=== PATIENT | male | born 1970 | race Caucasian/White ===

== ENCOUNTER → 2016-08-14 | Outpatient (CLI) | payer BC, MEDICAID ==
[~2016-08-14] MED LIST: CEPH500C2 PO; CYAN50003 PO; DOCU-175 PO; ELDE118L PO; GLUC1CAP39 PO; MULT-1243 PO; OXYC1TAB11 PO; TOPI50TA PO
--- NOTE | 2016-08-14 10:05 | DI ---
Indication: ITS.REASON: C02.9;C60.1;R59.0 LOCALIZED ENLARGED LYMPH NODES PROCEDURE: PET/CT SKULL TO THIGH SUBSEQUE: Encounter: Subsequent Comparison: PET/CT dated April 24, [address] abdomen/pelvis dated September 07, 2015 Technique: 18.8 mCi of F-18 FDG was administered intravenously via the right antecubital fossa. Approximately 60 minutes later 3D PET/CT imaging was performed from the skull base through the mid thighs. The CT images are for attenuation correction purposes only. Findings: No areas of abnormal FDG uptake seen within the skull base. There is no metabolically active adenopathy seen in the neck. Postoperative changes in the right neck. Mildly increased uptake diffusely in the thyroid gland. Focus of increased activity in the right sternoclavicular joint likely related to degenerative inflammation. No metabolically active pulmonary nodules or masses appreciated. Expected myocardial uptake. No axillary or mediastinal lymphadenopathy. Liver uptake is relatively homogeneous without discrete metabolically active mass. Expected genitourinary and bowel uptake. No areas of concerning skeletal uptake appreciated. There is increased FDG uptake within a couple right inguinal area lymph nodes at location -1376. The most active shows an SUV max of 3.5. On the prior study this node had a SUV max of 1.5. Left-sided inguinal nodes at this same level have an SUV max of 2.2. Right external iliac node at location -1307 shows an SUV max of 3.8. Left external iliac node at the same level has an SUV max of 3.4. No additional metabolically active adenopathy identified. Impression: Mildly increased FDG uptake within a few pelvic lymph nodes which are more active than the comparison study raising some concern for metastatic disease. However, the size and morphologic appearance of the lymph nodes has not appreciably changed since August 2015. Continued attention to this area is recommended on subsequent exams. .
== END ==
LOC: IMA 06:22
PROVIDERS: ATTEND Urology
DX: C02.9 Malignant neoplasm of tongue, unspecified (principal); R93.8 Abnormal findings on diagnostic imaging of other specified body structures; C60.1 Malignant neoplasm of glans penis; R59.0 Localized enlarged lymph nodes
CPT/HCPCS: 78815; A9552

== ENCOUNTER → 2016-08-28 | Outpatient (CLI) | payer BC, MEDICAID ==
[2016-08-28 13:17] LABS: BLOOD, URINE TRACE-INTACT (NEGATIVE); COLOR,URINE YELLOW (YELLOW); LEUKOCYTE ESTERASE ,URINE NEGATIVE (NEGATIVE); NITRITE,URINE NEGATIVE (NEGATIVE); UROBILINOGEN,URINE 0.2 EU/DL (NORMAL)
== END ==
LOC: LABN 13:06
PROVIDERS: ATTEND Internal Medicine Medical Oncology
DX: C60.8 Malignant neoplasm of overlapping sites of penis (principal)
CPT/HCPCS: 81003

== ENCOUNTER → 2016-08-30 | Outpatient (CLI) | payer BC, MEDICAID ==
[2016-08-30 16:11] LABS: BLOOD, URINE 1+ (NEGATIVE); COLOR,URINE YELLOW (YELLOW); LEUKOCYTE ESTERASE ,URINE NEGATIVE (NEGATIVE); NITRITE,URINE NEGATIVE (NEGATIVE); UROBILINOGEN,URINE 0.2 EU/DL (NORMAL)
[2016-08-30 16:28] LABS: WBC,URINE 0-1 /HPF (0-5)
[2016-08-30 16:29] LABS: BACTERIA,URINE NONE SEEN (NEGATIVE); SQUAMOUS EPITHELIAL CELL,UR NONE SEEN
== END ==
LOC: LABN 15:57
PROVIDERS: ATTEND Internal Medicine Medical Oncology
DX: C60.8 Malignant neoplasm of overlapping sites of penis (principal)
CPT/HCPCS: 81001

== ENCOUNTER 2016-12-19 09:06 | Inpatient (IN) ==
--- OUTSIDE RECORDS SUMMARY | 2016-12-19 09:12 | External Medical Summary | Continuity of Care Document ---
:1970 Author Organization [facility] Care Team Providers Name Role Phone [employer] Unavailable Unavailable Encounters Location Location Encounter Encounter Reason Attending ADM DC Status Source Details Type Number For Provider Date Date Visit INPATIENT [id number] CHANDRA 11/29 12/02 Active The OR /2016 [facility] O CHANDRA Active The [facility] Family History Value Date Source Advance Directives Order Name Results Value Date Source
--- OUTSIDE RECORDS SUMMARY | 2016-12-19 09:13 | External Medical Summary | Encounter Summary ---
:1970 Author Organization [facility] Address [address] [facility] [address] [place] [address] Phone Care Team Providers Name Role Phone Unavailable Primary Care Provider Unavailable Reason for Visit Reason Comments Wound Care Encounter Details Date Type Department Care Team Description 12/03/2016 Telephone [facility] Lamont Hollingsworth MD Wound Care Physicians - Urology [address] [facility] [address] [place] [address] [address] [facility] [phone] [place] [address] Social History Tobacco Use Types Packs/Day Years Used Date Former Smoker Cigarettes 28 Quit: 10/12/2014 Smokeless Tobacco: Former User Chew Comments: STARTED SMOKING CIGARETTES AGE [age]; 1 PACK A DAY; AT AGE 27 STARTED TO CHEW- 1/2 TO 1 POUCH A DAY TILL AGE 44 Alcohol Use Drinks/Week oz/Week Comments Yes 0 Standard drinks or equivalent 0.0 MAYBE 1 DRINK A YEAR Sex Assigned at Date Recorded Not on file as of this encounter Functional Status Functional Status Response Date of Assessment Does the patient have a hearing impairment: No 06/27/2016 Does the patient have a visual impairment: No 06/27/2016 Does the patient have impaired ambulation: No 06/27/2016 Does the patient have an activity of daily living (ADL) No 06/27/2016 impairment: Does the patient have an instrumental activity of daily No 06/27/2016 living (IADL) impairment: Cognitive Status Response Date of Assessment Does the patient have a cognitive impairment: No 06/27/2016 as of this encounter Plan of Treatment Not on fileas of this encounter Visit Diagnoses Not on filein this encounter
--- OUTSIDE RECORDS SUMMARY | 2016-12-19 09:13 | External Medical Summary | Encounter Summary ---
:[address] [facility] Address [address] [facility] [address] [place] [address] Phone Care Team Providers Name Role Phone Unavailable Primary Care Provider Unavailable Reason for Visit Reason Comments Other f/u Encounter Details Date Type Department Care Team Description 11/01/2016 Telephone [facility] Romel Sanchez MD Other (f/u) [facility] [address] [place] [address] [address] [place] [address] [place] [address] [phone] Social History Tobacco Use Types Packs/Day Years [...]
--- OUTSIDE RECORDS SUMMARY | 2016-12-19 09:13 | External Medical Summary | Encounter Summary ---
:[address] [facility] Address [address] [place] [address] Phone Care Team Providers Name Role Phone Unavailable Primary Care Provider Unavailable Reason for Visit Auth/Cert Status Reason Specialty Diagnoses / Procedures Referred By Contact Referred To Contact Diagnoses Penile cancer (HCC) unknown Procedures LYMPHADENECTOMY INGUINAL DISSECTION LYMPH NODE PELVIC, robotic Encounter Details Date Type Department Care Team Description 11/29/2016 Surgery Main Operating Room Chandra August MD ROBOTIC PELVIC [address] [place] [address] [address] [place], [place] [id number] Social History Tobacco Use Types Packs/Day Years [...] Not on file as of this encounter Last Filed Vital Signs Vital Sign Reading Time Taken Blood Pressure 105/59 12/02/2016 11:22 AM CDT Pulse 69 12/02/2016 11:22 AM CDT Temperature 36.9 C (98.4 F) 12/02/2016 11:22 AM CDT Respiratory Rate - - Oxygen Saturation 100% 12/02/2016 11:22 AM CDT Inhaled Oxygen Concentration - - Weight 151.9 kg (334 lb 14.1 oz) 11/29/2016 8:06 AM CDT Height 180.3 cm (5' 11") 11/29/2016 8:06 AM CDT Body Mass Index 46.71 11/29/2016 8:06 AM CDT in this encounter Functional Status Functional Status Response [...] impairment: No 06/27/2016 as of this encounter Discharge Summaries Crystal Schaeffer MD - 12/02/2016 1:50 PM CDTFormatting of this note may be different from the original. Physician Discharge Summary Name: Shun Keys Date Of : 1970 Age: 46 years Admit date: 11/29/2016 Discharge date: 12/02/2016 Attending Physician: Chandra August Service: Surgery-Urology Physician Summary completed by: Crystal Schaeffer MD Reason for hospitalization: penile cancer requiring pelvic lymph node dissection Significant PMH: Past Medical History: Diagnosis Date Cancer of tongue (HCC) Gout Hearing reduced Obesity, Class III, BMI 40-49.9 (morbid obesity) (HCC) BMI - 45.91 - 311 LBS Sleep apnea with use of continuous positive airway pressure (CPAP) Allergies: Review of patient's allergies indicates no known allergies. Admission Physical Exam notable for: Constitutional: He is oriented to person, place, and time. He appears well- developed and well-nourished. No distress. HENT: Head: Normocephalic and atraumatic. Eyes: Conjunctivae are normal. Right eye exhibits no discharge. Left eye exhibits no discharge. No scleral icterus. Neck: No tracheal deviation present. Cardiovascular: Normal rate. Pulmonary/Chest: Effort normal. No stridor. No respiratory distress. Abdominal: He exhibits no distension. Genitourinary: Wounds well healed Well healed perineal wounds without fluctuance, induration, erythema, or crepitance Musculoskeletal: Normal range of motion. He exhibits no edema or tenderness. Neurological: He is alert and oriented to person, place, and time. Skin: Skin is warm and dry. No rash noted. He is not diaphoretic. No erythema. No pallor. Psychiatric: He has a normal mood and affect. His behavior is normal. Judgment and thought content normal. Admission Lab/Radiology studies notable for: Hgb 12.3, WBC 13.3 Brief Hospital Course: The patient was admitted and the following issues were addressed during thishospitalization: (with pertinent details). Patient was admitted for the procedure listed below, which he underwent on without issues. Postoperatively, the patient's pain was well controlled and he tolerated diet without nausea or emesis. His bowel functions returned and he was continued on 1 day of postoperative Ancef, which was then transitioned to Keflex 500mg BID. Once all discharge criteria were met, the patient was discharged with 2 inguinal ALEJANDRO drains and instructed to wear compression stockings at all times to prevent LE edema.He was instructed to call when his ALEJANDRO drain output are less than 50-60cc/day and schedule a followupappointment at that time. He was instructed to continue the current Keflex regimen until that time. Patient voiced understanding and was discharged in stable condition to home with home health. Condition at Discharge: Stable Discharge Diagnoses: Hospital Problems Active Problems Penile cancer (HCC) Surgical Procedures: robotic assisted laparoscopic bilateral pelvic lymph node dissection, bilateralilioinguinal lymph node dissection, bilateral muscle flap transposition. Significant Diagnostic Studies and Procedures: noted in brief hospital course Consults: None Patient Disposition: Home with Home Health Care Patient instructions/medications: Driving Restrictions No driving while taking pain medication. Lifting Restrictions Do not lift more than 10 pounds for 5 week(s). Report These Signs and Symptoms Please contact your doctor if you have any of the following symptoms: temperature higher than 101 degrees F, uncontrolled pain, persistent nausea and/ or vomiting, difficulty breathing, chest pain, severe abdominal pain, headache, unable to urinate, unable to have bowel movement or drainage with a foulodor Questions About Your Stay For questions or concerns regarding your hospital stay. Call [phone] Discharging attending physician: CHANDRA AUGUST [[id number]] Regular Diet You have no dietary restriction. Please continue with a healthy balanced diet. Wound Care Keep wound clean and dry. Do not submerge under water. Incision Care *Keep your incision clean and dry. *May shower following procedure. Avoid direct water contact to the incision. Take sponge baths, working around the incision during this time. *Do not submerge incision in tub, pool, hot tub, or stout for 4 weeks. *Usually there are not stitches to be removed. Steri-strips (strips of tape) will begin to fall off in 10-14 days. If they remain after 2 weeks, gently remove them when they are damp after a shower. *Your incision should gradually look better each day. If you notice unusual swelling, redness, drainage, have increasing pain at the site, or have a fever greater than 100 degrees, notify your physician immediately. Return Appointment Please call [phone] once your ALEJANDRO drain output is less than 60mL per day to schedule a follow upappointment with Dr. August. [facility] Provider CHANDRA AUGUST [[id number]] Eugene Blankenship Drain Shelter care instructions: *WASH HANDS PRIOR TO ANY HANDLING OF DRAIN. *Please write down daily (total for 24 hours) drain output, and empty multiple times a day if neededor according to physician's instructions. *To empty the drain, open the lid on top of the bulb. Pour the fluid into a measuring cup and record. Close by squeezing the bulb until as much air as possible is removed, the cap the lid to recreatesuction. *IF TOLD TO DO BY YOUR DOCTOR, "strip the drain" twice daily by pinching the tubing near the skin with both hands. Keep hand closest to you steady, and with the other, slowly squeeze the liquid towardthe bulb. This will prevent any clots or debris from clogging the drain. *It is okay to shower with the drain. Make sure the entry site is dry before placing a dressing. *Please bring the drain record to your next clinic appointment. Secure the drain to your clothes using asafety pin. *DO NOT TRY TO PUSH THE DRAIN BACK IN IF IT GETS PULLED OUT (even a little bit) , THIS IS A BIG INFECTION RISK. If you have any problems with the drain ( for example, large amounts of fluid, very bloody fluid, or loss of suction), please call your doctor. Current Discharge Medication List START taking these medications Details cephalexin (KEFLEX) 500 mg capsule Take 1 capsule by mouth twice daily for 14 days. Qty: 28 capsule, Refills: 0 PRESCRIPTION TYPE: Print enoxaparin (LOVENOX) 40 mg injection syringe Inject 0.4 mL under the skin twice daily for 30 days. Qty: 24 mL, Refills: 0 PRESCRIPTION TYPE: Print Miscellaneous Medical Supply misc Wear compression stocking daily at home. Qty: 1 Device, Refills: 0 PRESCRIPTION TYPE: Print oxyCODONE (ROXICODONE, OXY-IR) 5 mg tablet Take 1 tablet by mouth every 4 hours as needed (moderate to severe pain) Indications: PAIN Earliest Fill Date: Qty: 40 tablet, Refills: 0 PRESCRIPTION TYPE: Print polyethylene glycol 3350 (MIRALAX) 17 g packet Take 1 packet by mouth daily. Indications: CONSTIPATION Qty: 12 each, Refills: 2 PRESCRIPTION TYPE: Print senna (SENOKOT) 8.6 mg tablet Take 1 tablet by mouth twice daily as needed for Constipation. Indications: CONSTIPATION Qty: 90 tablet, Refills: 3 PRESCRIPTION TYPE: Print CONTINUE these medications which have NOT CHANGED Details acetaminophen (TYLENOL) 500 mg tablet Take 500 mg by mouth every 6 hours as needed for Pain. Max of 4,000 mg of acetaminophen in 24 hours. PRESCRIPTION TYPE: Historical Med allopurinol (ZYLOPRIM) 100 mg tablet Take 100 mg by mouth daily. Take with food. PRESCRIPTION TYPE: Historical Med cyanocobalamin (VITAMIN B-12) 1,000 mcg tablet Take 1,000 mcg by mouth daily. PRESCRIPTION TYPE: Historical Med Tbjzbvkq-Kolk-Bkw-Folic Acid (CENTRUM COMPLETE) 18-0.4 mg tab Take 1 Tab by mouth daily. PRESCRIPTION TYPE: Historical Med sertraline (ZOLOFT) 100 mg tablet Take 150 mg by mouth at bedtime daily. PRESCRIPTION TYPE: Historical Med topiramate (TOPAMAX) 50 mg tablet Take 50 mg by mouth twice daily. PRESCRIPTION TYPE: Historical Med The following medications were removed from your list. This list includes medications discontinued this stay and those removed from your prior med list in our system guaiFENesin LA (MUCINEX) 600 mg tablet Pending items needing follow up: surgical pathology at follow up appt Signed: Crystal Schaeffer MD 12/02/2016 cc: Primary Care Physician: Humphrey Chris Fast Verified Referring physicians: Humphrey Dominguez MD Additional provider(s): in this encounter Medications at Time of Discharge Medication Sig. Disp. Refills Start Date End Date acetaminophen (TYLENOL) Take 500 mg by mouth 500 mg tablet every 6 hours as needed for Pain. Max of 4,000 mg of acetaminophen in 24 hours. allopurinol (ZYLOPRIM) Take 100 mg by mouth 100 mg tablet daily. Take with food. cyanocobalamin (VITAMIN Take 1,000 mcg by B-12) 1,000 mcg tablet mouth daily. enoxaparin (LOVENOX) 40 Inject 0.4 mL under 24 mL 0 12/02/2016 01/01/2017 mg injection syringe the skin twice daily for 30 days. Miscellaneous Medical Wear compression 1 Device 0 12/02/2016 Supply misc stocking daily at home. Zqvtukfe-Pglj-Ubk-Folic Take 1 Tab by mouth Acid (CENTRUM COMPLETE) daily. 18-0.4 mg tab oxyCODONE (ROXICODONE, Take 1 tablet by 40 tablet 0 12/02/2016 OXY-IR) 5 mg mouth every 4 hours tabletIndications: PAIN as needed (moderate to severe pain) Indications: PAIN Earliest Fill Date: 12/02/16 polyethylene glycol Take 1 packet by 12 each 2 12/02/2016 3350 (MIRALAX) 17 g mouth daily. packetIndications: Indications: CONSTIPATION CONSTIPATION senna (SENOKOT) 8.6 mg Take 1 tablet by 90 tablet 3 12/02/2016 tabletIndications: mouth twice daily as CONSTIPATION needed for Constipation. Indications: CONSTIPATION sertraline (ZOLOFT) 100 Take 150 mg by mouth mg tablet at bedtime daily. topiramate (TOPAMAX) 50 Take 50 mg by mouth mg tablet twice daily. cephalexin (KEFLEX) 500 Take 1 capsule by 28 capsule 0 12/02/20162016 mg capsule mouth twice daily for 14 days. as of this encounter Progress Notes Cyril Sullivan MD - 12/02/2016 5:29 AM CDTFormatting of this note may be different from the original. Urology Progress Note 12/02/2016 ASSESSMENT: Shun Keys is a 46 y.o. Male with penile cancer s/p bilateral inguinal and pelvic lymphadenectomy LOS: 3 days PLAN: will discuss plan with staff surgeon - Dr. August - Pain control: Fentanyl, oxycodone - Diet/FEN: Regular - GI: bowel regimen - : Voiding spontaneously, paris removed yesterday - Compression stockings at all times - Heme/ID: BID Keflex - Inguinal drains to remain in place beyond discharge. - OOB/Amb - Dispo: Discharge planning. Will likely have home health or home PT needs due to weakness. Prophylaxis Review: - DVT: Lovenox - GI: No - Catheter: No - Abx: Yes Cyril Sullivan M.D. PGY-2 Urology Please page urology carton forming machine tender with questions SUBJECTIVE: Overnight events: No acute events. Pain controlled. Tolerating diet without nausea or emesis. Ambulated minimally with assistance of PT. Passing gas. no bowel movement. OBJECTIVE: Vital Signs: Most Recent Vital Signs: Past 24 Hours BP: 103/55 (12/02 252) Temp: 36.4 C (97.5 F) (12/02 252) Pulse: 67 (12/02 252) Respirations: 17 PER MINUTE (12/02 252) SpO2: 100 % (12/02 252) O2 Delivery: None (Room Air) (12/02 252) BP: (99-108)/(55-65) Temp: [36.3 C (97.4 F)-37.1 C (98.8 F)] Pulse: [67-78] Respirations: [16 PER MINUTE-18 PER MINUTE] SpO2: [97 %-100 %] O2 Delivery: None (Room Air) Intake/Output Summary (Last 24 hours) at 12/02/16 0580 Last data filed at 12/02/16 0415 Gross per 24 hour Intake 1900 ml Output 7032 ml Net -5132 ml General: alert, oriented, no acute distress. Pulm: non-labored, equal chest rise CV: regular rate and rhythm Abd: soft, non-distended. ALEJANDRO drain with serosanguinous output. Incisions / Wounds: Appropriately tender to palpation. Inguinal incisions C/D/I and dressed. Roboticincisions well-approximated. ALEJANDRO drains with serosanguinous output. Extremities: No edema, SCD's in place : Voiding spontaneously via perineal urethrostomy. Labs: Hematology Chemistry Recent Labs 12/02/16 0412 WBC 4.1* HGB 7.9* PLTCT 136* Recent Labs 12/01/16 0500 NA 137 K 3.7 CL 108 CO2 26 BUN 10 CR 0.71 GFR >60 GLU 98 CA 7.9* PO4 2.0 ] Associated attestation - Chandra August MD - 12/02/2016 1:32 PM CDTAttestation I saw and evaluated pt with the resident on rounds and performed the lal portions of the e/m. I agree with the above assessment and plan. Pt doing very well. He has mild BLE edema and has his compression stockings in place. His wounds are c/d/i without evidence of vascular compromise. He will be d/c'd today with both his inguinal ALEJANDRO drains.Lynne Dickinson, PT - 12/01/2016 2:55 PM CDTPHYSICAL THERAPY PROGRESS NOTE MOBILITY: Mobility Progressive Mobility Level: Walk laps Distance Walked (feet): 200 ft Level of Assistance: Assist X1 Assistive Device: Walker (with wheelchair follow) Time Tolerated: 11-30 minutes Activity Limited By: Pain;Weakness SUBJECTIVE: Subjective Significant hospital events: 46 y.o. Male with penile cancer s/p bilateral inguinal and pelvic lymphadenectomy Mental / Cognitive Status: Alert;Oriented;Cooperative Persons Present: Spouse Pain: Patient complains of pain Pain Location: Right (Groin) Pain Interventions: Patient agrees to participate in therapy Ambulation Assist: Independent Mobility in Community without Device Patient Owned Equipment: None Home Situation: Lives with Family (Spouse and children) Type of Home: House Entry Stairs: No Stairs In-Home Stairs: Able to Live on One Level BED MOBILITY/TRANSFERS: Bed Mobility/Transfers Transfer Type: Sit to/from Stand Transfer: Assistance Level: To/From;Bed Side Chair;Minimal Assist Transfer: Assistive Device: Roller Walker Transfers: Type Of Assistance: Verbal Cues;For Strength Deficit End Of Activity Status: Up in Chair;Instructed Patient to Request Assist with Mobility;Instructed Patient to Use Call Light GAIT: Gait Gait Distance: 200 feet Gait: Assistance Level: Standby Assist (2nd person for wheelchair follow for safety) Gait: Assistive Device: Roller Walker Gait: Descriptors: Pace: Slow;Decreased foot clearance RLE;Decreased foot clearance LLE Activity Limited By: Complaint of Pain;Weakness EDUCATION: Education Persons Educated: Patient Patient Barriers To Learning: None Noted Teaching Methods: Verbal Instruction Patient Response: Verbalized Understanding Topics: Plan/Goals of PT Interventions;Mobility Progression;Importance of Increasing Activity;Up with Assist Only;Safety Awareness;Use of Assistive Device /Orthosis ASSESSMENT/PROGRESS: Assessment/Progress Impaired Mobility Due To: Pain;Decreased Strength Assessment/Progress: Should Improve w/ Continued PT Comments: Patient has some difficulty with sit to/from stand due to pain/ weakness in bilateral groins from lymph node removal. Once patient is standing, pt is able to ambulate well. His ability to clear his feet from the floor has improved. GOALS: Goals Goal Formulation: With Patient/Family Time For Goal Achievement: 5 days Pt Will Go Supine To/From Sit: w/ Minimal Assist Pt Will Transfer Sit to Stand: w/ Minimal Assist Pt Will Ambulate: 51-100 Feet, w/ Walker, w/ Stand By Assist PLAN: Plan Treatment Interventions: Mobility Training;Strengthening Plan Frequency: 5 Days per Week Comments: Progress ambulation. Make sure pt is able to complete bed mobility and transfers without assistance as his has to work and will not be available to assist at all times when at home. RECOMMENDATIONS: PT Discharge Recommendations PT Discharge Recommendations: Home with Assistance;Home Health Setting Equipment Recommendations: Roller Walker (Bariatric); Patient requires the use of a walker with wheels to complete ADLs in the home including meal preparation, ambulation the bathroom for toileting,bathing and grooming, and safe home mobility. Patient is unable to complete these ADLs with a cane or crutch. Recommend ongoing assistance for: Bed mobility;Transfers;Stairs Therapist: Lynne Dickinson, PT Date: 12/01/2016 Elba Mckenzie MD - 12/01/2016 7:10 AM CDTFormatting of this note may be different from the original. Urology Progress Note 12/01/2016 ASSESSMENT: Shun Keys is a 46 y.o. Male with penile cancer s/p bilateral inguinal and pelvic lymphadenectomy LOS: 2 days PLAN: will discuss plan with staff surgeon - Dr. Zhao - Pain control: Fentanyl, oxycodone - Diet/FEN: Regular - GI: bowel regimen - : Voiding spontaneously, paris removed yesterday - Compression stockings at all times - Heme/ID: BID Keflex - Will remove abdominopelvic ALEJANDRO drain today. Inguinal drains to remain in place beyond discharge. - OOB/Amb - Dispo: Continue inpatient stay; Will likely have home health or home PT needs due to weakness. Prophylaxis Review: - DVT: Lovenox - GI: No - Catheter: No - Abx: Yes Elba Mckenzie MD PGY-3 Urology Please page urology carton forming machine tender with questions SUBJECTIVE: Overnight events: No acute events. Pain controlled. Tolerating diet without nausea or emesis. Ambulated minimally with assistance of PT. Passing gas. OBJECTIVE: Vital Signs: Most Recent Vital Signs: Past 24 Hours BP: 104/60 (12/02 635) Temp: 36.8 C (98.3 F) (12/02 635) Pulse: 75 (12/02 635) Respirations: 18 PER MINUTE (12/02 635) SpO2: 97 % (12/02 635) O2 Delivery: None (Room Air) (12/02 635) BP: (103-138)/(57-83) Temp: [36.2 C (97.2 F)-37.3 C (99.1 F)] Pulse: [73-111] Respirations: [16 PER MINUTE-20 PER MINUTE] SpO2: [93 %-100 %] O2 Delivery: None (Room Air) Intake/Output Summary (Last 24 hours) at 12/01/16 0710 Last data filed at 12/01/16 0637 Gross per 24 hour Intake 3028 ml Output 4791 ml Net -1763 ml General: alert, oriented, no acute distress. Pulm: non-labored, equal chest rise CV: regular rate and rhythm Abd: soft, non-distended. ALEJANDRO drain with serosanguinous output. Incisions / Wounds: Appropriately tender to palpation. Inguinal incisions C/D/I and dressed. Roboticincisions well-approximated. ALEJANDRO drains with serosanguinous output. Extremities: No edema, SCD's in place : Voiding spontaneously via perineal urethrostomy. Labs: Hematology Chemistry Recent Labs 12/01/16 0500 WBC 5.1 HGB 8.6* PLTCT 154 Recent Labs 12/01/16 0500 NA 137 K 3.7 CL 108 CO2 26 BUN 10 CR 0.71 GFR >60 GLU 98 CA 7.9* PO4 2.0 ]Juni Castellano, PT - 11/30/2016 2:55 PM CDTPHYSICAL THERAPY ASSESSMENT MOBILITY: Mobility Progressive Mobility Level: Active transfer to chair Level of Assistance: Assist X2 Assistive Device: Walker Time Tolerated: 0-10 minutes Activity Limited By: Dizziness;Weakness;Pain;Fatigue SUBJECTIVE: Subjective Significant hospital events: 46 y.o. Male with penile cancer s/p bilateral inguinal and pelvic lymphadenectomy Mental / Cognitive Status: Alert;Oriented;Cooperative Persons Present: Spouse Pain: Patient complains of pain;Patient unable to rate pain Pain Location: Left;Thigh Pain Interventions: Patient agrees to participate in therapy;Treatment altered to patient's pain tolerance;Patient assisted into position of comfort Comments: ALEJANDRO drain x3 Ambulation Assist: Independent Mobility in Community without Device Patient Owned Equipment: None Home Situation: Lives with Family (Spouse and children) Type of Home: House Entry Stairs: No Stairs In-Home Stairs: Able to Live on One Level Comments: Spouse will be able to assist with bed mobility and transfers at home. ROM: ROM ROM Position Assessed: Seated ROM Method: Active LE ROM: Bilateral;Hip;Limited (Due to pain and weakness) STRENGTH: Strength Strength Position Assessed: Seated Strength Comment: Bilateral hip flexion weakness (3-/5) BED MOBILITY/TRANSFERS: Bed Mobility/Transfers Bed Mobility: Supine to Sit: Moderate Assist;x2 People Comments: Pt requires assistance to move BLEs in supine and assist with trunk to sit up. He is abnleto scoot to edge of bed using BUEs. Transfer Type: Sit to/from Stand Transfer: Assistance Level: From;Bed;To;Bed Side Chair;Moderate Assist;x2 People Transfer: Assistive Device: Roller Walker Transfers: Type Of Assistance: Verbal Cues;Knees(s) Blocked;For Strength Deficit ;For Safety Considerations;Requires Extra Time End Of Activity Status: Up in Chair;Nursing Notified;Instructed Patient to Request Assist with Mobility;Instructed Patient to Use Call Light Comments: Pt reported minimal dizziness upon standing up which subsided with deep breathing exercises and static standing. Patient able to take 5-6 small steps to bedside chair. He has difficuly with lifting LEs and advancing feet due to decreased hip flexion strength. GAIT: Gait Comments: Patient unable to ambulate at this time due to reports of dizziness with standing throughout the day and LE weakness. ACTIVITY/EXERCISE: Activity / Exercise Comments: Pt performed seated marching x3 with 5 second holds. He requires assistance to lift foot off ground, but is able to hold leg in the air independently. EDUCATION: Education Persons Educated: Patient Patient Barriers To Learning: Pain;Anxiety Interventions: Family Education;Repetition of Instructions Teaching Methods: Verbal Instruction Patient Response: Verbalized Understanding;More Instruction Required Topics: Plan/Goals of PT Interventions;Use of Assistive Device/Orthosis; Mobility Progression;Exercise Program;Safety Awareness;Up with Assist Only; Importance of Increasing Activity;Equipment Recommendations;Recommend Continued Therapy ASSESSMENT/PROGRESS: Assessment/Progress Impaired Mobility Due To: Post Surgical Changes;Pain;Decreased Strength Impaired Strength Due To: Pain Assessment/Progress: Should Improve w/ Continued PT;Expect Good Progress GOALS: Goals Goal Formulation: With Patient/Family Time For Goal Achievement: 5 days Pt Will Go Supine To/From Sit: w/ Minimal Assist Pt Will Transfer Sit to Stand: w/ Minimal Assist Pt Will Ambulate: 51-100 Feet, w/ Walker, w/ Stand By Assist PLAN: Plan Treatment Interventions: Mobility Training;Strengthening Plan Frequency: 5 Days per Week Comments: Ambulate as tolerated with chair follow. RECOMMENDATIONS: PT Discharge Recommendations PT Discharge Recommendations: Inpatient Setting (Home with Assistance anticipated if patients pain and dizziness improves) Equipment Recommendations: Roller Walker (Bariatric Walker) Comments: Pt wishes to go to inpatient setting near home in [place] if inpatient setting is required. Patient requires the use of a walker with wheels to complete ADLs in the home including meal preparation, ambulation the bathroom for toileting, bathing and grooming, and safe home mobility. Patient is unable to complete these ADL s with a cane or crutch. Therapist: Juni Castellano PT, DPT Date: 11/30/2016 Alesia Aparicio RN - 11/30/2016 11:06 AM CDTPt tried to stand up and walk to bathroom but became dizzy x 2. Notified Elba Mckenzie MD. MD came in and encouraged pt to get some rest and rehydrate. Will continue to monitor.Elba Mckenzie MD - 11/30/2016 6:58 AM CDTFormatting of this note may be different from the original. Urology Progress Note 11/30/2016 ASSESSMENT: Shun Keys is a 46 y.o. Male with penile cancer s/p bilateral inguinal and pelvic lymphadenectomy LOS: 1 day PLAN: will discuss plan with staff surgeon - Dr. Zhao - Pain control: Fentanyl, oxycodone - Diet/FEN: Regular - GI: bowel regimen - : Remove paris catheter - Compression stockings at all times - Heme/ID: Continue Ancef x 24 hours then start BID Keflex - OOB/Amb - Dispo: Continue inpatient stay Prophylaxis Review: - DVT: Lovenox to begin tonight - GI: No - Catheter: No, removed this AM - Abx: Yes Elba Mckenzie MD PGY-3 Urology Please page urology carton forming machine tender with questions SUBJECTIVE: Overnight events: No acute events. Pain controlled. Tolerating diet without nausea or emesis. Not yet ambulating. OBJECTIVE: Vital Signs: Most Recent Vital Signs: Past 24 Hours BP: 107/63 (11/30 318) Temp: 37 C (98.6 F) (11/30 318) Pulse: 71 (11/30 318) Respirations: 16 PER MINUTE (11/30 318) SpO2: 99 % (11/30 318) O2 Delivery: None (Room Air) (11/29 1909) Height: 180.3 cm (71") (11/29 805) Weight: 151.9 kg (334 lb 14.1 oz) (11/29 805) BP: (107-148)/(63-98) Temp: [36 C (96.8 F)-37 C (98.6 F)] Pulse: [59-96] Respirations: [10 PER MINUTE-17 PER MINUTE] SpO2: [95 %-100 %] O2 Delivery: None (Room Air) Intake/Output Summary (Last 24 hours) at 11/30/16 0659 Last data filed at 11/30/16 0600 Gross per 24 hour Intake 5592 ml Output 3568.5 ml Net 2023.5 ml General: alert, oriented, no acute distress. Pulm: non-labored, equal chest rise CV: regular rate and rhythm Abd: soft, non-distended. ALEJANDRO drain with serosanguinous output. Incisions / Wounds: Appropriately tender to palpation. Inguinal incisions C/D/I and dressed. Roboticincisions well-approximated. ALEJANDRO drains with serosanguinous output. Extremities: No edema, SCD's in place : Paris catheter removed. Labs: Hematology Chemistry Recent Labs 11/30/16 0445 WBC 7.0 HGB 9.5* PLTCT 135* Recent Labs 11/30/16 0445 NA 133* K 5.5* CL 106 CO2 24 BUN 13 CR 0.88 GFR >60 GLU 115* CA 7.7* PO4 3.4 ]Veronica Kruse RN - 11/14/2016 1:59 PM CDTPAC phone triage call completed with patient who is scheduled for surgery 11/29/[address] Martel. Allergies, medications, medical and surgical history reviewed and updated in record. Patient has hx ofOSA with prior surgery to correct, and it has improved, however he still wears CPAP every evening. BMI is 47.35 reported. Will bring equipment with him on DOS. Patient denies chest pain, pressure or palpitations. Has hx of tongue cancer, former smokeless tobacco user and smoker. Lives 3 hours from . Had surgery in June 2016 and tolerated anesthesia well. No PAC appointment scheduled. Instructed to discontinue use of any vitamins, supplements or herbal remedies 2 weeks before surgeryand to avoid use of NSAIDS or aspirin 1 week before surgery. May take tylenol as needed for minor discomforts. Also instructed on the day of surgery have nothing to eat or drink after midnight, may brush teeth/ tongue and rinse mouth the morning of surgery. May take topiramate and allopurinol the day of surgery with sips of water. Take bath or shower the evening before and morning of surgery using antibacterial soap. Sleep in clean sleepwear and linens. Do not use lotions, oils, deodorant or powders after bathing, do not wear Jewelry and leave valuables at home. Patient verbalized understanding and denied questions. Direct number provided and patient encouraged to call clinic if any questions should arise prior to DOS. Offered to send pre-op and medication instructions; patient declined need for same. in this encounter Plan of Treatment Scheduled Tests Name Priority Associated Diagnoses Order Schedule SURGICAL PATHOLOGY Routine Penile cancer (HCC) ONCE for 1 Occurrences starting 11/29/2016 as of this encounter Procedures Procedure Name Priority Date/Time Associated Comments Diagnosis TELEMETRY STRIPS-SCAN 12/06/2016 3:03 Results for this PM CDT procedure are in the results section. BILATERAL 11/29/2016 9:05 Penile cancer LYMPHADENECTOMY INGUINAL AM CDT (HCC) Special Needs 11/08 PER PHONE CALL WITH MARCIANO, JAMIL HENNESSY ASSISTING - DONE, ALSO CHANGED PREF CARD ON 2ND PROCEDURE TO ROBOTIC PROSTATECTOMY REQUESTED BY REGULATORY TECHNICIAN - Tim DU, RN ([id number]) ROBOTIC PELVIC LYMPHADENECTOMY 11/29/2016 9:05 AM CDT Penile cancer (HCC) Special Needs 11/08 PER PHONE CALL WITH JAMIL TARIQ DR. ASSISTING - DONE, ALSO CHANGED PREF CARD ON 2ND PROCEDURE TO ROBOTIC PROSTATECTOMY REQUESTED BY REGULATORY TECHNICIAN - Tim DU, RN ([id number]) in this encounter Results TELEMETRY STRIPS-SCAN (12/06/2016 3:03 PM) Narrative Ordered by an unspecified provider. PHOSPHORUS (12/02/2016 4:12 AM) Component Value Ref Range Phosphorus 2.9 2.0 - 4.0 MG/DL Specimen Performing Laboratory [facility] [address] [place] [address] MAGNESIUM (12/02/2016 4:12 AM) Component Value Ref Range Magnesium 2.1 1.6 - 2.6 mg/dL Specimen Performing Laboratory [facility] [address] [place] [address] BASIC METABOLIC PANEL (12/02/2016 4:12 AM) Component Value Ref Range Sodium 141 137 - 147 MMOL/L Potassium 3.8 3.5 - 5.1 MMOL/L Chloride 109 98 - 110 MMOL/L CO2 27 21 - 30 MMOL/L Anion Gap 5 3 - 12 Glucose 82 70 - 100 MG/DL Blood Urea Nitrogen 8 7 - 25 MG/DL Creatinine 0.63 0.4 - 1.24 MG/DL Calcium 8.1 (L) 8.5 - 10.6 MG/DL eGFR Non >60 >60 mL/min Comment: The eGFR is not validated for use in drug dosing adjustments.Continue to use estimated creatinine clearance per dosing reference text.Please contact the Clinical Pharmacist for questions. eGFR >60 >60 mL/min Comment: The eGFR is not validated for use in drug dosing adjustments.Continue to use estimated creatinine clearance per dosing reference text.Please contact the Clinical Pharmacist for questions. Specimen Performing Laboratory [facility] [address] [place] [id number] CBC (12/02/2016 4:12 AM) Component Value Ref Range White Blood Cells 4.1 (L) 4.5 - 11.0 K/UL RBC 2.54 (L) 4.4 - 5.5 M/UL Hemoglobin 7.9 (L) 13.5 - 16.5 GM/DL Hematocrit 23.6 (L) 40 - 50 % MCV 93.0 80 - 100 FL MCH 31.0 26 - 34 PG MCHC 33.3 32.0 - 36.0 G/DL RDW 17.3 (H) 11 - 15 % Platelet Count 136 (L) 150 - 400 K/UL MPV 7.5 7 - 11 FL Specimen Performing Laboratory [facility] [address] [place] [id number] PHOSPHORUS (12/01/2016 5:00 AM) Component Value Ref Range Phosphorus 2.0 2.0 - 4.0 MG/DL Specimen Performing Laboratory [facility] [address] [place] [address] MAGNESIUM (12/01/2016 5:00 AM) Component Value Ref Range Magnesium 2.1 1.6 - 2.6 mg/dL Specimen Performing Laboratory [facility] [address] [place] [id number] BASIC METABOLIC PANEL (12/01/2016 5:00 AM) Component Value Ref Range Sodium 137 137 - 147 MMOL/L Potassium 3.7 3.5 - 5.1 MMOL/L Chloride 108 98 - 110 MMOL/L CO2 26 21 - 30 MMOL/L Anion Gap 3 3 - 12 Glucose 98 70 - 100 MG/DL Blood Urea Nitrogen 10 7 - 25 MG/DL Creatinine 0.71 0.4 - 1.24 MG/DL Calcium 7.9 (L) 8.5 - 10.6 MG/DL eGFR Non >60 >60 mL/min Comment: The eGFR is not validated for use in drug dosing adjustments.Continue to use estimated creatinine clearance per dosing reference text.Please contact the Clinical Pharmacist for questions. eGFR >60 >60 mL/min Comment: The eGFR is not validated for use in drug dosing adjustments.Continue to use estimated creatinine clearance per dosing reference text.Please contact the Clinical Pharmacist for questions. Specimen Performing Laboratory [facility] [address] [place] [address] CBC (12/01/2016 5:00 AM) Component Value Ref Range White Blood Cells 5.1 4.5 - 11.0 K/UL RBC 2.75 (L) 4.4 - 5.5 M/UL Hemoglobin 8.6 (L) 13.5 - 16.5 GM/DL Hematocrit 25.5 (L) 40 - 50 % MCV 92.8 80 - 100 FL MCH 31.4 26 - 34 PG MCHC 33.8 32.0 - 36.0 G/DL RDW 17.8 (H) 11 - 15 % Platelet Count 154 150 - 400 K/UL MPV 6.9 (L) 7 - 11 FL Specimen Performing Laboratory [facility] [address] [place] [address] PHOSPHORUS (11/30/2016 4:45 AM) Component Value Ref Range Phosphorus 3.4 2.0 - 4.0 MG/DL Specimen Performing Laboratory [facility] [address] [place] [address] MAGNESIUM (11/30/2016 4:45 AM) Component Value Ref Range Magnesium 2.1Comment: SLT HEMOLYSIS 1.6 - 2.6 mg/dL Specimen Performing Laboratory [facility] [address] [place] [address] BASIC METABOLIC PANEL (11/30/2016 4:45 AM) Component Value Ref Range Sodium 133 (L) 137 - 147 MMOL/L Potassium 5.5 (H)Comment: SLT HEMOLYSIS 3.5 - 5.1 MMOL/L Chloride 106 98 - 110 MMOL/L CO2 24 21 - 30 MMOL/L Anion Gap 3 3 - 12 Glucose 115 (H) 70 - 100 MG/DL Blood Urea Nitrogen 13 7 - 25 MG/DL Creatinine 0.88 0.4 - 1.24 MG/DL Calcium 7.7 (L) 8.5 - 10.6 MG/DL eGFR Non >60 >60 mL/min Comment: The eGFR is not validated for use in drug dosing adjustments.Continue to use estimated creatinine clearance per dosing reference text.Please contact the Clinical Pharmacist for questions. eGFR >60 >60 mL/min Comment: The eGFR is not validated for use in drug dosing adjustments.Continue to use estimated creatinine clearance per dosing reference text.Please contact the Clinical Pharmacist for questions. Specimen Performing Laboratory [facility] [address] [place] [address] CBC (11/30/2016 4:45 AM) Component Value Ref Range White Blood Cells 7.0 4.5 - 11.0 K/UL RBC 3.05 (L) 4.4 - 5.5 M/UL Hemoglobin 9.5 (L) 13.5 - 16.5 GM/DL Hematocrit 28.1 (L) 40 - 50 % MCV 92.3 80 - 100 FL MCH 31.3 26 - 34 PG MCHC 33.9 32.0 - 36.0 G/DL RDW 17.8 (H) 11 - 15 % Platelet Count 135 (L) 150 - 400 K/UL MPV 7.8 7 - 11 FL Specimen Performing Laboratory [facility] [address] [place] [address] CBC (11/29/2016 6:43 PM) Component Value Ref Range White Blood Cells 13.3 (H) 4.5 - 11.0 K/UL RBC 3.90 (L) 4.4 - 5.5 M/UL Hemoglobin 12.3 (L) 13.5 - 16.5 GM/DL Hematocrit 36.8 (L) 40 - 50 % MCV 94.5 80 - 100 FL MCH 31.6 26 - 34 PG MCHC 33.5 32.0 - 36.0 G/DL RDW 17.2 (H) 11 - 15 % Platelet Count 198 150 - 400 K/UL MPV 6.9 (L) 7 - 11 FL Specimen Performing Laboratory [facility] [address] [place] [address] SURGICAL PATHOLOGY (11/29/2016 4:52 PM) Component Value Ref Range PATHOLOGY REPORT [facility] [email or web address] Annie Huston MD, PhD, Director of Anatomic Pathology Department of Pathology and Laboratory Medicine [address] [place] [address] Surgical Pathology Office:[phone]:[phone] SURGICAL PATHOLOGY REPORT NAME: SHUN KEYS SURG PATH #: [id number] MR #: [id number] SPECIMEN CLASS: SR BILLING #: [id number] ALT ID #:LOCATION: DISCHARGED DATE OF PROCEDURE: 11/29/2016 AGE:46 SEX: M DATE RECEIVED: 12/02/2016 : 1970TIME RECEIVED:06:41 PHYSICIAN: CHANDRA AUGUST MD DATE OF REPORT : 12/06/2016 COPY TO:DATE OF PRINTIN12/06/2016 ######################################################################## Final Diagnosis: A. Lymph nodes (12), "right pelvic lymph nodes", excision: Negative for malignancy. B. Lymph nodes (11), "left pelvic lymph nodes", excision: Negative for malignancy. C. Lymph nodes (9), "right inguinal lymph nodes", excision: Negative for malignancy. D. Lymph nodes (10), "left inguinal lymph nodes", excision: Negative for malignancy. Attestation: By this signature, I attest that I have personally formulated the final interpretation expressed in this report and that the above diagnosis is based upon my examination of the slides and/or other material indicated in this report. +++ +++ ksw/12/02/2016 ######################################################################## Material Received: A: right pelvic lymph nodes B: left pelvic lymph nodes C: right inguinal lymph nodes D: left inguinal lymph nodes History: 46-year-old male with a clinical history of penile cancer. Gross Description: A. Received in formalin, labeled with the patient's name and "right pelvic lymph nodes" is a 7.5 x 5.5 x 1.9 cm aggregate of yellow-cevallos, lobulated adipose tissue. The specimen is sectioned and palpated to reveal ten possible lymph nodes which range from 0.7 x 0.6 x 0.4 cm to 3.3 x 1.9 x 0.9 cm. [employer] sections including all lymph nodes are submitted as follows: A1 Five possible intact lymph nodes. A2-A4 Each cassette contains one possible lymph node bisected. A5-A7 One possible lymph node serially section. A8-A9 One possible lymph node serially sectioned. (dlk) B. Received in formalin, labeled with the patient's name and "left pelvic lymph nodes" is a 7.2 x 4.8 x 2.2 cm aggregate of yellow-cevallos, lobulated adipose. The specimen is sectioned and palpated to reveal nine possible lymph nodes ranging from 0.6 x 0.5 x 0.3 cm to 2.9 x 1.6 x 0.7 cm. [employer] sections including all lymph nodes are submitted as follows: B1 Four possible intact lymph nodes. B2-B3 One possible lymph node bisected. B4-B6 One possible lymph node serially sectioned. B7-B10 One possible lymph node serially sectioned. (dlk) C. Received in formalin, labeled with the patient's name and "right inguinal lymph nodes" is a 15.5 x 9.5 x 3.3 cm aggregate of yellow-cevallos, lobulated adipose tissue. The specimen is sectioned and palpated to reveal eight possible lymph nodes ranging from 1.3 x 0.7 x 0.6 cm to 5.8 x 3.1 x 1.5 cm. [employer] sections including all lymph nodes are submitted as follows: C1 One possible lymph node bisected. C2 One possible lymph node bisected. C3 One possible lymph node bisected. C4-C7 Each two cassettes contain one possible lymph node bisected. C8-C11 One possible lymph node serially sectioned. T10-[id number] possible lymph node serially sectioned. D70-[id number] possible lymph node serially sectioned. [id number]-[id number] possible lymph node serially sectioned. (dlk) D. Received in formalin, labeled with the patient's name and "left inguinal lymph nodes" is a 17.6 x 12.3 x 4.8 cm aggregate of yellow-cevallos, lobulated adipose tissue. The specimen is serially sectioned and palpated through to reveal nine possible lymph nodes which range from 0.6 x 0.5 x 0.4 cm to 5.8 x 2.5 x 1.9 cm. [employer] sections including all the lymph nodes are submitted as follows: D1 Two possible intact lymph nodes. D2-D3 Each cassette contains one possible lymph node bisected. D4-D5 One possible lymph node bisected. D6-D8 One possible lymph node serially sectioned. D9-D17 One possible lymph node serially sectioned. [id number]-[id number] possible lymph node serially sectioned. I58-C88Log possible lymph node serially sectioned. E99-[id number] possible lymph node serially sectioned. (dlk) ksw/12/02/2016 Specimen Performing Laboratory [facility] RESULTS in this encounter Visit Diagnoses Diagnosis Penile cancer (HCC) Malignant neoplasm of penis, part unspecified in this encounter Admitting Diagnoses Diagnosis Penile cancer (HCC) - unknown Malignant neoplasm of penis, part unspecified Penile cancer (HCC) in this encounter Administered Medications Inactive Administered Medications - up to 3 most recent administrations Medication Order MAR Action Action Date Dose Rate Site bupivacaine (MARCAINE) 0.5 % injection Given 11/29/2016 14:40 CDT 30 mL INTRA-PROCEDURE MED, Starting Fri11/29/16 at 1440, Until Fri11/29/16 at 2016, Intra-op in this encounter
--- OUTSIDE RECORDS SUMMARY | 2016-12-19 09:13 | External Medical Summary | Clinical Summary ---
:1970 Author Organization [facility] Address [address] [place] [address] Phone Care Team Providers Name Role Phone Unavailable Primary Care Provider Unavailable Source Comments Some departments are not documenting in the electronic medical record. If you do not see the information that you expected, contact Release of Information in the Health Information Management department at [phone] for further assistance in locating additional records.[facility] Allergies No Known Allergies Current Medications Prescription Sig. Disp. Refills Start End Date Status Date topiramate Take 50 mg by Active (TOPAMAX) 50 mg mouth twice tablet daily. allopurinol Take 100 mg by Active (ZYLOPRIM) 100 mg mouth daily. Take tablet with food. sertraline (ZOLOFT) Take 150 mg by Active 100 mg tablet mouth at bedtime daily. Qztkxsmb-Oioa-Ogy-F Take 1 Tab by Active olic Acid (CENTRUM mouth daily. COMPLETE) 18-0.4 mg tab acetaminophen Take 500 mg by Active (TYLENOL) 500 mg mouth every 6 tablet hours as needed for Pain. Max of 4,000 mg of acetaminophen in 24 hours. cyanocobalamin Take 1,000 mcg by Active (VITAMIN B-12) mouth daily. 1,000 mcg tablet oxyCODONE Take 1 tablet by 40 tablet 0 Active (ROXICODONE, mouth every 4 7 OXY-IR) 5 mg hours as needed tabletIndications: (moderate to PAIN severe pain) Indications: PAIN Earliest Fill Date: 12/02/16 enoxaparin Inject 0.4 mL 24 mL 0 01/02/20 Active (LOVENOX) 40 mg under the skin 7 17 injection syringe twice daily for 30 days. polyethylene glycol Take 1 packet by 12 each 2 Active 3350 (MIRALAX) 17 g mouth daily. 7 packetIndications: Indications: CONSTIPATION CONSTIPATION senna (SENOKOT) 8.6 Take 1 tablet by 90 tablet 3 Active mg mouth twice daily 7 tabletIndications: as needed for CONSTIPATION Constipation. Indications: CONSTIPATION Miscellaneous Wear compression 1 Device 0 Active [employer] misc stocking daily at 7 home. guaiFENesin LA Take 600 mg by 12/02/19 Discontinued (MUCINEX) 600 mg mouth as Needed. 17 tablet acetaminophen Take 650 mg by 12/02/19 Discontinued (TYLENOL) 325 mg mouth every 4 17 tablet hours as needed for Pain. cephalexin (KEFLEX) Take 1 capsule by 28 capsule 0 12/17/19 500 mg capsule mouth twice daily 7 17 for 14 days. 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 Obesity, Class III, BMI 40-49.9 (morbid obesity) (HCC) 05/29/2016 History of therapeutic radiation 05/29/2016 Squamous cell carcinoma of tongue (HCC) 05/29/2016 Status post neck dissection 05/29/2016 History of circumcision 05/29/2016 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 Resolved Problems Problem Noted Date Resolved Date History of therapeutic 05/29/2016 05/29/2016 Encounters Date Type Specialty Care Team Description 12/09/2016 Telephone Urology Chandra Sanchez, Other (f/u pathology) 12/03/2016 Telephone Urology Lamont Hollingsworth, Wound Care 11/29/2016 - Hospital Encounter Chandra Sanchez, Penile cancer (HCC) 12/02/2016 11/29/2016 Procedure Pass 11/29/2016 Surgery Chandra Sanchez, ROBOTIC PELVIC MD LYMPHADENECTOMY 11/28/2016 Anesthesia Event Brad Staples MD 11/01/2016 Prep for Case Oncology Chandra Sanchez MD 11/01/2016 Telephone Oncology Chandra Sanchez, Other (f/u) MD from Last 3 Months Family History Medical History Relation Name Comments Depression Father Diabetes Father Cancer Maternal Grandfather Cancer-Breast Maternal Grandfather Depression Maternal Grandfather High Cholesterol Maternal Grandfather Arthritis-osteo Maternal Grandmother Cancer Maternal Grandmother Cancer-Breast Maternal Grandmother Depression Maternal Grandmother Rashes/Skin Problems Maternal Grandmother Arthritis-osteo Mother Depression Mother Rashes/Skin Problems Mother Seizures Mother Diabetes Paternal Aunt Cancer Paternal Grandfather Diabetes Paternal Grandmother Cancer Paternal Uncle Diabetes Sister Heart Disease Sister Migraines Sister Rashes/Skin Problems Sister Relation Name Status Comments Father Maternal Grandfather Maternal Grandmother Mother Paternal Aunt Paternal Grandfather Paternal Grandmother Paternal Uncle Sister Social History Tobacco Use Types Packs/Day Years [...] Assigned at Date Recorded Not on file Last Filed Vital Signs Vital Sign Reading Time Taken Blood Pressure 105/59 12/02/2016 11:22 AM CDT Pulse 69 12/02/2016 11:22 AM CDT Temperature 36.9 C (98.4 F) 12/02/2016 11:22 AM CDT Respiratory Rate 18 05/28/2016 1:34 PM [facility]ANB[facility] PEELER Oxygen Saturation 100% 12/02/2016 11:22 AM CDT Inhaled Oxygen Concentration - - Weight 151.9 kg (334 lb 14.1 oz) 11/29/2016 8:06 AM CDT Height 180.3 cm (5' 11") 11/29/2016 8:06 AM CDT Body Mass Index 46.71 11/29/2016 8:06 AM CDT Plan of Treatment Health Maintenance Due Date Last Done Comments PHYSICAL (COMPREHENSIVE) EXAM 1977 PERTUSSIS VACCINE 1981 TETANUS VACCINE 06/13/1987 INFLUENZA VACCINE 12/13/2016 Implants Implanted Type Area Manager [employer] Device Expiration Date Model / Identifier Serial / Lot Power Port Other Left: Chest Procedures Procedure Name Priority Date/Time Associated Comments Diagnosis TELEMETRY STRIPS-SCAN 12/06/2016 3:03 Results for this PM CDT procedure are in the results section. BILATERAL 11/29/2016 9:05 Penile cancer LYMPHADENECTOMY INGUINAL AM CDT (HCC) Special Needs 11/08 PER PHONE CALL WITH MARCIANO, ADD DR. HENNESSY ASSISTING - DONE, ALSO CHANGED PREF CARD ON 2ND PROCEDURE TO ROBOTIC PROSTATECTOMY REQUESTED BY ABSORPTION PLANT OPERATOR HELPER - Tim DU RN ([id number]) ROBOTIC PELVIC LYMPHADENECTOMY 11/29/2016 9:05 AM CDT Penile cancer (HCC) Special Needs 11/08 PER PHONE CALL WITH MARCIANO, ADD DR. HENNESSY ASSISTING - DONE, ALSO CHANGED PREF CARD ON 2ND PROCEDURE TO ROBOTIC PROSTATECTOMY REQUESTED BY ABSORPTION PLANT OPERATOR HELPER - Tim DU RN ([id number]) from Last 3 Months Results TELEMETRY STRIPS-SCAN (12/06/2016 3:03 PM) Narrative Ordered by an unspecified provider. CBC (12/02/2016 4:12 AM)Only the most recent of4 resultswithin the time period is included. Component Value Ref Range White Blood Cells [...] Specimen Performing Laboratory [facility] [address] [place] [address] PHOSPHORUS (12/02/2016 4:12 AM)Only the most recent of3 resultswithin the time period is included. Component Value Ref Range Phosphorus 2.9 2.0 - 4.0 MG/DL Specimen Performing Laboratory [facility] [address] [place] [address] MAGNESIUM (12/02/2016 4:12 AM)Only the most recent of3 resultswithin the time period is included. Component Value Ref Range Magnesium 2.1 1.6 - 2.6 mg/dL Specimen Performing Laboratory [facility] [address] [place] [address] BASIC METABOLIC PANEL (12/02/2016 4:12 AM)Only the most recent of3 resultswithin the time period is included. Component Value Ref Range Sodium 141 137 [...] Pharmacist for questions. Specimen Performing Laboratory [facility] [address] [place] [address] SURGICAL PATHOLOGY (11/29/2016 4:52 PM) Component Value Ref Range PATHOLOGY REPORT [facility] [email or web address] Annie Huston MD, PhD, Director of Anatomic Pathology Department of Pathology and Laboratory Medicine [address] [place] [id number] Surgical Pathology Office:[phone]:[phone] SURGICAL PATHOLOGY REPORT NAME: DOM KEYS SURG PATH #: [id number] MR #: [id number] SPECIMEN CLASS: SR BILLING #: [id number] ALT ID #:LOCATION: DISCHARGED DATE OF PROCEDURE: 11/29/2016 AGE:46 SEX: M DATE RECEIVED: 12/02/2016 : 1970TIME RECEIVED:06:41 PHYSICIAN: CHANDRA SANCHEZ MD DATE OF REPORT : 12/06/2016 COPY [...] to 3.3 x 1.9 x 0.9 cm. Clicking Machine Operator sections including all lymph nodes are submitted [...] to 2.9 x 1.6 x 0.7 cm. Clicking Machine Operator sections including all lymph nodes are submitted [...] to 5.8 x 3.1 x 1.5 cm. Clicking Machine Operator sections including all lymph nodes are submitted as follows: C1 One possible lymph node bisected. C2 One possible lymph node bisected. C3 One possible lymph node bisected. C4-C7 Each two cassettes contain one possible lymph node bisected. C8-C11 One possible lymph node serially sectioned. [id number] possible lymph node serially sectioned. [id number] possible lymph node serially sectioned. [id number] possible lymph node serially sectioned. (dlk) D. [...] to 5.8 x 2.5 x 1.9 cm. Clicking Machine Operator sections including all the lymph nodes are submitted as follows: D1 Two possible intact lymph nodes. D2-D3 Each cassette contains one possible lymph node bisected. D4-D5 One possible lymph node bisected. D6-D8 One possible lymph node serially sectioned. D9-D17 One possible lymph node serially sectioned. [id number] possible lymph node serially sectioned. [id number] possible lymph node serially sectioned. [id number]-[id number] possible lymph node serially sectioned. (dlk) ks12/02/2016 Specimen Performing Laboratory [facility] RESULTS from Last 3 Months
--- OUTSIDE RECORDS SUMMARY | 2016-12-19 09:13 | External Medical Summary | Encounter Summary ---
:1970 Author Organization [facility] Address [address] [facility] [address] [place] [address] Phone Care Team Providers Name Role Phone Unavailable Primary Care Provider Unavailable Reason for Visit Auth/Cert Status Reason Specialty Diagnoses / Procedures Referred By Contact Referred To Contact Diagnoses Penile cancer (HCC) unknown Procedures LYMPHADENECTOMY INGUINAL DISSECTION LYMPH NODE PELVIC, robotic Encounter Details Date Type Department Care Team Description 11/29/2016 Anesthesia Main Operating Room Brad Staples MD [address] [facility] [address] [place] [address] [place] [address] [phone] Social History Tobacco Use Types Packs/Day Years [...] Visit Diagnoses Not on filein this encounter Administered Medications Inactive Administered Medications - up to 3 most recent administrations Medication Order MAR Action Action Date Dose Rate Site acetaminophen (OFIRMEV) 1,000 Given 11/29/2016 16:51 CDT 1,000 mg mg/100 mL (10 mg/mL) injection INTRA-PROCEDURE MED, Starting Fri11/29/16 at 1655, Until Fri11/29/16 at 1814, Pain non-opioid: may be used alone or in combination with opioid analgesia, Anesthesia Intra-op ceFAZolin (ANCEF) injection Given 11/29/2016 09:30 CDT 3 g INTRA-PROCEDURE MED, Starting Fri11/29/16 at 0930, Until Fri11/29/16 at 1814, Anesthesia Intra-op Given 11/29/2016 13:23 CDT 2 g dexamethasone (DECADRON) injection Given 11/29/2016 09:32 CDT 4 mg Intravenous, INTRA-PROCEDURE MED, Starting Fri11/29/16 at 0932, Until Fri11/29/16 at 1814, Nausea/Vomiting Injectable, Anesthesia Intra-op dextran 70/hypromellose (NATURAL BALANCE TEARS) Given 11/29/2016 09:03 CDT 2 drops 0.1/0.3 % ophthalmic solution INTRA-PROCEDURE MED, Starting Fri11/29/16 at 0903, Until Fri11/29/16 at 1814, Dry Eyes, Irritated Eyes, Anesthesia Intra-op electrolyte-A (PLASMA-LYTE A PH 7.4) Given - New Bag 11/29/2016 09:07 CDT injection INTRA-PROCEDURE MED(CONT), Starting Fri11/29/16 at 0907, Until Fri11/29/16 at 1814, Anesthesia Intra-op Given - New Bag 11/29/2016 13:22 CDT fentaNYL citrate PF (SUBLIMAZE) injection Given 11/29/2016 15:28 CDT 50 mcg INTRA-PROCEDURE MED, Starting Fri11/29/16 at 0900, Until Fri11/29/16 at 1814, Pain Injectable, Anesthesia Intra-op Given 11/29/2016 16:26 CDT 50 mcg Given 11/29/2016 17:28 CDT 50 mcg glycopyrrolate (ROBINUL) injection Given 11/29/2016 09:55 CDT 0.2 mg INTRA-PROCEDURE MED, Starting Fri11/29/16 at 0955, Until Fri11/29/16 at 1814, Secretions, Anesthesia Intra-op HYDROmorphone injection (DILAUDID) syringe Given 11/29/2016 15:08 CDT 0.25 mg INTRA-PROCEDURE MED, Starting Fri11/29/16 at 1011, Until Fri11/29/16 at 1814, Pain Injectable, Anesthesia Intra-op Given 11/29/2016 15:28 CDT 0.25 mg Given 11/29/2016 17:32 CDT 0.25 mg ketamine (KETALAR) injection Given 11/29/2016 10:06 CDT 20 mg INTRA-PROCEDURE MED, Starting Fri11/29/16 at 1006, Until Fri11/29/16 at 1814, Anesthesia Intra-op ketorolac (TORADOL) injection Given 11/29/2016 17:31 CDT 30 mg INTRA-PROCEDURE MED, Starting Fri11/29/16 at 1731, Until Fri11/29/16 at 1814, Pain non-opioid: may be used alone or in combination with opioid analgesia, Anesthesia Intra-op lactated ringers infusion Given - New Bag 11/29/2016 08:29 CDT 1,000 mL 20 mL/hr 1,000 mL, 1,000 mL, Intravenous, at 20 mL/hr, CONTINUOUS, Starting Fri11/29/16 at 0800, Until Fri11/30/16 at 0829, Pre-Op Given - New Bag 11/29/2016 17:40 CDT 0 mL/hr lidocaine (PF) injection Given 11/29/2016 09:00 CDT 100 mg INTRA-PROCEDURE MED, Starting Fri11/29/16 at 0900, Until Fri11/29/16 at 1814, Anesthesia Intra-op midazolam (VERSED) injection Given 11/29/2016 08:51 CDT 2 mg Intravenous, INTRA-PROCEDURE MED, Starting Fri11/29/16 at 0851, Until Fri11/29/16 at 1814, Agitation Injectable, Anxiety Injectable, Anesthesia Intra-op ondansetron (ZOFRAN) injection Given 11/29/2016 17:05 CDT 4 mg Intravenous, INTRA-PROCEDURE MED, Starting Fri11/29/16 at 1705, Until Fri11/29/16 at 1814, Nausea/Vomiting Injectable, Anesthesia Intra-op propofol (DIPRIVAN) injection Given 11/29/2016 09:00 CDT 200 mg INTRA-PROCEDURE MED, Starting Fri11/29/16 at 0900, Until Fri11/29/16 at 1814, Anesthesia Intra-op Given 11/29/2016 14:55 CDT 20 mg Given 11/29/2016 17:36 CDT 50 mg rocuronium (ZEMURON) injection Given 11/29/2016 14:03 CDT 10 mg Intravenous, INTRA-PROCEDURE MED, Starting Fri11/29/16 at 0901, Until Fri11/29/16 at 1814, Anesthesia Intra-op Given 11/29/2016 14:29 CDT 10 mg Given 11/29/2016 15:23 CDT 10 mg sugammadex (BRIDION) injection Given 11/29/2016 17:25 CDT 310 mg Intravenous, INTRA-PROCEDURE MED, Starting Fri11/29/16 at 1725, Until Fri11/29/16 at 1814, Anesthesia Intra-op in this encounter
--- OUTSIDE RECORDS SUMMARY | 2016-12-19 09:13 | External Medical Summary | Encounter Summary ---
:1970 Author Organization [facility] Address [address] [facility] [address] [place] [address] Phone Care Team Providers Name Role Phone Unavailable Primary Care Provider Unavailable Encounter Details Date Type Department Care Team Description 11/29/2016 Procedure Pass Main Operating Room [address] [place], [place] [id number] Social History Tobacco Use Types Packs/Day Years [...]
--- OUTSIDE RECORDS SUMMARY | 2016-12-19 09:13 | External Medical Summary | Encounter Summary ---
:1970 Author Organization [facility] Address [address] [place] [address] Phone Care Team Providers Name Role Phone Unavailable Primary Care Provider Unavailable Reason for Visit Auth/Cert Status Reason Specialty Diagnoses / Procedures Referred By Contact Referred To Contact Diagnoses Penile cancer (HCC) unknown Procedures LYMPHADENECTOMY INGUINAL DISSECTION LYMPH NODE PELVIC, robotic Encounter Details Date Type Department Care Team Description 11/29/2016 - Hospital Encounter Surg Onc/Uro/Grain Combiner Chandra August MD Penile cancer (HCC) 12/02/2016 Onc [address] [place], [place] [address] [place], [place] [phone] [address] [phone] Social History Tobacco Use Types Packs/Day Years [...] or concerns regarding your hospital stay. Call [phone] Discharging attending physician: CHANDRA AUGUST [[id number]] Regular Diet You have no dietary restriction. [...] your physician immediately. Return Appointment Please call [phone] once your ALEJANDRO drain output is less than 60mL per day to schedule a follow upappointment with Dr. August. [facility] Provider CHANDRA AUGUST [[id number]] [facility] Jail care instructions: *WASH HANDS PRIOR TO ANY [...] by mouth daily. PRESCRIPTION TYPE: Historical Med Ktfijfow-Dkbn-Sdx-Folic Acid (CENTRUM COMPLETE) 18-0.4 mg tab Take [...] MD 12/02/2016 cc: Primary Care Physician: Humphrey Dominguez Verified Referring physicians: Humphrey Dominguez MD Additional [...] 12/02/2016 Supply misc stocking daily at home. Qyjwsbbt-Qhbt-Olf-Folic Take 1 Tab by mouth Acid (CENTRUM [...] Sullivan M.D. PGY-2 Urology Please page urology irrigation equipment remover with questions SUBJECTIVE: Overnight events: No acute [...] Intake/Output Summary (Last 24 hours) at 12/02/16 0826 Last data filed at 12/02/16 0415 Gross [...] Mckenzie MD PGY-3 Urology Please page urology irrigation equipment remover with questions SUBJECTIVE: Overnight events: No acute [...] >60 GLU 98 CA 7.9* PO4 2.0 ]ColumbiaFiordaliza luilon, PT - 11/30/2016 2:55 PM CDTPHYSICAL THERAPY [...] go to inpatient setting near home in [place] if inpatient setting is required. Patient requires the use of a walker with wheels to complete ADLs in the home including meal preparation, ambulation the bathroom for toileting, bathing and grooming, and safe home mobility. Patient is unable to complete these ADL s with a cane or crutch. Therapist: Juni Castellano, PT, DPT Date: 11/30/2016 Alesia Aparicio RN [...] Mckenzie MD PGY-3 Urology Please page urology irrigation equipment remover with questions SUBJECTIVE: Overnight events: No acute [...] 151.9 kg (334 lb 14.1 oz) (11/29 08) BP: (107-148)/(63-98) Temp: [36 C (96.8 F)-37 [...] 2ND PROCEDURE TO ROBOTIC PROSTATECTOMY REQUESTED BY METALLIC YARN SLITTING MACHINE OPERATOR - Tim DU, RN ([id number]) ROBOTIC PELVIC LYMPHADENECTOMY 11/29/2016 9:05 AM CDT Penile cancer (HCC) Special Needs 11/08 PER PHONE CALL WITH JAMIL TARIQ DR. ASSISTING - DONE, ALSO CHANGED PREF CARD ON 2ND PROCEDURE TO ROBOTIC PROSTATECTOMY REQUESTED BY METALLIC YARN SLITTING MACHINE OPERATOR - Tim DU RN ([id number]) in this encounter Results TELEMETRY STRIPS-SCAN (12/06/2016 3:03 PM) Narrative Ordered by an unspecified provider. PHOSPHORUS (12/02/2016 4:12 AM) Component Value Ref Range Phosphorus 2.9 2.0 - 4.0 MG/DL Specimen Performing Laboratory Blood MAIN LAB [address] [place] [address] MAGNESIUM (12/02/2016 4:12 AM) Component Value Ref Range Magnesium 2.1 1.6 - 2.6 mg/dL Specimen Performing Laboratory Blood MAIN LAB [address] [place] [address] BASIC METABOLIC PANEL (12/02/2016 4:12 AM) Component [...] questions. Specimen Performing Laboratory Blood MAIN LAB [address] [place] [address] CBC (12/02/2016 4:12 AM) Component Value Ref [...] FL Specimen Performing Laboratory Blood MAIN LAB [address] [place] [address] PHOSPHORUS (12/01/2016 5:00 AM) Component Value Ref Range Phosphorus 2.0 2.0 - 4.0 MG/DL Specimen Performing Laboratory Blood MAIN LAB [address] [place] [address] MAGNESIUM (12/01/2016 5:00 AM) Component Value Ref Range Magnesium 2.1 1.6 - 2.6 mg/dL Specimen Performing Laboratory Blood MAIN LAB [address] [place] [address] BASIC METABOLIC PANEL (12/01/2016 5:00 AM) Component [...] questions. Specimen Performing Laboratory Blood MAIN LAB [address] [place] [address] CBC (12/01/2016 5:00 AM) Component Value Ref [...] Specimen Performing Laboratory Blood MAIN LAB [address] [place] [address] PHOSPHORUS (11/30/2016 4:45 AM) Component Value Ref Range Phosphorus 3.4 2.0 - 4.0 MG/DL Specimen Performing Laboratory Blood MAIN LAB [address] [place] [address] MAGNESIUM (11/30/2016 4:45 AM) Component Value Ref Range Magnesium 2.1Comment: SLT HEMOLYSIS 1.6 - 2.6 mg/dL Specimen Performing Laboratory Blood MAIN LAB [address] [place] [address] BASIC METABOLIC PANEL (11/30/2016 4:45 AM) Component [...] Specimen Performing Laboratory Blood MAIN LAB [address] [place] [address] CBC (11/30/2016 4:45 AM) Component Value Ref [...] Specimen Performing Laboratory Blood MAIN LAB [address] [place] [address] CBC (11/29/2016 6:43 PM) Component Value Ref [...] Performing Laboratory Blood [facility]IN [facility] [address] [place] [address] SURGICAL PATHOLOGY (11/29/2016 4:52 PM) Component Value Ref Range PATHOLOGY REPORT [facility] [email or web address] Annie Huston MD, PhD, Director of Anatomic Pathology Department of Pathology and Laboratory Medicine [address] [place] [address] Surgical Pathology Office:[phone]:[phone] SURGICAL PATHOLOGY REPORT NAME: SHUN KEYS SURG PATH #: [id number] MR #: [id number] SPECIMEN CLASS: SR BILLING #: [id number] ALT ID #:LOCATION: DISCHARGED DATE OF PROCEDURE: [...] to 3.3 x 1.9 x 0.9 cm. Livery Car Driver sections including all lymph nodes are [...] to 2.9 x 1.6 x 0.7 cm. Livery Car Driver sections including all lymph nodes are [...] to 5.8 x 3.1 x 1.5 cm. Livery Car Driver sections including all lymph nodes are submitted as follows: C1 One possible lymph node bisected. C2 One possible lymph node bisected. C3 One possible lymph node bisected. C4-C7 Each two cassettes contain one possible lymph node bisected. C8-C11 One possible lymph node serially sectioned. J45-R28Rtw possible lymph node serially sectioned. N56-F70Irt possible lymph node serially sectioned. I75-F85Nnk possible lymph node serially sectioned. (dlk) D. [...] to 5.8 x 2.5 x 1.9 cm. Livery Car Driver sections including all the lymph nodes are submitted as follows: D1 Two possible intact lymph nodes. D2-D3 Each cassette contains one possible lymph node bisected. D4-D5 One possible lymph node bisected. D6-D8 One possible lymph node serially sectioned. D9-D17 One possible lymph node serially sectioned. C44-T85Gcn possible lymph node serially sectioned. S78-N57Amy possible lymph node serially sectioned. N66-N69Eiu possible lymph node serially sectioned. (dlk) ksw/12/02/2016 [...] Action Action Date Dose Rate Site acetaminophen (TYLENOL) tablet 650 mg Given 12/02/2016 07:48 CDT 650 mg 650 mg, Oral, EVERY 6 HOURS PRN, Starting Fri11/29/16 at 2148, Until 12/02/16 at 1550, Pain non-opioid: may be used alone or in combination with opioid analgesia, TOTAL ACETAMINOPHEN DOSE NOT TO EXCEED 4GM DAILY Given 12/02/2016 13:32 CDT 650 mg allopurinol (ZYLOPRIM) tablet 100 mg Given 11/30/2016 08:56 CDT 100 mg 100 mg, Oral, DAILY, First dose on 11/30/16 at 0900, Until Discontinued, Admission/Obs/Extended Recovery Given 12/01/2016 08:01 CDT 100 mg Given 12/02/2016 08:46 CDT 100 mg ceFAZolin (ANCEF) IVP 1 g Given 11/29/2016 22:16 CDT 1 g 1 g, Intravenous, EVERY 8 HOURS, 3 doses, First dose on Fri11/29/16 at 2200, Last dose on 11/30/16 at 1400, IV PUSH -- RECONSTITUTE each 1 g vial by adding 10 mL 0.9% NACL Given 11/30/2016 06:38 CDT 1 g Given 11/30/2016 13:34 CDT 1 g cephalexin (KEFLEX) capsule 500 mg Given 12/01/2016 08:01 CDT 500 mg 500 mg, Oral, TWICE DAILY, First dose on 11/30/16 at 1800, Until Discontinued Given 12/01/2016 22:11 CDT 500 mg Given 12/02/2016 08:46 CDT 500 mg enoxaparin (LOVENOX) syringe 40 mg Given 12/01/2016 08:02 CDT 40 mg Abdomen:RLQ 40 mg, Subcutaneous, TWICE DAILY, First dose on 11/30/16 at 2100, Until Discontinued, For patients undergoing surgery: Consult physician in advance -- enoxaparin is an anticoagulant and may need to be held for 12hr prior to surgery or invasive procedures. NOTE: This is a HIGH ALERT Medication. Given by Patient/Family 12/01/2016 22:09 CDT 40 mg Arm, Left Given 12/02/2016 08:45 CDT 40 mg Abdominal Tissue fentaNYL citrate PF (SUBLIMAZE) injection 25-50 Given 11/29/2016 18:30 CDT 50 mcg mcg 25-50 mcg, Intravenous, EVERY 5 MIN PRN, Starting Fri11/29/16 at 1805, Until Fri11/29/16 at 2016, Pain Injectable, For Pain Score 4-6, Maximum total dose 200 mcg Hold if RR < 10 Given 11/29/2016 18:45 CDT 50 mcg fentaNYL citrate PF (SUBLIMAZE) injection 25-50 Given 11/30/2016 21:53 CDT 50 mcg mcg 25-50 mcg, Intravenous, EVERY 1 HOUR PRN, Starting Fri11/29/16 at 2149, Until Fri12/01/16 at 1222, breakthrough pain, Admission/Obs/Extended Recovery Given 12/01/2016 08:01 CDT 50 mcg Given 12/01/2016 11:48 CDT 50 mcg HEPARIN, PORCINE (PF) 100 UNIT/ML IV Given - Without Order 12/02/2016 12:01 CDT SYRG (Cabinet Override) NOW, 1 dose, Fri12/02/16 at 1130, Created by cabinet override NOTE: This is a HIGH ALERT Medication. ketorolac (TORADOL) injection 15 mg Given 12/01/2016 19:44 CDT 15 mg 15 mg, Intravenous, EVERY 6 HOURS, 20 doses, First dose on Fri12/01/16 at 1315, Last dose on Fri12/06/16 at 0715, Please note: this medication will be automatically discontinued 5 days after ordered per hospital policy. Please obtain a new order if the medication needs to be continued. Given 12/02/2016 01:09 CDT 15 mg Given 12/02/2016 06:48 CDT 15 mg lactated ringers infusion Given - New Bag 11/29/2016 08:29 CDT 1,000 mL 20 mL/hr 1,000 mL, 1,000 mL, Intravenous, at 20 mL/hr, CONTINUOUS, Starting Fri11/29/16 at 0800, Until 11/30/16 at 0829, Pre-Op Given - New Bag 11/29/2016 17:40 CDT 0 mL/hr milk of magnesia (CONC) oral suspension 10 mL Given 11/30/2016 09:56 CDT 10 mL 10 mL, Oral, ONCE, 1 dose, 11/30/16 at 0830, 10 mL CONC=30 mL MOM morphine injection syringe 1-4 mg Given 12/01/2016 17:25 CDT 2 mg 1-4 mg, Intravenous, EVERY 1 HOUR PRN, Starting Fri12/01/16 at 1222, Until Fri12/02/16 at 0658, Pain Injectable oxyCODONE (ROXICODONE, OXY-IR) tablet 5-10 mg Given 11/29/2016 18:51 CDT 5 mg 5-10 mg, Oral, ONCE PRN, 1 dose, Starting Fri11/29/16 at 1805, Until Fri11/29/16 at 2359, Pain PO, For Pain Score <4, PACU (only) oxyCODONE (ROXICODONE, OXY-IR) tablet 5-10 mg Given 12/01/2016 19:44 CDT 10 mg 5-10 mg, Oral, EVERY 4 HOURS PRN, Starting Fri11/29/16 at 1839, Until 12/02/16 at 1550, moderate to severe pain, Admission/Obs/Extended Recovery Given 12/02/2016 07:48 CDT 10 mg Given 12/02/2016 13:32 CDT 10 mg polyethylene glycol 3350 (MIRALAX) packet 17 g Given 11/30/2016 09:56 CDT 17 g 17 g (1 packet), Oral, DAILY, First dose on 11/30/16 at 0930, Until Discontinued, 8.5 GRAMS=0.5 PACKET 17 GRAMS=1 PACKET 34 GRAMS=2 PACKETS Given 12/01/2016 08:01 CDT 17 g Given 12/02/2016 08:45 CDT 17 g senna (SENOKOT) tablet 1 tablet Given 12/01/2016 08:01 CDT 1 tablet 1 tablet, Oral, TWICE DAILY, First dose on 11/30/16 at 0930, Until Discontinued, Hold for loose stools Given 12/01/2016 22:10 CDT 1 tablet Given 12/02/2016 08:46 CDT 1 tablet sertraline (ZOLOFT) tablet 100 mg Given 11/29/2016 22:16 CDT 100 mg 100 mg, Oral, AT BEDTIME DAILY, First dose on Fri11/29/16 at 2200, Until Discontinued, Admission/Obs/Extended Recovery sertraline (ZOLOFT) tablet 150 mg Given 11/30/2016 20:48 CDT 150 mg 150 mg, Oral, AT BEDTIME DAILY, First dose on 11/30/16 at 2100, Until Discontinued, Admission/Obs/Extended Recovery Given 12/01/2016 22:10 CDT 150 mg sodium chloride 0.9 % infusion Given - New 11/29/2016 19:16 1,000 mL 100 mL/hr 1,000 mL, Intravenous, at 100 Bag CDT mL/hr, CONTINUOUS, Starting Fri11/29/16 at 1845, Until 11/30/16 at 0829, Admission/Obs/Extended Recovery Given - New Bag 11/30/2016 04:49 CDT 100 mL/hr sodium chloride 0.9 % Given - New Bag 11/30/2016 12:28 CDT 1,000 mL 999 mL/ hr infusion 1,000 mL, 1,000 mL, Intravenous, at 999 mL/hr, BOLUS, 1 dose, 11/30/16 at 1130 topiramate (TOPAMAX) tablet 50 mg Given 12/01/2016 08:01 CDT 50 mg 50 mg, Oral, TWICE DAILY, First dose on Fri11/29/16 at 2200, Until Discontinued, Admission/Obs/Extended Recovery Given 12/01/2016 22:11 CDT 50 mg Given 12/02/2016 08:46 CDT 50 mg in this encounter
--- OUTSIDE RECORDS SUMMARY | 2016-12-19 09:13 | External Medical Summary | Encounter Summary ---
:1970 Author Organization [facility] Address [address] [place] [address] Phone Care Team Providers Name Role Phone Unavailable Primary Care Provider Unavailable Encounter Details Date Type Department Care Team Description 11/01/2016 Prep for Case [facility] Romel Sanchez MD [facility] [address] [place] [address] [place] [address] [place] [address] [phone] Social History Tobacco Use Types Packs/Day Years [...]
--- OUTSIDE RECORDS SUMMARY | 2016-12-19 09:13 | External Medical Summary | Encounter Summary ---
:1970 Author Organization [facility] Address [address] [facility] [address] [place] [address] Phone Care Team Providers Name Role Phone Unavailable Primary Care Provider Unavailable Reason for Visit Reason Comments Other f/u pathology Encounter Details Date Type Department Care Team Description 12/09/2016 Telephone [facility] Romel Sanchez MD Other (f/u pathology) Physicians - Urology [address] [facility] [address] F[address] [place] [address] [facility] MED [place], [place] OFFICE [address] [address] [place], [place] [phone] [address] [phone] Social History Tobacco Use Types Packs/Day Years [...]
[2016-12-19 09:37] VITALS: BMI 48.4
[2016-12-19] MEDS ORDERED: BUPIVACAINE 0.25%/EPI 1:200,000 30ml SDV ONE (13:45)
--- NOTE | 2016-12-19 14:02 | Anesthesia Preoperative Report ---
Anesthesia Preoperative Record - Date and Time Date: 12/19/16 Preoperative Diagnosis: Exploration ing wound S31.031A Proposed Procedure: Wound exploration BL groin NPO Since Date: 12/18/16 NPO Since Time: 22:00 Allergies/Adverse Reactions: Allergies Allergy/AdvReac Type Severity Reaction Status Date / Time No Known Allergies Allergy Verified 12/19/16 09:44 - Vital Signs Vital Signs: Temperature 98.6 F 12/19/16 09:37 Pulse Rate 69 12/19/16 09:49 Respiratory Rate 15 12/19/16 09:37 Blood Pressure 125/77 12/19/16 09:37 Pulse Oximetry 96 12/19/16 09:37 Height and Weight: Height 5 ft 11 in Weight 157.6 kg Body Mass Index 48.4 - Medications Inpatient Medications: Current Medications Lactated Ringer's (Lactated Ringers) 1,000 mls @ 50 mls/hr IV .Q20H SATYA Lidocaine HCl (Xylocaine-Mpf 1% Vial) 2 mg ID O ONE Stop: 12/19/16 16:46 Home Medications: Home Medications Medication Instructions Recorded Confirmed Type Cyanocobalamin (Vitamin B-12) 1 tab PO DAILY #0 tab 09/04/15 12/19/16 History [Vitamin B-12] Docusate Sodium 1 cap PO BID #30 cap 09/04/15 12/19/16 History Elderberry Fruit/Honey [Little 1 dose PO DAILY #0 09/04/15 12/19/16 History Remedies Cough-Immune] Glucosamine/Chondroitin Sulf A 1 cap PO BID PRN #0 09/04/15 12/19/16 History [Glucosamine Chondroitin Cap] Multivit-Min/FA/Lycopen/Lutein 1 tab PO DAILY #0 09/04/15 12/19/16 History [Centrum Silver Tablet] Oxycodone HCl/Acetaminophen 1 tab PO Q6H PRN #0 tab 09/04/15 12/18/16 History (Percocet 7.5-325 mg Tablet) Topiramate [Topamax] 1 tab PO BID #0 09/04/15 12/19/16 History Allopurinol [Zyloprim] 100 mg PO DAILY 12/18/16 12/19/16 History Ciprofloxacin [Cipro] 1 tab PO BID 12/18/16 12/19/16 History Enoxaparin [Lovenox] 1 unit SQ BID 12/18/16 12/19/16 History Sertraline [Zoloft] 150 mg PO HS 12/18/16 12/19/16 History Is Patient on Beta Saul?: No - Medical History Respiratory: Reports: Sleep Apnea DENIES: Asthma, Bronchitis, Chronic Obstructive Pulmonary Disease (COPD), Dyspnea, Orthopnea, Pulmonary Embolism, Pneumonia, Upper Respiratory Infection, Pulmonary Edema, Tuberculosis, Other Cardiovascular: DENIES: Abnormal EKG, Angina, Arrhythmia, Congestive Heart Failure, Coronary Artery Disease, Heart Murmur, Hypertension, Hypotension, High Cholesterol, Myocardial Infarction, Rheumatic Fever, Valvular Heart Disease, Other Gastrointestional: Reports: Morbid Obesity Neuro/Musculoskeletal: Denies: HX.MS.OSAR, Back Problems, Cerebrovascular Accident, Depression, Headaches, Loss of Consciousness, Muscle Weakness, Neuromuscular Disorder, Paralysis, Paresthesia, Syncope, Seizures, Other Renal/Endocrine: DENIES: Diabetes Mellitus Type 1, Diabetes Mellitus Type 2, Renal Failure, Dialysis, Thyroid Disease, Weight Loss, Weight Gain, Other Other History: DENIES: Anesthesia Reactions, Now, Blood Transfusions, Chemotherapy , Cancer, Hemophilia, Malignant Hyperthermia, Sickle Cell Disease, Other - Surgical History HEENT Surgeries: Reports: Oral Surgery (all teeth pulled/full set dentures), Other (R neck 2016) Respiratory Surgery/Treatments: Reports: CPAP Use GI Surgery/Treatments: Reports: Other (INGUINAL LYMPH NODE DISSECTION) Surgery/Treatment: REPORT: Other (penis removed surgically/urethra opening under scrotum) Reproductive Surgery/Treatment: Reports: Other (PENIS CANCER-REMOVAL) Anesthesia Reactions: None Hx Family Anesthesia Reaction: No History of Motion Sickness: No - Social History Smoking Status: Former smoker Hx Chewing Tobacco Use: Yes (quit) Substance Use Type: does not use Alcohol Intake Frequency: does not drink - Pertinent Findings Laboratory: CBC and BMP 12/19/16 09:31 EKG Rhythm: Normal Sinus Rhythm - Physical Exam Respiratory Exam: Present: lungs clear, bilateral breath sounds equal Cardiovascular Exam: Present: regular rate and rhythm, no murmur - Airway Assessment Mallampati Score: I TMD: 3 Fingerbreadths Neck Extension: fair Teeth: upper dentures, lower dentures Overall Assessment: may be difficult mask vent, may be difficult intubation - ASA ASA Score: 3 - Plan Anesthesia: General Inhalation Gases - Discussion Discussion: Discussed risks/options/alternatives of anesthesia and questions answered. Patient consents. Nursing pain assessment noted. Present for Discussion: spouse Attestation Statement: Prior to the delivery of any anesthetic medication, I examined the patient, developed the plan, obtained the patient's consent and discussed the risk and benefits of the procedure with the patient/guardian. - Additional Information Seen by Anesthesia: Yes
[2016-12-19] MEDS: ERTAPENEM 1 G in NS 100 ML IV ONE ×2 (14:17→16:35)
[2016-12-19] MEDS ORDERED: PROPOFOL 500 MG/50 ML VIAL IV ONE (14:18)
[2016-12-19] MEDS ORDERED: FentaNYL 100 MCG/2 ML INJECTION ONE (14:19)
[2016-12-19] MEDS ORDERED: SUCCINYLCHOLINE 20mg/mL 10mL INJECTION ONE (14:19)
[2016-12-19] MEDS ORDERED: LIDOCAINE 2% (100mg/5mL) PF 5ml vl ONE (14:19)
[2016-12-19] MEDS: LR 1,000 ML IV SCH ×3 (15:04→17:11)
--- NOTE | 2016-12-19 16:31 | General Surgery Procedure Note ---
Date of Procedure: 12/19/16 Surgeon: Allyson Security Program Manager: Abundio Caldera APRN Postoperative Diagnosis: bilateral groin wounds with seromas Procedure: Bilateral groin/inguinal exploration, debridement of nonviable tissue and placement of wound vacs Estimated Blood Loss: See Anesthesia Record.
[2016-12-19] MEDS ORDERED: [UNRECOGNIZED DRUG - OTHER] PO PRN (16:32)
[2016-12-19] MEDS ORDERED: ACETAMINOPHEN PO PRN (16:32)
[2016-12-19] MEDS ORDERED: ONDANSETRON 4 MG/2 ML INJECTION IVP PRN (16:32)
[2016-12-19] MEDS ORDERED: OXYCODONE HCL PO PRN (16:32)
[2016-12-19] MEDS ORDERED: HYDROMORPHONE PCA 30mg/30ml VIAL IV PRN (16:32)
[2016-12-19] MEDS ORDERED: LIDOCAINE 1% (10mg/ml) 2mL INJ PF SDV ID ONE (16:45)
--- NOTE | 2016-12-19 17:11 | Anesthesia Postoperative Note ---
- Date and Time Date: 12/19/16 Time: 17:10 - Status Patient Participated in Evaluation: Patient Participated in Person Vital Signs: Temperature 96.4 F L 12/19/16 16:58 Pulse Rate 67 12/19/16 16:58 Respiratory Rate 16 12/19/16 16:58 Blood Pressure 120/65 12/19/16 16:58 Pulse Oximetry 100 12/19/16 16:58 Respiratory Function: Airway Patent, Regular Respirations Cardiovascular Function: Regular Pulse EKG Rhythm: Normal Sinus Rhythm Mental Status: Alert and Oriented Pain Intensity: 0 Hydration: IV Infusing Complications During Recover: None Apparent - Follow-Up Instructions Instructions: Per Surgeon
[2016-12-19] MEDS ORDERED: PIPERACILLIN/TAZOBACTAM 3.375 GM in NS 100 ML IV SCH (17:30)
[2016-12-19] MEDS: OXYCODONE/APAP 7.5 MG/325 MG TABLET PO PRN (18:04)
--- NOTE | 2016-12-19 18:25 | Consult Note ---
<Cheri Gracia Bhavik - Last Filed: 12/19/16 19:10> Consult Information - Data of Consult Requesting Physician: Zak Valadez MD Primary Care Provider: Merari Dominguez MD Family Provider: Dr. Ramila Dominguez - Consult Narrative Reason for consult: Medical management History of present illness: "Reinier Rivera is a 46-year-old male who was admitted on 12/19/16 for bilateral inguinal wounds. He has a history of penile cancer, and underwent bilateral inguinal lymph node dissections at the [facility] on November 29, 2016. At the time of discharge on 12/02/16, he had ALEJANDRO drains, but he developed wounds around his surgical incisions. Dr. Romel Sanchez started him on Keflex postop. He developed a yeast infection after the Keflex course. He kept them clean with a wound cleanser, patted dry with sterile gauze, and applied aquacell dressing to wound bed then covered with ABD pad. He then developed drainage that has been malodorous and he has noted a low-grade fever with max temp of 100.7. He saw Dr. Dominguez, who started him on Cipro. He saw Dr. Valadez in the clinic on 12/18/16, who recommended exploration and debridement. The patient opted to stay local rather than going back to [place]. He underwent biilateral groin/inguinal exploration, debridement of nonviable tissue and placement of wound vacs by Dr. Valadez on 12/19/16. Sept 1st Right wound measured 2.5 x 5.5 cm Sept 2nd Right wound 3 x 5.5 cm; left 2.5 x4 cm Sept 3rd Right wound 5.5 x 2.5 cm; left 3 x 5 cm Sept 4th Right wound 3 x 7.5 cm; left 2.75 x 5.5 cm PENDING SALE TO [facility] Penile cancer. Finished chemo November 03, 2016. Squamous cell carcinoma of tongue. Head and neck cancer - had radiation and chemotherapy. Obesity, morbid Asthma Sleep apnea - CPAP Gout Surgical History: Wound exploration and excisional debridement and application of wound VAC to inguinal wounds on 12/19/[address] Valadez. Bilateral inguinal lymph node dissections at the [facility] in [place] on November 29, 2016. Penectomy 06/28/2016. Radical neck resection and salivary gland removal on right 2015. Left IJ PAC placement and PEG tube placement . Family History: Father and sister: Type 2 diabetes. Mother: Hypertension - Social History Smoking status: Former smoker (also chewed tobacco - quit 1 year before tongue cancer diagnosis) Substance use type: does not use Alcohol intake frequency: does not drink Current occupational status: previously employed (RN) Does patient use chewing tobacco?: No (quit) Review of Systems Comprehensive ROS: completed and no additional positive findings except those as stated - Constitutional Constitutional: Present: chills, fever(s), weakness, weight gain (was 310, now 347 - over 2 months) - EENMT Nose: Absent: obstruction Mouth/Throat: Absent: sore throat, changes in swallowing, painful swallowing - Cardiovascular Cardiovascular: Absent: chest pain Vascular: Present: other (wears cal hose d/t concerns for lymphedema). Absent: pedal edema - Respiratory Respiratory: Absent: cough - Gastrointestinal Gastrointestinal: Present: constipation, other (hemorrhoids - bleed occ.). Absent: abdominal pain - Genitourinary Genitourinary: Present: as per HPI - Musculoskeletal Musculoskeletal: Present: muscle weakness - Neurological Neurological: Present: numbness (right shoulder and b/l upper thighs - due to surgery), weakness, other (syncope). Absent: dizziness, headache(s) - Psychiatric Psychiatric: Present: depression - Hematologic/Lymphatic Hematologic/Lymphatic: Absent: easy bleeding, easy bruising Medications Home Medications Medication Instructions Recorded Confirmed Type Cyanocobalamin (Vitamin B-12) 1 tab PO DAILY #0 tab 09/04/15 12/19/16 History [Vitamin B-12] Docusate Sodium 1 cap PO BID #30 cap 09/04/15 12/19/16 History Elderberry Fruit/Honey [Little 1 dose PO DAILY #0 09/04/15 12/19/16 History Remedies Cough-Immune] Glucosamine/Chondroitin Sulf A 1 cap PO BID PRN #0 09/04/15 12/19/16 History [Glucosamine Chondroitin Cap] Multivit-Min/FA/Lycopen/Lutein 1 tab PO DAILY #0 09/04/15 12/19/16 History [Centrum Silver Tablet] Oxycodone HCl/Acetaminophen 1 tab PO Q6H PRN #0 tab 09/04/15 12/18/16 History (Percocet 7.5-325 mg Tablet) Topiramate [Topamax] 1 tab PO BID #0 09/04/15 12/19/16 History Allopurinol [Zyloprim] 100 mg PO DAILY 12/18/16 12/19/16 History Ciprofloxacin [Cipro] 1 tab PO BID 12/18/16 12/19/16 History Enoxaparin [Lovenox] 1 unit SQ BID 12/18/16 12/19/16 History Sertraline [Zoloft] 150 mg PO HS 12/18/16 12/19/16 History Allergies Allergy/AdvReac Type Severity Reaction Status Date / Time No Known Allergies Allergy Verified 12/19/16 09:44 Exam Vital Signs: Temperature 96.4 F L 12/19/16 16:58 Pulse Rate 64 12/19/16 17:43 Respiratory Rate 16 12/19/16 17:43 Blood Pressure 121/75 12/19/16 17:43 Pulse Oximetry 100 12/19/16 17:43 Height/Weight/BMI: Height 1.8 m Weight 158.2 kg Body Mass Index 48.4 - Constitutional Present: no acute distress, well nourished, well developed, obese - Routine HEENT Exam ENT: Present: mucous membranes moist, oropharynx clear - Routine Neck Exam Present: supple Comments: large incision to right side of neck - Routine Respiratory Exam Present: CTA bilaterally - Routine Cardiovascular Exam Present: RRR, S1, S2 - Routine Abdominal Exam Present: soft, normoactive bowel sounds, non distended, non tender - Routine Extremities Exam Present: no edema, pulses intact, normal capillary refill - Routine Skin Exam Present: dry, pallor, warm, wounds (b/l inguinal wounds - vacs intact) - Routine Neurological Exam Present: alert, oriented X3, CN II-XII intact, normal speech - Routine Psychiatric Exam Present: normal affect, normal thought process, cooperative Results - Labs CBC & Chem 7: 12/19/16 09:31 Microbiology Results: Microbiology 12/19/16 15:20 Groin Gram Stain - Final 12/19/16 15:20 Groin Deep Wound Culture - Preliminary Culture Initiated - Results Pending Assessment and Plan (1) Open wound of inguinal region Current visit: Yes Status: Acute DVT Prophylaxis: Lovenox Resuscitation Status: Full Code Assessment and Plan: ASSESSMENT Bilateral inguinal wounds, status post Wound exploration and excisional debridement and application of wound VAC to inguinal wounds on 12/19/[address] Valadez. Penile cancer s/p penectomy. Normocytic anemia, POA. Head and neck cancer. Squamous cell carcinoma of tongue. Obesity, morbid Asthma Sleep apnea - CPAP Gout - pain to left great toe PLAN CBC was done today, white count was normal at 5.0. He had mild normocytic anemia with a hemoglobin of 10.2. He has been afebrile but had a temperature of 100.7 at home. He has been started on Zosyn. He received ertapenem preop. Follow results of surgical cultures. OK to access PAC. Consult wound team. Check CMP for baseline. Repeat labs in am. He has had low blood pressures for a short period of time following surgery, but they have since stabilized. For Pain, he has had Dilaudid DRAWER IN STITCH BONDING MACHINE pump. Zofran is available when necessary. Percocet also when necessary. He's on Lovenox BID, which were his postop orders x 30 days. Will need to clarify if there are any functional limitations with Dr. Valadez - question about PT/OT consult. Discussed with nursing and with Dr. Walls. Outside records reviewed. Hospital Course Summary Disclaimer: The visit summary below is not to be considered part of the above Progress Note. Hospital Course: 12/19/16 ASSESSMENT Bilateral inguinal wounds, status post Wound exploration and excisional debridement and application of wound VAC to inguinal wounds on 12/19/[address] Valadez. Penile cancer s/p penectomy. Normocytic anemia, POA. Head and neck cancer. Squamous cell carcinoma of tongue. Obesity, morbid Asthma Sleep apnea - CPAP Gout - pain to left great toe PLAN CBC was done today, white count was normal at 5.0. He had mild normocytic anemia with a hemoglobin of 10.2. He has been afebrile but had a temperature of 100.7 at home. He has been started on Zosyn. He received ertapenem preop. Follow results of surgical cultures. OK to access PAC. Consult wound team. Check CMP for baseline. Repeat labs in am. He has had low blood pressures for a short period of time following surgery, but they have since stabilized. For Pain, he has had Dilaudid DRAWER IN STITCH BONDING MACHINE pump. Zofran is available when necessary. Percocet also when necessary. He's on Lovenox BID, which were his postop orders x 30 days. Will need to clarify if there are any functional limitations with Dr. Valadez - question about PT/OT consult. Discussed with nursing and with Dr. Walls. Outside records reviewed. <Brunilda Walls - Last Filed: 12/19/16 21:43> Consult Information - Data of Consult Requesting Physician: Brunilda Walls MD Primary Care Provider: Merari Dominguez MD PENDING SALE TO [facility] Patient Stated Medical History Cerebrovascular Accident No Paralysis No Seizures No Syncope No Angina No Cardiac Arrhythmia No Congestive Heart Failure No Coronary Artery Disease No Heart Murmur No Hypertension No Hypotension No Myocardial Infarction No Rheumatic Fever No Valvular Heart Disease No Other Cardiology No Asthma No Bronchitis No Chronic Obstructive Pulmonary No Disease (COPD) Pneumonia No Pulmonary Edema No Pulmonary Embolism No Sleep Apnea Yes Tuberculosis No Other Respiratory No Diabetes Mellitus Type 1 No Diabetes Mellitus Type 2 No Osteoarthritis No Other Musculoskeletal No Anesthesia Reactions No Blood Transfusions No Chemotherapy No Malignant Hyperthermia No Other No Depression No Now No Exam Vital Signs: Temperature 96.4 F L 12/19/16 16:58 Pulse Rate 66 12/19/16 18:43 Respiratory Rate 16 12/19/16 18:43 Blood Pressure 122/70 12/19/16 18:43 Pulse Oximetry 99 12/19/16 18:43 Height/Weight/BMI: Height 5 ft 11 in Weight 348 lb 12.34 oz Body Mass Index 48.4 Results - Labs CBC & Chem 7: 12/19/16 09:31 12/19/16 19:14 Microbiology Results: Microbiology 12/19/16 15:20 Groin Gram Stain - Final 12/19/16 15:20 Groin Deep Wound Culture - Preliminary Culture Initiated - Results Pending Assessment and Plan (1) Open wound of inguinal region Current visit: Yes Status: Acute Assessment and Plan: I have independently evaluated and examined this patient. I reviewed the chart, the patient's history, and the INDUSTRIAL HYGENIST/PA's documented findings as above. We discussed and formulated the assessment and plan as above with additions as below. The patient reports that his mother was diagnosed with pertussis about a month ago. He received a course of azithromycin, but does not recall when his last Tdap was. In general, the patient is alert and oriented 3, cooperative with exam, and in no respiratory distress. HEENT: Head is atraumatic, normocephalic, no conjunctival petechiae, no oral thrush, mucous membranes are moist and pink. Lungs: Clear to auscultation without wheezes, crackles or rhonchi CV: Regular rate and rhythm without murmur Abdomen: Soft, obese, nontender, bowel sounds are present, there is no guarding no rebound. Bilateral inguinal wound vacs in place. He is status post surgical removal of his penis. His ureters have been redirected and drain behind his testicles. No evidence of yeast infection at this time. Extremities: No clubbing, no cyanosis, no edema. Skin: Warm and dry no sign of rash Neuro: Patient is alert IV access: Left chest Port-A-Cath not accessed at this point. Will increase PIP to his up to 4.5 g every 6 hours based on his BMI next number we will give it to Tdap today. We'll follow up on cultures. Hospital Course Summary Disclaimer: The visit summary below is not to be considered part of the above Progress Note.
[2016-12-19] MEDS ORDERED: SENNA + DOCUSATE TABLET PO PRN (18:35)
[2016-12-19] MEDS ORDERED: BISACODYL 10 MG SUPPOSITORY RECTALLY PRN (18:59)
[2016-12-19] MEDS: DOCUSATE SODIUM 100 MG CAPSULE PO SCH (21:03)
[2016-12-19] MEDS: SENNA + DOCUSATE TABLET PO SCH (21:03)
[2016-12-19] MEDS: SERTRALINE 100 MG TABLET PO SCH (21:03)
[2016-12-19] MEDS: TOPIRAMATE 25 MG TABLET PO SCH (21:04)
[2016-12-19] MEDS ORDERED: TETANUS, DIPHTHERIA, a PERTUSSIS (Tdap) 0.5ml INJECTION IM ONE (21:37)
[2016-12-19] MEDS: KETOROLAC 30 MG/ML INJECTION IVP PRN (22:43)
[2016-12-19] MEDS: PIPERACILLIN/TAZOBACTAM 4.5 GM in NS 100 ML IV SCH (23:37)
[2016-12-20] MEDS: OXYCODONE/APAP 7.5 MG/325 MG TABLET PO PRN (01:34)
[2016-12-20] MEDS: PIPERACILLIN/TAZOBACTAM 4.5 GM in NS 100 ML IV SCH ×4 (04:24→19:28)
[2016-12-20] MEDS: SENNA + DOCUSATE TABLET PO SCH ×2 (08:09→21:10)
[2016-12-20] MEDS: POLYETHYL GLYCOL 3350 17gm PACKET PO SCH (08:09)
[2016-12-20] MEDS: TOPIRAMATE 25 MG TABLET PO SCH ×3 (08:11→21:09)
[2016-12-20] MEDS: KETOROLAC 30 MG/ML INJECTION IVP PRN ×3 (08:11→21:37)
--- NOTE | 2016-12-20 08:49 | Operative Note ---
DATE OF SERVICE 12/19/2016 SURGEON Zak Valadez MD PREOPERATIVE DIAGNOSIS Personal history for penile carcinoma, status post bilateral inguinal lymph node dissection with development of postoperative wound infections. POSTOPERATIVE DIAGNOSIS Personal history for penile carcinoma, status post bilateral inguinal lymph node dissection with development of postoperative wound infections. PROCEDURE Exploration of bilateral inguinal wounds with excisional surgical debridement and application of wound VAC. ANESTHESIA General BRIEF HISTORY/INDICATIONS Mr. Rivera is a 46-year-old gentleman who has had the misfortune of developing a penile carcinoma. He did undergo resection of his malignancy. Recently he was found to have some increased activity noted upon PET scan within the inguinal regions. The patient did undergo bilateral inguinal lymph node dissections. Fortunately there was no evidence for metastatic disease. Unfortunately, however, he has developed dehiscence of the wound edges and has developed frankly necrotic tissue which does appear to be infected involving both surgical incisions. The patient presents today to undergo surgical management of his inguinal wounds. For completeness please refer to notes included in the patient's chart. DESCRIPTION OF PROCEDURE After informed consent was obtained, patient was brought to the operative suite and placed on the table in supine fashion. The lower abdomen, inguinal region and anterior thigh region was then prepped and draped in sterile fashion. Formal time-out was then completed. Attention was first focused to the left inguinal wound. There was an open area involving the cephalad aspect of the incision that was about 3-4 cm in diameter. The skin edges as well as the subcutaneous tissues within this area were necrotic. There was purulent material within the depth of the wound. The necrotic subcutaneous tissues were excised and placed within a sterile container for cultures. This was submitted for AFB, fungal, and bacterial cultures. Dissection was then carried down and unfortunately, one could then see the drain. A very large lymphocele was identified that did not appear to being adequately drained by the drain itself. There was a large fluid collection that was perhaps 15 cm in total length and about 5-6 cm in greatest diameter. Yankauer suction was advanced into this large fluid collection and the fluid was suctioned. The original incision overlying this large cavity was then incised with a knife. The underlying subcutaneous tissue was then opened down to the underlying cavity. This resulted in an open incision that was now 17 cm in length. The wound did tunnel in a cephalad fashion about 7 cm. The depth of the wound was 7 cm as well. There was some necrotic subcutaneous tissues as well within the depth of the wound. This additional necrotic subcutaneous tissue was further debrided sharply utilizing a surgical curette, knife and pickups. Once all necrotic tissue had been debrided, the previously placed surgical drain was removed. Meticulous hemostasis was obtained within the wound. Attention was then focused to the right inguinal region. The patient had an open wound as well involving the cephalad aspect of his prior right inguinal incision site. This open wound also contained frankly necrotic material and was quite malodorous in nature. The open portion of the wound was again about 4 -5 cm in total length and a couple of centimeters in width. The frankly necrotic malodorous tissue that was present within the wound was sharply excised with knife and placed within a sterile container for AFB, fungal and bacterial cultures. Dissection was carried down and the necrotic tissue was debrided sharply. One could then again see a drain within the depth of the wound that was now exposed. Fortunately in this situation, there was not a large lymphocele or open cavity present. The wound did tunnel however, both in a cephalad and caudad direction. The incision was opened to a total length of about 10 cm to the underlying cavity that was present. The wound did tunnel however 8 cm in a cephalad fashion and an additional 6 cm caudally. The depth the wound was about 5 cm. The drain was again now exposed and therefore it was removed. All nonviable tissue was again sharply debrided utilizing a surgical curette, tissue forceps and scalpel. Once all nonviable tissue been debrided, meticulous hemostasis was obtained. This wound did tunnel fairly proximally to the inguinal ligament and did extend down towards the location of the femoral vessels. I could not visualize the femoral vessels or palpate the femoral vessels but anatomically the wound was in this vicinity. I therefore elected to place Adaptic overlying the proximal portion of the wound within the posterior aspect. Black foam was then placed overlying the Adaptic to prevent the potential of the foam being against the femoral vessels. The remaining portion of the wound was then filled with black foam. Black foam was also placed throughout the wound within the left inguinal region. Steri-Drape was then applied. Two separate wound VACS were then applied. The patient tolerated the procedure without difficulty. He was sent back to the preop area once deemed in stable condition. ANDIE
[2016-12-20] MEDS: ALLOPURINOL 100 MG TABLET PO SCH (09:00)
[2016-12-20] MEDS: DOCUSATE SODIUM 100 MG CAPSULE PO SCH ×2 (09:00→21:10)
--- NOTE | 2016-12-20 09:49 | Progress Note ---
Objective Vital signs: Temperature 97.1 F 12/20/16 04:00 Pulse Rate 69 12/20/16 04:00 Respiratory Rate 18 12/20/16 04:00 Blood Pressure 108/64 12/20/16 04:00 Pulse Oximetry 98 12/20/16 04:00 Rhythm: Normal Sinus Rhythm Height/Weight/BMI: Height 1.8 m Weight 158.2 kg Body Mass Index 48.4 - Routine HEENT Exam Eye: Present: EOMI ENT: Present: mucous membranes moist. Absent: dentition normal (edentulous) Comments: large healed incision to right side of neck - Routine Respiratory Exam Present: CTA bilaterally, diminished air movement (b/l bases) - Routine Cardiovascular Exam Present: RRR, S1, S2 - Routine Abdominal Exam Present: soft, normoactive bowel sounds, non distended, non tender - Routine Exam Comments: penectomy wound vac b/l inguinal regions right incision healing well - Routine Extremities Exam Present: no edema, pulses intact - Routine Musculoskeletal Exam Musculoskeletal: Present: moving extremities well - Routine Skin Exam Present: dry, pallor (mild), warm - Routine Neurological Exam Present: alert, oriented X3, CN II-XII intact, normal speech - Routine Psychiatric Exam Present: normal affect, normal thought process, cooperative Results - Labs CBC & Chem 7: 12/20/16 04:17 12/20/16 04:17 Microbiology Results: Microbiology 12/19/16 15:20 Groin Gram Stain - Final 12/19/16 15:20 Groin Deep Wound Culture - Preliminary Gram Negative Juan Assessment and Plan (1) Open wound of inguinal region Current visit: Yes Status: Acute Assessment and Plan: Borderline low BP - typically BP runs 100s/60s - last week in clinic it was 102/ 65, which has become normal for him ever since chemo. Anemia I have independently evaluated and examined this patient. I reviewed the chart, the patient's history, and the INTERIOR DESIGN PROGRAM CHAIR/PA's documented findings as above. We discussed and formulated the assessment and plan as above with additions as below. The patient reports that his mother was diagnosed with pertussis about a month ago. He received a course of azithromycin, but does not recall when his last Tdap was. In general, the patient is alert and oriented 3, cooperative with exam, and in no respiratory distress. HEENT: Head is atraumatic, normocephalic, no conjunctival petechiae, no oral thrush, mucous membranes are moist and pink. Lungs: Clear to auscultation without wheezes, crackles or rhonchi CV: Regular rate and rhythm without murmur Abdomen: Soft, obese, nontender, bowel sounds are present, there is no guarding no rebound. Bilateral inguinal wound vacs in place. He is status post surgical removal of his penis. His ureters have been redirected and drain behind his testicles. No evidence of yeast infection at this time. Extremities: No clubbing, no cyanosis, no edema. Skin: Warm and dry no sign of rash Neuro: Patient is alert IV access: Left chest Port-A-Cath not accessed at this point. Will increase PIP to his up to 4.5 g every 6 hours based on his BMI next number we will give it to Tdap today. We'll follow up on cultures. Sepsis Assessment - Evaluation Sepsis screening result: No Definite Risk Hospital Course Summary Disclaimer: The visit summary below is not to be considered part of the above Progress Note. Hospital Course: 12/19/16 ASSESSMENT Bilateral inguinal wounds, status post Wound exploration and excisional debridement and application of wound VAC to inguinal wounds on 12/19/[address] Valadez. Penile cancer s/p penectomy. Normocytic anemia, POA. Head and neck cancer. Squamous cell carcinoma of tongue. Obesity, morbid Asthma Sleep apnea - CPAP Gout - pain to left great toe PLAN CBC was done today, white count was normal at 5.0. He had mild normocytic anemia with a hemoglobin of 10.2. He has been afebrile but had a temperature of 100.7 at home. He has been started on Zosyn. He received ertapenem preop. Follow results of surgical cultures. OK to access PAC. Consult wound team. Check CMP for baseline. Repeat labs in am. He has had low blood pressures for a short period of time following surgery, but they have since stabilized. For Pain, he has had Dilaudid DOCK LOADER pump. Zofran is available when necessary. Percocet also when necessary. He's on Lovenox BID, which were his postop orders x 30 days. Will need to clarify if there are any functional limitations with Dr. Valadez - question about PT/OT consult. Discussed with nursing and with Dr. Walls. Outside records reviewed.
--- NOTE | 2016-12-20 10:04 | Infectious Disease Consult ---
Infectious Disease Consult Date of Consultation: 12/20/16 Requesting Physician: Brunilda Walls Reason for Consultation: antibiotic recs History of Present Illness: Mr. Rivera is a 46 y/o man with a h/o 2 different cancers. He had head and neck cancer about a year ago, which he describes as stage 4. That was treated with surgical resection, chemo and XRT. 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 He underwent surgical resection of his penile cancer, and completed chemo the end of October 2016. He then underwent bilateral inguinal lymph node excision on 11/29/16, and had drains placed. He developed wound dehiscence in both these wounds. He was seen by Dr. Valadez yesterday and taken to surgery for debridement and then admitted yesterday. Per the op note, the L side was noted to have purulent drainage that was cultured, and there was also a lymphocele noted here. The wound was noted to be 17cm in length on the L. Both sides appeared to have necrotic tissue that was debrided, but the R side did not have a lymphocele. He was started on Zosyn. Dr. Valadez's op note reports that he sent bacterial, fungal, and AFB cultures from each side, but the micro lab only got one specimen. The gram stain has GPC in clusters and GNRs, and it's growing a GNR. Wound VACs were applied. He has had mild hypotension, but he states that's normal for him. Medications Home Medications Medication Instructions Recorded Confirmed Type Cyanocobalamin (Vitamin B-12) 1 tab PO DAILY #0 tab 09/04/15 12/19/16 History [Vitamin B-12] Docusate Sodium 1 cap PO BID #30 cap 09/04/15 12/19/16 History Elderberry Fruit/Honey [Little 1 dose PO DAILY #0 09/04/15 12/19/16 History Remedies Cough-Immune] Glucosamine/Chondroitin Sulf A 1 cap PO BID PRN #0 09/04/15 12/19/16 History [Glucosamine Chondroitin Cap] Multivit-Min/FA/Lycopen/Lutein 1 tab PO DAILY #0 09/04/15 12/19/16 History [Centrum Silver Tablet] Oxycodone HCl/Acetaminophen 1 tab PO Q6H PRN #0 tab 09/04/15 12/18/16 History (Percocet 7.5-325 mg Tablet) Topiramate [Topamax] 1 tab PO BID #0 09/04/15 12/19/16 History Allopurinol [Zyloprim] 100 mg PO DAILY 12/18/16 12/19/16 History Ciprofloxacin [Cipro] 1 tab PO BID 12/18/16 12/19/16 History Enoxaparin [Lovenox] 1 unit SQ BID 12/18/16 12/19/16 History Sertraline [Zoloft] 150 mg PO HS 12/18/16 12/19/16 History Allergies Allergy/AdvReac Type Severity Reaction Status Date / Time No Known Allergies Allergy Verified 12/19/16 09:44 PFS Patient Stated Medical History Cerebrovascular Accident No Paralysis No Seizures No Syncope No Angina No Cardiac Arrhythmia No Congestive Heart Failure No Coronary Artery Disease No Heart Murmur No Hypertension No Hypotension No Myocardial Infarction No Rheumatic Fever No Valvular Heart Disease No Other Cardiology No Asthma No Bronchitis No Chronic Obstructive Pulmonary No Disease (COPD) Pneumonia No Pulmonary Edema No Pulmonary Embolism No Sleep Apnea Yes Tuberculosis No Other Respiratory No Diabetes Mellitus Type 1 No Diabetes Mellitus Type 2 No Osteoarthritis No Other Musculoskeletal No Anesthesia Reactions No Blood Transfusions No Chemotherapy No Malignant Hyperthermia No Other No Depression No Now No Surgical History: Wound exploration and excisional debridement and application of wound VAC to inguinal wounds on 12/19/[address] Valadez. Bilateral inguinal lymph node dissections at the [facility] in [place] on November 29, 2016. Penectomy 06/28/2016. Radical neck resection and salivary gland removal on right 2015. Left IJ PAC placement and PEG tube placement . Family History: Father and sister: Type 2 diabetes. Mother: Hypertension - Social History Smoking status: Former smoker (also chewed tobacco - quit 1 year before tongue cancer diagnosis) Household members: spouse Current occupational status: previously employed (RN) Does patient use chewing tobacco?: No (quit) Review of Systems - Constitutional Constitutional: Absent: chills, fever(s) - EENMT Eyes: Absent: change in vision Nose: Absent: obstruction Mouth/Throat: Absent: sore throat, changes in swallowing, painful swallowing - Cardiovascular Cardiovascular: Absent: chest pain Vascular: Absent: pedal edema - Respiratory Respiratory: Absent: dyspnea - Gastrointestinal Gastrointestinal: Absent: abdominal pain, diarrhea, nausea, vomiting - Genitourinary Genitourinary: Absent: dysuria - Musculoskeletal Musculoskeletal: Absent: back pain - Integumentary/Breasts Integumentary: Present: wounds (as per HPI) - Neurological Neurological: Absent: headache(s) - Psychiatric Psychiatric: Present: depression - Hematologic/Lymphatic Hematologic/Lymphatic: Absent: easy bruising Exam Vital Signs: Temperature 97.1 F 12/20/16 04:00 Pulse Rate 69 12/20/16 04:00 Respiratory Rate 18 12/20/16 04:00 Blood Pressure 108/64 12/20/16 04:00 Pulse Oximetry 98 12/20/16 04:00 Height/Weight/BMI: Height 1.8 m Weight 158.2 kg Body Mass Index 48.4 - Constitutional Present: no acute distress, well nourished, obese - Routine HEENT Exam Head: Present: normocephalic, atraumatic Eye: Present: EOMI ENT: Present: mucous membranes moist - Routine Neck Exam Present: supple - Routine Respiratory Exam Present: CTA bilaterally. Absent: accessory muscle use - Routine Cardiovascular Exam Present: RRR. Absent: murmur - Routine Abdominal Exam Present: soft, normoactive bowel sounds, non distended. Absent: tenderness - Routine Exam Comments: s/p penectomy, bilateral groin wounds with VACs in place. L side appears to be a larger wound. No significant surrounding erythema - Routine Extremities Exam Absent: cyanosis, clubbing, edema - Routine Skin Exam Present: intact, dry, warm. Absent: rash Comments: L chest PAC accessed - Routine Neurological Exam Present: alert, oriented X3, CN II-XII intact - Routine Psychiatric Exam Present: normal affect, normal thought process Results - Labs CBC & Chem 7: 12/20/16 04:17 12/20/16 04:17 Microbiology Results: Microbiology 12/19/16 15:20 Groin Gram Stain - Final 12/19/16 15:20 Groin Deep Wound Culture - Preliminary Gram Negative Juan Impression: Bilateral postoperative inguinal wound dehiscence/infection, s/p I&D with wound VAC placement 12/19/16, culture with GNRs. 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 The gram stain suggests Staph, however, he is clinically stable. Would add Vancomycin if staph grows in the cultures. I would continue IV antibiotics for at least a few days. I'll re-evaluate him on Friday. Sepsis Assessment - Evaluation Sepsis screening result: No Definite Risk
--- NOTE | 2016-12-20 10:55 | Wound Care Progress Note ---
Wound Management - Wound Right Groin Wound Present on Admission?: Yes Length: 10 Width: 4 Depth: 7 Tunneling Location (o'clock): 7 (at 6) Wound Bed Appearance: Beefy Red Arely Wound Appearance: [place], Well Defined Tunneling: Yes (7cm @6) Undermining: No Drainage Description: Serosanguineous Drainage Amount: Moderate Drainage Odor: No Odor Dressing Status: Changed Irrigant Solution: Saline Irrigant Packing Type: Woundvac Sponge Number of Packing Pieces Placed?: 4 Primary Dressing: Foam Dressing (Pt asleep in OR on 12/19/16 Adaptic placed in upper area of wound prior to wound vac instill application.) Microbiology: Microbiology 12/19/16 15:20 Groin Gram Stain - Final 12/19/16 15:20 Groin Deep Wound Culture - Preliminary Gram Negative Juan
--- NOTE | 2016-12-20 11:02 | Wound Care Progress Note ---
Wound Management - Wound Left Groin Wound Present on Admission?: Yes Length: 10 Width: 4 Depth: 5 Tunneling Location (o'clock): 12 (6cm) Wound Bed Appearance: Beefy Red Arely Wound Appearance: [place], Purple, Well Defined Tunneling: Yes Wound Underminin (8cm) Undermining: No Drainage Description: Serosanguineous Drainage Amount: Moderate Drainage Odor: No Odor Dressing Status: Changed (12/19/16 pt asleep in OR placed instill wound vac to left groin, instill with NS) Irrigant Solution: Saline Irrigant Packing Type: Woundvac Sponge Number of Packing Pieces Placed?: 4 Primary Dressing: Foam Dressing Secondary Dressing: Trac Pad Dressing Change Date: 12/19/16 (In OR) Dressing Change Time: 15:00 Dressing Change Patient Tolerance: Tolerated Well Microbiology: Microbiology 12/19/16 15:20 Groin Gram Stain - Final 12/19/16 15:20 Groin Deep Wound Culture - Preliminary Gram Negative Juan
--- NOTE | 2016-12-20 11:16 | General Surgery Progress Note ---
Subjective Patient reports: no new complaints (vac has remained in tact, no leaks), feels better, tolerating a regular diet, voiding w/o difficulty, afebrile Narrative: ID consult has been put forth, Dr. Winters note reviewed. - Vital Signs Last Vital Signs Temp 97.8 F 12/20/16 08:00 Pulse 65 12/20/16 08:00 Resp 16 12/20/16 08:00 BP 113/65 12/20/16 08:00 Pulse Ox 100 12/20/16 08:00 - Laboratory Result Diagrams: 12/20/16 04:17 12/20/16 04:17 - Microbiogy Microbiology 12/19/16 15:20 Groin Gram Stain - Final 12/19/16 15:20 Groin Deep Wound Culture - Preliminary Gram Negative Juan Fungal and AFB pending - Abnormal Exam Abdominal: obese (morbidly, he also is resistant to limiting sweets in his diet. ) - Normal Exam General: awake, alert, no acute distress Cardiovascular: regular rhythm, regular rate Respiratory: no labored breathing Abdominal: soft, non-tender Additional Normal Findings: Wound vac from bilateral inguinal/groin are both in tact, foam nicely compressed , fluid from Instill Vac light pink tinged. Wound/Stoma/Drain Assessment - Wound Management Right Groin Wound Type: Surgical Incision Wound Present on Admission?: Yes Wound Length: 10 Wound Width: 4 Wound Depth: 7 Tunneling: Yes (7cm @6) Wound Bed Appearance: Beefy Red Wound Surrounding Tissue Appearance: [place], Well Defined Wound Drainage Description: Serosanguineous Wound Drainage Amount: Moderate Wound Drainage Odor: No Odor Wound Dressing Status: Changed Wound Irrigant Solution: Saline Irrigant Wound Packing Type: Woundvac Sponge Number of Packing Pieces Placed?: 4 Primary Dressing: Foam Dressing (Pt asleep in OR on 12/19/16 Adaptic placed in upper area of wound prior to wound vac instill application.) Left Groin Wound Type: Surgical Incision Wound Present on Admission?: Yes Wound Length: 10 Wound Width: 4 Wound Depth: 5 Tunneling: Yes Wound Underminin (8cm) Wound Bed Appearance: Beefy Red Wound Surrounding Tissue Appearance: [place], Purple, Well Defined Wound Drainage Description: Serosanguineous Wound Drainage Amount: Moderate Wound Drainage Odor: No Odor Wound Dressing Status: Changed (12/19/16 pt asleep in OR placed instill wound vac to left groin, instill with NS) Wound Irrigant Solution: Saline Irrigant Wound Packing Type: Woundvac Sponge Number of Packing Pieces Placed?: 4 Primary Dressing: Foam Dressing Secondary Dressing: Trac Pad Dressing Change Date: 12/19/16 (In OR) Dressing Change Time: 15:00 Dressing Change Patient Tolerance: Tolerated Well Assessment and Plan (1) Open wound of inguinal region Current Visit: Yes Status: Acute Plan: Vac working well. No new complaints, no significant pain. ID directing ABX. Plan on seeing him again on Friday. Hospital Course Summary Disclaimer: The visit summary below is not to be considered part of the above Progress Note. Hospital Course: 12/19/16 ASSESSMENT Bilateral inguinal wounds, status post Wound exploration and excisional debridement and application of wound VAC to inguinal wounds on 12/19/[address] Valadez. Penile cancer s/p penectomy. Normocytic anemia, POA. Head and neck cancer. Squamous cell carcinoma of tongue. Obesity, morbid Asthma Sleep apnea - CPAP Gout - pain to left great toe PLAN CBC was done today, white count was normal at 5.0. He had mild normocytic anemia with a hemoglobin of 10.2. He has been afebrile but had a temperature of 100.7 at home. He has been started on Zosyn. He received ertapenem preop. Follow results of surgical cultures. OK to access PAC. Consult wound team. Check CMP for baseline. Repeat labs in am. He has had low blood pressures for a short period of time following surgery, but they have since stabilized. For Pain, he has had Dilaudid DEVELOPER RELATIONS MANAGER pump. Zofran is available when necessary. Percocet also when necessary. He's on Lovenox BID, which were his postop orders x 30 days. Will need to clarify if there are any functional limitations with Dr. Valadez - question about PT/OT consult. Discussed with nursing and with Dr. Walls. Outside records reviewed. Sepsis Assessment - Evaluation Sepsis screening result: No Definite Risk
--- NOTE | 2016-12-20 11:42 | Progress Note ---
<Cheri Gracia - Last Filed: 12/20/16 11:39> Subjective: Jasvir is doing well today. He had a good night, slept well. His pain is "tolerable" - but he wouldn't want anything stronger than the Percocet and Toradol. He denies SOA or chest pain. No abdominal pain or nausea. Discussed labs and vitals - he and his report that he has had low BP ever since chemo. Last week he was 102/[address] Dominguez's office, which has been his norm. Objective Vital signs: Temperature 97.8 F 12/20/16 08:00 Pulse Rate 65 12/20/16 08:00 Respiratory Rate 16 12/20/16 08:00 Blood Pressure 113/65 12/20/16 08:00 Pulse Oximetry 100 12/20/16 08:00 Rhythm: Normal Sinus Rhythm Height/Weight/BMI: Height 1.8 m Weight 158.2 kg Body Mass Index 48.4 - Constitutional Present: no acute distress, well nourished, well developed, morbidly obese - Routine HEENT Exam Eye: Absent: conjunctival icterus ENT: Present: mucous membranes moist, oropharynx clear Comments: well healed incision to right neck - Routine Respiratory Exam Present: CTA bilaterally, diminished air movement (b/l bases) - Routine Cardiovascular Exam Present: RRR, S1, S2. Absent: murmur - Routine Abdominal Exam Present: soft, normoactive bowel sounds, non distended, non tender - Routine Exam Comments: s/p penectomy wound vacs to b/l inguinal regions no significant erythema or yeast well-healed incision to right thigh - Routine Extremities Exam Present: no edema - Routine Skin Exam Present: dry, pallor, warm - Routine Neurological Exam Present: alert, oriented X3 - Routine Psychiatric Exam Present: normal affect, normal thought process, cooperative Results - Labs CBC & Chem 7: 12/20/16 04:17 12/20/16 04:17 Microbiology Results: Microbiology 12/19/16 15:20 Groin Gram Stain - Final 12/19/16 15:20 Groin Deep Wound Culture - Preliminary Gram Negative Juan Assessment and Plan (1) Open wound of inguinal region Current visit: Yes Status: Acute DVT Prophylaxis: Lovenox Resuscitation Status: Full Code Assessment and Plan: ASSESSMENT Bilateral inguinal wounds, status post Wound exploration and excisional debridement and application of wound VAC to inguinal wounds on 12/19/[address] Valadez. Penile cancer s/p penectomy. Normocytic anemia, POA. Borderline low BP, chronic Head and neck cancer. Squamous cell carcinoma of tongue. Obesity, morbid Asthma Sleep apnea - CPAP Gout - pain to left great toe PLAN Borderline low BP - typically BP runs 100s/60s - last week in clinic it was 102/ 65, which has become normal for him ever since chemo. Anemia - hgb decreased to 8.9. Cont to monitor. Dr. Winters evaluated him this am. Waiting on cx. Evaluated also by wound team. Continue Zosyn. Afebrile, normal WBC. Still has negative fluid balance (NPO all day yesterday). Will continue IVF at 50 ml/hr for now, likely can dc later tonight or tomorrow as long as BP is at baseline Decreased air movement in bases - IS ordered. Sepsis Assessment - Evaluation Sepsis screening result: No Definite Risk Hospital Course Summary Disclaimer: The visit summary below is not to be considered part of the above Progress Note. Hospital Course: 12/19/16 ASSESSMENT Bilateral inguinal wounds, status post Wound exploration and excisional debridement and application of wound VAC to inguinal wounds on 12/19/[address] Valadez. Penile cancer s/p penectomy. Normocytic anemia, POA. Borderline low BP, chronic Head and neck cancer. Squamous cell carcinoma of tongue. Obesity, morbid Asthma Sleep apnea - CPAP Gout - pain to left great toe PLAN CBC was done today, white count was normal at 5.0. He had mild normocytic anemia with a hemoglobin of 10.2. He has been afebrile but had a temperature of 100.7 at home. He has been started on Zosyn. He received ertapenem preop. Follow results of surgical cultures. OK to access PAC. Consult wound team. Check CMP for baseline. Repeat labs in am. He has had low blood pressures for a short period of time following surgery, but they have since stabilized. For Pain, he has had Dilaudid TOOL/DIE MAKER pump. Zofran is available when necessary. Percocet also when necessary. He's on Lovenox BID, which were his postop orders x 30 days. Will need to clarify if there are any functional limitations with Dr. Valadez - question about PT/OT consult. Discussed with nursing and with Dr. Walls. Outside records reviewed. 12/20/16 Borderline low BP - typically BP runs 100s/60s - last week in clinic it was 102/ 65, which has become normal for him ever since chemo. Anemia - hgb decreased to 8.9. Cont to monitor. Dr. Winters evaluated him this am. Waiting on cx. Evaluated also by wound team. Continue Zosyn. Afebrile, normal WBC. Still has negative fluid balance (NPO all day yesterday). Will continue IVF at 50 ml/hr for now, likely can dc later tonight or tomorrow as long as BP is at baseline Decreased air movement in bases - IS ordered. <Brunilda Walls - Last Filed: 12/20/16 20:20> Objective Vital signs: Temperature 96.2 F L 12/20/16 15:42 Pulse Rate 69 12/20/16 15:42 Respiratory Rate 16 12/20/16 15:42 Blood Pressure 109/61 12/20/16 15:42 Pulse Oximetry 99 12/20/16 15:42 Height/Weight/BMI: Height 5 ft 11 in Weight 352 lb 11.834 oz Body Mass Index 48.4 Results - Labs CBC & Chem 7: 12/20/16 04:17 12/20/16 04:17 Microbiology Results: Microbiology 12/19/16 15:20 Wound Acid Fast Bacilli Culture & Smear - Preliminary 12/19/16 15:20 Groin Gram Stain - Final 12/19/16 15:20 Groin Deep Wound Culture - Preliminary Gram Negative Juan Assessment and Plan (1) Open wound of inguinal region Current visit: Yes Status: Acute Assessment and Plan: I have independently evaluated and examined this patient. I reviewed the chart, the patient's history, and the COMMUNITY SERVICE REPRESENTATIVE/PA's documented findings as above. We discussed and formulated the assessment and plan as above with additions as below. The patient was seen at 1950. He is doing well. His blood pressures are still low but stable with his last recorded blood pressure 109/61. He feels good without complaints. He is tolerating the antibiotics without difficulty and signs of a rash. In general, the patient is alert and oriented 3, cooperative with exam, and in no respiratory distress. HEENT: Head is atraumatic, normocephalic, no conjunctival petechiae, no oral thrush, mucous membranes are moist and pink. Lungs: Clear to auscultation without wheezes, crackles or rhonchi CV: Regular rate and rhythm without murmur Abdomen: Soft, nontender, obes,bowel sounds are present, there is no guarding no rebound. He has bilateral inguinal wound vacs in place. Extremities: No clubbing, no cyanosis, no edema. Skin: Warm and dry no sign of rash Neuro: Patient is alert Dr. Winters was consulted this morning. Appreciate her help. Agree with her plans as outlined. Will continue Pip/tazo, consider adding vancomycin if staph grows from cultures. Hospital Course Summary Disclaimer: The visit summary below is not to be considered part of the above Progress Note.
--- NOTE | 2016-12-20 12:44 | Progress Note ---
DATE 12/20/2016 FINDINGS The patient today is without complaints. He is having some incisional discomfort. States that the output from his wound VAC has been fairly significant and they had to "change a canister last night". OBJECTIVE VITALS: Afebrile. Normotensive. EXTREMITIES: Attention was focused to the inguinal regions bilaterally. VACS are in place and functioning. Periwound skin is without significant erythema. ASSESSMENT 46-year-old gentleman status post surgical exploration of bilateral inguinal wounds with excisional surgical debridement and application of wound VAC. Patient doing well. PLAN Will continue with broad-spectrum antibiotics. Await cultures and change antibiotics accordingly. The patient will likely require hospitalization over the weekend. Will work on obtaining home VAC at beginning of next week. Patient does have fairly extensive surgical wounds. [facility]
[2016-12-20] MEDS: LR 1,000 ML IV SCH (15:12)
[2016-12-20] MEDS: ENOXAPARIN 40 MG/0.4 ML INJECTION SQ SCH (21:09)
[2016-12-20] MEDS: SERTRALINE 100 MG TABLET PO SCH (21:10)
[2016-12-21] MEDS: PIPERACILLIN/TAZOBACTAM 4.5 GM in NS 100 ML IV SCH ×5 (00:30→23:57)
[2016-12-21] MEDS: KETOROLAC 30 MG/ML INJECTION IVP PRN ×2 (08:02→16:28)
[2016-12-21] MEDS: ENOXAPARIN 40 MG/0.4 ML INJECTION SQ SCH ×2 (11:27→21:18)
[2016-12-21] MEDS: DOCUSATE SODIUM 100 MG CAPSULE PO SCH ×2 (11:28→21:18)
[2016-12-21] MEDS: POLYETHYL GLYCOL 3350 17gm PACKET PO SCH (11:28)
[2016-12-21] MEDS: SENNA + DOCUSATE TABLET PO SCH ×2 (11:28→21:18)
[2016-12-21] MEDS: TOPIRAMATE 25 MG TABLET PO SCH ×2 (11:28→21:18)
[2016-12-21] MEDS: ALLOPURINOL 100 MG TABLET PO SCH (11:30)
[2016-12-21] MEDS: LR 1,000 ML IV SCH (14:30)
--- NOTE | 2016-12-21 17:06 | Progress Note ---
Subjective: Pt appears to be doing well. reports a new "rash" on his back. He states he is not hurting or itching. Denies any SOB, CP, no fever or chills. Objective Vital signs: Temperature 99.1 F 12/21/16 16:00 Pulse Rate 73 12/21/16 16:00 Respiratory Rate 18 12/21/16 16:00 Blood Pressure 113/67 12/21/16 16:00 Pulse Oximetry 100 12/21/16 16:00 Rhythm: Normal Sinus Rhythm Height/Weight/BMI: Height 5 ft 11 in Weight 160.1 kg Body Mass Index 48.4 - Constitutional Present: no acute distress, obese - Routine HEENT Exam Head: Present: normocephalic, atraumatic Eye: Present: EOMI, PERRL - Routine Respiratory Exam Present: CTA bilaterally - Routine Cardiovascular Exam Present: RRR, S1, S2 - Routine Extremities Exam Absent: cyanosis, clubbing - Routine Neurological Exam Present: alert, oriented X3 - Routine Psychiatric Exam Present: normal affect, good insight, good judgment (Skin exam - Pt has multiple small hyperpigmented spots that are not due to erythema and could be due to petechiae) Results - Labs CBC & Chem 7: 12/21/16 05:22 12/21/16 05:22 Microbiology Results: Microbiology 12/19/16 15:20 Wound, Deep Fungal Culture - Preliminary 12/19/16 15:20 Groin Gram Stain - Final 12/19/16 15:20 Groin Deep Wound Culture - Preliminary Gram Negative Juan 12/19/16 15:20 Wound Acid Fast Bacilli Culture & Smear - Preliminary Assessment and Plan (1) Open wound of inguinal region Current visit: Yes Status: Acute Assessment and Plan: Summary - Mr Rivera is a 46 YO male that came with inguinal wounds, that were infected. He has developed a petechial rash on his back - his platelets are normal, pt has a complex medical history of Penile cancer and is S/P Penectomy - Finished chemo November 03, 2016, also has Squamous cell carcinoma of tongue ( Head and neck cancer) had radiation and chemotherapy for this and is morbidly obese. 1) Bilateral inguinal wounds, healing very slowly - infected vs local mets ? - Culture showed moderate growth of gram + cocci and gram negative rods. - Pt on Zosyn, will continue - Pt has wound vac 2) S/P Penile cancer - head and neck cancer (Due to HPV ?) - Pt on Lovenox 40mg SC Q12H for DVT prevention. - Pt is high risk for DVT/PE due to obesity and malignancy and infection. 3) H/O Gout - continue with Allopurinol. - Check Uric Acid level in the AM. 4) Anemia - will check basic anemia W/U in the AM Prevention Lovenox PPI. - Time spent with patient 25 - 35 minutes Sepsis Assessment - Evaluation Sepsis screening result: No Definite Risk Hospital Course Summary Disclaimer: The visit summary below is not to be considered part of the above Progress Note.
[2016-12-21] MEDS: OMEPRAZOLE 20 MG CAPSULE PO SCH (17:50)
[2016-12-21] MEDS: SERTRALINE 100 MG TABLET PO SCH (21:26)
[2016-12-21] MEDS: SALINE FLUSH 10ml SYRINGE IV PRN (23:58)
[2016-12-22] MEDS: PIPERACILLIN/TAZOBACTAM 4.5 GM in NS 100 ML IV SCH ×4 (05:53→23:39)
[2016-12-22] MEDS: OMEPRAZOLE 20 MG CAPSULE PO SCH ×2 (05:53→18:06)
[2016-12-22] MEDS: SALINE FLUSH 10ml SYRINGE IV PRN ×2 (05:54→14:44)
[2016-12-22] MEDS: KETOROLAC 30 MG/ML INJECTION IVP PRN (06:05)
[2016-12-22] MEDS: ENOXAPARIN 40 MG/0.4 ML INJECTION SQ SCH ×2 (10:24→21:18)
[2016-12-22] MEDS: ALLOPURINOL 100 MG TABLET PO SCH (10:24)
[2016-12-22] MEDS: TOPIRAMATE 25 MG TABLET PO SCH ×2 (10:28→21:19)
[2016-12-22] MEDS: DOCUSATE SODIUM 100 MG CAPSULE PO SCH ×2 (10:29→21:18)
[2016-12-22] MEDS: SENNA + DOCUSATE TABLET PO SCH ×2 (10:29→21:18)
[2016-12-22] MEDS: POLYETHYL GLYCOL 3350 17gm PACKET PO SCH (10:29)
--- NOTE | 2016-12-22 12:44 | Progress Note ---
Subjective: Pt states he is doing well today - denies any itching - despite the fact he has developed a very faint rash consisting of minuscule erythematous papules < 1mm in diameter on his back. Denies fever or chills. 24 hr urine ongoing. Objective Vital signs: Temperature 97.0 F 12/22/16 07:42 Pulse Rate 77 12/22/16 07:42 Respiratory Rate 20 12/22/16 07:42 Blood Pressure 97/65 12/22/16 07:42 Pulse Oximetry 97 12/22/16 07:42 Rhythm: Normal Sinus Rhythm Height/Weight/BMI: Height 5 ft 11 in Weight 162 kg Body Mass Index 48.4 - Constitutional Present: no acute distress, obese - Routine HEENT Exam Head: Present: normocephalic, atraumatic, cushingoid faces Eye: Present: EOMI, PERRL ENT: Present: mucous membranes moist, mucous membranes dry - Routine Respiratory Exam Present: CTA bilaterally - Routine Cardiovascular Exam Present: RRR, S1, S2 - Routine Abdominal Exam Present: soft, non distended, non tender - Routine Extremities Exam Present: edema. Absent: cyanosis, clubbing Results - Labs CBC & Chem 7: 12/22/16 04:28 12/22/16 04:28 Microbiology Results: Microbiology 12/19/16 15:20 Groin Gram Stain - Final 12/19/16 15:20 Groin Deep Wound Culture - Final Enterobacter cloacae Anaerobic Gram-Negative Juan Streptococcus viridans group Other Annette Observed 12/19/16 15:20 Wound, Deep Fungal Culture - Preliminary 12/19/16 15:20 Wound Acid Fast Bacilli Culture & Smear - Preliminary Assessment and Plan (1) Open wound of inguinal region Current visit: Yes Status: Acute Assessment and Plan: Summary - Mr Rivera is a 46 YO male that came with inguinal wounds, that were infected. 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 He states he is feeling fine today. 1) Bilateral inguinal wounds, healing very slowly - infected vs local mets ? - Culture showed moderate growth of gram + cocci and gram negative rods. - Pt on Zosyn, will continue - Pt has wound vac 2) Pt is morbidly obese has truncal striae, and a very large fat pad on the back of his neck ([place]'s hump) - 24 hr urine for Cortisol (Collection ongoing) - Wt on admission (12/20) - 158.2 - today 162 3) S/P Penile cancer - head and neck cancer (according to pt and - 2 "different" cancers) - Pt on Lovenox 40mg SC Q12H for DVT prevention. - Pt is high risk for DVT/PE due to obesity and malignancy and infection. 4) H/O Gout - continue with Allopurinol. - Uric acid is 3.6 on 12/22* 5) Anemia; Hemoglobin on admission - 10.2 today 8.2. - Hemoccult x 1 negative will complete series of 3. - Iron studies, B12 pending - Platelets are normal - Hemoglobin continues to drop. Prevention - Lovenox - PPI. - Time spent with patient 25 - 35 minutes Sepsis Assessment - Evaluation Sepsis screening result: No Definite Risk Hospital Course Summary Disclaimer: The visit summary below is not to be considered part of the above Progress Note.
[2016-12-22] MEDS: LR 1,000 ML IV SCH (12:55)
[2016-12-22] MEDS: SERTRALINE 100 MG TABLET PO SCH (21:19)
[2016-12-23] MEDS: LR 1,000 ML IV SCH ×2 (00:51→09:45)
[2016-12-23] MEDS ORDERED: DOCUSATE SODIUM 100 MG CAPSULE PO PRN (01:03)
[2016-12-23] MEDS ORDERED: SENNA + DOCUSATE TABLET PO PRN (01:04)
[2016-12-23] MEDS: PIPERACILLIN/TAZOBACTAM 4.5 GM in NS 100 ML IV SCH ×3 (06:01→17:53)
[2016-12-23] MEDS: OMEPRAZOLE 20 MG CAPSULE PO SCH ×2 (06:02→17:48)
[2016-12-23] MEDS: ENOXAPARIN 40 MG/0.4 ML INJECTION SQ SCH ×2 (08:56→21:46)
[2016-12-23] MEDS: TOPIRAMATE 25 MG TABLET PO SCH ×2 (08:57→21:46)
[2016-12-23] MEDS: POLYETHYL GLYCOL 3350 17gm PACKET PO SCH (08:57)
[2016-12-23] MEDS: ALLOPURINOL 100 MG TABLET PO SCH (08:58)
--- NOTE | 2016-12-23 09:09 | Progress Note ---
Subjective Date: 12/23/16 Subjective: He denies any fevers or chills. Has slightly loose stools but not diarrhea. Has been noted to have a petechial rash on back and buttocks but nowhere else. No pruritus. No nausea or other complaints. Exam Vital Signs: Temperature 97.0 F 12/23/16 07:00 Pulse Rate 63 12/23/16 07:00 Respiratory Rate 18 12/23/16 07:00 Blood Pressure 107/73 12/23/16 07:00 Pulse Oximetry 98 12/23/16 07:00 Height/Weight/BMI: Height 1.8 m Weight 159.4 kg Body Mass Index 48.4 - Constitutional Present: no acute distress, obese - Routine HEENT Exam Head: Present: normocephalic, atraumatic Eye: Present: EOMI, PERRL ENT: Present: mucous membranes moist - Routine Neck Exam Present: supple - Routine Respiratory Exam Present: CTA bilaterally - Routine Cardiovascular Exam Present: RRR. Absent: murmur - Routine Abdominal Exam Present: soft, normoactive bowel sounds, non distended, non tender - Routine Exam Comments: bilateral inguinal wounds with VAC on, minimal surrounding erythema - Routine Extremities Exam Present: edema (wearing JESS hose bilateral LEs). Absent: cyanosis, clubbing - Routine Skin Exam Present: petechiae (on back and buttocks, no maculopapular rash) Comments: Left chest PAC, accessed - Routine Neurological Exam Present: alert, oriented X3, CN II-XII intact - Routine Psychiatric Exam Present: normal affect, normal thought process Results - Labs CBC & Chem 7: 12/23/16 03:54 12/23/16 03:54 Microbiology Results: Microbiology 12/19/16 15:20 Groin Gram Stain - Final 12/19/16 15:20 Groin Deep Wound Culture - Final Enterobacter cloacae Anaerobic Gram-Negative Juan Streptococcus viridans group Other Annette Observed 12/19/16 15:20 Wound, Deep Fungal Culture - Preliminary 12/19/16 15:20 Wound Acid Fast Bacilli Culture & Smear - Preliminary Impression: Bilateral postoperative inguinal wound dehiscence/infection, s/p I&D with wound VAC placement 12/19/16, culture with E. cloacae sensitive to levaquin, anaerobes, Strep viridans. 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 Per RN, Dr. Valadez is planning to take him to the OR tomorrow for VAC change. I'll re-evaluate him on Friday. If he is felt to be ready to be discharged home, I would recommend using levaquin and flagyl. He will need at least 2 weeks of antibiotic therapy. If he is discharged, I' ll see him in follow up in the [facility]ound [facility]. Sepsis Assessment - Evaluation Sepsis screening result: No Definite Risk
--- NOTE | 2016-12-23 12:00 | Progress Note ---
Subjective: Pt has no complaints. Remans afebrile. No change on rash - WBC count a bit low, Hemoglobin increased (Was diuresed). 24 hr urine pending to be completed for Cortisol. Objective Vital signs: Temperature 97.0 F 12/23/16 07:00 Pulse Rate 63 12/23/16 07:00 Respiratory Rate 18 12/23/16 07:00 Blood Pressure 107/73 12/23/16 07:00 Pulse Oximetry 98 12/23/16 07:00 Rhythm: Normal Sinus Rhythm Height/Weight/BMI: Height 5 ft 11 in Weight 159.4 kg Body Mass Index 48.4 - Constitutional Present: no acute distress - Routine HEENT Exam Head: Present: normocephalic, atraumatic, cushingoid faces Eye: Present: EOMI, PERRL - Routine Cardiovascular Exam Present: RRR, S1, S2 - Routine Abdominal Exam Present: soft, non distended, non tender - Routine Extremities Exam Absent: cyanosis, clubbing, edema - Routine Neurological Exam Present: alert, oriented X3, CN II-XII intact - Routine Psychiatric Exam Present: normal affect, good insight, good judgment Results - Labs CBC & Chem 7: 12/23/16 03:54 12/23/16 03:54 Microbiology Results: Microbiology 12/19/16 15:20 Wound Acid Fast Bacilli Culture & Smear - Preliminary 12/19/16 15:20 Groin Gram Stain - Final 12/19/16 15:20 Groin Deep Wound Culture - Final Enterobacter cloacae Anaerobic Gram-Negative Juan Streptococcus viridans group Other Annette Observed 12/19/16 15:20 Wound, Deep Fungal Culture - Preliminary Assessment and Plan (1) Open wound of inguinal region Current visit: Yes Status: Acute Assessment and Plan: Summary - Mr Rivera is a 46 YO male that came with inguinal wounds, that were infected. 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 He states he is feeling fine today, and will be going to the OR soon for revision of his wound DIAGNOSIS 1) Bilateral inguinal wounds, healing very slowly - infected ? Local mets ? Cushings syndrome ? - Culture showed moderate growth of gram + cocci and gram negative rods. - Pt on Zosyn, will continue - Pt has wound vac - 24 hr urine ordered to check Cortisol level. 2) Pt is morbidly obese has truncal striae, and a very large fat pad on the back of his neck ([place]'s hump ? vs a large lipoma) - 24 hr urine for Cortisol (Collection ongoing) 3) S/P Penile cancer - head and neck cancer (according to pt and - 2 "different" cancers) - Pt on Lovenox 40mg SC Q12H for DVT prevention. - Pt is high risk for DVT/PE due to obesity and malignancy and infection. 4) H/O Gout - continue with Allopurinol. - Uric acid is 3.6 on 12/22* 5) Anemia of Inflammation (ACD) + anemia of iron deficiency. - Hemoglobin on admission - 10.2 - today 8.6 (Increased a bit since yesterday - pt was diuresed). - Hemoccult x 1 negative will complete series of 3. - Iron low, Saturation 9% - TIBC low. Prevention - Lovenox - PPI. Sepsis Assessment - Evaluation Sepsis screening result: No Definite Risk Hospital Course Summary Disclaimer: The visit summary below is not to be considered part of the above Progress Note.
--- NOTE | 2016-12-23 14:24 | Progress Note ---
DATE OF VISIT 12/23/2016 FINDINGS The patient is without complaints today. He states that he has been able to ambulate without difficulty despite having bilateral wound VACs present within the groins. VITALS: Afebrile. Normotensive. EXTREMITIES: Attention was focused to his inguinal regions. Both VACs are in place and functioning without difficulty. Periwound region is without significant erythema or induration. ASSESSMENT 46-year-old gentleman status post bilateral inguinal lymph node dissection with resultant wound infections. Status post bilateral inguinal wound explorations with excisional surgical debridement and application of wound VACs. Patient doing well. PLAN I did review the patient's lab work today. He does have somewhat of a pancytopenia. I reviewed wound cultures revealing Enterobacter gram-negative rods and Streptococcus sensitive to Zosyn. It is my recommendation that tomorrow we change his wound VACs in an operative setting. Will provide some sedation during the VAC change. If there has been marked improvement, the patient may be able to be discharged from the facility within the near future. ANDIE
[2016-12-23] MEDS: FERROUS SULFATE 324 MG TABLET PO SCH (17:48)
[2016-12-23] MEDS: SERTRALINE 100 MG TABLET PO SCH (21:46)
[2016-12-24] MEDS: PIPERACILLIN/TAZOBACTAM 4.5 GM in NS 100 ML IV SCH ×5 (00:15→23:35)
[2016-12-24] MEDS: LR 1,000 ML IV SCH ×2 (04:42→05:45)
[2016-12-24] MEDS: OMEPRAZOLE 20 MG CAPSULE PO SCH ×2 (05:44→17:03)
[2016-12-24] MEDS: ENOXAPARIN 40 MG/0.4 ML INJECTION SQ SCH ×2 (08:36→21:49)
[2016-12-24] MEDS: POLYETHYL GLYCOL 3350 17gm PACKET PO SCH (08:36)
[2016-12-24] MEDS: FERROUS SULFATE 324 MG TABLET PO SCH ×2 (08:37→17:03)
[2016-12-24] MEDS: MULTI-VITAMIN + MINERAL TABLET PO SCH (08:37)
[2016-12-24] MEDS: TOPIRAMATE 25 MG TABLET PO SCH ×2 (08:37→21:49)
[2016-12-24] MEDS: ALLOPURINOL 100 MG TABLET PO SCH (08:37)
[2016-12-24] MEDS ORDERED: POLYETHYL GLYCOL 3350 17gm PACKET PO SCH (09:00)
--- NOTE | 2016-12-24 10:04 | Anesthesia Preoperative Report ---
Anesthesia Preoperative Record - Date and Time Date: 12/24/16 Preoperative Diagnosis: Exploration ing wound S31.031A Proposed Procedure: Wound vac change inguinal NPO Since Date: 12/24/16 NPO Since Time: 00:00 Allergies/Adverse Reactions: Allergies Allergy/AdvReac Type Severity Reaction Status Date / Time No Known Allergies Allergy Verified 12/19/16 09:44 - Vital Signs Vital Signs: Temperature 97.4 F 12/24/16 07:35 Pulse Rate 62 12/24/16 07:35 Respiratory Rate 16 12/24/16 07:35 Blood Pressure 117/67 12/24/16 07:35 Pulse Oximetry 98 12/24/16 07:35 Height and Weight: Height 1.8 m Weight 157.2 kg Body Mass Index 48.4 - Medications Inpatient Medications: Current Medications Allopurinol (Zyloprim) 100 mg PO DAILY [facility] Last Admin: 12/24/16 08:37 Dose: 100 mg Bisacodyl (Dulcolax) 10 mg RECTALLY DAILY PRN PRN Reason: Constipation Docusate Sodium (Colace) 100 mg PO DAILY PRN PRN Reason: Constipation /Stool softening Enoxaparin Sodium (Lovenox) 40 mg SQ BID [facility] Last Admin: 12/24/16 08:36 Dose: Not Given Ferrous Sulfate (Feosol) 324 mg PO BIDWM [facility] Last Admin: 12/24/16 08:37 Dose: 324 mg Lactated Ringer's (Lactated Ringers) 1,000 mls @ 50 mls/hr IV .Q20H [facility] Last Admin: 12/24/16 05:45 Dose: 50 mls/hr Piperacillin Sod/Tazobactam (Sod 4.5 gm/ Sodium Chloride) 100 mls @ 200 mls/hr IV Q6H [facility] Last Infusion: 12/24/16 06:15 Dose: Infused Ketorolac Tromethamine (Toradol Inj) 30 mg IVP Q6H PRN PRN Reason: Pain Last Admin: 12/22/16 06:05 Dose: 30 mg Magnesium Hydroxide (Mom) 30 ml PO DAILY PRN PRN Reason: Constipation Multivitamins/Minerals (Therapeutic - M) 1 tab PO DAILY [facility] Last Admin: 12/24/16 08:37 Dose: 1 tab Omeprazole (Prilosec) 20 mg PO ACBID [facility] Last Admin: 12/24/16 05:44 Dose: 20 mg Ondansetron HCl (Zofran) 4 mg IVP Q6H PRN PRN Reason: Nausea &/or vomiting Oxycodone/Acetaminophen (Percocet 7.5/325) 1 tab PO Q6H PRN PRN Reason: Pain Last Admin: 12/20/16 01:34 Dose: 1 tab Polyethylene Glycol (Miralax) 17 gm PO DAILY [facility] Last Admin: 12/24/16 08:36 Dose: Not Given Polyethylene Glycol (Miralax) 17 gm PO DAILY [facility] Last Admin: 12/24/16 08:37 Dose: Not Given Senna/Docusate Sodium (Senna Plus Tablet) 1 tab PO DAILY PRN PRN Reason: Constipation /Stool softening Sertraline HCl (Zoloft) 150 mg PO HS [facility] Last Admin: 12/23/16 21:46 Dose: 150 mg Sodium Chloride (Iv Flush) 10 - 80 ml IV PRN PRN PRN Reason: Flushing Last Admin: 12/22/16 14:44 Dose: 10 ml Topiramate (Topamax) 50 mg PO BID [facility] Last Admin: 12/24/16 08:37 Dose: 50 mg Home Medications: Home Medications Medication Instructions Recorded Confirmed Type Cyanocobalamin (Vitamin B-12) 1 tab PO DAILY #0 tab 09/04/15 12/19/16 History [Vitamin B-12] Docusate Sodium 1 cap PO BID #30 cap 09/04/15 12/19/16 History Elderberry Fruit/Honey [Little 1 dose PO DAILY #0 09/04/15 12/19/16 History Remedies Cough-Immune] Glucosamine/Chondroitin Sulf A 1 cap PO BID PRN #0 09/04/15 12/19/16 History [Glucosamine Chondroitin Cap] Multivit-Min/FA/Lycopen/Lutein 1 tab PO DAILY #0 09/04/15 12/19/16 History [Centrum Silver Tablet] Oxycodone HCl/Acetaminophen 1 tab PO Q6H PRN #0 tab 09/04/15 12/18/16 History (Percocet 7.5-325 mg Tablet) Topiramate [Topamax] 1 tab PO BID #0 09/04/15 12/19/16 History Allopurinol [Zyloprim] 100 mg PO DAILY 12/18/16 12/19/16 History Ciprofloxacin [Cipro] 1 tab PO BID 12/18/16 12/19/16 History Enoxaparin [Lovenox] 1 unit SQ BID 12/18/16 12/19/16 History Sertraline [Zoloft] 150 mg PO HS 12/18/16 12/19/16 History Is Patient on Beta Saul?: No - Surgical History HEENT Surgeries: Reports: Oral Surgery (all teeth pulled/full set dentures), Other (R neck 2016) Respiratory Surgery/Treatments: Reports: CPAP Use GI Surgery/Treatments: Reports: Other (INGUINAL LYMPH NODE DISSECTION) Surgery/Treatment: REPORT: Other (penis removed surgically/urethra opening under scrotum) DENIES: Dialysis Reproductive Surgery/Treatment: Reports: Other (PENIS CANCER-REMOVAL) Anesthesia Reactions: None Hx Family Anesthesia Reaction: No History of Motion Sickness: No - Social History Smoking Status: Former smoker (also chewed tobacco - quit 1 year before tongue cancer diagnosis) Hx Chewing Tobacco Use: No (quit) Substance Use Type: does not use Alcohol Intake Frequency: does not drink - Pertinent Findings Laboratory: CBC and BMP 12/24/16 09:07 12/24/16 09:07 BMP 12/24/16 09:07 Sodium 142 Potassium 4.4 Chloride 110 H Carbon Dioxide 25 BUN 7.0 L Creatinine 1.0 Glucose 77 Calcium 8.4 Liver Function 12/24/16 Range/Units 09:07 Total Bilirubin 0.30 (0.20-1.30) MG/DL AST 17 (17-59) U/L ALT 24 (21-72) U/L Alkaline Phosphatase 49 (38-126) U/L Albumin 3.3 L (3.5-5.0) G/DL EKG Rhythm: Normal Sinus Rhythm - Physical Exam Respiratory Exam: Present: lungs clear, bilateral breath sounds equal Cardiovascular Exam: Present: regular rate and rhythm, no murmur - Airway Assessment Mallampati Score: I TMD: 3 Fingerbreadths Neck Extension: fair Teeth: upper dentures, lower dentures Overall Assessment: may be difficult mask vent, may be difficult intubation - ASA ASA Score: 3 - Plan Anesthesia: General TIVA, General Inhalation Gases - Discussion Discussion: Discussed risks/options/alternatives of anesthesia and questions answered. Patient consents. Nursing pain assessment noted. Attestation Statement: Prior to the delivery of any anesthetic medication, I examined the patient, developed the plan, obtained the patient's consent and discussed the risk and benefits of the procedure with the patient/guardian. - Additional Information Seen by Anesthesia: Yes
[2016-12-24] MEDS ORDERED: PROPOFOL 500 MG/50 ML VIAL IV ONE ×3 (11:03→12:44)
[2016-12-24] MEDS ORDERED: LR 500 ML IV SCH (11:30)
[2016-12-24] MEDS ORDERED: LR 1,000 ML IV SCH (11:30)
[2016-12-24] MEDS ORDERED: FentaNYL 100 MCG/2 ML INJECTION ONE (11:50)
[2016-12-24] MEDS ORDERED: ALFENTANIL 1000mcg/2ml INJECTION IVP ONE (11:50)
[2016-12-24] MEDS ORDERED: BUPIVACAINE 0.25%/EPI 1:200,000 30ml SDV ONE (11:51)
[2016-12-24] MEDS ORDERED: BUPIVACAINE 0.25%/EPI 1:200,000 30ml SDV ID ONE (12:00)
--- NOTE | 2016-12-24 12:35 | General Surgery Procedure Note ---
Date of Procedure: 12/24/16 Surgeon: Allyson Postoperative Diagnosis: open wounds bilateral inguinal/groin areas Procedure: Bilateral inguinal/groin exploration and debridement with replacement of wound vac. Estimated Blood Loss: See Anesthesia Record.
[2016-12-24] MEDS: SALINE FLUSH 10ml SYRINGE IV PRN ×4 (13:37→23:35)
[2016-12-24] MEDS: KETOROLAC 30 MG/ML INJECTION IVP PRN ×2 (13:44→20:17)
--- NOTE | 2016-12-24 16:32 | Operative Note ---
DATE OF SERVICE 12/24/2016 SURGEON Zak Valadez MD PREOPERATIVE DIAGNOSIS Bilateral inguinal wounds, status post bilateral inguinal lymph node dissection , personal history for penile squamous cell carcinoma. POSTOPERATIVE DIAGNOSIS Bilateral inguinal wounds, status post bilateral inguinal lymph node dissection , personal history for penile squamous cell carcinoma. PROCEDURE Exploration of bilateral inguinal wounds, additional excisional surgical debridement of subcutaneous tissue and extension of current incisions bilaterally. Application of bilateral wound VACS. ANESTHESIA TIVA/local BRIEF HISTORY/INDICATIONS Mr. Rivera is a 46-year-old gentleman who has had the misfortune of developing wound dehiscence/infections following bilateral inguinal lymph node dissection. He has underwent prior exploration of his wounds with surgical excisional debridement and application of wound VACS. Given the extent of his wounds it was recommended that he undergo VAC change in the operative setting with reexploration of his wounds. For completeness please refer to notes included in the patient's chart. DESCRIPTION OF PROCEDURE After informed consent was obtained, patient was brought to the operative suite and placed on the table in supine fashion. Formal time-out was then completed. First the VAC dressings were removed from the wounds within the inguinal regions bilaterally. The foam was somewhat difficult to remove from the portion of the wound that tunneled proximally within both wounds. Previously placed piece of Adaptic within the right groin wound was removed in conjunction with the foam dressings. One could see excellent granulation tissue forming throughout the majority of the wounds. There was still some residual necrotic subcutaneous tissues present. Next the areas of concern were prepped and draped in sterile fashion. First I elected to go ahead and extend both incisions in a cephalad fashion overlying the area of tunneling. 0.25% Marcaine with epinephrine was then injected overlying the subcutaneous tissues and skin of the proximal portion of the wounds. A 5-6 cm incision was then made overlying areas of analgesia bilaterally. Underlying subcutaneous tissue was then opened to the underlying wound. Now the proximal aspect of the wound was visible and there was no longer any additional tunneling still present. There was excellent granulation tissue forming over the anatomic location of the right femoral vessels at this time. No significant necrotic tissue was present within this vicinity. Within the left inguinal wound however, there was still some residual subcutaneous tissues present. Utilizing tissue forceps , 15 blade, and a surgical curette, the area of necrosis was debrided until a minimal amount of bleeding began to occur. Hemostasis was obtained with the use of electrocautery. Small residual areas of necrosis were also additionally debrided from both wounds bilaterally. Once meticulous hemostasis had been obtained, attention was then directed towards application of the wound VACS. Adaptic was placed overlying the anatomic location of the left femoral vessels. Black foam was then placed within the wound. Black foam was placed throughout the wound within the right inguinal region. Steri-Drape was then applied overlying the foam and adjacent periwound skin. ??Instillation?? VACS were then applied bilaterally. The patient was awakened from his anesthetic and sent back to the recovery room once deemed in stable condition. ANDIE
--- NOTE | 2016-12-24 17:06 | Progress Note ---
Subjective: Pt states he is feeling fine and was in the OR, where his Wound vac was replaced. Pt apparently had some tunneling that was close to the femoral artery so he will be going back to the OR on Friday. Objective Vital signs: Temperature 96.7 F L 12/24/16 15:50 Pulse Rate 61 12/24/16 15:50 Respiratory Rate 20 12/24/16 15:50 Blood Pressure 113/76 12/24/16 15:50 Pulse Oximetry 100 12/24/16 15:50 Rhythm: Normal Sinus Rhythm Height/Weight/BMI: Height 5 ft 11 in Weight 157.2 kg Body Mass Index 48.4 - Constitutional Present: no acute distress, obese - Routine HEENT Exam Head: Present: normocephalic, atraumatic Eye: Present: EOMI, PERRL - Routine Cardiovascular Exam Present: RRR, S1, S2 - Routine Abdominal Exam Present: soft, non distended, non tender - Routine Extremities Exam Absent: cyanosis, clubbing, edema - Routine Neurological Exam Present: alert, oriented X3, CN II-XII intact - Routine Psychiatric Exam Present: normal affect, good insight, good judgment Results - Labs CBC & Chem 7: 12/24/16 09:07 12/24/16 09:07 Microbiology Results: Microbiology 12/19/16 15:20 Wound Acid Fast Bacilli Culture & Smear - Preliminary 12/19/16 15:20 Groin Gram Stain - Final 12/19/16 15:20 Groin Deep Wound Culture - Final Enterobacter cloacae Anaerobic Gram-Negative Juan Streptococcus viridans group Other Annette Observed 12/19/16 15:20 Wound, Deep Fungal Culture - Preliminary Assessment and Plan (1) Open wound of inguinal region Current visit: Yes Status: Acute Assessment and Plan: Summary - Mr Rivera is a 46 YO male that came with inguinal wounds, that were infected. 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 He went to the OR today and will be going back on . DIAGNOSIS 1) Bilateral inguinal wounds, healing very slowly - infected ? Local mets ? [place]'s syndrome ? - Culture showed moderate growth of gram + cocci and gram negative rods. - Pt on Zosyn, tolerating it well, will continue. ID on the case. - 24 hr urine ordered to check Cortisol level. 2) Pt is morbidly obese has truncal striae, and a very large fat pad on the back of his neck ([place]'s hump ? vs a large lipoma _Mom states this is a family trait) - 24 hr urine for Cortisol (Collection completed - results pending) 3) S/P Penile cancer - head and neck cancer (according to pt and - 2 "different" cancers) - Pt on Lovenox 40mg SC Q12H for DVT prevention. - Pt is high risk for DVT/PE due to obesity and malignancy and infection. 4) H/O Gout - continue with Allopurinol. - Uric acid is 3.6 on 12/22* 5) Anemia of Inflammation (ACD) + anemia of iron deficiency. - Hemoglobin on admission - 10.2 - today 8.6 (Increased a bit since yesterday - pt was diuresed). - Started on Iron sulfate and MVI (12/22) - Hemoccult x 1 negative will complete series of 3. - Iron low, Saturation 9% - TIBC low. Prevention - Lovenox - PPI. - Time spent with patient 25 - 35 minutes Sepsis Assessment - Evaluation Sepsis screening result: No Definite Risk Hospital Course Summary Disclaimer: The visit summary below is not to be considered part of the above Progress Note.
[2016-12-24] MEDS: SERTRALINE 100 MG TABLET PO SCH (21:49)
[2016-12-25] MEDS: KETOROLAC 30 MG/ML INJECTION IVP PRN ×4 (01:53→22:34)
[2016-12-25] MEDS: SALINE FLUSH 10ml SYRINGE IV PRN ×6 (01:53→21:45)
[2016-12-25] MEDS: PIPERACILLIN/TAZOBACTAM 4.5 GM in NS 100 ML IV SCH ×4 (05:16→23:52)
[2016-12-25] MEDS: OMEPRAZOLE 20 MG CAPSULE PO SCH ×2 (05:53→17:52)
--- NOTE | 2016-12-25 08:39 | Anesthesia Postoperative Note ---
- Date and Time Date: 12/25/16 Time: 07:20 - Status Patient Participated in Evaluation: Patient Participated in Person Vital Signs: Temperature 95.3 F L 12/25/16 04:00 Pulse Rate 66 12/25/16 04:00 Respiratory Rate 16 12/25/16 04:00 Blood Pressure 110/69 12/25/16 04:00 Pulse Oximetry 98 12/25/16 04:00 Respiratory Function: Airway Patent Cardiovascular Function: Regular Pulse EKG Rhythm: Normal Sinus Rhythm Mental Status: Alert and Oriented Pain Intensity: 4 Hydration: Taking PO Fluids Complications During Recover: None Apparent - Follow-Up Instructions Instructions: Per Surgeon
[2016-12-25] MEDS: TOPIRAMATE 25 MG TABLET PO SCH ×2 (08:57→20:24)
[2016-12-25] MEDS: FERROUS SULFATE 324 MG TABLET PO SCH ×2 (08:57→17:52)
[2016-12-25] MEDS: ENOXAPARIN 40 MG/0.4 ML INJECTION SQ SCH ×2 (08:57→20:24)
[2016-12-25] MEDS: MULTI-VITAMIN + MINERAL TABLET PO SCH (08:57)
[2016-12-25] MEDS: POLYETHYL GLYCOL 3350 17gm PACKET PO SCH (08:57)
[2016-12-25] MEDS: ALLOPURINOL 100 MG TABLET PO SCH (08:57)
--- NOTE | 2016-12-25 09:04 | Progress Note ---
Subjective Date: 12/25/16 Subjective: Mr. Rivera reports that during surgery yesterday, his incisions/wounds were made larger. His states that the sheath around the femoral arteries is involved/exposed. He denies any new complaints. Tolerating the antibiotic without problems. No fevers, chills, N/V/D. Exam Vital Signs: Temperature 95.3 F L 12/25/16 04:00 Pulse Rate 66 12/25/16 04:00 Respiratory Rate 16 12/25/16 04:00 Blood Pressure 110/69 12/25/16 04:00 Pulse Oximetry 98 12/25/16 04:00 Height/Weight/BMI: Height 1.8 m Weight 157.2 kg Body Mass Index 48.4 - Constitutional Present: no acute distress, obese - Routine HEENT Exam Head: Present: normocephalic, atraumatic Eye: Present: EOMI, PERRL ENT: Present: mucous membranes moist, dentition normal - Routine Neck Exam Present: supple - Routine Respiratory Exam Present: CTA bilaterally - Routine Cardiovascular Exam Present: RRR. Absent: murmur - Routine Abdominal Exam Present: soft, normoactive bowel sounds, non distended, non tender - Routine Exam Comments: bilateral inguinal wounds with VAC on, no surrounding visible redness - Routine Extremities Exam Absent: cyanosis, clubbing, edema - Routine Skin Exam Present: intact. Absent: rash Comments: Port site L chest accessed, no redness - Routine Neurological Exam Present: alert, oriented X3, CN II-XII intact - Routine Psychiatric Exam Present: normal affect, normal thought process Results - Labs CBC & Chem 7: 12/25/16 05:09 12/25/16 05:09 Microbiology Results: Microbiology 12/19/16 15:20 Wound Acid Fast Bacilli Culture & Smear - Preliminary 12/19/16 15:20 Groin Gram Stain - Final 12/19/16 15:20 Groin Deep Wound Culture - Final Enterobacter cloacae Anaerobic Gram-Negative Juan Streptococcus viridans group Other Annette Observed 12/19/16 15:20 Wound, Deep Fungal Culture - Preliminary Impression: Bilateral postoperative inguinal wound dehiscence/infection, s/p I&D with wound VAC placement 12/19/16, culture with E. cloacae sensitive to Levaquin, anaerobes, Strep viridans. S/p repeat I&D 12/24/16. 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 Dr. Valadez is planning to take him back to the OR Friday for VAC change. I'll re-evaluate him on Friday. If he is felt to be ready to be discharged home, I would recommend using Levaquin and flagyl. He will need at least 2 weeks of antibiotic therapy. If he is discharged, I'll see him in follow up in the Wound Clinic. Sepsis Assessment - Evaluation Sepsis screening result: No Definite Risk
--- NOTE | 2016-12-25 11:50 | Progress Note ---
Subjective: "I am feeling pretty good today" States he is feeling well, with more energy and is in good spirits. No compliants. Objective Vital signs: Temperature 97.3 F 12/25/16 09:13 Pulse Rate 63 12/25/16 09:13 Respiratory Rate 16 12/25/16 09:13 Blood Pressure 109/76 12/25/16 09:13 Pulse Oximetry 99 12/25/16 09:13 Rhythm: Normal Sinus Rhythm Height/Weight/BMI: Height 5 ft 11 in Weight 157.2 kg Body Mass Index 48.4 - Constitutional Present: no acute distress - Routine HEENT Exam Head: Present: normocephalic, atraumatic Eye: Present: EOMI, PERRL - Routine Respiratory Exam Present: CTA bilaterally - Routine Cardiovascular Exam Present: RRR, S1, S2 - Routine Abdominal Exam Present: soft, non distended, non tender - Routine Extremities Exam Absent: cyanosis, clubbing, edema - Routine Musculoskeletal Exam Musculoskeletal: Present: no clubbing or cyanosis - Routine Neurological Exam Present: alert, oriented X3, CN II-XII intact - Routine Psychiatric Exam Present: normal affect, cooperative, good insight, good judgment Results - Labs CBC & Chem 7: 12/25/16 05:09 12/25/16 05:09 Microbiology Results: Microbiology 12/19/16 15:20 Wound Acid Fast Bacilli Culture & Smear - Preliminary 12/19/16 15:20 Groin Gram Stain - Final 12/19/16 15:20 Groin Deep Wound Culture - Final Enterobacter cloacae Anaerobic Gram-Negative Juan Streptococcus viridans group Other Annette Observed 12/19/16 15:20 Wound, Deep Fungal Culture - Preliminary Assessment and Plan (1) Open wound of inguinal region Current visit: Yes Status: Acute Assessment and Plan: Summary - Mr Rivera is a 46 YO male that came with inguinal wounds, that were infected. 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 He went to the OR on 12/24 and will be going back on Friday. DIAGNOSIS 1) Bilateral inguinal wounds, healing very slowly - infected ? Local mets ? Byars's syndrome ? - Culture showed moderate growth of gram + cocci and gram negative rods. - Pt on Zosyn, tolerating it well, will continue. ID on the case. - Will need another revision of his wound-vac in 2 more days 2) Pt is morbidly obese has truncal striae, and a very large fat pad on the back of his neck ([place]'s hump ? vs a large lipoma _Mom states this is a family trait) - 24 hr urine for Cortisol (Collection completed - results pending) 3) S/P Penile cancer & SA/P Penectomy - head and neck cancer (according to pt and - 2 "different" cancers) - Pt on Lovenox 40mg SC Q12H for DVT prevention. - Pt is high risk for DVT/PE due to obesity and malignancy and infection. 4) H/O Gout - continue with Allopurinol. - Uric acid is 3.6 on 12/22* 5) Anemia of Inflammation (ACD) + anemia of iron deficiency. H/H trending up. - Started on Iron sulfate and MVI (12/22) - Hemoccult x 1 negative will complete series of 3. - Iron low, Saturation 9% - TIBC low. Prevention - Lovenox - PPI. - Time spent with patient less than 15 minutes Sepsis Assessment - Evaluation Sepsis screening result: No Definite Risk Hospital Course Summary Disclaimer: The visit summary below is not to be considered part of the above Progress Note.
[2016-12-25] MEDS: SERTRALINE 100 MG TABLET PO SCH (20:24)
[2016-12-25] MEDS: NS FLUSH BAG 500ml IV PRN (23:53)
[2016-12-26] MEDS: OMEPRAZOLE 20 MG CAPSULE PO SCH ×2 (05:37→16:58)
[2016-12-26] MEDS: PIPERACILLIN/TAZOBACTAM 4.5 GM in NS 100 ML IV SCH ×4 (05:37→23:27)
[2016-12-26] MEDS: POLYETHYL GLYCOL 3350 17gm PACKET PO SCH (08:23)
[2016-12-26] MEDS: ALLOPURINOL 100 MG TABLET PO SCH (08:24)
[2016-12-26] MEDS: TOPIRAMATE 25 MG TABLET PO SCH ×2 (08:24→21:39)
[2016-12-26] MEDS: FERROUS SULFATE 324 MG TABLET PO SCH ×2 (08:24→16:59)
[2016-12-26] MEDS: MULTI-VITAMIN + MINERAL TABLET PO SCH (08:24)
[2016-12-26] MEDS: ENOXAPARIN 40 MG/0.4 ML INJECTION SQ SCH ×2 (08:24→21:38)
[2016-12-26] MEDS: KETOROLAC 30 MG/ML INJECTION IVP PRN ×2 (08:54→17:52)
[2016-12-26] MEDS: SALINE FLUSH 10ml SYRINGE IV PRN ×4 (08:55→23:28)
--- NOTE | 2016-12-26 11:03 | Progress Note ---
Subjective: Pt continues to feel well today; no complaints Objective Vital signs: Temperature 96.4 F L 12/26/16 07:44 Pulse Rate 60 12/26/16 07:44 Respiratory Rate 16 12/26/16 07:44 Blood Pressure 102/65 12/26/16 07:44 Pulse Oximetry 99 12/26/16 07:44 Rhythm: Normal Sinus Rhythm Height/Weight/BMI: Height 5 ft 11 in Weight 157.3 kg Body Mass Index 48.4 - Constitutional Present: no acute distress, obese - Routine HEENT Exam Head: Present: normocephalic, atraumatic Eye: Present: EOMI, PERRL - Routine Respiratory Exam Present: CTA bilaterally, distant breath sounds - Routine Cardiovascular Exam Present: RRR, no murmur - Routine Abdominal Exam Present: soft, non distended, non tender - Routine Extremities Exam Absent: cyanosis, clubbing, edema - Routine Neurological Exam Present: alert, oriented X3, CN II-XII intact - Routine Psychiatric Exam Present: normal affect, cooperative, good insight, good judgment Results - Labs CBC & Chem 7: 12/26/16 09:41 12/25/16 05:09 Microbiology Results: Microbiology 12/19/16 15:20 Wound Acid Fast Bacilli Culture & Smear - Preliminary 12/19/16 15:20 Groin Gram Stain - Final 12/19/16 15:20 Groin Deep Wound Culture - Final Enterobacter cloacae Anaerobic Gram-Negative Juan Streptococcus viridans group Other Annette Observed 12/19/16 15:20 Wound, Deep Fungal Culture - Preliminary Assessment and Plan (1) Open wound of inguinal region Current visit: Yes Status: Acute DVT Prophylaxis: Lovenox GI Prophylaxis: other Assessment and Plan: Summary - Mr Rivera is a 46 YO male that came with inguinal wounds, that were infected. He has developed a petechial rash on his back, but today he has also areas of pinpoint erythema - this has been stable over the last 2 weeks. 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 He went to the OR on 12/24 and will be going back on Tomorrow. DIAGNOSIS 1) Bilateral inguinal wounds, healing very slowly - infected ? Local mets ? - Culture showed moderate growth of gram + cocci and gram negative rods. - Pt on Zosyn, tolerating it well, will continue. - Will need another revision of his wound-vac tomorrow. 2) Pt is morbidly obese has truncal striae, and a very large fat pad on the back of his neck ([place]'s hump ? vs a large lipoma _Mom states this is a family trait) - 24 hr urine for Cortisol (Collection completed - results PENDING) 3) S/P Penile cancer & SA/P Penectomy - head and neck cancer (according to pt and - 2 "different" cancers) - Pt on Lovenox 40mg SC Q12H for DVT prevention. - Pt is high risk for DVT/PE due to obesity and malignancy and infection. 4) H/O Gout - continue with Allopurinol. - Uric acid is 3.6 on 12/22* 5) Anemia of Inflammation (ACD) + anemia of iron deficiency. H/H trending up. - Started on Iron sulfate and MVI (12/22) - Hemoccult x 1 negative will complete series of 3. - Iron low, Saturation 9% - TIBC low. Prevention - Lovenox - PPI. - Time spent with patient 25 - 35 minutes Sepsis Assessment - Evaluation Sepsis screening result: No Definite Risk Hospital Course Summary Disclaimer: The visit summary below is not to be considered part of the above Progress Note.
--- NOTE | 2016-12-26 14:25 | Progress Note ---
DATE: 12/25/2016 FINDINGS Mr. Rivera, today, states that he is feeling significantly better. He states that he has been upright in the chair the majority of the day. Vitals: Afebrile, normotensive. Please refer to EMR. Abdomen: Soft, nontender. Wound vacs are present in the inguinal regions bilaterally. Periwound area is without marked erythema. Patient does have some increased serosanguineous appearance to the drainage noted within the canisters of the wound vacs. This however is not frankly bloody. LABORATORY/RADIOGRAPHIC EVALUATION Patient had a CBC today that was unremarkable as well as a BMP. He remains anemic with a hemoglobin of 9.3 although this is stable. ASSESSMENT 46-year-old gentleman with history for penile cancer, status post bilateral inguinal lymph node dissection with misfortune of developing postoperative wound dehiscence/infection. Status post excisional surgical debridement and application of wound vacs. Patient is making ongoing improvement. PLAN Given the difficulty of his wound vac noted yesterday intraoperatively, I do feel that it would be in the patient's best interest to keep him in the hospital for an additional period of time to allow these inguinal wounds to begin to granulate to a greater extent. Will plan on wound vac change on Friday (12/27/16). If the vac change does go "a little better" the patient perhaps could be discharged at that time. In the meantime will continue with broad spectrum antibiotics and current care. ANDIE
--- NOTE | 2016-12-26 15:41 | Progress Note ---
DATE 12/26/2016 FINDINGS The patient today is without complaints. He has not been experiencing much in way of inguinal discomfort. OBJECTIVE VITALS: Afebrile. Normotensive. Please refer to EMR. ABDOMEN: Soft, nontender. Attention was focused to the inguinal regions bilaterally. VACS are functioning without leak. Periwound skin is without significant erythema or induration. Drainage within the canisters is less bloody today. ASSESSMENT 46-year-old gentleman with history for penile cancer, status post bilateral inguinal lymph node dissection with the misfortune of developing bilateral surgical wound infections/dehiscence of incisions. Patient status post wound explorations with multiple excisional surgical debridements and application of wound VACS. Patient currently doing well. PLAN Tomorrow at bedside will attempt to perform VAC changes. If his wounds have shown marked improvement and he is able to tolerate VAC changes without development of severe pain, the patient will likely be able to be discharged tomorrow. I am pleased with the patient's progress at this time. ANDIE
[2016-12-26] MEDS: SERTRALINE 100 MG TABLET PO SCH (21:38)
[2016-12-26] MEDS: NS FLUSH BAG 500ml IV PRN (23:27)
[2016-12-27] MEDS: SALINE FLUSH 10ml SYRINGE IV PRN ×2 (00:21→06:45)
[2016-12-27] MEDS: KETOROLAC 30 MG/ML INJECTION IVP PRN ×2 (00:21→08:47)
[2016-12-27 04:35] VITALS: O2SAT 99
[2016-12-27] MEDS: PIPERACILLIN/TAZOBACTAM 4.5 GM in NS 100 ML IV SCH ×2 (06:44→12:44)
[2016-12-27] MEDS: OMEPRAZOLE 20 MG CAPSULE PO SCH (06:45)
[2016-12-27] MEDS ORDERED: OXYCODONE/APAP 7.5 MG/325 MG TABLET PO ONE (07:00)
[2016-12-27] MEDS: FERROUS SULFATE 324 MG TABLET PO SCH (08:52)
[2016-12-27] MEDS: POLYETHYL GLYCOL 3350 17gm PACKET PO SCH (08:53)
[2016-12-27] MEDS: MULTI-VITAMIN + MINERAL TABLET PO SCH (08:53)
[2016-12-27] MEDS: ENOXAPARIN 40 MG/0.4 ML INJECTION SQ SCH (08:53)
[2016-12-27] MEDS: TOPIRAMATE 25 MG TABLET PO SCH (08:53)
[2016-12-27] MEDS: ALLOPURINOL 100 MG TABLET PO SCH (08:55)
[2016-12-27 12:39] VITALS: BP 112/72; PULSE 62; RESP 16; TEMP 97.2
--- NOTE | 2016-12-27 12:55 | Progress Note ---
DATE OF VISIT 12/27/2016 FINDINGS Mr. Rivera was in good spirits this morning. He denied significant inguinal pain. VITALS: Afebrile. Normotensive. Current vitals include temperature 97.4, pulse 60, blood pressure 119/73, SaO2 99% on room air. HEENT: Normocephalic. Pupils are equal, round and reactive to light and accommodation. CHEST: Clear to auscultation bilaterally. HEART: Regular rate and rhythm. Normal S1 and S2 without gallops, murmurs or clicks. ABDOMEN: Soft, nontender. INGUINAL REGIONS: Attention was focused to the inguinal regions. The dressings /wound VAC was removed at the bedside today without difficulty. Both incisions are granulating in quite nicely. There is increasing tissue overlying the anatomic location of the femoral vessels. A pulse was not able to be palpated within the depth of the wounds. There is no evidence for ongoing infection. Periwound skin is without erythema. No purulent drainage is noted. ASSESSMENT 46-year-old gentleman status post bilateral inguinal lymph node dissection with development of dehiscence of surgical wounds and development of infection. Status post multiple excisional surgical debridement and application of wound VACs. Patient currently doing quite well. PLAN I do believe the patient could be discharged to home today. Will place VAC dressings accordingly for home VAC. Black foam was placed within the wounds followed by application Steri-Drape and track pad. The patient tolerated this without difficulty. ANDIE
--- NOTE | 2016-12-27 13:00 | Discharge Summary ---
<Cheri Gracia - Last Filed: 12/27/16 12:56> Discharge Information Date of admission: 12/19/16 16:32 Anticipated date of discharge: 12/27/16 Attending Physician: Silvestre Sullivan MD Primary care physician: ANATOLIY Epstein MD Consults: Consulting Providers: Lynda Winters; Zak Valadez - Discharge Diagnosis (1) Open wound of inguinal region Status: Acute - Procedures Procedures: 12/19/16 Exploration of bilateral inguinal wounds with excisional surgical debridement and application of wound VAC. 12/24/16 Exploration of bilateral inguinal wounds, additional excisional surgical debridement of subcutaneous tissue and extension of current incisions bilaterally. Application of bilateral wound VACS. Port-A-Cath accessed on admission and discontinued on discharge. - Laboratory Labs: 12/27/16 08:43 12/27/16 08:43 - Microbiology Microbiology 12/19/16 15:20 Groin Deep Wound Culture - Final Enterobacter cloacae Anaerobic Gram-Negative Juan Streptococcus viridans group Other Annette Observed History of Present Illness HPI: "Reinier Rivera is a 46-year-old male who was admitted on 12/19/16 for bilateral inguinal wounds. He has a history of penile cancer, and underwent bilateral inguinal lymph node dissections at the [facility] in [place] on November 29, 2016. At the time of discharge on 12/02/16, he had ALEJANDRO drains, but he developed wounds around his surgical incisions. Dr. Romel Sanchez started him on Keflex postop. He developed a yeast infection after the Keflex course. He kept them clean with a wound cleanser, patted dry with sterile gauze, and applied aquacell dressing to wound bed then covered with ABD pad. He then developed drainage that has been malodorous and he has noted a low-grade fever with max temp of 100.7. He saw Dr. Dominguez, who started him on Cipro. He saw Dr. Valadez in the clinic on 12/18/16, who recommended exploration and debridement. The patient opted to stay local rather than going back to [place]. He underwent biilateral groin/inguinal exploration, debridement of nonviable tissue and placement of wound vacs by Dr. Valadez on 12/19/16. Objective Vital signs: Temperature 97.2 F 12/27/16 12:00 Pulse Rate 62 12/27/16 12:00 Respiratory Rate 16 12/27/16 12:00 Blood Pressure 112/72 12/27/16 12:00 Pulse Oximetry 99 12/27/16 12:00 Rhythm: Normal Sinus Rhythm Height/Weight/BMI: Height 1.8 m Weight 157.3 kg Body Mass Index 48.4 - Constitutional Present: no acute distress, well nourished, well developed, morbidly obese - Routine HEENT Exam ENT: Present: mucous membranes moist, oropharynx clear - Routine Respiratory Exam Present: CTA bilaterally - Routine Cardiovascular Exam Present: RRR, S1, S2 - Routine Abdominal Exam Present: soft, normoactive bowel sounds, non distended, non tender - Routine Exam Comments: Bilateral wound vacs - Routine Extremities Exam Present: no edema - Routine Back/Spine/Pelvis Exam Back/Spine: Present: full ROM - Routine Skin Exam Present: dry, warm - Routine Neurological Exam Present: alert, oriented X3, normal speech - Routine Psychiatric Exam Present: normal affect, normal thought process, cooperative Hospital Course This is a general summary of the patient's hospital course. For more details refer to the complete medical record. Hospital course: Assessment Bilateral inguinal wounds. Penile cancer status post splenectomy. History of head and neck cancer, squamous cell carcinoma of tongue. Morbid obesity. Gout. Anemia, iron deficiency. Leukopenia. Asthma. Sleep apnea, CPAP use. Hospital course Mr. Rivera was admitted on 12/19/16, at which time he underwent exploration of bilateral inguinal regions with excisional surgical debridements and application of wound VAC by Dr. Valadez. He was started on Zosyn, and Dr. Winters was consulted. He returned to OR on 12/24/16 for wound exploration/ debridement with replacement of wound VAC. Wound culture grew out Enterobacter and Streptococcus, and Dr. Winters recommended 2-weeks of Levaquin and Flagyl ( starting 12/24/16). Pain control was achieved with Percocet. Blood pressure was low-normal, but this he reported this is baseline for him. Hgb trended down ( stool heme negative) and he was noted to be iron-deficient - iron and MVI were initiated. Concern for Yonathan's due to large neck fat pad and nonhealing wounds - cortisol 24 hour urine collected and pending at time of discharge and will need followed up in outpatient setting. He was discharged home in stable condition on 12/27/16. Dr. Valadez evaluated wounds at bedside prior to discharge. He should follow up with both Dr. Valadez and Dr. Winters in the wound care clinic. Rx for Percocet 7.5 mg PRN (# 20), Levaquin 750 mg x10 days, Flagyl 500 mg BID x 14 days (#28), and Diflucan 150 mg if needed (#2 - pt reports tendency towards yeast infections) were provided at [place]. He should also start OTC iron + MV. Continue Lovenox BID as per initial orders (he has this at home), and he should clarify with his oncologist about whether or not to continue this. Time spent with patient: discharge greater than 30 minutes Discharge Plan - Med Rec/Dispo Referrals/Follow Up: Lynda Winters MD [Physician] - 1 Week Zak Valadez MD [Physician] - 1 Week Additional Instructions: Contact your oncologist regarding whether or not to continue Lovenox after the 30-day prescription has been completed. Prescriptions: New Fluconazole [Diflucan] 1 tab PO O PRN #2 tab PRN Reason: Rash levoFLOXacin [Levaquin] 750 mg PO ACB #10 tab Multi-Vitamin + Mineral [Therapeutic - M] 1 tab PO DAILY #30 tab Senna + Docusate [Senna Plus Tablet] 1 tab PO DAILY PRN tablet PRN Reason: Constipation /Stool Softening Ferrous Sulfate [Feosol] 324 mg PO BIDWM #60 tab metroNIDAZOLE [Flagyl] 500 mg PO BID 14 Days #28 tab Oxycodone/APAP 7.5/325 [Percocet 7.5/325] 1 - 2 tab PO Q6H PRN #20 tab PRN Reason: Pain Continue Cyanocobalamin (Vitamin B-12) [Vitamin B-12] 1 tab PO DAILY #0 tab Topiramate [Topamax] 1 tab PO BID #0 Glucosamine/Chondroitin Sulf A [Glucosamine Chondroitin Cap] 1 cap PO BID PRN #0 PRN Reason: Prn Orders Multivit-Min/FA/Lycopen/Lutein [Centrum Silver Tablet] 1 tab PO DAILY #0 Enoxaparin [Lovenox] 1 unit SQ BID Allopurinol [Zyloprim] 100 mg PO DAILY Elderberry Fruit/Honey [Little Remedies Cough-Immune] 1 dose PO DAILY #0 Docusate Sodium 1 cap PO BID #30 cap Sertraline [Zoloft] 150 mg PO HS Discontinued Oxycodone HCl/Acetaminophen (Percocet 7.5-325 mg Tablet) 1 tab PO Q6H PRN #0 tab PRN Reason: PAIN Ciprofloxacin [Cipro] 1 tab PO BID - Disposition 01 Discharged Home, Self-Care <Silvestre Sullivan - Last Filed: 12/27/16 18:32> Discharge Information Date of admission: 12/19/16 16:32 Attending Physician: Silvestre Sullivan MD Primary care physician: ANATOLIY Epstein MD Consults: 12/19/16 16:32 Wound Vein Clinic Consult [CONS] Routine Reason for consultation: wound vac 12/20/16 08:51 Physician Consult [CONS] Routine Consulting Provider: Lynda Winters Reason For Exam: inguinal abscesses Ordering Provider has Notified Data Warehouse Administrator: Yes - Discharge Diagnosis (1) Open wound of inguinal region Status: Acute - Laboratory Labs: 12/27/16 08:43 12/27/16 08:43 - Microbiology Microbiology 12/19/16 15:20 Wound Acid Fast Bacilli Culture & Smear - Preliminary 12/19/16 15:20 Groin Gram Stain - Final 12/19/16 15:20 Groin Deep Wound Culture - Final Enterobacter cloacae Anaerobic Gram-Negative Juan Streptococcus viridans group Other Annette Observed 12/19/16 15:20 Wound, Deep Fungal Culture - Preliminary History of Present Illness HPI: Pt seen and examined agree with above findings and Physical exam VSS NC/AT Morbid obesity Chest clear RRR Abd - soft NT/ND Ext - no edema Summary - Mr Rivera is a 46 YO male that came with inguinal wounds, that were infected. He has developed a petechial rash on his back, but today he has also areas of pinpoint erythema - this has been stable over the last 2 weeks. 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 He went to the OR on 12/24 and will be going back on Tomorrow. DIAGNOSIS 1) Bilateral inguinal wounds, healing very slowly - infected ? Local mets ? Improved per Surgery - Culture showed moderate growth of gram + cocci and gram negative rods. - D/C on levaquin and flagyl per Dr Winters to complete 2 weekd 2) Pt is morbidly obese has truncal striae, and a very large fat pad on the back of his neck ([place]'s hump ? vs a large lipoma _Mom states this is a family trait) - 24 hr urine for Cortisol (Collection completed - results PENDING) 3) S/P Penile cancer & SA/P Penectomy - head and neck cancer (according to pt and - 2 "different" cancers) - Pt on Lovenox 40mg SC Q12H for DVT prevention. - Pt is high risk for DVT/PE due to obesity and malignancy and infection. 4) H/O Gout - continue with Allopurinol. - Uric acid is 3.6 on 12/22* 5) Anemia of Inflammation (ACD) + anemia of iron deficiency. H/H trending up. - Started on Iron sulfate and MVI (12/22) - Hemoccult x 1 negative will complete series of 3. - Iron low, Saturation 9% - TIBC low. DISPOSITION - HOME. Objective Vital signs: Temperature 97.2 F 12/27/16 12:00 Pulse Rate 62 12/27/16 12:00 Respiratory Rate 16 12/27/16 12:00 Blood Pressure 112/72 12/27/16 12:00 Pulse Oximetry 99 12/27/16 12:00 Height/Weight/BMI: Height 5 ft 11 in Weight 157.3 kg Body Mass Index 48.4 Hospital Course This is a general summary of the patient's hospital course. For more details refer to the complete medical record. Hospital course: Pt was seen and examined agree with above physical exam findings and course of action. See above for details.
--- NOTE | 2016-12-27 16:41 | Wound Care Progress Note ---
Wound Management - Wound Left Groin Wound Present on Admission?: Yes Length: 22 Width: 5 Depth: 6 Tunneling: Yes (@ 12 3.5cm) Drainage Description: Serosanguineous Drainage Amount: Small Drainage Odor: No Odor Dressing Status: Changed Number of Packing Pieces Removed?: 3 Number of Packing Pieces Placed?: 3 Primary Dressing: Transparent Drape, Foam Dressing Secondary Dressing: Trac Pad Dressing Change Date: 12/27/16 Dressing Change Time: 07:00 Dressing Change Patient Tolerance: Tolerated Well
--- NOTE | 2016-12-27 16:42 | Wound Care Progress Note ---
Wound Management - Wound Right Groin Wound Present on Admission?: Yes Length: 13 Width: 5 Depth: 2 Wound Bed Appearance: Beefy Red Arely Wound Appearance: [place] Tunneling: Yes (@ 12 5cm) Drainage Description: Sanguineous Drainage Amount: Small Drainage Odor: No Odor Dressing Status: Changed Number of Packing Pieces Removed?: 3 Number of Packing Pieces Placed?: 3 Primary Dressing: Film Dressing, Foam Dressing Secondary Dressing: Trac Pad Dressing Change Date: 12/27/16 Dressing Change Time: 07:00
== END 2016-12-27 14:40 | disposition home health service (06) | DRG 857 ==
LOC: SUR 09:06 → SRG 16:32
PROVIDERS: ADMIT Surgery; ATTEND Internal Medicine

== ENCOUNTER 2017-06-03 08:59 | Inpatient (IN) ==
--- OUTSIDE RECORDS SUMMARY | 2017-06-03 09:09 | External Medical Summary | Continuity of Care Document ---
:1970 Author Organization [facility] Care Team Providers Name Role Phone [employer] Unavailable Unavailable Encounters Location Location Encounter Encounter Reason Attending ADM DC Status Source Details Type Number For Provider Date Date Visit OUTPATIENT 04/24 04/24 Active [facility] INPATIENT [id number] [place] 11/29 12/02 Active The [place] /[address] [facility]
--- OUTSIDE RECORDS SUMMARY | 2017-06-03 09:09 | External Medical Summary | Clinical Summary ---
:[address] [facility] Address [address] [place] [address] Phone Care Team Providers Name Role Phone Hill Calderón MD Unavailable Humphrey Dominguez MD Primary Care Provider Source Comments Some departments are not documenting in the electronic medical record. If you do not see the information that you expected, contact Release of Information in the Health Information Management department at [phone] for further assistance in locating additional records.[facility] Allergies No Known Allergies Current Medications Prescription Sig. Disp. Refills Start Date End Date Status topiramate (TOPAMAX) Take 50 mg by mouth Active 50 mg tablet twice daily. allopurinol Take 100 mg by Active (ZYLOPRIM) 100 mg mouth daily. Take tablet with food. sertraline (ZOLOFT) Take 150 mg by Active 100 mg tablet mouth at bedtime daily. Dyfxmghy-Hdjy-Alv-Fol Take 1 Tab by mouth Active ic Acid (CENTRUM daily. COMPLETE) 18-0.4 mg tab acetaminophen Take 500 mg by Active (TYLENOL) 500 mg mouth every 6 hours tablet as needed for Pain. Max of 4,000 mg of acetaminophen in 24 hours. cyanocobalamin Take 1,000 mcg by Active (VITAMIN B-12) 1,000 mouth daily. mcg tablet oxyCODONE Take 1 tablet by 40 tablet 0 12/02/2016 Active (ROXICODONE, OXY-IR) mouth every 4 hours 5 mg as needed (moderate tabletIndications: to severe pain) PAIN Indications: PAIN Earliest Fill Date: 12/02/16 polyethylene glycol Take 1 packet by 12 each 2 12/02/2016 Active 3350 (MIRALAX) 17 g mouth daily. packetIndications: Indications: constipation CONSTIPATION senna (SENOKOT) 8.6 Take 1 tablet by 90 tablet 3 12/02/2016 Active mg tabletIndications: mouth twice daily constipation as needed for Constipation. Indications: CONSTIPATION Miscellaneous Medical Wear compression 1 Device 0 12/02/2016 Active Supply misc stocking daily at home. 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 Obesity, Class III, BMI 40-49.9 (morbid obesity) ([facility]) 05/29/2016 History of therapeutic radiation 05/29/2016 Squamous cell carcinoma of tongue ([facility]) 05/29/2016 Status post neck dissection 05/29/2016 History of circumcision 05/29/2016 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 Resolved Problems Problem Noted Date Resolved Date History of therapeutic 05/29/2016 05/29/2016 Family History Medical History Relation Name Comments [...] CDT Respiratory Rate 18 05/28/2016 1:34 PM [employer]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
[2017-06-03] MEDS ORDERED: DiphenhydrAMINE 50 MG/ML INJECTION IVP PRN (09:58)
[2017-06-03] MEDS ORDERED: HYDROCORTISONE SOD SUCC 100mg/2ml INJECTION IVP PRN (10:00)
[2017-06-03] MEDS ORDERED: METHYLPREDNISOLONE SOD SUCC 125mg/2ml INJECTION IVP PRN (10:01)
[2017-06-03] MEDS ORDERED: ACETAMINOPHEN 325 MG TABLET PO PRN (10:26)
--- NOTE | 2017-06-03 10:33 | History & Physical Report ---
History of Present Illness Date: 06/03/17 Chief complaint: shortest of breath, lung cancer, chemotherapy HPI: Jd is a pleasant 46-year-old male who has had a unfortunate history of cancer. He initially had head and neck cancer originating from the tongue, he underwent radiation and chemotherapy in 2015. Unfortunately, in 2016. 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 He underwent a Penectomy in 2016 and underwent a bilateral inguinal lymph node dissection at [facility] in [place], and November 2016. Unfortunately, these incisions developed wounds and patient underwent Wound care under the care of Dr. Valadez. These wound have resolved, and recently he complained of feeling more short of breath. On 05/15/17. He had a CT scan of the chest that unfortunately revealed a right upper lobe pulmonary nodule with mediastinal adenopathy suspicious for metastasis as well as a right pleural effusion. On he underwent an ultrasound right-sided thoracentesis with removal of approximately 300 ML's of fluid. With the past 48 hours. He has been more short of breath, weak hiring 2 liters of oxygen by nasal cannula at home to maintain adequate saturations. He was seen in follow-up today with Dr. Calderón. Given these acute findings, accompanied with initiation of chemotherapy. Patient will need monitored carefully in the hospital. He was accepted to the hospitalist services under the care of Dr. Gleason for inpatient status for ongoing treatment. Will is seen on arrival to [facility]. He is alert, oriented and pleasant. 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 Complains of having shortness of breath and coughing and right chest wall pain present with respiratory symptoms. Bilateral inguinal hernia incisions are well-healed without evidence of acute infection. We did discuss advanced directives and he does wish to be a full code at this time Review of Systems All systems PM: 10-point ROS was reviewed, no additional remarkable complaints except - Constitutional Constitutional: Present: fatigue - Cardiovascular Cardiovascular: Present: chest pain (Right anterior) - Respiratory Respiratory: Present: as per HPI, cough, dyspnea, dyspnea on exertion, wheezing Past Medical History Patient Stated Medical History Sided hearing loss. Obstructive sleep apnea. Squamous cell carcinoma of the tongue. Head and neck cancer-had chemotherapy and radiation-2015 Penile cancer-chemotherapy October 2016 Asthma Gout Obstructive sleep apnea Obesity OA Right sided hearing loss Surgical History: Wound exploration and excisional debridement and application of wound VAC to inguinal wounds on 12/19/[address] Valadez. Bilateral inguinal lymph node dissections at the [facility] in [place] on November 29, 2016. Penectomy 06/28/2016. Radical neck resection and salivary gland removal on right 2016. Left IJ PAC placement and PEG tube placement . Family History Updates: Mother-hypertension. Father and sister-type II diabetes - Social History Smoking status: Former smoker (, quit 2013) Substance use type: does not use Alcohol intake frequency: does not drink Housing: house Household members: spouse Current occupational status: previously employed (registered nurse) Current residence: Apartment/Private Home Social history: Primary care provider-Dr. Ace Dominguez Medications Home Medications Medication Instructions Recorded Confirmed Type Cyanocobalamin (Vitamin B-12) 1 tab PO DAILY #0 tab 09/04/15 05/30/17 History [Vitamin B-12] Elderberry Fruit/Honey [Little 1 dose PO DAILY #0 09/04/15 05/30/17 History Remedies Cough-Immune] Topiramate [Topamax] 50 mg PO BID #0 09/04/15 05/30/17 History Allopurinol [Zyloprim] 100 mg PO DAILY 12/18/16 05/30/17 History Sertraline [Zoloft] 100 mg PO HS 12/18/16 05/30/17 History Sertraline [Zoloft] 50 mg PO HS 01/15/17 05/30/17 History Docusate Sodium 100 mg PO PRN 05/30/17 History Oxycodone/Apap 10/325 [Percocet 1 tab PO Q4H PRN 05/30/17 05/30/17 History 10/325] Allergies Allergy/AdvReac Type Severity Reaction Status Date / Time No Known Allergies Allergy Verified 05/30/17 10:12 Exam Height/Weight/BMI: Height 1.8 m Weight 161.252 kg Body Mass Index 49.6 - Constitutional Present: no acute distress, well nourished, well developed - Routine HEENT Exam Eye: Present: EOMI ENT: Present: mucous membranes moist, dentition normal - Routine Respiratory Exam Present: wheezes, diminished air movement - Routine Cardiovascular Exam Present: RRR, S1, S2. Absent: murmur - Routine Abdominal Exam Present: soft, normoactive bowel sounds, non distended. Absent: tenderness - Routine Extremities Exam Present: full ROM, normal capillary refill - Routine Back/Spine/Pelvis Exam Back/Spine: Present: full ROM - Routine Skin Exam Present: intact, dry, warm - Routine Neurological Exam Present: alert, oriented X3, CN II-XII intact, moving all extremities - Routine Psychiatric Exam Present: normal affect, cooperative Results - Labs CBC & Chem 7: 06/03/17 11:17 06/03/17 11:17 Assessment and Plan (1) Squamous cell carcinoma Problem details: Head and neck/penile; metastatic Current visit: Yes Status : Acute (2) Pleural effusion on right Problem details: Symptomatic Current visit: Yes Status: Acute Assessment and Plan: Impression Right upper lobe lung mass- Concern for metastatic disease Right pleural effusion-RLL 06/03/17 Acute Hypoxia Hypercalcemia-RLL 06/03/17 Squamous cell cancer of the penis- resolved Squamous cell carcinoma of the tongue, head and neck cancer- resolved Obstructive sleep apnea Normocytic anemia-RLL 06/03/17. Asthma Gout Obesity Plan Admit patient to inpatient status under the care of Dr. Gleason The following workup on admission, CBC, CMP, urinalysis. Chest x-ray on admission does reveal a right-sided pleural effusion that is recurrent. Consult with Dr. Sharma for pulmonary evaluation and recommendations. Patient may require a Pleurx catheter for management of recurrent effusion. Continues to require oxygen 2 liters by nasal cannula to maintain saturations. Consult with Dr. Chun for oncology management. Planning for inpatient chemotherapy Monitor patient on cardiac telemetry Percocet as needed for pain control SCDs to bilateral lower extremity for DVT prophylaxis Will review home medications once reconciled. Will discuss further orders and plan of care with attending, Dr. Gleason At time of discharge medical care will return to primary care provider, Dr Chris Dominguez DVT Prophylaxis: SCD's Resuscitation Status: Full Code - Time spent with patient Time with patient PN: 50 minutes - Physician Narrative Physician: Alley Chavez MD Narrative: Date: 06/03/17 Time: 1345 I have independently evaluated and examined this patient. I reviewed the chart, the patient's history, and the CABINET ASSEMBLER/PA's documented findings as above. We discussed and formulated the assessment and plan as above with additions as below: Patient was seen with his parents and at the bedside. He describes increasing dyspnea over the past week with right sided chest pain primarily laterally but minor discomfort in the anterior right chest. Chest discomfort improved slightly following thoracentesis on 05/30 but has again worsened. Cytology on fluid from thoracentesis 05/30 was negative although malignant pleural effusion is suspected. Oxygen was initiated yesterday and Will reports he is breathing more comfortably today. Patient reports he typically has a DO NOT RESUSCITATE order has rescinded at this hospitalization due to the risk of anaphylaxis with chemotherapy this being initiated. Morbidly obese male, NAD, O2 saturation 97% on 3 L supplemental oxygen per nasal cannula Respirations nonlabored, dull to percussion and decreased breath sounds 2/[address] up right field posteriorly Left lung clear although breath sounds are slightly distant. Regular rhythm No pitting edema in the lower extremities Laboratory data reviewed by myself-normocytic anemia with hemoglobin 10, INR 1.43-mildly elevated in the past of uncertain origin per verbal report; calcium 10.4 with slightly depressed albumin 3.4 Chest x-ray reviewed by myself large right pleural effusion with compressive atelectasis; left lung field is clear Admitted for chemotherapy and further management of rapidly recurrent right pleural effusion suspicious for malignant pleural effusion. Pleurx catheter to be placed later today. Chemotherapy per Dr. Calderón with carboplatin, 5FU, and Erbitux-later with associated risk of anaphylaxis requiring close observation to permit immediate intervention should reaction occur. Mild hypercalcemia present on admission-ionized calcium to be checked in a.m. Hospital Course Summary Disclaimer: The visit summary below is not to be considered part of the above Progress Note. Hospital Course: Impression Right upper lobe lung mass- Concern for metastatic disease Acute Hypoxia Squamous cell cancer of the penis- resolved Squamous cell carcinoma of the tongue, head and neck cancer- resolved Obstructive sleep apnea. Asthma Gout Obesity Plan Admit patient to inpatient status under the care of Dr. Gleason The following workup on admission, CBC, CMP, urinalysis. Chest x-ray on admission does reveal a right-sided pleural effusion that is recurrent. Consult with Dr. Sharma for pulmonary evaluation and recommendations. Patient may require a Pleurx catheter for management of recurrent effusion. Continues to require oxygen 2 liters by nasal cannula to maintain saturations. Consult with Dr. Chun for oncology management. Planning for inpatient chemotherapy Monitor patient on cardiac telemetry Percocet as needed for pain control SCDs to bilateral lower extremity for DVT prophylaxis Will review home medications once reconciled. Will discuss further orders and plan of care with attending, Dr. Gleason At time of discharge medical care will return to primary care provider, Dr Bello
--- NOTE | 2017-06-03 10:56 | XRay Report ---
INDICATION: Shortness of breath, recent pleural effusion PROCEDURE: CHEST 2-VIEWS UPRIGHT (PA & LAT) Encounter: Initial COMPARISON: Chest CT dated May 15, 2017 FINDINGS: Worsening large right pleural effusion with compressive atelectasis of most of the right lung. Small area of aerated right upper lobe remaining. No pneumothorax. Left lung is grossly clear. Cardiac silhouette is stable in overall size. Pulmonary vascularity appears normal on the left and is obscured on the right. Right IJ port catheter. Impression: Increasing large right effusion. .
[2017-06-03] MEDS ORDERED: DiphenhydrAMINE 50 MG/ML INJECTION IVP ONE (11:00)
[2017-06-03] MEDS ORDERED: PALONOSETRON 0.25 MG/5 ML INJECTION IV ONE (11:00)
[2017-06-03] MEDS ORDERED: DEXAMETHASONE IV SCH (11:15)
[2017-06-03] MEDS ORDERED: FOSAPREPITANT IV SCH (11:15)
[2017-06-03] MEDS ORDERED: D5W IV SCH (11:15)
[2017-06-03] MEDS ORDERED: ALBUTEROL 2.5mg/3ml (0.083%) NEB AEROSOL ONE (11:45)
[2017-06-03] MEDS: NS 1,000 ML IV SCH (11:56)
[2017-06-03] MEDS: MAGNESIUM SULFATE 1gm/100ml PREMIX IV SCH ×2 (11:56→15:39)
[2017-06-03] MEDS: MINOCYCLINE 100 MG CAPSULE PO SCH ×2 (12:05→15:37)
[2017-06-03] MEDS ORDERED: RTU SALINE IV ONE (12:15)
[2017-06-03] MEDS ORDERED: CETUXIMAB IV ONE (12:15)
--- NOTE | 2017-06-03 14:33 | Anesthesia Preoperative Report ---
Anesthesia Preoperative Record - Date and Time Date: 06/03/17 Preoperative Diagnosis: Chemo NPO Since Date: 06/02/17 NPO Since Time: 00:00 Allergies/Adverse Reactions: Allergies Allergy/AdvReac Type Severity Reaction Status Date / Time No Known Allergies Allergy Verified 05/30/17 10:12 - Vital Signs Vital Signs: Temperature 98.2 F 06/03/17 14:27 Pulse Rate 86 06/03/17 14:27 Respiratory Rate 24 06/03/17 14:27 Blood Pressure 134/76 06/03/17 14:27 Pulse Oximetry 99 06/03/17 14:27 Height and Weight: Height 1.8 m Weight 161.252 kg Body Mass Index 49.6 - Medications Inpatient Medications: Current Medications Acetaminophen (Tylenol) 650 mg PO Q5H PRN Diphenhydramine HCl (Benadryl) 50 mg IVP PRN PRN PRN Reason: HYPERSENSITIVITY Hydrocortisone Sodium Succinate (Solu-Cortef) 100 mg IVP PRN PRN PRN Reason: HYPERSENSITIVITY Dexamethasone 10 mg/ (Fosaprepitant 150 mg/ Dextrose) 52.5 mls @ 105 mls/hr IV .NO DFT [facility] Last Infusion: 06/03/17 13:07 Dose: Infused Magnesium Sulfate/Dextrose (Mag Sulf 1gm Premix) 1 gm in 100 mls @ 100 mls/hr IV 1115,1415 [facility] Stop: 06/03/17 15:14 Last Infusion: 06/03/17 14:12 Dose: Infused Carboplatin 600 mg/ Sodium (Chloride) 310 mls @ 155 mls/hr IV O ONE Stop: 06/03/17 17:14 Fluorouracil 2,113 mg/ Sodium (Chloride) 1,042.26 mls @ 43 mls/hr IV .Q24H [facility] Stop: 06/07/17 18:26 Sodium Chloride (Normal Saline) 1,000 mls @ 100 mls/hr IV .Q10H [facility] Last Infusion: 06/03/17 11:56 Dose: 0 mls/hr Methylprednisolone Sodium Succinate (Solu-Medrol) 125 mg IVP PRN PRN PRN Reason: HYPERSENSITIVITY Minocycline HCl (Minocin) 100 mg PO DAILY [facility] Last Admin: 06/03/17 12:05 Dose: 100 mg Oxycodone/Acetaminophen (Percocet 10/325) 1 tab PO Q4H PRN PRN Reason: Pain Home Medications: Home Medications Medication Instructions Recorded Confirmed Type Cyanocobalamin (Vitamin B-12) 1 tab PO DAILY #0 tab 09/04/15 05/30/17 History [Vitamin B-12] Elderberry Fruit/Honey [Little 1 dose PO DAILY #0 09/04/15 05/30/17 History Remedies Cough-Immune] Topiramate [Topamax] 50 mg PO BID #0 09/04/15 05/30/17 History Allopurinol [Zyloprim] 100 mg PO DAILY 12/18/16 05/30/17 History Sertraline [Zoloft] 100 mg PO HS 12/18/16 05/30/17 History Sertraline [Zoloft] 50 mg PO HS 01/15/17 05/30/17 History Docusate Sodium 100 mg PO PRN 05/30/17 History Oxycodone/Apap 10/325 [Percocet 1 tab PO Q4H PRN 05/30/17 05/30/17 History 10/325] - Medical History Respiratory: Reports: Asthma (Diagnosed in 2008), Bronchitis, Dyspnea, Pneumonia , Upper Respiratory Infection, Pulmonary Edema, Sleep Apnea (uses CPAP) Gastrointestional: Reports: Morbid Obesity Neuro/Musculoskeletal: Reports: HX.MS.OSAR (low back, liana knees), Depression Other History: Reports: Cancer (penile, tongue, neck, inguinal lymph node) - Surgical History HEENT Surgeries: Reports: Oral Surgery (all teeth pulled/full set dentures), Tonsillectomy, Other (R neck 2016) Respiratory Surgery/Treatments: Reports: CPAP Use, Oxygen Administration GI Surgery/Treatments: Reports: Colon Resection, Other (INGUINAL LYMPH NODE DISSECTION) Surgery/Treatment: REPORT: Other (penis removed surgically/urethra opening under scrotum) DENIES: Dialysis Musculoskeletal Surgery/Tx: Reports: Carpal Tunnel Release (right) Reproductive Surgery/Treatment: Reports: Other (PENIS CANCER-REMOVAL) Anesthesia Reactions: None Hx Family Anesthesia Reaction: No History of Motion Sickness: No - Social History Smoking Status: Former smoker (, quit 2013) Hx Chewing Tobacco Use: No Second Hand Exposure: No Substance Use Type: does not use Alcohol Intake Frequency: does not drink - Pertinent Findings Laboratory: CBC and BMP 06/03/17 11:17 06/03/17 11:17 BMP 06/03/17 11:17 Sodium 136 Potassium 3.5 L Chloride 96 L Carbon Dioxide 29 BUN 9.0 Creatinine 0.8 Glucose 110 Calcium 10.4 H Liver Function 06/03/17 Range/Units 11:17 Total Bilirubin 0.40 (0.20-1.30) MG/DL AST 50 (17-59) U/L ALT 58 (21-72) U/L Alkaline Phosphatase 78 (38-126) U/L Albumin 3.4 L (3.5-5.0) G/DL EKG: Sinus Rhythm - Physical Exam Respiratory Exam: Present: lungs clear, bilateral breath sounds equal Cardiovascular Exam: Present: regular rate and rhythm - Airway Assessment Mallampati Score: II TMD: 3 Fingerbreadths Neck Extension: fair Teeth: upper dentures, lower dentures Overall Assessment: may be difficult intubation - ASA ASA Score: 4 - Plan Anesthesia: General TIVA, General Inhalation Gases, MAC - Discussion Discussion: Discussed risks/options/alternatives of anesthesia and questions answered. Patient consents. Nursing pain assessment noted. Attestation Statement: Prior to the delivery of any anesthetic medication, I examined the patient, developed the plan, obtained the patient's consent and discussed the risk and benefits of the procedure with the patient/guardian.
[2017-06-03] MEDS ORDERED: NS 1,000 ML IV SCH (15:00)
[2017-06-03] MEDS ORDERED: NS IV ONE (15:15)
[2017-06-03] MEDS ORDERED: CARBOPLATIN IV ONE (15:15)
[2017-06-03] MEDS ORDERED: EPINEPHrine 1mg/ml (1:1000) vial IVP ONE (15:22)
[2017-06-03] MEDS ORDERED: KETOROLAC 30 MG/ML INJECTION IVP ONE (15:31)
[2017-06-03] MEDS: ALBUTEROL/IPRATROPIUM 2.5mg-0.5mg/3ml NEB AEROSOL PRN ×2 (15:35→15:45)
--- NOTE | 2017-06-03 15:49 | Consultation ---
DATE: 06/03/2017 CHIEF COMPLAINT: Shortness of breath. HISTORY OF PRESENT ILLNESS This is a 46-year-old male patient with a 20-year history of tobacco chewing, quit more than 20 years ago. He only drinks alcohol socially. 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 He underwent right partial glossectomy with radical neck dissection by Dr. Smith in [place]. He completed a comprehensive course of concurrent radiation and chemotherapy on 11/23/2015. He received two cycles of cisplatin and completed the rest of the chemotherapy with one more cycle using carboplatin and Taxol instead of cisplatin due to autotoxicity. He achieved good results with a negative PET scan in April 2016. The patient also has a history of balanitis xerotica obliterans (BXO). He presented with a lump in his penis. 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 He underwent penectomy with perineal urethrostomy by Dr. Romel Sanchez on 06/26/2016 at [facility]. Surgical pathology revealed a well differentiated squamous cell carcinoma. Tumor size was 1.8 x 1.7 x 0.8 cm. The tumor involved corpus spinosum and corpus cavernosum. The tumor thickness or depth of invasion was 19 mm. A focus suspicious for lymphovascular invasion present. Perineural invasion present. No lymph node submitted. A p16 immunostain and in situ hybridization for high risk HPV on the specimen both negative. Restaging CT scan demonstrated mildly increased FDG uptake within a few pelvic lymph nodes. FDG uptake noted in right inguinal lymph nodes. SUV up to 3.5. The patient was treated with three cycles of preoperative chemotherapy ifosfamide, carboplatin and Taxol followed by Neulasta from August 2016 through September 2016 without negative complications. A repeat PET scan after three cycles showed interval resolution of abnormal uptake within bilateral inguinal lymph nodes. On 11/29/2016 the patient underwent bilateral inguinal lymph node dissection at by Dr. Sanchez. A total of 32 lymph nodes removed from both inguinal and femoral areas bilaterally showed no evidence of residual metastatic disease. Unfortunately postoperatively the patient developed bilateral surgical wound infection/dehiscence of incision requiring wound care and hospitalization managed by Dr. Valadez at Dr. Winters. The patient was treated with surgical debridement and application f wound vac in addition to various antibiotics (Zosyn, Levaquin and Flagyl). The patient received physical therapy for bilateral lymphedema and improved. The patient presented with shortness of breath and cough. CT scan on 05/15/2017 showed a new irregular spiculated mass measuring 3 x 2.6 cm in the right upper lobe associated with mediastinal adenopathy. The patient underwent bronchoscopy with transbronchial biopsy by Dr. Sharma which confirmed a grade 2 invasive squamous cell carcinoma. I discussed the pathology with Dr. Patiño at [facility]. Dr. Patiño is going to compare the three slides from the head and neck penile carcinoma and the lung, trying to identify if this is a new lung cancer or metastatic disease from the head and neck or penile cancer. Restaging PET scan showed worsening of the lung mass consistent with rapidly progressive pleural and parenchymal metastatic disease in the lung. The patient underwent right sided thoracentesis with removal of 300 mL of fluid on Friday (05/30/2017). Due to worsening shortness of breath he is now on oxygen. REVIEW OF SYSTEMS GENERAL: No fever. He has lost weight. He is morbidly obese. Not in acute distress. RESPIRATORY: Shortness of breath and cough. CARDIOVASCULAR: No chest pain. GI: No nausea or vomiting. Bowel habits normal. : No urinary symptoms. EXTREMITIES: Trace edema. PAST MEDICAL HISTORY Morbid obesity. History of smoking. History of cisplatin induced autotoxicity. PHYSICAL EXAM VITAL SIGNS: Stable, not in acute distress. Morbidly obese. LUNGS: Diminished air entry in the right lung base with dull percussion consistent with pleural effusion. Trachea is central. HEAD & NECK: Scars from previous radiation and surgery to the right side of the neck. Questionable right supraclavicular lymph node. CARDIOVASCULAR: Normal sinus rhythm. No murmur. No JVD. ABDOMEN: Benign, obese. Difficult to assess for organomegaly. Bowel sounds positive. EXTREMITIES: Trace edema. 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 EXAM: Status post penectomy. LAB Unremarkable. Calcium 10.6 with albumin 3.7. White count 11.6. Otherwise unremarkable. ASSESSMENT 1. 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 The source is either head and neck or penile cancer. 2. Recurrent right pleural effusion most likely malignant. 3. Shortness of breath and cough due to lung cancer with right pleural effusion. 4. History of stage IVB anterior tongue squamous cell carcinoma status post partial glossectomy with neck dissection followed by concurrent ely shoshone/ radiation therapy in 2015. 5. 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 6. History of postoperative surgical wound/dehiscence of incision requiring wound care and multiple antibiotics in December 2016. 7. History of cisplatin induced autotoxicity, stable. RECOMMENDATION & PLAN 1. The patient will be admitted to the hospital for second line chemotherapy carboplatin 5-FU and cetuximab which is an appropriate second line chemotherapy for head and neck cancer as well as penile cancer. 2. Follow up on the comparison of the biopsy from the lung to the head and neck slides and penile carcinoma slides, trying to determine the primary for the lung metastasis. 3. I would use carboplatin instead of cisplatin which is typically used in this situation. I would use carboplatin due to the previous history of cisplatin induced autotoxicity. 4. PleurX catheter. 5. Will monitor blood count and electrolytes while the patient is in the hospital. MTDD
[2017-06-03] MEDS ORDERED: ALBUTEROL/IPRATROPIUM 2.5mg-0.5mg/3ml NEB AEROSOL PRN (15:52)
--- NOTE | 2017-06-03 16:29 | Pulmonology Consult Note ---
History of Present Illness Consult date: 06/03/17 Requesting physician: Alley Chavez Reason for consult: pleural effusion Chief complaint: short of breath History of present illness: HPI: Jd is a pleasant 46-year-old male who has had a unfortunate history of cancer. He initially had head and neck cancer originating from the tongue, he underwent radiation and chemotherapy in 2015. Unfortunately, in 2017. 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 He underwent a Penectomy in 2016 and underwent a bilateral inguinal lymph node dissection at [facility] in [place], and November 2016. Unfortunately, these incisions developed wounds and patient underwent Wound care under the care of Dr. Valadez. These wound have resolved, and recently he complained of feeling more short of breath. On 05/15/17. He had a CT scan of the chest that unfortunately revealed a right upper lobe pulmonary nodule with mediastinal adenopathy suspicious for metastasis as well as a right pleural effusion. On he underwent an ultrasound right-sided thoracentesis with removal of approximately 300 ML's of fluid. With the past 48 hours. He has been more short of breath, weak hiring 2 liters of oxygen by nasal cannula at home to maintain adequate saturations. He was seen in follow-up today with Dr. Calderón. Given these acute findings, accompanied with initiation of chemotherapy. Patient will need monitored carefully in the hospital. He was accepted to the hospitalist services under the care of Dr. Gleason for inpatient status for ongoing treatment. Will is seen on arrival to [facility]. He is alert, oriented and pleasant. 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 Complains of having shortness of breath and coughing and right chest wall pain present with respiratory symptoms. Bilateral inguinal hernia incisions are well-healed without evidence of acute infection. Review of Systems All systems: reviewed and no additional remarkable complaints except as stated - Constitutional Additional comments: shortness of breath, minimal cough. [facility] Patient Stated Medical History Cerebrovascular Accident No Paralysis No Seizures No Syncope No Dental Problems Yes Hearing Loss Yes Angina No Cardiac Arrhythmia No Congestive Heart Failure No Coronary Artery Disease No Heart Murmur No Hypertension No Hypotension No Myocardial Infarction No Rheumatic Fever No Valvular Heart Disease No Other Cardiology No Asthma Yes: Diagnosed in 2008 Bronchitis Yes Chronic Obstructive Pulmonary No Disease (COPD) Pneumonia Yes Pulmonary Edema Yes Pulmonary Embolism No Sleep Apnea Yes: uses CPAP Tuberculosis No Other Respiratory No Diabetes Mellitus Type 1 No Diabetes Mellitus Type 2 No Clotting Problems Yes Osteoarthritis Yes: low back, liana knees Other Musculoskeletal No Anesthesia Reactions No Blood Transfusions No Chemotherapy No Malignant Hyperthermia No Other No Depression Yes Other Behavioral Health Yes: MOOD DISORDERS ON MEDS Now No Surgical History: Wound exploration and excisional debridement and application of wound VAC to inguinal wounds on 12/19/[address] Valadez. Bilateral inguinal lymph node dissections at the [facility] in [place] on November 29, 2016. Penectomy 06/28/2016. Radical neck resection and salivary gland removal on right 2015. Left IJ PAC placement and PEG tube placement . - Social History Smoking status: Former smoker (, quit 2013) Does patient use chewing tobacco?: No Medications Home Medications Medication Instructions Recorded Confirmed Type Cyanocobalamin (Vitamin B-12) 1 tab PO DAILY #0 tab 09/04/15 05/30/17 History [Vitamin B-12] Elderberry Fruit/Honey [Little 1 dose PO DAILY #0 09/04/15 05/30/17 History Remedies Cough-Immune] Topiramate [Topamax] 50 mg PO BID #0 09/04/15 05/30/17 History Allopurinol [Zyloprim] 100 mg PO DAILY 12/18/16 05/30/17 History Sertraline [Zoloft] 100 mg PO HS 12/18/16 05/30/17 History Sertraline [Zoloft] 50 mg PO HS 01/15/17 05/30/17 History Docusate Sodium 100 mg PO PRN 05/30/17 History Oxycodone/Apap 10/325 [Percocet 1 tab PO Q4H PRN 05/30/17 05/30/17 History 10/325] Allergies Allergy/AdvReac Type Severity Reaction Status Date / Time No Known Allergies Allergy Verified 05/30/17 10:12 Exam Vital signs: Temperature 98.2 F 06/03/17 14:27 Pulse Rate 111 H 06/03/17 16:06 Respiratory Rate 20 06/03/17 16:06 Blood Pressure 142/91 H 06/03/17 16:06 Pulse Oximetry 92 06/03/17 16:06 - Constitutional no acute distress, obese, cooperative - Routine HEENT Exam Head: Present: normocephalic, atraumatic Eye: Absent: conjunctival icterus ENT: Present: mucous membranes moist - Routine Neck Exam Present: supple - Routine Respiratory Exam Present: decreased breath sounds, prolonged expiratory phase, wheezes - Routine Cardiovascular Exam Present: RRR - Routine Abdominal Exam Present: soft. Absent: guarding - Routine Extremities Exam Absent: cyanosis, clubbing - Routine Skin Exam Present: intact. Absent: cyanosis - Routine Psychiatric Exam Present: normal affect, normal thought process Results - Laboratory Findings CBC and BMP: 06/03/17 11:17 06/03/17 11:17 PT/INR, D-dimer INR 1.42 (0.99-1.21) H 06/03/17 11:16 Abnormal lab findings: Abnormal Labs 06/03/17 06/03/17 06/03/17 11:16 11:17 11:17 RBC 3.89 L Hgb 10.7 L Hct 34.0 L Neutrophils % (Manual) 83.0 H Band Neutrophils % 9.0 H Lymphocytes % (Manual) 1.0 L Lymphocytes # (Manual) 0.1 L INR 1.42 H Potassium 3.5 L Chloride 96 L Calcium 10.4 H Albumin 3.4 L Globulin 4.0 H Albumin/Globulin Ratio 0.9 L - Diagnostic Findings Chest x-ray: report reviewed, image reviewed Assessment and Plan (1) Squamous cell carcinoma, metastatic Status: Acute Assessment and plan: Metastatic SCC to lung with significant obstructive atelectasis. Started chemoTx under the care of Dr Calderón Current Visit: Yes (2) Pleural effusion on right Problem details: Symptomatic Status: Acute Assessment and plan: recurrent after thoracentesis. contributing to dyspnea. Fluid cytology is neg , however this is most likely malignant. Recommend placement of right sided PleurX tunneled catheter for repeated drainage and hopeful pleurodesis. Risks and benefits discussed. We will plan to perform in the OR under conscious sedation. The patient will receive preoperative antibiotics. There is at least moderate risk for post op infection due to immune suppression. Current Visit: Yes - Time Spent With Patient Total time spent is greater than 50% in coordination of care (as documented) at patient's floor/unit and/or counseling patient: 25 - 35 minutes
[2017-06-03] MEDS: ALBUTEROL/IPRATROPIUM 2.5mg-0.5mg/3ml NEB AEROSOL SCH (19:50)
[2017-06-03] MEDS: FLUOROURACIL IV SCH (20:47)
[2017-06-03] MEDS: NS IV SCH (20:47)
[2017-06-03] MEDS: SALINE FLUSH 10ml SYRINGE IV PRN (20:49)
[2017-06-04] MEDS: NS 1,000 ML IV SCH ×3 (01:45→18:21)
[2017-06-04] MEDS: SALINE FLUSH 10ml SYRINGE IV PRN ×3 (01:46→18:21)
[2017-06-04] MEDS: Oxycodone/Apap 10/325 1 TAB PO PRN ×2 (03:50→11:27)
[2017-06-04] MEDS: ALBUTEROL/IPRATROPIUM 2.5mg-0.5mg/3ml NEB AEROSOL SCH ×3 (07:30→19:35)
[2017-06-04] MEDS ORDERED: SALINE 0.65% NASAL SPRAY 44 ML BOTTLE EA NOSTRIL PRN (09:36)
[2017-06-04] MEDS: GUAIFENESIN LA 600 MG TABLET PO SCH ×2 (10:10→20:19)
[2017-06-04 10:48] VITALS: BMI 46.7
--- NOTE | 2017-06-04 11:42 | Progress Note ---
- Date 06/04/17 Subjective: Jd is seen today in follow up. He overall is feeling much better than he did yesterday. He did not tolerate the initial chemotherapy started yesterday, it has now switched to 5 FU and he is tolerating this better. Wheezing has improved. Does continue to require 4-5 liters by nasal cannula, however. Wheezing has improved. Denies having pain currently. He is voiding without difficulty and bowels have moved this morning. Objective Vital signs: Temperature 96.0 F L 06/04/17 11:23 Pulse Rate 79 06/04/17 11:23 Respiratory Rate 20 06/04/17 11:23 Blood Pressure 125/72 06/04/17 11:23 Pulse Oximetry 97 06/04/17 11:23 Height/Weight/BMI: Height 1.8 m Weight 152.095 kg Body Mass Index 46.7 - Constitutional Present: no acute distress, well nourished, well developed, morbidly obese - Routine HEENT Exam Eye: Present: EOMI ENT: Present: mucous membranes moist, dentition normal - Routine Respiratory Exam Present: wheezes - Routine Cardiovascular Exam Present: RRR, S1, S2. Absent: murmur - Routine Abdominal Exam Present: soft, normoactive bowel sounds, non distended. Absent: tenderness - Routine Extremities Exam Present: full ROM, normal capillary refill - Routine Back/Spine/Pelvis Exam Back/Spine: Present: full ROM - Routine Skin Exam Present: intact, dry, warm - Routine Neurological Exam Present: alert, oriented X3, CN II-XII intact, moving all extremities - Routine Lymphatic Exam Lymphatic: Absent: adenopathy - Routine Psychiatric Exam Present: normal affect, cooperative Results - Labs CBC & Chem 7: 06/04/17 03:55 06/04/17 03:55 Assessment and Plan (1) Squamous cell carcinoma Problem details: Head and neck/penile; metastatic Current visit: Yes Status : Acute (2) Pleural effusion on right Problem details: Symptomatic Current visit: Yes Status: Acute Assessment and Plan: Impression Right upper lobe lung mass- Concern for metastatic disease Right pleural effusion-RLL 06/03/17 Acute Hypoxia Hypercalcemia-RLL 06/03/17 Squamous cell cancer of the penis- resolved Squamous cell carcinoma of the tongue, head and neck cancer- resolved Obstructive sleep apnea Normocytic anemia-RLL 06/03/17. Asthma Gout Obesity Plan Continue with current chemotherapy treatment under the care of Dr. Calderón, patient is on 5-FU for additional days. Continue on oxygen to maintain adequate saturations. Appreciate pulmonary consultation with Dr Sharma Hopeful for placement of Pleurax Cath tomorrow . Given recurrent right pleural effusion. Continue on scheduled DuoNeb breathing treatments SCDs to bilateral lower extremity for DVT prophylaxis Percocet as needed for pain control Case discussed with attending, Dr. Gleason 06/04/2017-5:10 PM -I reviewed this chart, the patient history, and the CONTRACT SERVICEMAN's/ PA's documented findings as above. We discussed and formulated the assessment and plan as above with the additions below.- Dr. Gleason The patient was seen this afternoon. He states his breathing is better today. He thinks it might be secondary to steroids that he received yesterday after the anaphylactic reaction to chemotherapy. He states his appetite is better. He' s tolerating the breathing treatments. He has some mild constipation and thinks he would benefit from restarting his Colace and Senokot. He is urinating without difficulties. On exam he is alert and in no acute distress. Chest reveals decreased breath sounds throughout especially on the right. Cardiovascular reveals a regular rate and rhythm with distant heart tones. Abdomen is soft and nontender with positive bowel sounds. Extremities reveal nonpitting edema in the feet and pretibial area. Impression and plan Continue chemotherapy for squamous cell carcinoma of the lung as recommended by Dr. Calderón Regarding right pleural effusion, plan for Pleurx catheter tomorrow. Continue breathing treatments and supplemental oxygen for hypoxia. Repeat CBC and basic metabolic profile tomorrow. Add Colace and Senokot at at bedtime for constipation, likely secondary to narcotics - Physician Narrative Narrative: Date: 06/04/17 Time: 1137 Hospital Course Summary Disclaimer: The visit summary below is not to be considered part of the above Progress Note. Hospital Course: Impression Right upper lobe lung mass- Concern for metastatic disease Acute Hypoxia Squamous cell cancer of the penis- resolved Squamous cell carcinoma of the tongue, head and neck cancer- resolved Obstructive sleep apnea. Asthma Gout Obesity Plan- 06/03/17 Admit patient to inpatient status under the care of Dr. Gleason The following workup on admission, CBC, CMP, urinalysis. Chest x-ray on admission does reveal a right-sided pleural effusion that is recurrent. Consult with Dr. Sharma for pulmonary evaluation and recommendations. Patient may require a Pleurx catheter for management of recurrent effusion. Continues to require oxygen 2 liters by nasal cannula to maintain saturations. Consult with Dr. Chun for oncology management. Planning for inpatient chemotherapy Monitor patient on cardiac telemetry Percocet as needed for pain control SCDs to bilateral lower extremity for DVT prophylaxis Will review home medications once reconciled. Will discuss further orders and plan of care with attending, Dr. Gleason At time of discharge medical care will return to primary care provider, Dr Bello 06/04 Continue with current chemotherapy treatment under the care of Dr. Calderón, patient is on 5-FU for additional days. Continue on oxygen to maintain adequate saturations. Appreciate pulmonary consultation with Dr Sharma Hopeful for placement of Pleurax Cath tomorrow . Given recurrent right pleural effusion. Continue on scheduled DuoNeb breathing treatments SCDs to bilateral lower extremity for DVT prophylaxis Percocet as needed for pain control Case discussed with attending, Dr. Gleason
--- NOTE | 2017-06-04 12:11 | Pulmonology Progress Note ---
<David,Erica D - Last Filed: 06/04/17 12:03> Subjective Principal diagnosis: medication reaction Interval history: Pt sitting up in bed, states his breathing is doing better, no cough or sputum. Exam Vital signs: Temperature 96.0 F L 06/04/17 11:23 Pulse Rate 79 06/04/17 11:23 Respiratory Rate 20 06/04/17 11:23 Blood Pressure 125/72 06/04/17 11:23 Pulse Oximetry 97 06/04/17 11:23 Inpatient Medications: Generic Name Dose Route Start Last Admin Trade Name Freq PRN Reason Stop Dose Admin Acetaminophen 650 mg 06/03/17 10:26 Tylenol PO Q5H PRN Albuterol/Ipratropium 3 ml 06/03/17 19:00 06/04/17 07:30 Duoneb AEROSOL 3 ml RTQID SATYA Administration Albuterol/Ipratropium 3 ml 06/03/17 15:52 Duoneb AEROSOL RTQID PRN Diphenhydramine HCl 50 mg 06/03/17 09:58 06/03/17 18:48 Benadryl IVP 50 mg PRN PRN Administration HYPERSENSITIVITY Guaifenesin 1,200 mg 06/04/17 09:36 06/04/17 10:10 Mucinex La PO 1,200 mg BID SATYA Administration Hydrocortisone Sodium Succinate 100 mg 06/03/17 10:00 Solu-Cortef IVP PRN PRN HYPERSENSITIVITY Dexamethasone 10 mg/ 52.5 mls @ 105 mls/hr 06/03/17 11:15 06/03/17 13:07 Fosaprepitant 150 mg/ Dextrose IV Infused .NO DFT SATYA Infusion Fluorouracil 2,113 mg/ Sodium 1,042.26 mls @ 43 mls/hr 06/03/17 17:30 20:47 Chloride IV 06/07/17 18:26 43 mls/hr .Q24H SATYA Administration Sodium Chloride 1,000 mls @ 100 mls/hr 06/03/17 11:15 06/04/17 11:28 Normal Saline IV 100 mls/hr .Q10H SATYA Administration Methylprednisolone Sodium Succinate 125 mg 06/03/17 10:01 06/03/17 15:19 Solu-Medrol IVP 100 mg PRN PRN Administration HYPERSENSITIVITY Oxycodone/Acetaminophen 1 tab 06/03/17 10:55 06/04/17 11:27 Percocet 10/325 PO 1 tab Q4H PRN Administration Pain Sodium Chloride 10 - 80 ml 06/03/17 20:47 06/04/17 03:51 Iv Flush IV 40 ml PRN PRN Administration Flushing Sodium Chloride 1 spray 06/04/17 09:36 06/04/17 10:09 Deep Sea Nasal Moisturizing Cobalt EA NOSTRIL 1 spray PRN PRN Administration Congestion Discontinued Medications Generic Name Dose Route Start Last Admin Trade Name Freq PRN Reason Stop Dose Admin Albuterol Sulfate 2.5 mg 06/03/17 11:45 06/03/17 11:55 Proventil Neb (0.083%) AEROSOL 06/03/17 11:46 2.5 mg O ONE Administration Albuterol/Ipratropium 3 ml 06/03/17 15:42 06/03/17 15:45 Duoneb AEROSOL 3 ml RTQID PRN Administration Diphenhydramine HCl 50 mg 06/03/17 11:00 06/03/17 11:54 Benadryl IVP 06/03/17 11:01 50 mg O ONE Administration Epinephrine HCl 1 mg 06/03/17 15:22 06/03/17 15:23 Adrenalin IVP 06/03/17 15:23 1 mg O ONE Administration Magnesium Sulfate/Dextrose 1 gm in 100 mls @ 100 mls/hr 06/03/17 11:15 15:39 Mag Sulf 1gm Premix IV 06/03/17 15:14 Not Given 1115,1415 SATYA Cetuximab 1,056 mg/ Sodium 528 mls @ 264 mls/hr 06/03/17 12:15 06/03/17 15:39 Chloride IV 06/03/17 14:14 Infused O ONE Infusion Carboplatin 600 mg/ Sodium 310 mls @ 155 mls/hr 06/03/17 15:15 06/03/17 20:10 Chloride IV 06/03/17 17:14 Infused O ONE Infusion Sodium Chloride 1,000 mls @ 50 mls/hr 06/03/17 15:00 06/03/17 16:00 Normal Saline IV Infused .Q20H SATYA Infusion Ketorolac Tromethamine 30 mg 06/03/17 15:31 06/03/17 15:33 Toradol Inj IVP 06/03/17 15:32 30 mg O ONE Administration Minocycline HCl 100 mg 06/03/17 14:00 06/03/17 15:37 Minocin PO Not Given DAILY SATYA Palonosetron 0.25 mg 06/03/17 11:00 06/03/17 12:14 Aloxi IV 06/03/17 11:01 0.25 mg O ONE Administration - Constitutional no acute distress, morbidly obese, cooperative - Routine HEENT Exam Head: Present: normocephalic, atraumatic Eye: Present: EOMI, PERRL ENT: Present: mucous membranes moist - Routine Neck Exam Present: supple, full ROM, trachea midline - Routine Respiratory Exam Present: decreased breath sounds, wheezes. Absent: accessory muscle use, patient mechanically ventilated Comments: faint wheezes - Routine Cardiovascular Exam Present: RRR, S1, S2, no murmur - Routine Abdominal Exam Present: soft, normoactive bowel sounds - Routine Extremities Exam Present: no edema, non tender - Routine Back/Spine/Pelvis Exam Back/Spine: Present: full ROM - Routine Skin Exam Present: intact, dry - Routine Neurological Exam Present: alert, oriented X3, CN II-XII intact - Routine Psychiatric Exam Present: normal affect, normal thought process Results - Laboratory Findings Laboratory: Laboratory Results - last 48 hr 06/03/17 06/03/17 06/03/17 11:16 11:17 11:17 WBC 9.1 RBC 3.89 L Hgb 10.7 L Hct 34.0 L MCV 87.4 MCH 27.5 MCHC 31.5 RDW Std Deviation 45.7 Plt Count 267 MPV 9.4 Immature Gran % (Auto) Not performed Neut % (Auto) Not performed Lymph % (Auto) Not performed Grainger % (Auto) Not performed Eos % (Auto) Not performed Baso % (Auto) Not performed Neut # (Auto) Not performed Lymph # (Auto) Not performed Grainger # (Auto) Not performed Eos # (Auto) Not performed Baso # (Auto) Not performed Abs Immat Gran (auto) Not performed Neutrophils % (Manual) 83.0 H Band Neutrophils % 9.0 H Lymphocytes % (Manual) 1.0 L Monocytes % (Manual) 6.0 Basophils % (Manual) 1.0 Metamyelocytes % Neutrophils # (Manual) 7.6 Band Neutrophils # 0.8 Lymphocytes # (Manual) 0.1 L Monocytes # (Manual) 0.5 Basophils # (Manual) 0.1 Metamyelocytes # Poikilocytosis 1+ Anisocytosis 1+ RBC Morph Comment Abnormal INR 1.42 H Turbidity < 20 Sodium 136 Potassium 3.5 L Chloride 96 L Carbon Dioxide 29 Anion Gap 11 BUN 9.0 Creatinine 0.8 GFR Calculation 104 BUN/Creatinine Ratio 11 Glucose 110 Calculated Osmolality 262 Calcium 10.4 H Ionized Calcium [place]enny Phosphorus Magnesium Total Bilirubin 0.40 Icterus Index < 2 AST 50 ALT 58 Alkaline Phosphatase 78 Total Protein 7.4 Albumin 3.4 L Globulin 4.0 H Albumin/Globulin Ratio 0.9 L Specimen Hemolysis < 15 Ur Collection Type Urine Color Urine Clarity Urine pH Ur Specific [place] Urine Protein Urine Glucose (UA) Urine Ketones Urine Occult Blood Urine Nitrate Urine Bilirubin Urine Urobilinogen Ur Leukocyte Esterase Urinalysis Comment 06/03/17 06/04/17 06/04/17 18:00 03:55 03:55 WBC 6.0 RBC 4.24 L Hgb 11.7 L Hct 37.2 L MCV 87.7 MCH 27.6 MCHC 31.5 RDW Std Deviation 46.2 Plt Count 274 MPV 9.9 Immature Gran % (Auto) Neut % (Auto) Lymph % (Auto) [place] % (Auto) Eos % (Auto) Baso % (Auto) Neut # (Auto) Lymph # (Auto) [place] # (Auto) Eos # (Auto) Baso # (Auto) Abs Immat Gran (auto) Neutrophils % (Manual) 89.0 H Band Neutrophils % 8.0 H Lymphocytes % (Manual) 2.0 L Monocytes % (Manual) Basophils % (Manual) Metamyelocytes % 1.0 H Neutrophils # (Manual) 5.3 Band Neutrophils # 0.5 Lymphocytes # (Manual) 0.1 L Monocytes # (Manual) Basophils # (Manual) Metamyelocytes # 0.1 Poikilocytosis 1+ Anisocytosis 1+ RBC Morph Comment Abnormal INR Turbidity < 20 Sodium 137 Potassium 3.9 Chloride 98 Carbon Dioxide 27 Anion Gap 12 BUN 14.0 D Creatinine 0.8 GFR Calculation 104 BUN/Creatinine Ratio 18 Glucose 143 H Calculated Osmolality 267 Calcium 9.4 D Ionized Calcium [place] 1.27 Phosphorus 4.5 Magnesium 2.2 Total Bilirubin Icterus Index < 2 AST ALT Alkaline Phosphatase Total Protein Albumin 3.0 L Globulin Albumin/Globulin Ratio Specimen Hemolysis < 15 Ur Collection Type Urine, void-cc/notcc Urine Color Yellow Urine Clarity Sl cloudy Urine pH 5.5 Ur Specific [place] 1.025 Urine Protein Trace A Urine Glucose (UA) Negative Urine Ketones Negative Urine Occult Blood Negative Urine Nitrate Negative Urine Bilirubin Negative Urine Urobilinogen 2.0 Ur Leukocyte Esterase Negative Urinalysis Comment Microscopic not ind. 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 Using home Cpap at [facility] with O2 bled in. Large pleural effusion on R, will set up for pleurx catheter tomorrow afternoon. On A/A q6hr with minimal wheezing noted, cont to follow. Catheter placement Risks and benefits discussed. We will plan to perform in the OR under conscious sedation. The patient will receive preoperative antibiotics. There is at least moderate risk for post op infection due to immune suppression. - Time Spent With Patient Total time spent is greater than 50% in coordination of care (as documented) at patient's floor/unit and/or counseling patient: less than 15 minutes <Zak Sharma - Last Filed: 06/05/17 13:39> Exam Vital signs: Temperature 97.9 F 06/05/17 13:11 Pulse Rate 94 06/05/17 13:35 Respiratory Rate 20 06/05/17 13:35 Blood Pressure 101/54 06/05/17 13:35 Pulse Oximetry 94 06/05/17 13:35 Inpatient Medications: Generic Name Dose Route Start Last Admin Trade Name Freq PRN Reason Stop Dose Admin Acetaminophen 650 mg 06/03/17 10:26 Tylenol PO Q5H PRN Albuterol/Ipratropium 3 ml 06/03/17 19:00 06/05/17 12:18 Duoneb AEROSOL Not Given RTQID SATYA Albuterol/Ipratropium 3 ml 06/03/17 15:52 Duoneb AEROSOL RTQID PRN Allopurinol 100 mg 06/05/17 09:00 06/05/17 09:53 Zyloprim PO 100 mg DAILY SATYA Administration Cephalexin HCl 500 mg 06/05/17 15:00 Keflex 500 Mg PO Q6HR SATYA Diphenhydramine HCl 50 mg 06/03/17 09:58 06/03/17 18:48 Benadryl IVP 50 mg PRN PRN Administration HYPERSENSITIVITY Docusate Sodium 100 mg 06/04/17 21:00 06/04/17 20:19 Colace PO 100 mg HS SATYA Administration Guaifenesin 1,200 mg 06/04/17 09:36 06/05/17 08:04 Mucinex La PO 1,200 mg BID SATYA Administration Hydrocortisone Sodium Succinate 100 mg 06/03/17 10:00 Solu-Cortef IVP PRN PRN HYPERSENSITIVITY Dexamethasone 10 mg/ 52.5 mls @ 105 mls/hr 06/03/17 11:15 06/03/17 13:07 Fosaprepitant 150 mg/ Dextrose IV Infused .NO DFT SATYA Infusion Fluorouracil 2,113 mg/ Sodium 1,042.26 mls @ 43 mls/hr 06/03/17 17:30 23:52 Chloride IV 06/07/17 21:56 Not Given .Q24H SATYA Sodium Chloride 1,000 mls @ 100 mls/hr 06/03/17 11:15 06/05/17 11:51 Normal Saline IV 0 mls/hr .Q10H SATYA Infusion Sodium Chloride 1,000 mls @ 50 mls/hr 06/05/17 12:15 06/05/17 12:10 Normal Saline IV 50 mls/hr .Q20H SATYA Administration Methylprednisolone Sodium Succinate 125 mg 06/03/17 10:01 06/03/17 15:19 Solu-Medrol IVP 100 mg PRN PRN Administration HYPERSENSITIVITY Ondansetron HCl 4 mg 06/05/17 06:45 06/05/17 07:05 Zofran IVP 4 mg Q6H PRN Administration Nausea &/or vomiting Oxycodone/Acetaminophen 1 tab 06/03/17 10:55 06/05/17 09:53 Percocet 10/325 PO 1 tab Q4H PRN Administration Pain Senna/Docusate Sodium 1 tab 06/04/17 21:00 06/04/17 20:19 Senna Plus Tablet PO 1 tab HS SATYA Administration Sertraline HCl 150 mg 06/05/17 21:00 06/05/17 09:53 Zoloft PO 150 mg HS SATAY Administration Sodium Chloride 10 - 80 ml 06/03/17 20:47 06/05/17 07:13 Iv Flush IV 20 ml PRN PRN Administration Flushing Sodium Chloride 1 spray 06/04/17 09:36 06/04/17 10:09 Deep Sea Nasal Moisturizing Cobalt EA NOSTRIL 1 spray PRN PRN Administration Congestion Topiramate 50 mg 06/05/17 09:00 06/05/17 09:53 Topamax PO 50 mg BID SATYA Administration Discontinued Medications Generic Name Dose Route Start Last Admin Trade Name Freq PRN Reason Stop Dose Admin Albuterol Sulfate 2.5 mg 06/03/17 11:45 06/03/17 11:55 Proventil Neb (0.083%) AEROSOL 06/03/17 11:46 2.5 mg O ONE Administration Albuterol/Ipratropium 3 ml 06/03/17 15:42 06/03/17 15:45 Duoneb AEROSOL 3 ml RTQID PRN Administration Cefazolin Sodium 3 g 06/05/17 14:00 Kefzol IVP 06/05/17 14:01 PREOP ONE Cefazolin Sodium 2 g 06/05/17 12:45 06/05/17 12:50 Kefzol IVP 06/05/17 12:46 2 g PREOP ONE Administration Diphenhydramine HCl 50 mg 06/03/17 11:00 06/03/17 11:54 Benadryl IVP 06/03/17 11:01 50 mg O ONE Administration Epinephrine HCl 1 mg 06/03/17 15:22 06/03/17 15:23 Adrenalin IVP 06/03/17 15:23 1 mg O ONE Administration Magnesium Sulfate/Dextrose 1 gm in 100 mls @ 100 mls/hr 06/03/17 11:15 15:39 Mag Sulf 1gm Premix IV 06/03/17 15:14 Not Given 1115,1415 SATYA Cetuximab 1,056 mg/ Sodium 528 mls @ 264 mls/hr 06/03/17 12:15 06/03/17 15:39 Chloride IV 06/03/17 14:14 Infused O ONE Infusion Carboplatin 600 mg/ Sodium 310 mls @ 155 mls/hr 06/03/17 15:15 06/03/17 20:10 Chloride IV 06/03/17 17:14 Infused O ONE Infusion Sodium Chloride 1,000 mls @ 50 mls/hr 06/03/17 15:00 06/03/17 16:00 Normal Saline IV Infused .Q20H SATYA Infusion Ketorolac Tromethamine 30 mg 06/03/17 15:31 06/03/17 15:33 Toradol Inj IVP 06/03/17 15:32 30 mg O ONE Administration Ketorolac Tromethamine 30 mg 06/05/17 13:22 06/05/17 13:25 Toradol Inj IVP 06/05/17 13:23 30 mg O ONE Administration Minocycline HCl 100 mg 06/03/17 14:00 06/03/17 15:37 Minocin PO Not Given DAILY SATYA Palonosetron 0.25 mg 06/03/17 11:00 06/03/17 12:14 Aloxi IV 06/03/17 11:01 0.25 mg O ONE Administration Results - Laboratory Findings Laboratory: Laboratory Results - last 48 hr 06/03/17 06/04/17 06/04/17 18:00 03:55 03:55 WBC 6.0 RBC 4.24 L Hgb 11.7 L Hct 37.2 L MCV 87.7 MCH 27.6 MCHC 31.5 RDW Std Deviation 46.2 Plt Count 274 MPV 9.9 Immature Gran % (Auto) Neut % (Auto) Lymph % (Auto) [place] % (Auto) Eos % (Auto) Baso % (Auto) Neut # (Auto) Lymph # (Auto) [place] # (Auto) Eos # (Auto) Baso # (Auto) Abs Immat Gran (auto) Neutrophils % (Manual) 89.0 H Band Neutrophils % 8.0 H Lymphocytes % (Manual) 2.0 L Metamyelocytes % 1.0 H Neutrophils # (Manual) 5.3 Band Neutrophils # 0.5 Lymphocytes # (Manual) 0.1 L Metamyelocytes # 0.1 Poikilocytosis 1+ Anisocytosis 1+ RBC Morph Comment Abnormal Turbidity < 20 Sodium 137 Potassium 3.9 Chloride 98 Carbon Dioxide 27 Anion Gap 12 BUN 14.0 D Creatinine 0.8 GFR Calculation 104 BUN/Creatinine Ratio 18 Glucose 143 H Calculated Osmolality 267 Calcium 9.4 D Ionized Calcium [place] 1.27 Phosphorus 4.5 Magnesium 2.2 Icterus Index < 2 Albumin 3.0 L Specimen Hemolysis < 15 Ur Collection Type Urine, void-cc/notcc Urine Color Yellow Urine Clarity Sl cloudy Urine pH 5.5 Ur Specific [place] 1.025 Urine Protein Trace A Urine Glucose (UA) Negative Urine Ketones Negative Urine Occult Blood Negative Urine Nitrate Negative Urine Bilirubin Negative Urine Urobilinogen 2.0 Ur Leukocyte Esterase Negative Urinalysis Comment Microscopic not ind. 06/05/17 06/05/17 04:21 04:21 WBC 11.4 H D RBC 3.93 L Hgb 10.7 L Hct 34.4 L MCV 87.5 MCH 27.2 MCHC 31.1 RDW Std Deviation 45.8 Plt Count 272 MPV 9.7 Immature Gran % (Auto) Not performed Neut % (Auto) Not performed Lymph % (Auto) Not performed [place] % (Auto) Not performed Eos % (Auto) Not performed Baso % (Auto) Not performed Neut # (Auto) Not performed Lymph # (Auto) Not performed [place] # (Auto) Not performed Eos # (Auto) Not performed Baso # (Auto) Not performed Abs Immat Gran (auto) Not performed Neutrophils % (Manual) 95.0 H Band Neutrophils % 5.0 Lymphocytes % (Manual) Metamyelocytes % Neutrophils # (Manual) 10.8 H Band Neutrophils # 0.6 Lymphocytes # (Manual) Metamyelocytes # Poikilocytosis 2+ Anisocytosis 2+ RBC Morph Comment Abnormal Turbidity < 20 Sodium 138 Potassium 3.9 Chloride 101 Carbon Dioxide 28 Anion Gap 9 BUN 11.0 Creatinine 0.7 L GFR Calculation 121 BUN/Creatinine Ratio 16 Glucose 93 Calculated Osmolality 265 Calcium 9.3 Ionized Calcium [place] Phosphorus Magnesium Icterus Index < 2 Albumin Specimen Hemolysis < 15 Ur Collection Type Urine Color Urine Clarity Urine pH Ur Specific [place] Urine Protein Urine Glucose (UA) Urine Ketones Urine Occult Blood Urine Nitrate Urine Bilirubin Urine Urobilinogen Ur Leukocyte Esterase Urinalysis Comment Assessment and Plan (1) Squamous cell carcinoma, metastatic Status: Acute Current Visit: Yes (2) Pleural effusion on right Problem details: Symptomatic Status: Acute Current Visit: Yes - Time Spent With Patient Total time spent is greater than 50% in coordination of care (as documented) at patient's floor/unit and/or counseling patient:
--- NOTE | 2017-06-04 15:45 | Progress Note ---
Oncology Subjective Doing fine today. Had an anaphylactic reaction during Erbitux infusion yesterday. Exam Vital signs: Temperature 95.3 F L 06/04/17 15:09 Pulse Rate 71 06/04/17 15:09 Respiratory Rate 20 06/04/17 15:09 Blood Pressure 118/79 06/04/17 15:09 Pulse Oximetry 96 06/04/17 15:09 - Constitutional no acute distress, well developed, cooperative - Routine HEENT Exam Comments: Surgical scan in the right side. - Routine Neck Exam Comments: Scar and XRT changes in right side - Routine Respiratory Exam Comments: Diminished air entry in the right side c/w effusion. - Routine Abdominal Exam Present: soft, non tender Oncology Results - Labs CBC & Chem 7: 06/04/17 03:55 06/04/17 03:55 Labs: Short CBC 06/04/17 Range/Units 03:55 WBC 6.0 (4.5-11.0) T/MM3 Hgb 11.7 L (13.5-17.5) GM/DL Hct 37.2 L (41-53) % Plt Count 274 (130-400) T/MM3 BMP 06/04/17 03:55 Sodium 137 Potassium 3.9 Chloride 98 Carbon Dioxide 27 BUN 14.0 D Creatinine 0.8 Glucose 143 H Calcium 9.4 D Liver Function 06/04/17 Range/Units 03:55 Albumin 3.0 L (3.5-5.0) G/DL Urine 06/03/17 Range/Units 18:00 Urine Color Yellow (YELLOW) Urine Clarity Sl cloudy Urine pH 5.5 (5.0-8.0) Ur Specific [place] 1.025 (1.015-1.025) Urine Protein Trace A (NEGATIVE) Urine Glucose (UA) Negative (NEGATIVE) Assessment and Plan Assessment and Plan: ASSESSMENT 1. 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 The source is either head and neck or penile cancer. 2. Recurrent right pleural effusion most likely malignant. 3. Shortness of breath and cough due to lung cancer with right pleural effusion. 4. 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 5. 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 6. History of postoperative surgical wound/dehiscence of incision requiring wound care and multiple antibiotics in December 2016. 7. History of cisplatin induced autotoxicity, stable. 8. Anaphylatic reaction to Erbitux. RECOMMENDATION & PLAN 1. Erbitux permanently discontinued 2. Will continue with second line chemotherapy carboplatin/CIV 5-FU. Today is day # 2. 3. Scheduled for PleurX catheter tomorrow. 4. Neulasta on Friday in office. - Time Spent With Patient Total time spent is greater than 50% in coordination of care (as documented) at patient's floor/unit and/or counseling patient: 25 - 35 minutes
[2017-06-04] MEDS: NS IV SCH ×2 (19:47→23:52)
[2017-06-04] MEDS: FLUOROURACIL IV SCH ×2 (19:47→23:52)
[2017-06-04] MEDS: DOCUSATE SODIUM 100 MG CAPSULE PO SCH (20:19)
[2017-06-04] MEDS: SENNA + DOCUSATE TABLET PO SCH (20:19)
[2017-06-05] MEDS: ALBUTEROL/IPRATROPIUM 2.5mg-0.5mg/3ml NEB AEROSOL SCH ×5 (02:09→18:55)
[2017-06-05] MEDS: Oxycodone/Apap 10/325 1 TAB PO PRN ×6 (02:11→23:52)
[2017-06-05] MEDS: NS 1,000 ML IV SCH ×3 (03:52→15:52)
[2017-06-05] MEDS ORDERED: ONDANSETRON 4 MG/2 ML INJECTION IVP PRN (06:45)
[2017-06-05] MEDS: SALINE FLUSH 10ml SYRINGE IV PRN (07:13)
[2017-06-05] MEDS: GUAIFENESIN LA 600 MG TABLET PO SCH ×2 (08:04→21:10)
[2017-06-05] MEDS: TOPIRAMATE 25 MG TABLET PO SCH ×2 (09:53→21:11)
[2017-06-05] MEDS: ALLOPURINOL 100 MG TABLET PO SCH (09:53)
[2017-06-05] MEDS: SERTRALINE 100 MG TABLET PO SCH ×2 (09:53→21:10)
--- NOTE | 2017-06-05 12:02 | Anesthesia Preoperative Report ---
Anesthesia Preoperative Record - Date and Time Date: 06/05/17 Preoperative Diagnosis: Chemo Proposed Procedure: Pleurex Catheter Insertion NPO Since Date: 06/04/17 NPO Since Time: 21:00 Allergies/Adverse Reactions: Allergies Allergy/AdvReac Type Severity Reaction Status Date / Time No Known Allergies Allergy Verified 05/30/17 10:12 - Vital Signs Vital Signs: Temperature 96.0 F L 06/05/17 01:29 Pulse Rate 94 06/05/17 11:54 Respiratory Rate 20 06/05/17 07:23 Blood Pressure 115/74 06/05/17 07:23 Pulse Oximetry 94 06/05/17 07:23 Height and Weight: Height 5 ft 11 in Weight 152.095 kg Body Mass Index 46.7 - Medications Inpatient Medications: Current Medications Acetaminophen (Tylenol) 650 mg PO Q5H PRN Albuterol/Ipratropium (Duoneb) 3 ml AEROSOL RTQID [facility] Last Admin: 06/05/17 07:05 Dose: 3 ml Albuterol/Ipratropium (Duoneb) 3 ml AEROSOL RTQID PRN Allopurinol (Zyloprim) 100 mg PO DAILY [facility] Last Admin: 06/05/17 09:53 Dose: 100 mg Cefazolin Sodium (Kefzol) 3 g IVP PREOP ONE Stop: 06/05/17 14:01 Diphenhydramine HCl (Benadryl) 50 mg IVP PRN PRN PRN Reason: HYPERSENSITIVITY Last Admin: 06/03/17 18:48 Dose: 50 mg Docusate Sodium (Colace) 100 mg PO HS [facility] Last Admin: 06/04/17 20:19 Dose: 100 mg Guaifenesin (Mucinex [place]) 1,200 mg PO BID [facility] Last Admin: 06/05/17 08:04 Dose: 1,200 mg Hydrocortisone Sodium Succinate (Solu-Cortef) 100 mg IVP PRN PRN PRN Reason: HYPERSENSITIVITY Dexamethasone 10 mg/ (Fosaprepitant 150 mg/ Dextrose) 52.5 mls @ 105 mls/hr IV .NO DFT [facility] Last Infusion: 06/03/17 13:07 Dose: Infused Fluorouracil 2,113 mg/ Sodium (Chloride) 1,042.26 mls @ 43 mls/hr IV .Q24H [facility] Stop: 06/07/17 21:56 Last Admin: 06/04/17 23:52 Dose: Not Given Sodium Chloride (Normal Saline) 1,000 mls @ 100 mls/hr IV .Q10H [facility] Last Infusion: 06/05/17 11:51 Dose: 0 mls/hr Methylprednisolone Sodium Succinate (Solu-Medrol) 125 mg IVP PRN PRN PRN Reason: HYPERSENSITIVITY Last Admin: 06/03/17 15:19 Dose: 100 mg Ondansetron HCl (Zofran) 4 mg IVP Q6H PRN PRN Reason: Nausea &/or vomiting Last Admin: 06/05/17 07:05 Dose: 4 mg Oxycodone/Acetaminophen (Percocet 10/325) 1 tab PO Q4H PRN PRN Reason: Pain Last Admin: 06/05/17 09:53 Dose: 1 tab Senna/Docusate Sodium (Senna Plus Tablet) 1 tab PO [facility] Last Admin: 06/04/17 20:19 Dose: 1 tab Sertraline HCl (Zoloft) 150 mg PO [facility] Last Admin: 06/05/17 09:53 Dose: 150 mg Sodium Chloride (Iv Flush) 10 - 80 ml IV PRN PRN PRN Reason: Flushing Last Admin: 06/05/17 07:13 Dose: 20 ml Sodium Chloride (Deep Sea Nasal Moisturizing [place]) 1 spray EA NOSTRIL PRN PRN PRN Reason: Congestion Last Admin: 06/04/17 10:09 Dose: 1 spray Topiramate (Topamax) 50 mg PO BID [facility] Last Admin: 06/05/17 09:53 Dose: 50 mg Home Medications: Home Medications Medication Instructions Recorded Confirmed Type Cyanocobalamin (Vitamin B-12) 1 tab PO DAILY #0 tab 09/04/15 06/05/17 History [Vitamin B-12] Elderberry Fruit/Honey [Little 1 dose PO DAILY #0 09/04/15 06/05/17 History Remedies Cough-Immune] Topiramate [Topamax] 50 mg PO BID #0 09/04/15 06/05/17 History Allopurinol [Zyloprim] 100 mg PO DAILY 12/18/16 06/05/17 History Sertraline [Zoloft] 100 mg PO HS 12/18/16 06/05/17 History Sertraline [Zoloft] 50 mg PO HS 01/15/17 06/05/17 History Docusate Sodium 100 mg PO PRN PRN 05/30/17 06/05/17 History Oxycodone/Apap [Percocet 1 tab PO Q4H PRN 05/30/17 06/05/17 History ] Is Patient on Beta Saul?: No - Medical History Respiratory: Reports: Asthma (Diagnosed in 2008), Bronchitis, Dyspnea, Pneumonia , Upper Respiratory Infection, Pulmonary Edema, Sleep Apnea DENIES: Chronic Obstructive Pulmonary Disease (COPD), Orthopnea, Pulmonary Embolism, Tuberculosis, Other Cardiovascular: DENIES: Abnormal EKG, Angina, Arrhythmia, Congestive Heart Failure, Coronary Artery Disease, Heart Murmur, Hypertension, Hypotension, Myocardial Infarction, Rheumatic Fever, Valvular Heart Disease, Other Gastrointestional: Reports: Morbid Obesity DENIES: Obstructive Bowel, Hepatitis, Cirrhosis, Nausea or Vomiting Present, Gastroesophageal Reflux Disease, Gastrointestinal Bleeding, Hiatal Hernia, Ulcer , Other Neuro/Musculoskeletal: Reports: HX.MS.OSAR (low back, liana knees), Depression Denies: Back Problems, Cerebrovascular Accident, Headaches, Muscle Weakness, Neuromuscular Disorder, Paralysis, Paresthesia, Syncope, Seizures, Other Renal/Endocrine: DENIES: Diabetes Mellitus Type 1, Diabetes Mellitus Type 2, Dialysis, Thyroid Disease, Weight Loss, Weight Gain, Other Other History: Reports: Cancer (penile, tongue, neck, inguinal lymph node) DENIES: Anesthesia Reactions, Now, Blood Transfusions, Chemotherapy , Hemophilia, Malignant Hyperthermia, Sickle Cell Disease, Other - Surgical History HEENT Surgeries: Reports: Oral Surgery (all teeth pulled/full set dentures), Tonsillectomy, Other (R neck 2015) Respiratory Surgery/Treatments: Reports: CPAP Use, Oxygen Administration GI Surgery/Treatments: Reports: Colon Resection, Other (INGUINAL LYMPH NODE DISSECTION) Surgery/Treatment: REPORT: Other (penis removed surgically/urethra opening under scrotum) DENIES: Dialysis Musculoskeletal Surgery/Tx: Reports: Carpal Tunnel Release (right) Reproductive Surgery/Treatment: Reports: Other (PENIS CANCER-REMOVAL) Anesthesia Reactions: None Hx Family Anesthesia Reaction: No History of Motion Sickness: No - Social History Smoking Status: Former smoker (, quit 2013) Hx Chewing Tobacco Use: No Second Hand Exposure: No Substance Use Type: does not use Alcohol Intake Frequency: does not drink - Pertinent Findings Laboratory: CBC and BMP 06/05/17 04:21 06/05/17 04:21 BMP 06/05/17 04:21 Sodium 138 Potassium 3.9 Chloride 101 Carbon Dioxide 28 BUN 11.0 Creatinine 0.7 L Glucose 93 Calcium 9.3 EKG: Sinus Rhythm - Physical Exam Respiratory Exam: Present: lungs clear, bilateral breath sounds equal Cardiovascular Exam: Present: regular rate and rhythm, no murmur - Airway Assessment Mallampati Score: II TMD: 3 Fingerbreadths Neck Extension: fair Teeth: upper dentures, lower dentures Overall Assessment: may be difficult intubation - ASA ASA Score: 4 - Plan Anesthesia: MAC - Discussion Discussion: Discussed risks/options/alternatives of anesthesia and questions answered. Patient consents. Nursing pain assessment noted. Present for Discussion: spouse Attestation Statement: Prior to the delivery of any anesthetic medication, I examined the patient, developed the plan, obtained the patient's consent and discussed the risk and benefits of the procedure with the patient/guardian. - Additional Information Seen by Anesthesia: Yes
[2017-06-05] MEDS ORDERED: CEFAZOLIN 1 G INJECTION IVP ONE ×2 (12:45→14:00)
[2017-06-05] MEDS ORDERED: FentaNYL 250 MCG/5 ML INJECTION ONE (12:48)
[2017-06-05] MEDS ORDERED: MIDAZOLAM 5mg/5ml INJECTION ONE (12:48)
[2017-06-05] MEDS ORDERED: CEFAZOLIN 1 G INJECTION ONE (12:51)
[2017-06-05] MEDS ORDERED: SALINE FLUSH 10ml SYRINGE ONE (12:51)
--- NOTE | 2017-06-05 13:14 | Progress Note ---
Oncology Subjective Reclining in hospital bed, at bedside. Alert and oriented. Smiling, states "my breathing is so much better after the procedure. " General: No fever, no night sweats Eyes: No redness, no pain, no diplopia ENT: No mouth sores, no trouble swallowing Cardiac: No chest pain no palpitations Pulmonary:+ cough, + shortness of breath, Abdomen: No pain, no nausea vomiting, no diarrhea or constipation : No urgency, frequency, dysuria, or hematuria Musculoskeletal: No arthritis, no myalgias Neurological: No headaches, no focal weakness Skin: No rash, no sores Psychiatric: No anxiety, no depression Exam Vital signs: Temperature 97.0 F 06/05/17 12:01 Pulse Rate 102 H 06/05/17 12:01 Respiratory Rate 18 06/05/17 12:01 Blood Pressure 111/59 06/05/17 12:01 Pulse Oximetry 94 06/05/17 12:01 - Constitutional no acute distress, morbidly obese, cooperative - Routine HEENT Exam Head: Present: normocephalic Eye: Present: EOMI ENT: Present: mucous membranes moist - Routine Neck Exam Present: supple. Absent: lymphadenopathy - Routine Respiratory Exam Present: decreased breath sounds Comments: dressing dry/intact anterior chest wall. - Routine Cardiovascular Exam Present: RRR, no murmur - Routine Abdominal Exam Present: soft, non tender - Routine Extremities Exam Present: no edema, full ROM - Routine Skin Exam Present: intact, dry - Routine Psychiatric Exam Present: normal affect, normal thought process, cooperative Oncology Results - Labs CBC & Chem 7: 06/05/17 04:21 06/05/17 04:21 Labs: Short CBC 06/05/17 Range/Units 04:21 WBC 11.4 H D (4.5-11.0) T/MM3 Hgb 10.7 L (13.5-17.5) GM/DL Hct 34.4 L (41-53) % Plt Count 272 (130-400) T/MM3 [facility] 06/05/17 04:21 Sodium 138 Potassium 3.9 Chloride 101 Carbon Dioxide 28 BUN 11.0 Creatinine 0.7 L Glucose 93 Calcium 9.3 Assessment and Plan Assessment and Plan: ASSESSMENT 1. 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 The source is either head and neck or penile cancer. 2. Recurrent right pleural effusion most likely malignant. 3. Shortness of breath and cough due to lung cancer with right pleural effusion. 4. 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 5. 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 6. History of postoperative surgical wound/dehiscence of incision requiring wound care and multiple antibiotics in December 2016. 7. History of cisplatin induced autotoxicity, stable. 8. Anaphylatic reaction to Erbitux. PLAN Erbitux permanently discontinued. Continue with second line chemotherapy carboplatin/CIV 5-FU. Today is day # 3. Subjectively feels " My breathing is 75 % better." after placement of pleuryx catheter and thoracentesis. Continue supportive care; follow counts. Plan Neulasta on Friday in office. - Time Spent With Patient Total time spent is greater than 50% in coordination of care (as documented) at patient's floor/unit and/or counseling patient: less than 15 minutes
[2017-06-05] MEDS ORDERED: KETOROLAC 30 MG/ML INJECTION IVP ONE (13:22)
--- NOTE | 2017-06-05 13:29 | Progress Note ---
- Date 06/05/17 Subjective: Jasvir is doing ok. His breathing was actually a little better yesterday when he was on steroids. He knows that Dr. Calderón doesn't want him to be on steroids d/ t immune suppression. His rash and angioedema have resolved. His cognition has returned to baseline. He has not had any visual changes since the reaction. He is going to have PleurX placed today for right pleural effusion. Objective Vital signs: Temperature 97.0 F 06/05/17 12:01 Pulse Rate 102 H 06/05/17 12:01 Respiratory Rate 18 06/05/17 12:01 Blood Pressure 111/59 06/05/17 12:01 Pulse Oximetry 94 06/05/17 12:01 Height/Weight/BMI: Height 1.8 m Weight 152.095 kg Body Mass Index 46.7 - Constitutional Present: no acute distress, morbidly obese - Routine HEENT Exam Head: Present: normocephalic Eye: Present: PERRL. Absent: conjunctival icterus, scleral injection ENT: Present: mucous membranes moist Comments: well healed surgical scar to right side of neck - Routine Respiratory Exam Comments: markedly reduced air movement to right lower/middle lobes - Routine Cardiovascular Exam Present: RRR, S1, S2 - Routine Abdominal Exam Present: soft, normoactive bowel sounds, non tender - Routine Extremities Exam Present: edema (trace b/l), pulses intact - Routine Skin Exam Present: intact, dry, warm - Routine Neurological Exam Present: alert, oriented X3 - Routine Psychiatric Exam Present: normal affect, normal thought process, cooperative Results - Labs CBC & Chem 7: 06/05/17 04:21 06/05/17 04:21 Assessment and Plan (1) Squamous cell carcinoma Problem details: Head and neck/penile; metastatic Current visit: Yes Status : Acute (2) Pleural effusion on right Problem details: Symptomatic Current visit: Yes Status: Acute Assessment and Plan: Impression 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 Continue oxygen (down to 3L), DuoNeb. Keflex started per Dr. Sharma. Continue with current second-line chemotherapy treatment with 5-FU under the care of Dr. Calderón. Continue IVF. Suspect increase in WBC up to 11.4 today is from recent steroids. Constipation resolved. Patient/family not expecting a cure, but with PleurX and chemo, they hope to improve QOL and to live longer. DVT Prophylaxis: SCD's Resuscitation Status: Full Code - Physician Narrative Physician: Wilder Curtis MD Narrative: Date: 06/05/17 Time: 1704 Have independently interviewed and examined pt. Chart reviewed. Case discussed with CM and my MANAGER BILINGUAL. Care plan developed with my supervision; agree with above. Doing okay this evening. Tolerated procedure well-some local discomfort. Breathing stable. Appetite improved-feels more hungry. Bowel moving-feels medications working well for him. Lungs: decreased bilaterally. CV: regular AB: soft obese nt/nd MSE: awake alert appropriate Plan: Continue with chemotherapy as outlined by ONC. Continue with pain control and bowel motivation. Monitor lab. Hospital Course Summary Disclaimer: The visit summary below is not to be considered part of the above Progress Note. Hospital Course: 06/03/17 Admit patient to inpatient status under the care of Dr. Gleason. Chest x-ray on admission does reveal a right-sided pleural effusion that is recurrent. Consult with Dr. Sharma for pulmonary evaluation and recommendations. Patient may require a Pleurx catheter for management of recurrent effusion. Continues to require oxygen 2 liters by nasal cannula to maintain saturations. Consult with Dr. Calderón for oncology management. Planning for inpatient chemotherapy. Percocet as needed for pain control. SCDs to bilateral lower extremity for DVT prophylaxis 06/04 Continue with current chemotherapy treatment under the care of Dr. Calderón, patient is on 5-FU for additional days. Continue on oxygen to maintain adequate saturations. Appreciate pulmonary consultation with Dr Sharma. Hopeful for placement of Pleurax Cath tomorrow. 06/05 OP Day PleurX planned for today. Placement went well. Continue oxygen (down to 3L), DuoNeb. Keflex started per Dr. Sharma. Continue with current second-line chemotherapy treatment with 5-FU under the care of Dr. Calderón. Continue IVF. Suspect increase in WBC up to 11.4 today is from recent steroids. Constipation resolved. Patient/family not expecting a cure, but with PleurX and chemo, they hope to improve QOL and to live longer.
--- NOTE | 2017-06-05 13:48 | Procedure Note ---
Date of procedure: 06/05/17 Pre-op diagnosis: pleural effusion Post-op diagnosis: same Procedure: right sided pleurX catheter placement 2 grams Ancef IV were given With the patient moderately sedated under the care of the DOCUMENT PROCESSING SPECIALIST, he was placed with his right chest exposed. chlorhexidine was used to sterilize the skin lidocaine was used for local anesthetic small incisions were made in the mid axillary and anterior axillary lines between ribs 5-6. a needle was placed into the pleural space with return of yellow pleural fluid. a guidewire was inserted into the pleural space and the needle was removed. The PleurX catheter was tunneled from the anterior incision to the posterior incision. Using the introducer, the catheter was placed into the right pleural space. 850 ML of pleural fluid was drained from the new catheter. silk sutures were used to close the surgical incisions. The catheter was dressed with gauze and sterile dressings. the patient tolerated the procedure well. Anesthesia: other Surgeon: Zak Sharma MD Estimated blood loss (mL): 0 Pathology: none sent Condition: Stable Disposition: floor
[2017-06-05] MEDS: FLUOROURACIL IV SCH (21:08)
[2017-06-05] MEDS: NS IV SCH (21:08)
[2017-06-05] MEDS: SENNA + DOCUSATE TABLET PO SCH (21:10)
[2017-06-05] MEDS: DOCUSATE SODIUM 100 MG CAPSULE PO SCH (21:10)
[2017-06-05] MEDS ORDERED: NS FLUSH BAG 500ml IV PRN (22:24)
[2017-06-06] MEDS: NS 1,000 ML IV SCH ×3 (01:51→22:01)
[2017-06-06] MEDS: Oxycodone/Apap 10/325 1 TAB PO PRN ×5 (04:26→22:00)
[2017-06-06] MEDS: SALINE FLUSH 10ml SYRINGE IV PRN ×2 (04:28→16:21)
[2017-06-06] MEDS: ALBUTEROL/IPRATROPIUM 2.5mg-0.5mg/3ml NEB AEROSOL SCH ×4 (07:15→19:39)
[2017-06-06] MEDS: ALLOPURINOL 100 MG TABLET PO SCH (08:21)
[2017-06-06] MEDS: TOPIRAMATE 25 MG TABLET PO SCH ×2 (08:21→21:44)
[2017-06-06] MEDS: GUAIFENESIN LA 600 MG TABLET PO SCH ×2 (08:21→21:43)
--- NOTE | 2017-06-06 12:37 | Pulmonology Progress Note ---
Subjective Principal diagnosis: medication reaction Interval history: Pt sitting up in bed, doing good, coughing more since pleurx placed and drained of 1L. Exam Vital signs: Temperature 97.6 F 06/06/17 11:00 Pulse Rate 107 H 06/06/17 11:00 Respiratory Rate 24 06/06/17 11:40 Blood Pressure 141/89 H 06/06/17 11:00 Pulse Oximetry 92 06/06/17 11:40 Inpatient Medications: Generic Name Dose Route Start Last Admin Trade Name Freq PRN Reason Stop Dose Admin Acetaminophen 650 mg 06/03/17 10:26 Tylenol PO Q5H PRN Albuterol/Ipratropium 3 ml 06/03/17 19:00 06/06/17 11:40 Duoneb AEROSOL 3 ml RTQID SATYA Administration Albuterol/Ipratropium 3 ml 06/03/17 15:52 Duoneb AEROSOL RTQID PRN Allopurinol 100 mg 06/05/17 09:00 06/06/17 08:21 Zyloprim PO 100 mg DAILY SATYA Administration Cephalexin HCl 500 mg 06/05/17 15:00 06/06/17 08:20 Keflex 500 Mg PO 500 mg Q6HR SATYA Administration Diphenhydramine HCl 50 mg 06/03/17 09:58 06/03/17 18:48 Benadryl IVP 50 mg PRN PRN Administration HYPERSENSITIVITY Docusate Sodium 100 mg 06/04/17 21:00 06/05/17 21:10 Colace PO 100 mg HS SATYA Administration Guaifenesin 1,200 mg 06/04/17 09:36 06/06/17 08:21 Mucinex La PO 1,200 mg BID SATYA Administration Hydrocortisone Sodium Succinate 100 mg 06/03/17 10:00 Solu-Cortef IVP PRN PRN HYPERSENSITIVITY Dexamethasone 10 mg/ 52.5 mls @ 105 mls/hr 06/03/17 11:15 06/03/17 13:07 Fosaprepitant 150 mg/ Dextrose IV Infused .NO DFT SATYA Infusion Fluorouracil 2,113 mg/ Sodium 1,042.26 mls @ 43 mls/hr 06/03/17 17:30 21:08 Chloride IV 06/07/17 21:56 43 mls/hr .Q24H SATYA Administration Sodium Chloride 1,000 mls @ 100 mls/hr 06/03/17 11:15 06/06/17 11:56 Normal Saline IV 100 mls/hr .Q10H SATYA Administration Sodium Chloride 1,000 mls @ 50 mls/hr 06/05/17 12:15 06/05/17 13:47 Normal Saline IV Infused .Q20H SATYA Infusion Methylprednisolone Sodium Succinate 125 mg 06/03/17 10:01 06/03/17 15:19 Solu-Medrol IVP 100 mg PRN PRN Administration HYPERSENSITIVITY Ondansetron HCl 4 mg 06/05/17 06:45 06/05/17 07:05 Zofran IVP 4 mg Q6H PRN Administration Nausea &/or vomiting Oseltamivir Phosphate 75 mg 06/06/17 11:00 06/06/17 11:57 Tamiflu PO 06/15/17 09:01 75 mg DAILY SATYA Administration Oxycodone/Acetaminophen 1 tab 06/03/17 10:55 06/06/17 08:21 Percocet 10/325 PO 1 tab Q4H PRN Administration Pain Senna/Docusate Sodium 1 tab 06/04/17 21:00 06/05/17 21:10 Senna Plus Tablet PO 1 tab HS SATYA Administration Sertraline HCl 150 mg 06/05/17 21:00 06/05/17 21:10 Zoloft PO 150 mg HS SATYA Administration Sodium Chloride 10 - 80 ml 06/03/17 20:47 06/06/17 04:28 Iv Flush IV 40 ml PRN PRN Administration Flushing Sodium Chloride 1 spray 06/04/17 09:36 06/04/17 10:09 Deep Sea Nasal Moisturizing [place] EA NOSTRIL 1 spray PRN PRN Administration Congestion Sodium Chloride 500 ml 06/05/17 22:24 Normal Saline IV PRN PRN Topiramate 50 mg 06/05/17 09:00 06/06/17 08:21 Topamax PO 50 mg BID SATYA Administration Discontinued Medications Generic Name Dose Route Start Last Admin Trade Name Freq PRN Reason Stop Dose Admin Albuterol Sulfate 2.5 mg 06/03/17 11:45 06/03/17 11:55 Proventil Neb (0.083%) AEROSOL 06/03/17 11:46 2.5 mg O ONE Administration Albuterol/Ipratropium 3 ml 06/03/17 15:42 02/20/18 15:45 Duoneb AEROSOL 3 ml RTQID PRN Administration Cefazolin Sodium 3 g 06/05/17 14:00 Kefzol IVP 06/05/17 14:01 PREOP ONE Cefazolin Sodium 2 g 06/05/17 12:45 06/05/17 12:50 Kefzol IVP 06/05/17 12:46 2 g PREOP ONE Administration Diphenhydramine HCl 50 mg 06/03/17 11:00 06/03/17 11:54 Benadryl IVP 06/03/17 11:01 50 mg O ONE Administration Epinephrine HCl 1 mg 06/03/17 15:22 06/03/17 15:23 Adrenalin IVP 06/03/17 15:23 1 mg O ONE Administration Magnesium Sulfate/Dextrose 1 gm in 100 mls @ 100 mls/hr 06/03/17 11:15 15:39 Mag Sulf 1gm Premix IV 06/03/17 15:14 Not Given 1115,1415 SATYA Cetuximab 1,056 mg/ Sodium 528 mls @ 264 mls/hr 06/03/17 12:15 06/03/17 15:39 Chloride IV 06/03/17 14:14 Infused O ONE Infusion Carboplatin 600 mg/ Sodium 310 mls @ 155 mls/hr 06/03/17 15:15 06/03/17 20:10 Chloride IV 06/03/17 17:14 Infused O ONE Infusion Sodium Chloride 1,000 mls @ 50 mls/hr 06/03/17 15:00 06/03/17 16:00 Normal Saline IV Infused .Q20H SATYA Infusion Ketorolac Tromethamine 30 mg 06/03/17 15:31 06/03/17 15:33 Toradol Inj IVP 06/03/17 15:32 30 mg O ONE Administration Ketorolac Tromethamine 30 mg 06/05/17 13:22 06/05/17 13:25 Toradol Inj IVP 06/05/17 13:23 30 mg O ONE Administration Minocycline HCl 100 mg 06/03/17 14:00 06/03/17 15:37 Minocin PO Not Given DAILY SATYA Palonosetron 0.25 mg 06/03/17 11:00 06/03/17 12:14 Aloxi IV 06/03/17 11:01 0.25 mg O ONE Administration - Constitutional no acute distress, morbidly obese, cooperative - Routine HEENT Exam Head: Present: normocephalic, atraumatic Eye: Present: EOMI, PERRL ENT: Present: mucous membranes moist - Routine Neck Exam Present: supple, full ROM, trachea midline - Routine Respiratory Exam Present: decreased breath sounds. Absent: accessory muscle use, patient mechanically ventilated - Routine Cardiovascular Exam Present: RRR, S1, S2, no murmur - Routine Abdominal Exam Present: soft, normoactive bowel sounds - Routine Extremities Exam Present: no edema, non tender, full ROM - Routine Back/Spine/Pelvis Exam Back/Spine: Present: full ROM - Routine Skin Exam Present: intact, dry Comments: Pleurx catheter R anterior chest, occlusive dressing placed, C/D/I - Routine Neurological Exam Present: alert, oriented X3, CN II-XII intact, moving all extremities - Routine Psychiatric Exam Present: normal affect, normal thought process, good judgment Results - Laboratory Findings Laboratory: Laboratory Results - last 48 hr 06/05/17 06/05/17 06/06/17 04:21 04:21 04:22 WBC 11.4 H D 10.3 RBC 3.93 L 3.56 L Hgb 10.7 L 9.9 L Hct 34.4 L 31.7 L MCV 87.5 89.0 MCH 27.2 27.8 MCHC 31.1 31.2 RDW Std Deviation 45.8 47.2 Plt Count 272 250 MPV 9.7 9.5 Immature Gran % (Auto) Not performed Not performed Neut % (Auto) Not performed Not performed Lymph % (Auto) Not performed Not performed [place] % (Auto) Not performed Not performed Eos % (Auto) Not performed Not performed Baso % (Auto) Not performed Not performed Neut # (Auto) Not performed Not performed Lymph # (Auto) Not performed Not performed [place] # (Auto) Not performed Not performed Eos # (Auto) Not performed Not performed Baso # (Auto) Not performed Not performed Abs Immat Gran (auto) Not performed Not performed Neutrophils % (Manual) 95.0 H 95.0 H Band Neutrophils % 5.0 4.0 Lymphocytes % (Manual) 1.0 L Neutrophils # (Manual) 10.8 H 9.8 H Band Neutrophils # 0.6 0.4 Lymphocytes # (Manual) 0.1 L Polychromasia 1+ Poikilocytosis 2+ Anisocytosis 2+ 1+ RBC Morph Comment Abnormal Abnormal Turbidity < 20 Sodium 138 Potassium 3.9 Chloride 101 Carbon Dioxide 28 Anion Gap 9 BUN 11.0 Creatinine 0.7 L GFR Calculation 121 BUN/Creatinine Ratio 16 Glucose 93 Calculated Osmolality 265 Calcium 9.3 Total Bilirubin Icterus Index < 2 AST ALT Alkaline Phosphatase Total Protein Albumin Globulin Albumin/Globulin Ratio Specimen Hemolysis < 15 06/06/17 04:22 WBC RBC Hgb Hct MCV MCH MCHC RDW Std Deviation Plt Count MPV Immature Gran % (Auto) Neut % (Auto) Lymph % (Auto) [place] % (Auto) Eos % (Auto) Baso % (Auto) Neut # (Auto) Lymph # (Auto) [place] # (Auto) Eos # (Auto) Baso # (Auto) Abs Immat Gran (auto) Neutrophils % (Manual) Band Neutrophils % Lymphocytes % (Manual) Neutrophils # (Manual) Band Neutrophils # Lymphocytes # (Manual) Polychromasia Poikilocytosis Anisocytosis RBC Morph Comment Turbidity < 20 Sodium 137 Potassium 3.6 Chloride 100 Carbon Dioxide 27 Anion Gap 10 BUN 9.0 Creatinine 0.7 L GFR Calculation 121 BUN/Creatinine Ratio 13 Glucose 99 Calculated Osmolality 263 Calcium 8.9 Total Bilirubin < 0.10 L Icterus Index < 2 AST 49 ALT 65 Alkaline Phosphatase 56 D Total Protein 5.8 L Albumin 2.6 L Globulin 3.2 Albumin/Globulin Ratio 0.8 L Specimen Hemolysis < 15 - Diagnostic Findings Chest x-ray: other (no new CXR) Assessment and Plan - Assessment and Plan Acute Hypoxic respiratory failure Right recurrent pleural effusion - likely malignant although cyto was prev neg, s/p pleurx 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 Using home Cpap at [facility] with O2 bled in. Large pleural effusion on R s/p R pleurx yesterday. On A/A q6hr with minimal wheezing noted, cont to follow. Likely home today, will need to f/u OP with Dr. Sharma in 10 days for suture removal, pt to drain pleurx 2 times a week. - Time Spent With Patient Total time spent is greater than 50% in coordination of care (as documented) at patient's floor/unit and/or counseling patient: less than 15 minutes
--- NOTE | 2017-06-06 14:15 | Progress Note ---
- Date 06/06/17 Subjective: Jasvir states that his breathing is easier, but the catheter causes a fair amount of pain. His son says that he's "out of it today" and Jasvir states that' s b/c of chemo. He has facial swelling today and redness as well -- this is new from yesterday. He has very little appetite but no n/v. He noticed increased swelling to his legs, mostly to his right, but his mom added that he usually hangs his right leg off the bed. His was just diagnosed with influenza A. Objective Vital signs: Temperature 97.6 F 06/06/17 11:00 Pulse Rate 107 H 06/06/17 11:00 Respiratory Rate 24 06/06/17 11:40 Blood Pressure 141/89 H 06/06/17 11:00 Pulse Oximetry 92 06/06/17 11:40 Height/Weight/BMI: Height 1.8 m Weight 152.095 kg Body Mass Index 46.7 - Constitutional Present: mild distress, well nourished, well developed, morbidly obese - Routine HEENT Exam Head: Present: normocephalic Eye: Absent: conjunctival icterus, scleral injection Comments: face is flushed and features are swollen - Routine Respiratory Exam Comments: decreased but improved air movement to right pleurx is covered with gauze - Routine Cardiovascular Exam Present: RRR, S1, S2 - Routine Abdominal Exam Present: soft. Absent: normoactive bowel sounds (hypoactive) - Routine Extremities Exam Present: edema (B/L, r>l), pulses intact - Routine Skin Exam Present: intact, dry, warm - Routine Neurological Exam Absent: alert (drowsy) - Routine Psychiatric Exam Present: normal thought process, cooperative Results - Labs CBC & Chem 7: 06/06/17 04:22 06/06/17 04:22 Assessment and Plan (1) Squamous cell carcinoma Problem details: Head and neck/penile; metastatic Current visit: Yes Status : Acute (2) Pleural effusion on right Problem details: Symptomatic Current visit: Yes Status: Acute Assessment and Plan: Impression Rapidly progressive metastatic squamous cell carcinoma to the right lung, pleural cavity and mediastinal lymph nodes as well as peritoneal lymph nodes Right pleural effusion, recurrent Acute Hypoxia secondary to above S/P anaphylactic reaction to Erbitux on 06/02/17 Hypercalcemia History of squamous cell cancer of the penis, stage IIIB, status post penectomy , chemo, and b/l inguinal lymph node dissection 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 Calderón. Concerned about increased facial flushing and mild swelling, [place] w/ recent anaphylactic reaction. Pleurx placed yesterday per Dr. Sharma - he continues on 3L. Mother stated that while napping on cpap his sats briefly dropped to 81%. Repeat CXR today. hgb down to 9.9; chem stable. d/w Dr. curtis. DVT Prophylaxis: SCD's Resuscitation Status: Full Code - Time spent with patient Time with patient PN: 25 minutes - Physician Narrative Physician: Wilder Curtis MD Narrative: Date: 06/06/17 Time: 1412 Have independently interviewed and examined pt. Chart reviewed. Case discussed with CM and my CHIEF EXECUTIVE OR MANAGING DIRECTOR. Care plan developed with my supervision; agree with above. Rough day-VERY tired and wiped out. He feels like the chemo is 'kicking my a. ' Appetite very decreased-not feeling nausea or ab pain, just not hungry or wanting to eat. Notes cough/congestion and sputum. Nasal dryness. Bowels have been moving. Urinating well (often and significant output). Reports the facial flushing resolved spontaneously before Solu-Medrol given. Lungs: decreased, faint wheeze. CV: regular AB: soft obese MSE: awake alert Gen: looks much more tired and weak today as compared to yesterday. Plan: Will continue with hospitalization for supportive measures - chemo completed, but worry patient is not physically ready to go home. Tamiflu started as his has contracted influenza. Hospital Course Summary Disclaimer: The visit summary below is not to be considered part of the above Progress Note. Hospital Course: 06/03/17 Admit patient to inpatient status under the care of Dr. Gleason. Chest x-ray on admission does reveal a right-sided pleural effusion that is recurrent. Consult with Dr. Sharma for pulmonary evaluation and recommendations. Patient may require a Pleurx catheter for management of recurrent effusion. Continues to require oxygen 2 liters by nasal cannula to maintain saturations. Consult with Dr. Calderón for oncology management. Planning for inpatient chemotherapy. Percocet as needed for pain control. SCDs to bilateral lower extremity for DVT prophylaxis 06/04 Continue with current chemotherapy treatment under the care of Dr. Calderón, patient is on 5-FU for additional days. Continue on oxygen to maintain adequate saturations. Appreciate pulmonary consultation with Dr Sharma. Hopeful for placement of Pleurax Cath tomorrow. 06/05 OP Day PleurX planned for today. Placement went well. Continue oxygen (down to 3L), DuoNeb. Keflex started per Dr. Sharma. Continue with current second-line chemotherapy treatment with 5-FU under the care of Dr. Calderón. Continue IVF. Suspect increase in WBC up to 11.4 today is from recent steroids. Constipation resolved. Patient/family not expecting a cure, but with PleurX and chemo, they hope to improve QOL and to live longer. 06/[address] Calderón. Concerned about increased facial flushing and mild swelling, [place] w/ recent anaphylactic reaction. Repeated Solu-Medrol 125mg IV, but patient and family reports flushing resolved prior to Solu-Medrol administration. Pleurx placed yesterday per Dr. Sharma - he continues on 3L. Mother stated that while napping on cpap his sats briefly dropped to 81%. Repeat CXR today. Hemoglobin down to 9.9; chem stable. Tamiflu started as his has contracted influenza.
[2017-06-06] MEDS ORDERED: METHYLPREDNISOLONE SOD SUCC 125mg/2ml INJECTION IVP ONE (15:28)
--- NOTE | 2017-06-06 15:56 | XRay Report ---
INDICATION: hypoxia PROCEDURE: CHEST 2-VIEWS UPRIGHT (PA & LAT) Encounter: Initial COMPARISON: June 03, 2017 FINDINGS: New right-sided pleural drainage catheter. Slight decrease in the moderate to large right effusion. Persistent significant airspace consolidation within the remaining aerated right lung. Areas of subcutaneous emphysema in the right chest wall. No pneumothorax seen. Left lung is stable and grossly clear. Left IJ port catheter. Overlying monitoring leads. Right heart border is obscured. Left heart border is stable in appearance. Mediastinal contours are stable. Pulmonary vascularity appears normal on the left. Impression: New right-sided pleural drain with slight decrease in the moderate to large right effusion. .
[2017-06-06] MEDS: NS IV SCH ×2 (20:07→20:14)
[2017-06-06] MEDS: FLUOROURACIL IV SCH ×2 (20:07→20:14)
[2017-06-06] MEDS: DOCUSATE SODIUM 100 MG CAPSULE PO SCH (21:43)
[2017-06-06] MEDS: SENNA + DOCUSATE TABLET PO SCH (21:43)
[2017-06-06] MEDS: SERTRALINE 100 MG TABLET PO SCH (21:44)
[2017-06-07] MEDS: Oxycodone/Apap 10/325 1 TAB PO PRN ×4 (04:56→19:32)
[2017-06-07] MEDS: NS 1,000 ML IV SCH ×3 (05:15→10:54)
[2017-06-07] MEDS: ALBUTEROL/IPRATROPIUM 2.5mg-0.5mg/3ml NEB AEROSOL SCH ×4 (06:49→20:27)
[2017-06-07] MEDS: TOPIRAMATE 25 MG TABLET PO SCH (08:38)
[2017-06-07] MEDS: GUAIFENESIN LA 600 MG TABLET PO SCH (08:38)
[2017-06-07] MEDS: ALLOPURINOL 100 MG TABLET PO SCH (08:39)
--- NOTE | 2017-06-07 10:01 | Progress Note ---
Oncology Subjective Patient tolerating chemotherapy very well. We'll complete his 5-FU today. Breathing has been better since he started his chemotherapy. Exam Vital signs: Temperature 96.6 F L 06/07/17 08:04 Pulse Rate 72 06/07/17 08:04 Respiratory Rate 26 H 06/07/17 08:04 Blood Pressure 128/97 H 06/07/17 08:04 Pulse Oximetry 98 06/07/17 08:04 - Constitutional no acute distress, obese - Routine HEENT Exam Head: Present: normocephalic Nose: dry mucous membranes - Routine Respiratory Exam Present: decreased breath sounds. Absent: accessory muscle use - Routine Cardiovascular Exam Present: RRR - Routine Abdominal Exam Present: soft, non tender - Routine Extremities Exam Absent: cyanosis, clubbing, edema - Routine Skin Exam Present: dry, warm - Routine Neurological Exam Present: alert, oriented X3 Oncology Results - Labs CBC & Chem 7: 06/07/17 04:49 06/06/17 04:22 Labs: Short CBC 06/07/17 Range/Units 04:49 WBC 6.9 (4.5-11.0) T/MM3 Hgb 9.5 L (13.5-17.5) GM/DL Hct 31.1 L (41-53) % Plt Count 226 (130-400) T/MM3 Assessment and Plan Assessment and Plan: ASSESSMENT 1. 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 The source is either head and neck or penile cancer. Currently on chemotherapy with carboplatinum and 5-FU. We'll complete the 5-FU today. Will need Neulasta on office on Friday. 2. Recurrent right pleural effusion most likely malignant. Status post Pleurx catheter. We'll drain on Friday. 3. Shortness of breath and cough due to lung cancer with right pleural effusion. Improved after Pleurx catheter 4. History of stage IVB anterior tongue squamous cell carcinoma status post partial glossectomy with neck dissection followed by concurrent reno-sparks/ radiation therapy in 2015. 5. 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 6. History of postoperative surgical wound/dehiscence of incision requiring wound care and multiple antibiotics in December 2016. 7. History of cisplatin induced autotoxicity, stable. 8. Anaphylatic reaction to Erbitux. PLAN Erbitux permanently discontinued. Continue with second line chemotherapy carboplatin/CIV 5-FU. Today is day 5 completion.. S Plan Neulasta on Friday in office. We'll plan on scheduling follow-up when he is in Friday for his Neulasta injection. - Time Spent With Patient Total time spent is greater than 50% in coordination of care (as documented) at patient's floor/unit and/or counseling patient: less than 15 minutes
--- NOTE | 2017-06-07 14:20 | Progress Note ---
- Date 06/07/17 Subjective: F/U: Metastatic squamous cell carcinoma Feeling much better today than yesterday ('Steroids really help!'). Eating well today-no nausea or ab pain. Bowel moving. Urinating well. Breathing feels stable. Strength improving-getting around in room okay, but tires and winds with long distances. No f/c. Does feel up to going home today. Objective Vital signs: Temperature 96.1 F L 06/07/17 11:30 Pulse Rate 94 06/07/17 11:30 Respiratory Rate 22 06/07/17 11:30 Blood Pressure 136/92 H 06/07/17 11:30 Pulse Oximetry 97 06/07/17 11:30 Height/Weight/BMI: Height 1.8 m Weight 159.8 kg Body Mass Index 46.7 - Constitutional Present: well nourished, well developed, morbidly obese, cooperative - Routine HEENT Exam Head: Present: normocephalic, atraumatic Eye: Present: EOMI, PERRL ENT: Present: mucous membranes dry - Routine Respiratory Exam Present: decreased breath sounds, prolonged expiratory phase, distant breath sounds, diminished air movement. Absent: respiratory distress - Routine Cardiovascular Exam Present: RRR, no murmur - Routine Abdominal Exam Present: soft, normoactive bowel sounds, non distended, non tender - Routine Extremities Exam Absent: cyanosis, clubbing - Routine Skin Exam Present: warm, normal turgor - Routine Neurological Exam Present: alert, oriented X3, CN II-XII intact, moving all extremities, vision grossly intact, hearing grossly intact, normal speech. Absent: motor deficit, altered mental status - Routine Psychiatric Exam Present: normal affect, normal thought process, cooperative. Absent: anxious, agitated, paranoid Results - Labs CBC & Chem 7: 06/07/17 04:49 06/07/17 04:49 Assessment and Plan (1) Squamous cell carcinoma Problem details: Head and neck/penile; metastatic Current visit: Yes Status : Acute (2) Pleural effusion on right Problem details: Symptomatic Current visit: Yes Status: Acute Assessment and Plan: Impression Rapidly progressive metastatic squamous cell carcinoma to the right lung, pleural cavity and mediastinal lymph nodes as well as peritoneal lymph nodes Right pleural effusion, recurrent Acute Hypoxia secondary to above S/P anaphylactic reaction to Erbitux on 06/02/17 Hypercalcemia History of squamous cell cancer of the penis, stage IIIB, status post penectomy , chemo, and b/l inguinal lymph node dissection 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 Course of chemo completed. Pt feeling more functional today then yesterday. WBC 6.9 with HGB 9.5 and Platelets 221. Sodium 139 with potassium 4.2 and creatinine 0.6. Continue with Tamiflu - flu exposure. Complete 7 day course of cephalexin in the outpatient setting. Will drain Pleurx cath twice a week as per Pulm. Continue O2 at 3L. CPAP at night with O2 bled in. Follow up with Dr Sharma on 06/16/17 for for suture removal. Needs Neulasta injection on Friday 06/[address] Calderón's office. Follow up with Dr Calderón on 06/10. Continue primary care with Dr Dominguez. See orders for details. Time spent with patient care and discharge greater than 30 minutes. Resuscitation Status: Full Code - Physician Narrative Physician: Wilder Curtis MD Narrative: Date: 06/07/17 Time: 1417 Hospital Course Summary Disclaimer: The visit summary below is not to be considered part of the above Progress Note. Hospital Course: 06/03/17 Admit patient to inpatient status under the care of Dr. Gleason. Chest x-ray on admission does reveal a right-sided pleural effusion that is recurrent. Consult with Dr. Sharma for pulmonary evaluation and recommendations. Patient may require a Pleurx catheter for management of recurrent effusion. Continues to require oxygen 2 liters by nasal cannula to maintain saturations. Consult with Dr. Calderón for oncology management. Planning for inpatient chemotherapy. Percocet as needed for pain control. SCDs to bilateral lower extremity for DVT prophylaxis 06/04 Continue with current chemotherapy treatment under the care of Dr. Calderón, patient is on 5-FU for additional days. Continue on oxygen to maintain adequate saturations. Appreciate pulmonary consultation with Dr Sharma. Hopeful for placement of Pleurax Cath tomorrow. 06/05 OP Day PleurX planned for today. Placement went well. Continue oxygen (down to 3L), DuoNeb. Keflex started per Dr. Sharma. Continue with current second-line chemotherapy treatment with 5-FU under the care of Dr. Calderón. Continue IVF. Suspect increase in WBC up to 11.4 today is from recent steroids. Constipation resolved. Patient/family not expecting a cure, but with PleurX and chemo, they hope to improve QOL and to live longer. 06/[address] Calderón. Concerned about increased facial flushing and mild swelling, [place] w/ recent anaphylactic reaction. Repeated Solu-Medrol 125mg IV, but patient and family reports flushing resolved prior to Solu-Medrol administration. Pleurx placed yesterday per Dr. Sharma - he continues on 3L. Mother stated that while napping on cpap his sats briefly dropped to 81%. Repeat CXR today. Hemoglobin down to 9.9; chem stable. Tamiflu started as his has contracted influenza. 06/07 Medically stable for discharge to home. Course of chemo completed. Pt feeling more functional today then yesterday. WBC 6.9 with HGB 9.5 and Platelets 221. Sodium 139 with potassium 4.2 and creatinine 0.6. Continue with Tamiflu - flu exposure. Complete 7 day course of cephalexin in the outpatient setting. Will drain Pleurx cath twice a week as per Pulm. Continue O2 at 3L. CPAP at night with O2 bled in. Follow up with Dr Sharma on 06/16/17 for for suture removal. Needs Neulasta injection on Friday 06/[address] Calderón's office. Follow up with Dr Calderón on 06/10. Continue primary care with Dr Dominguez. See orders for details.
[2017-06-07 16:16] VITALS: BP 123/82; PULSE 75; TEMP 96.8
--- NOTE | 2017-06-07 17:10 | Pulmonology Progress Note ---
Subjective Principal diagnosis: medication reaction Interval history: doing well. feeling better. no dyspnea, breathing issues at this time Exam Vital signs: Temperature 96.8 F 06/07/17 16:00 Pulse Rate 75 06/07/17 16:00 Respiratory Rate 20 06/07/17 16:00 Blood Pressure 123/82 06/07/17 16:00 Pulse Oximetry 98 06/07/17 16:00 Inpatient Medications: Generic Name Dose Route Start Last Admin Trade Name Freq PRN Reason Stop Dose Admin Acetaminophen 650 mg 06/03/17 10:26 Tylenol PO Q5H PRN Albuterol/Ipratropium 3 ml 06/03/17 19:00 06/07/17 14:53 Duoneb AEROSOL 3 ml RTQID SATYA Administration Albuterol/Ipratropium 3 ml 06/03/17 15:52 Duoneb AEROSOL RTQID PRN Allopurinol 100 mg 06/05/17 09:00 06/07/17 08:39 Zyloprim PO 100 mg DAILY SATYA Administration Cephalexin HCl 500 mg 06/05/17 15:00 06/07/17 14:29 Keflex 500 Mg PO 500 mg Q6HR SATYA Administration Diphenhydramine HCl 50 mg 06/03/17 09:58 06/03/17 18:48 Benadryl IVP 50 mg PRN PRN Administration HYPERSENSITIVITY Docusate Sodium 100 mg 06/04/17 21:00 06/06/17 21:43 Colace PO 100 mg HS SATYA Administration Guaifenesin 1,200 mg 06/04/17 09:36 06/07/17 08:38 Mucinex La PO 1,200 mg BID SATYA Administration Hydrocortisone Sodium Succinate 100 mg 06/03/17 10:00 Solu-Cortef IVP PRN PRN HYPERSENSITIVITY Dexamethasone 10 mg/ 52.5 mls @ 105 mls/hr 06/03/17 11:15 06/03/17 13:07 Fosaprepitant 150 mg/ Dextrose IV Infused .NO DFT SATYA Infusion Fluorouracil 2,113 mg/ Sodium 1,042.26 mls @ 43 mls/hr 06/03/17 17:30 20:14 Chloride IV 06/07/17 21:56 43 mls/hr .Q24H SATYA Administration Methylprednisolone Sodium Succinate 125 mg 06/03/17 10:01 06/03/17 15:19 Solu-Medrol IVP 100 mg PRN PRN Administration HYPERSENSITIVITY Ondansetron HCl 4 mg 06/05/17 06:45 06/05/17 07:05 Zofran IVP 4 mg Q6H PRN Administration Nausea &/or vomiting Oseltamivir Phosphate 75 mg 06/06/17 11:00 06/07/17 08:39 Tamiflu PO 06/15/17 09:01 75 mg DAILY SATYA Administration Oxycodone/Acetaminophen 1 tab 06/03/17 10:55 06/07/17 14:29 Percocet 10/325 PO 1 tab Q4H PRN Administration Pain Senna/Docusate Sodium 1 tab 06/04/17 21:00 06/06/17 21:43 Senna Plus Tablet PO 1 tab HS SATYA Administration Sertraline HCl 150 mg 06/05/17 21:00 06/06/17 21:44 Zoloft PO 150 mg HS SATYA Administration Sodium Chloride 10 - 80 ml 06/03/17 20:47 06/06/17 16:21 Iv Flush IV 10 ml PRN PRN Administration Flushing Sodium Chloride 1 spray 06/04/17 09:36 06/04/17 10:09 [place] Nasal Moisturizing [place] EA NOSTRIL 1 spray PRN PRN Administration Congestion Sodium Chloride 500 ml 06/05/17 22:24 Normal Saline IV PRN PRN Topiramate 50 mg 06/05/17 09:00 06/07/17 08:38 Topamax PO 50 mg BID SATYA Administration Discontinued Medications Generic Name Dose Route Start Last Admin Trade Name Freq PRN Reason Stop Dose Admin Albuterol Sulfate 2.5 mg 06/03/17 11:45 06/03/17 11:55 Proventil Neb (0.083%) AEROSOL 06/03/17 11:46 2.5 mg O ONE Administration Albuterol/Ipratropium 3 ml 06/03/17 15:42 06/03/17 15:45 Duoneb AEROSOL 3 ml RTQID PRN Administration Cefazolin Sodium 3 g 06/05/17 14:00 Kefzol IVP 06/05/17 14:01 PREOP ONE Cefazolin Sodium 2 g 06/05/17 12:45 06/05/17 12:50 Kefzol IVP 06/05/17 12:46 2 g PREOP ONE Administration Diphenhydramine HCl 50 mg 06/03/17 11:00 06/03/17 11:54 Benadryl IVP 06/03/17 11:01 50 mg O ONE Administration Epinephrine HCl 1 mg 06/03/17 15:22 06/03/17 15:23 Adrenalin IVP 06/03/17 15:23 1 mg O ONE Administration Magnesium Sulfate/Dextrose 1 gm in 100 mls @ 100 mls/hr 06/03/17 11:15 15:39 Mag Sulf 1gm Premix IV 06/03/17 15:14 Not Given 1115,1415 SATYA Cetuximab 1,056 mg/ Sodium 528 mls @ 264 mls/hr 06/03/17 12:15 06/03/17 15:39 Chloride IV 06/03/17 14:14 Infused O ONE Infusion Carboplatin 600 mg/ Sodium 310 mls @ 155 mls/hr 06/03/17 15:15 06/03/17 20:10 Chloride IV 06/03/17 17:14 Infused O ONE Infusion Sodium Chloride 1,000 mls @ 100 mls/hr 06/03/17 11:15 06/07/17 10:52 Normal Saline IV Infused .Q10H SATYA Infusion Sodium Chloride 1,000 mls @ 50 mls/hr 06/03/17 15:00 06/03/17 16:00 Normal Saline IV Infused .Q20H SATYA Infusion Sodium Chloride 1,000 mls @ 50 mls/hr 06/05/17 12:15 06/07/17 10:54 Normal Saline IV Not Given .Q20H SATYA Ketorolac Tromethamine 30 mg 06/03/17 15:31 06/03/17 15:33 Toradol Inj IVP 06/03/17 15:32 30 mg O ONE Administration Ketorolac Tromethamine 30 mg 06/05/17 13:22 06/05/17 13:25 Toradol Inj IVP 06/05/17 13:23 30 mg O ONE Administration Methylprednisolone Sodium Succinate 125 mg 06/06/17 15:28 06/06/17 16:20 Solu-Medrol IVP 06/06/17 15:29 125 mg O ONE Administration Minocycline HCl 100 mg 06/03/17 14:00 06/03/17 15:37 Minocin PO Not Given DAILY SATYA Palonosetron 0.25 mg 06/03/17 11:00 06/03/17 12:14 Aloxi IV 06/03/17 11:01 0.25 mg O ONE Administration - Constitutional no acute distress, obese - Routine HEENT Exam Head: Present: normocephalic, atraumatic Eye: Absent: conjunctival icterus - Routine Neck Exam Present: supple - Routine Respiratory Exam Present: decreased breath sounds Comments: on right - Routine Cardiovascular Exam Present: RRR - Routine Skin Exam Comments: surgical wound inspected. dressings intact. Results - Laboratory Findings Laboratory: Laboratory Results - last 48 hr 06/06/17 06/06/17 06/07/17 04:22 04:22 04:49 WBC 10.3 6.9 RBC 3.56 L 3.49 L Hgb 9.9 L 9.5 L Hct 31.7 L 31.1 L MCV 89.0 89.1 MCH 27.8 27.2 MCHC 31.2 30.5 L RDW Std Deviation 47.2 47.5 Plt Count 250 226 MPV 9.5 9.6 Immature Gran % (Auto) Not performed Not performed Neut % (Auto) Not performed Not performed Lymph % (Auto) Not performed Not performed [place] % (Auto) Not performed Not performed Eos % (Auto) Not performed Not performed Baso % (Auto) Not performed Not performed Neut # (Auto) Not performed Not performed Lymph # (Auto) Not performed Not performed [place] # (Auto) Not performed Not performed Eos # (Auto) Not performed Not performed Baso # (Auto) Not performed Not performed Abs Immat Gran (auto) Not performed Not performed Neutrophils % (Manual) 95.0 H 95.0 H Band Neutrophils % 4.0 4.0 Lymphocytes % (Manual) 1.0 L 1.0 L Neutrophils # (Manual) 9.8 H 6.6 Band Neutrophils # 0.4 0.3 Lymphocytes # (Manual) 0.1 L 0.1 L Polychromasia 1+ 1+ Anisocytosis 1+ 1+ RBC Morph Comment Abnormal Abnormal Turbidity < 20 Sodium 137 Potassium 3.6 Chloride 100 Carbon Dioxide 27 Anion Gap 10 BUN 9.0 Creatinine 0.7 L GFR Calculation 121 BUN/Creatinine Ratio 13 Glucose 99 Calculated Osmolality 263 Calcium 8.9 Total Bilirubin < 0.10 L Icterus Index < 2 AST 49 ALT 65 Alkaline Phosphatase 56 D Total Protein 5.8 L Albumin 2.6 L Globulin 3.2 Albumin/Globulin Ratio 0.8 L Specimen Hemolysis < 15 06/07/17 04:49 WBC RBC Hgb Hct MCV MCH MCHC RDW Std Deviation Plt Count MPV Immature Gran % (Auto) Neut % (Auto) Lymph % (Auto) [place] % (Auto) Eos % (Auto) Baso % (Auto) Neut # (Auto) Lymph # (Auto) [place] # (Auto) Eos # (Auto) Baso # (Auto) Abs Immat Gran (auto) Neutrophils % (Manual) Band Neutrophils % Lymphocytes % (Manual) Neutrophils # (Manual) Band Neutrophils # Lymphocytes # (Manual) Polychromasia Anisocytosis RBC Morph Comment Turbidity < 20 Sodium 139 Potassium 4.3 D Chloride 102 Carbon Dioxide 27 Anion Gap 10 BUN 9.0 Creatinine 0.6 L GFR Calculation 145 BUN/Creatinine Ratio 15 Glucose 130 H Calculated Osmolality 269 Calcium 9.0 Total Bilirubin < 0.10 L Icterus Index < 2 AST 52 ALT 69 Alkaline Phosphatase 63 Total Protein 6.2 L Albumin 2.7 L Globulin 3.5 Albumin/Globulin Ratio 0.8 L Specimen Hemolysis < 15 Assessment and Plan (1) Squamous cell carcinoma, metastatic Status: Acute Current Visit: Yes (2) Pleural effusion on right Problem details: Symptomatic Status: Acute Assessment and plan: PleurX cath. Plan to drain on Mondays and Fridays, 1 liter each day. We can adjust as needed. continue 7 days of cephalexin post op. instructed to report any signs of infection Current Visit: Yes - Assessment and Plan Acute Hypoxic respiratory failure Right recurrent pleural effusion - likely malignant although cyto was prev neg, s/p pleurx Squamous cell carcinoma metastatic - Metastatic SCC to lung with significant obstructive atelectasis ANALI - home Cpap Plan: - Time Spent With Patient Total time spent is greater than 50% in coordination of care (as documented) at patient's floor/unit and/or counseling patient: less than 15 minutes
[2017-06-07 20:36] VITALS: RESP 18; O2SAT 95
--- NOTE | 2017-06-17 16:26 | Discharge Summary ---
Discharge Information Date of admission: 06/03/17 08:59 Anticipated date of discharge: 06/07/17 Attending Physician: Wilder Curtis MD Primary care physician: Merari Dominguez MD Consults: Physician Consult: Hill Calderón Reason For Exam: chemo Physician Consult: Zak Sharma Reason For Exam: Recurrent pleural effusion, ? 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, head and neck cancer , c/p partial glossectomy with neck dissection and chemo/radiation Obstructive sleep apnea Normocytic anemia Asthma Gout Morbid obesity with BMI 49.1 - Procedures Procedures: Date of procedure: 06/05/17 Pre-op diagnosis: pleural effusion Post-op diagnosis: same Procedure: Right sided pleurX catheter placement Surgeon: Zak Sharma MD - Laboratory Labs: Admit Lab 06/03/17 11:17 WBC 9.1 Hgb 10.7 L Hct 34.0 L MCV 87.4 Plt Count 267 Neutrophils % (Manual) 83.0 H Band Neutrophils % 9.0 H Lymphocytes % (Manual) 1.0 L Monocytes % (Manual) 6.0 Basophils % (Manual) 1.0 Admit Lab 06/03/17 11:17 Sodium 136 Potassium 3.5 L Chloride 96 L Carbon Dioxide 29 Anion Gap 11 BUN 9.0 Creatinine 0.8 GFR Calculation 104 BUN/Creatinine Ratio 11 Glucose 110 Calculated Osmolality 262 Calcium 10.4 H Total Bilirubin 0.40 AST 50 ALT 58 Alkaline Phosphatase 78 Total Protein 7.4 Albumin 3.4 L Globulin 4.0 H Albumin/Globulin Ratio 0.9 L Admit Lab 06/03/17 11:16 INR 1.42 H 06/07/17 04:49 06/07/17 04:49 - Radiology Radiology: Date of Exam: 06/03/17 PROCEDURE: CHEST 2-VIEWS UPRIGHT (PA & LAT) FINDINGS: Worsening large right pleural effusion with compressive atelectasis of most of the right lung. Small area of aerated right upper lobe remaining. No pneumothorax. Left lung is grossly clear. Cardiac silhouette is stable in overall size. Pulmonary vascularity appears normal on the left and is obscured on the right. Right IJ port catheter. Impression: Increasing large right effusion. Date of Exam: 06/06/17 PROCEDURE: CHEST 2-VIEWS UPRIGHT (PA & LAT) FINDINGS: New right-sided pleural drainage catheter. Slight decrease in the moderate to large right effusion. Persistent significant airspace consolidation within the remaining aerated right lung. Areas of subcutaneous emphysema in the right chest wall. No pneumothorax seen. Left lung is stable and grossly clear. Left IJ port catheter. Overlying monitoring leads. Right heart border is obscured. Left heart border is stable in appearance. Mediastinal contours are stable. Pulmonary vascularity appears normal on the left. Impression: New right-sided pleural drain with slight decrease in the moderate to large right effusion. History of Present Illness HPI: Jd is a pleasant 46-year-old male who has had a unfortunate history of cancer. 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 Unfortunately, in 2017. 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 He underwent a Penectomy in 2017 and underwent a bilateral inguinal lymph node dissection at [facility] in [place], and November 2016. Unfortunately, these incisions developed wounds and patient underwent Wound care under the care of Dr. Valadez. These wound have resolved, and recently he complained of feeling more short of breath. On 05/15/17. He had a CT scan of the chest that unfortunately revealed a right upper lobe pulmonary nodule with mediastinal adenopathy suspicious for metastasis as well as a right pleural effusion. On he underwent an ultrasound right-sided thoracentesis with removal of approximately 300 ML's of fluid. With the past 48 hours. He has been more short of breath, weak hiring 2 liters of oxygen by nasal cannula at home to maintain adequate saturations. He was seen in follow-up today with Dr. Calderón. Given these acute findings, accompanied with initiation of chemotherapy. Patient will need monitored carefully in the hospital. He was accepted to the hospitalist services under the care of Dr. Gleason for inpatient status for ongoing treatment. Will is seen on arrival to [facility]. He is alert, oriented and pleasant. 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 Complains of having shortness of breath and coughing and right chest wall pain present with respiratory symptoms. Bilateral inguinal hernia incisions are well-healed without evidence of acute infection. We did discuss advanced directives and he does wish to be a full code at this time. For complete details of the H&P refer to that document. Objective Vital signs: Temperature 96.8 F 06/07/17 16:00 Pulse Rate 75 06/07/17 16:00 Respiratory Rate 18 06/07/17 20:27 Blood Pressure 123/82 06/07/17 16:00 Pulse Oximetry 95 06/07/17 20:27 Height/Weight/BMI: Height 1.8 m Weight 159.8 kg Body Mass Index 46.7 Hospital Course This is a general summary of the patient's hospital course. For more details refer to the complete medical record. Hospital course: 06/03/17 Admit patient to inpatient status under the care of Dr. Gleason. Chest x-ray on admission does reveal a right-sided pleural effusion that is recurrent. Consult with Dr. Sharma for pulmonary evaluation and recommendations. Patient may require a Pleurx catheter for management of recurrent effusion. Continues to require oxygen 2 liters by nasal cannula to maintain saturations. Consult with Dr. Calderón for oncology management. Planning for inpatient chemotherapy. Percocet as needed for pain control. SCDs to bilateral lower extremity for DVT prophylaxis 06/04 Continue with current chemotherapy treatment under the care of Dr. Calderón, patient is on 5-FU for additional days. Continue on oxygen to maintain adequate saturations. Appreciate pulmonary consultation with Dr Sharma. Hopeful for placement of Pleurax Cath tomorrow. 06/05 OP Day PleurX planned for today. Placement went well. Continue oxygen (down to 3L), DuoNeb. Keflex started per Dr. Sharma. Continue with current second-line chemotherapy treatment with 5-FU under the care of Dr. Calderón. Continue IVF. Suspect increase in WBC up to 11.4 today is from recent steroids. Constipation resolved. Patient/family not expecting a cure, but with PleurX and chemo, they hope to improve QOL and to live longer. 06/[address] Calderón. Concerned about increased facial flushing and mild swelling, [place] w/ recent anaphylactic reaction. Repeated Solu-Medrol 125mg IV, but patient and family reports flushing resolved prior to Solu-Medrol administration. Pleurx placed yesterday per Dr. Sharma - he continues on 3L. Mother stated that while napping on cpap his sats briefly dropped to 81%. Repeat CXR today. Hemoglobin down to 9.9; chem stable. Tamiflu started as his has contracted influenza. 06/07 Medically stable for discharge to home. Course of chemo completed. Pt feeling more functional today then yesterday. WBC 6.9 with HGB 9.5 and Platelets 221. Sodium 139 with potassium 4.2 and creatinine 0.6. Continue with Tamiflu - flu exposure. Complete 7 day course of cephalexin in the outpatient setting. Will drain Pleurx cath twice a week as per Pulm. Continue O2 at 3L. CPAP at night with O2 bled in. Follow up with Dr Sharma on 06/16/17 for for suture removal. Needs Neulasta injection on Friday 06/[address] Calderón's office. Follow up with Dr Calderón on 06/10. Continue primary care with Dr Dominguez. See orders for details. Time spent with patient: discharge greater than 30 minutes Resuscitation Status: Full Code Discharge Plan - Discharge Disposition Discharge Date: 06/07/17 Disposition: Discharged Home, Self-Care *Condition: Stable Reason For Visit (Visit label in EMR): Chemo - Discharge Medications *Discharge Medications: New CephALEXin [Keflex 500 mg] 500 mg PO Q6HR #19 cap Guaifenesin LA [Mucinex LA] 1,200 mg PO BID tab Ondansetron HCl 4 mg PO Q6HR #20 tab Oseltamivir Cap [Tamiflu] 75 mg PO DAILY #8 cap Continue Cyanocobalamin (Vitamin B-12) [Vitamin B-12] 1 tab PO DAILY #0 tab Topiramate [Topamax] 50 mg PO BID #0 Allopurinol [Zyloprim] 100 mg PO DAILY Sertraline [Zoloft] 50 mg PO HS Oxycodone/Apap 10/325 [Percocet 10/325] 1 tab PO Q4H PRN PRN Reason: Pain Docusate Sodium 100 mg PO PRN PRN PRN Reason: Constipation Elderberry Fruit/Honey [Little Remedies Cough-Immune] 1 dose PO DAILY #0 Sertraline [Zoloft] 100 mg PO HS - Discharge Packet/Instructions *Diet: Regular *Activity: As tolerated *Pain Management/Treatment: Continue prior pain medications *Wound Care: Keep wound dry. Additional Instructions: Use Pleurx drain 2 times a week. May use Mucinex twice a day as needed for congestion. Neulasta on Friday. *Expected Signs/Symptoms: Improvement of breathing. *Notify Physician if: Temp >100.4. Intracteable n/v. *During Business Hours Contact: Dr Calderón *After Business Hours Contact: Call [facility] and have your care provider contacted. *Pending Lab/Results: No Pending Lab - Referrals/Follow Up *Referrals/Follow Up: Hill Calderón MD [Physician] - (Neulasta on Friday 06/09 and Office visit on 06/10) Zak Sharma MD [Physician] - (Office visit on Friday 06/16 for suture removal. Call on Friday for apt. ) - Patient Handouts Patient Handouts: Intravenous Chemotherapy (DC) - Dismissal Complete Discharge Instructions are:: Complete Physician Narrative - Narrative Physician: Wilder Curtis MD Attestation Narrative: Date: 06/17/17 Time: 8323 I have independently interviewed and examined patient prior to discharge. See my progress not for details. Medically stable for discharge to home.
== END 2017-06-07 21:00 | disposition home or self-care (01) | DRG 180 ==
LOC: SUATTDRO 08:59 → MED 08:59
PROVIDERS: ADMIT Internal Medicine; ATTEND Hospitalist

== ENCOUNTER 2017-07-16 14:13 | Inpatient (IN) ==
[2017-07-16] MEDS ORDERED: MIDAZOLAM 2mg/2ml INJECTION IVP ONE (14:16)
[2017-07-16] MEDS ORDERED: FentaNYL 100 MCG/2 ML INJECTION IVP ONE (14:16)
[2017-07-16] MEDS ORDERED: ONDANSETRON 4 MG/2 ML INJECTION IVP PRN (14:17)
[2017-07-16] MEDS ORDERED: MORPHINE SULFATE 2mg INJ IVP PRN (14:18)
[2017-07-16] MEDS ORDERED: BISACODYL 10 MG SUPPOSITORY RECTALLY PRN (14:19)
--- OUTSIDE RECORDS SUMMARY | 2017-07-16 14:23 | External Medical Summary | Clinical Summary ---
:1970 Author Organization [facility] Address [address] [place] [address] Care Team Providers Name Role Phone Hill Calderón MD Unavailable Humphrey Dominguez MD Primary Care Provider Source Comments Some departments are not documenting in the electronic medical record. If you do not see the information that you expected, contact Release of Information in the Health Information Management department at [phone] for further assistance in locating additional records.[facility] Allergies No Known Allergies Current Medications Prescription Sig. Disp. Refills Start Date End Date Status topiramate (TOPAMAX) Take 50 mg by mouth Active 50 mg tablet twice daily. allopurinol Take 100 mg by Active (ZYLOPRIM) 100 mg mouth daily. Take tablet with food. sertraline (ZOLOFT) Take 150 mg by Active 100 mg tablet mouth at bedtime daily. Gxaahwdg-Egyk-Qgi-Fol Take 1 Tab by mouth Active ic [...] Problem Noted Date Penile cancer ([facility]) 06/26/2016 Overview: 01/2016: Noted right-sided glans [...] III, BMI 40-49.9 (morbid obesity) ([facility]) 05/29/2016 History of therapeutic radiation 05/29/2016 Squamous cell carcinoma of tongue ([facility]) 05/29/2016 Status post neck dissection 05/29/2016 [...] CDT Respiratory Rate 18 05/28/2016 1:34 PM [employer] Oxygen Saturation 100% 12/02/2016 11:22 AM CDT Inhaled Oxygen Concentration - - Weight 151.9 kg (334 lb 14.1 oz) 11/29/2016 8:06 AM CDT Height 180.3 cm (5' 11") 11/29/2016 8:06 AM CDT Body Mass Index 46.71 11/29/2016 8:06 AM CDT Plan of Treatment Health Maintenance Due Date Last Done Comments PHYSICAL (COMPREHENSIVE) EXAM 1977 PERTUSSIS VACCINE 1981 HIV SCREENING 1985 TETANUS VACCINE 06/13/1987 INFLUENZA VACCINE 01/12/2018 Implants Implanted Type Area Washing Tub Operator Device Expiration Date Model / Identifier Serial / Lot Power Port Other Left: Chest Results PATHOLOGY REPORTS FROM OUTSIDE SCAN (07/10/2017 3:31 PM) Narrative Ordered by an unspecified provider. from Last 3 Months
--- OUTSIDE RECORDS SUMMARY | 2017-07-16 14:23 | External Medical Summary | Continuity of Care Document ---
:1970 Author Organization [facility] Care Team Providers Name Role Phone [employer] Unavailable Unavailable Encounters Location Location Encounter Encounter Reason Attending ADM DC Status Source Details Type Number For Provider Date Date Visit OUTPATIENT 04/24 04/24 Active [facility] INPATIENT [id number] [place] 11/29 12/02 Active The [place] [facility]
[2017-07-16] MEDS: NS 1,000 ML IV SCH ×2 (15:29→22:41)
[2017-07-16] MEDS: PIPERACILLIN/TAZOBACTAM 3.375 GM in NS 100 ML IV SCH ×2 (15:30→21:31)
[2017-07-16] MEDS ORDERED: SALINE FLUSH 10ml SYRINGE ONE (15:41)
[2017-07-16] MEDS ORDERED: IOHEXOL 300mg/ml 100ml INJECTION ONE (15:41)
--- NOTE | 2017-07-16 15:42 | History & Physical Report ---
History of Present Illness Date: 07/16/17 Chief complaint: leukocytosis, Liver abnormality HPI: "Jd" is a 47 yr old male who is well known to the hospitalist services from previous admissions. 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 Unfortunately, in 2017. 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 He underwent a Penectomy in 2017 and underwent a bilateral inguinal lymph node dissection at [facility] in [place], and November 2016. Unfortunately, these incisions developed wounds and patient underwent Wound care under the care of Dr. Valadez. These wound have resolved, and recently he complained of feeling more short of breath. On 05/15/17. He had a CT scan of the chest that unfortunately revealed a right upper lobe pulmonary nodule with mediastinal adenopathy suspicious for metastasis as well as a right pleural effusion. A Pleurx catheter placed on 06/05/[address] Sharma. On 07/02 Jd noticed some external infection of the skin in the right chest near the site of Pleurx catheter. He reported that it " exploded with drainage". He reported this to his primary care provider and was started on Bactrim DS on 07/02/17. Unfortunately, he continued to have erythema and drainage at the Pleurx insertion site, and catheter was removed by Dr. Sharma on 07/08/17. Will continues to undergo chemotherapy. He presented to oncology office today for chemotherapy and routine labs. He reported to the oncology team that he continues to have pain in the right upper quadrant location seems to be worse over the past 2-3 days. Outpatient labs were obtained as well as a liver sonogram did reveal multiple new liver lesions representing either abscess versus metastasis. The gallbladder, does reveal resonance of sludge, however, no evidence of acute cholecystitis. Patient's white count has continued to be elevated at 25. He last received Neulasta on 07/01/17. Given these acute concerns , leukocytosis, finding of new lesions of the liver. The hospitalist services were contacted directly by Dr. Chun and patient was accepted as a direct admission for further medical workup and evaluation. It is reported that Jd has continued to have significant amount of fatigue and lethargy over the past several months. He has had decrease in appetite with continued weight loss. He is utilizing oxygen [id number], 2-3 liters at rest, 4 liters with exertion. He also reports having some intermittent episodes of left-sided chest pain that is sharp in nature and sometimes takes his breath away. We did discuss advanced directives. Patient does report that he would like to be a do not resuscitate, and would not like to be placed on a ventilator, however, he does indicate he would want acute intervention if he had another incident such as anaphylaxis reaction to previous chemotherapy. 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 Anaphylactic reaction to Erbitux on 06/02/17. History of squamous cell cancer of the penis, stage IIIB, status post penectomy , chemo, and b/l inguinal lymph node dissection. 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 Obstructive sleep apnea. Normocytic anemia. Gout. Asthma. ANALI. Chronic oxygen use 2-4L Surgical History: Wound exploration and excisional debridement and application of wound VAC to inguinal wounds on 12/19/[address] Valadez. Bilateral inguinal lymph node dissections at the [facility] in [place] on November 29, 2016. Penectomy 06/28/2016. Radical neck resection and salivary gland removal on right 2015. Left IJ PAC placement and PEG tube placement . Family History: Mother-hypertension Father and sister-type II diabetes Family History: As Above - Social History Smoking status: Former smoker Substance use type: does not use Alcohol intake frequency: does not drink Housing: house Household members: spouse, family, children Current occupational status: previously employed (registered nurse) Social history: Primary care provider, Dr. Bello Fast Medications Home Medications Medication Instructions Recorded Confirmed Type Cyanocobalamin (Vitamin B-12) 1 tab PO DAILY #0 tab 09/04/15 07/16/17 History [Vitamin B-12] Elderberry Fruit/Honey [Little 1 dose PO DAILY #0 09/04/15 07/16/17 History Remedies Cough-Immune] Allopurinol [Zyloprim] 100 mg PO DAILY 12/18/16 07/16/17 History Sertraline [Zoloft] 100 mg PO DAILY 12/18/16 07/16/17 History Sertraline [Zoloft] 50 mg PO DAILY 01/15/17 07/16/17 History Docusate Sodium 100 mg PO PRN PRN 05/30/17 07/16/17 History Oxycodone/Apap 10/325 [Percocet 1 tab PO Q4H PRN 05/30/17 07/16/17 History 10/325] fentaNYL [Fentanyl] 1 each TD Q3D 07/08/17 07/16/17 History Sulfamethox/Tmp [Bactrim Ds] 1 tab PO BID 7 Days #14 tab 07/11/17 07/16/17 Rx Ondansetron HCl 4 mg SL Q6HR 07/16/17 07/16/17 History Senna-S Tablet 1 tab PO BID 07/16/17 07/16/17 History Topiramate [Topamax] 50 mg PO BID 07/16/17 07/16/17 History Allergies Allergy/AdvReac Type Severity Reaction Status Date / Time cetuximab [From Erbitux] Allergy Severe Anaphylactic Verified 07/16/17 16:07 Shock Exam Vital Signs: Temperature 98.0 F 07/16/17 15:10 Pulse Rate 95 07/16/17 15:10 Respiratory Rate 24 07/16/17 15:10 Blood Pressure 107/69 07/16/17 15:10 Pulse Oximetry 98 07/16/17 15:10 Height/Weight/BMI: Height 1.78 m Weight 132.5 kg Body Mass Index 41.9 - Constitutional Present: mild distress, well nourished, well developed - Routine HEENT Exam Eye: Present: EOMI, PERRL ENT: Present: mucous membranes moist - Routine Respiratory Exam Present: wheezes - Routine Cardiovascular Exam Present: RRR, S1, S2. Absent: murmur - Routine Abdominal Exam Present: soft, normoactive bowel sounds, tenderness (RUQ), non distended - Routine Extremities Exam Present: no edema, pulses intact - Routine Back/Spine/Pelvis Exam Back/Spine: Present: full ROM - Routine Skin Exam Present: intact, dry, warm - Routine Neurological Exam Present: alert, oriented X3, CN II-XII intact, moving all extremities - Routine Psychiatric Exam Present: normal affect, cooperative Results - Labs CBC & Chem 7: 07/16/17 14:40 07/16/17 14:40 Assessment and Plan (1) Liver lesion Current visit: Yes Status: Acute (2) Leukocytosis Current visit: Yes Status: Acute Assessment and Plan: Impression Liver Lesions- abscess versus metastatic disease Leukocytosis-present on admission, white count 25 (Has been on Bactrim since ) 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 Curtis for liver lesions, leukocytosis On admission will repeat CBC, chemistry panel, venous lactate, pro calcitonin, urinalysis and blood cultures (one peripheral, one Port-A-Cath) Initiate IV Zosyn for antimicrobial coverage. Wound culture obtained from drainage of right chest wall incision Given recent chest pain. We will obtain a 12-lead EKG. For further evaluation of the liver lesions. Will obtain CT scan of the abdomen , pelvis and chest with contrast. Lesions could be related to infectious abscess versus metastatic disease. Will continue on patient's chronic oxygen 2-4 liters. Patient is chronically utilizing fentanyl patch 25 micrograms topically for pain control as well as Percocet for breakthrough pain. Consultation placed to Dr. Calderón for further oncology management. CBC and CMP follow tomorrow to manage blood counts, renal function and electrolytes Will discuss further orders and plan of care with attending, Dr. Curtis At time of discharge medical care will return to primary care provider, Ace Dominguez DVT Prophylaxis: SCD's Resuscitation Status: Do Not Resuscitate - Time spent with patient Time with patient PN: 50 minutes - Physician Narrative Physician: Wilder Curtis MD Narrative: Date: 07/16/17 Time: 1904 Have independently interviewed and examined pt. Chart reviewed. Case discussed with Dr Calderón, family, and my WATER SUPERINTENDENT. Care plan developed with my supervision; agree with above. Made direct admit secondary to worrisome finding of lesions in liver. Had Pleurx cath removed recently as was not draining. What sounds like purulent material came out once cath removed - started on Bactrim. Low grade temps off and on. Noticed increasing RUQ pain. Discussed this with Dr Calderón today while getting chemo - already had 1/2 of his chemo when liver US obtained. Did show multiple new areas - mets vs abscess. Arrangement for OBS admission made. Does not SAMANIEGO - walks about 15 feet before winds. Has cough/congestion-produces white sputum. Frequent sweats. Lungs: decreased breath sound to right lung perez. CV: tachy, regular MSE: awake alert appropriate Plan: OBS admission. CT obtained but not really able to distinguish between mets or abscess to liver--discussed with Dr Calderón and will pursue CT guided Bx of lesion to help determine if metastatic or abscess. Start Zosyn for antimicrobial coverage. Control pain. Continue with home medications. Monitor lab. Hospital Course Summary Disclaimer: The visit summary below is not to be considered part of the above Progress Note. 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 Curtis for liver lesions, leukocytosis On admission will repeat CBC, chemistry panel, venous lactate, pro calcitonin, urinalysis and blood cultures (one peripheral, one Port-A-Cath) Initiate IV Zosyn for antimicrobial coverage. Wound culture obtained from drainage of right chest wall incision Given recent chest pain. We will obtain a 12-lead EKG. For further evaluation of the liver lesions. Will obtain CT scan of the abdomen , pelvis and chest with contrast. Lesions could be related to infectious abscess versus metastatic disease. Will continue on patient's chronic oxygen 2-4 liters. Patient is chronically utilizing fentanyl patch 25 micrograms topically for pain control as well as Percocet for breakthrough pain. Consultation placed to Dr. Calderón for further oncology management. CBC and CMP follow tomorrow to manage blood counts, renal function and electrolytes Will discuss further orders and plan of care with attending, Dr. Curtis At time of discharge medical care will return to primary care provider, Ace Dominguez
--- NOTE | 2017-07-16 16:43 | CT Scan Report ---
Indication: ? liver abscess vs mets PROCEDURE: CT chest abd/pelvis w con: Encounter: Subsequent Comparison: Liver ultrasound from today and CT chest dated June 24, 2017 Technique: Axial CT images were performed through the chest, abdomen and pelvis after the administration of intravenous contrast. Coronal and sagittal two-dimensional reformats. Automated Exposure Control and Iterative Reconstruction dose reducing techniques were utilized. Contrast: Omnipaque 300 100 mL Findings: Chest: Interval increase in right pleural effusion with compressive atelectasis of the right lung. Diffuse circumferential nodular right pleural thickening is again noted, similar to the prior study. Small focus of gas is seen in the right basilar pleural space that could relate to the prior drainage catheter. The pleura is diffusely thickened and enhancing. Severe compressive atelectasis and consolidation of the right lower lobe. The right apical soft tissue mass is slightly smaller 3.1 cm maximal diameter compared to 3.4 cm on the prior exam. There is new nodularity and consolidation in the left lower lobe laterally with interval resolution of a prior subpleural 7 mm left lower lobe pulmonary nodule. Small areas of groundglass opacity and nodularity remain in the lingula without significant change. Small left effusion. No left-sided pleural enhancement or thickening currently. No axillary adenopathy. Mediastinal adenopathy has improved. Field Tax Auditor right paratracheal on image #23 now measures 1.6 cm in short axis compared to 2.1 cm previously. Additional paratracheal and prevascular nodes appear grossly stable. Heart size is unchanged. No pericardial effusion. Abdomen/pelvis: Multiple low-attenuation lesions seen in the liver. The largest in the right anterior hepatic dome on coronal image #20 measures 6.1 x 3.4 cm in size. Additional lesion in the posterior superior right lobe on image #26 measures 2.6 cm in diameter. Partially exophytic lesion in the anterior left lobe of liver on image #21 measures 2.4 cm in diameter. Some of these lesions may be faintly visible in retrospect on the comparison chest CT but are poorly visualized due to the phase of contrast being optimized for the chest rather than the portal venous phase. No bile duct dilatation. The gallbladder is distended. The spleen is enlarged at 19 cm craniocaudal dimension. The pancreas is within normal limits. Adrenal glands appear normal. The kidneys are normal. Retroperitoneal adenopathy is again seen. A group sales representative left periaortic node on axial image #40 is larger at 1.6 cm short axis compared to 1.3 cm previously. A retrocaval node on image #36 is also larger now measuring 1.6 cm short axis compared to 1.5 cm previously. Small gastrohepatic lymph nodes are not appreciably changed. No pelvic adenopathy seen. Postoperative changes in both inguinal regions. Bladder appears normal. No free fluid or evidence of a bowel obstruction. The appendix is normal. Bony disease is again seen. There is a lytic lesion in left anterior iliac bone measuring 2.4 cm in diameter. Small vertebral metastases are better appreciated on prior PET scan. No acute pathologic fracture appreciated. Prominent lytic focus in the inferior endplate of T10. Impression: 1. Large complex right pleural effusion with a tiny focus of gas. Findings could represent a malignant effusion with residual gas left over from the patient's prior indwelling pleural catheter versus an empyema. 2. Numerous hepatic lesions most likely representing metastatic disease. Hepatic abscesses are possible given the history of recent infection, however there does not appear to be a discrete fluid component within most of the lesions. Tissue diagnosis could be obtained with a percutaneous image guided biopsy. 3. Slight improvement in the lung and mediastinal metastases with slight worsening in retroperitoneal metastatic disease. 4. Grossly stable osseous metastases. .
[2017-07-16] MEDS: Oxycodone/Apap 10/325 1 TAB PO PRN (18:15)
[2017-07-16] MEDS ORDERED: DOCUSATE SODIUM 100 MG CAPSULE PO PRN (19:15)
[2017-07-16] MEDS: SENNA + DOCUSATE TABLET PO SCH (21:31)
[2017-07-16] MEDS: TOPIRAMATE 25 MG TABLET PO SCH (21:31)
[2017-07-16] MEDS: SERTRALINE 50 MG TABLET PO SCH (21:31)
[2017-07-16] MEDS: ONDANSETRON 4 MG TABLET PO SCH (21:31)
[2017-07-17] MEDS: NS 1,000 ML IV SCH ×5 (00:28→20:05)
[2017-07-17] MEDS: PIPERACILLIN/TAZOBACTAM 3.375 GM in NS 100 ML IV SCH ×4 (03:12→20:07)
[2017-07-17] MEDS: ONDANSETRON 4 MG TABLET PO SCH ×4 (03:15→20:07)
[2017-07-17] MEDS: TOPIRAMATE 25 MG TABLET PO SCH ×4 (06:20→20:07)
[2017-07-17] MEDS: Oxycodone *IR* 5 MG TABLET PO PRN ×2 (08:29→20:19)
[2017-07-17] MEDS: CYANOCOBALAMIN (B-12) 500mcg TABLET PO SCH (08:29)
[2017-07-17] MEDS: SENNA + DOCUSATE TABLET PO SCH ×2 (08:30→20:07)
[2017-07-17] MEDS: ALLOPURINOL 100 MG TABLET PO SCH (08:31)
--- NOTE | 2017-07-17 08:31 | Consult Note ---
<Mya Carty - Last Filed: 07/17/17 16:13> Oncology HPI - Data of Consult Patient: known to practice within the last 3 years Consult date: 07/17/17 Requesting Physician: Wilder Curtis MD Primary Care Provider: Merari Dominguez MD Family Provider: Merari Dominguez MD - Consult Narrative History of present illness: Well known patient to Dr. Calderón seen yesterday, 07/16/17 for cycle 3 of chemotherapy. His blood counts showed persistent leukocytosis. Pleurx catheter was removed last week due to an infection. The patient reported persistent pain in the right upper quadrant which has been getting worse lately. He denied fever or night sweating. He denies nausea or vomiting. All in all he feels fine. Due to the persistent right upper quadrant pain and tenderness an ultrasound of the liver and a chest x-ray done. The chest x-ray showed right pleural effusion. Ultrasound showed interval development of liver lesions. Dr. Calderón personally reviewed the ultrasound with Dr. Marc Sol. Chemotherapy was interupted and [place] patient [place] [facility] [place] The patient received the carboplatin. 5-FU and docetaxel put on hold. Dr. Calderón spoke to Dr. Villa. CT scan of the chest/ abdomen done and start patient on antibiotics after blood cultures. At time of intake, patient is with family. Alert and oriented. Intermittent abdominal pain/chest wall pain, states relieved with prn medication. Continues to complain of anorexia, no nausea vomiting today. Denies dysuria hematuria new problems with urination. Chronic constipation, states relieved with Miralax. Multiple areas of skin breakdown, only new area per patient report is right groin. History of present illness Well known 47-year-old male patient, patient of Dr. Calderón with a 20 year- history of tobacco chewing, quit smoking more than 20 years ago and drinks alcohol only socially. 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 On 08/25/15 he underwent right partial glossectomy with radical neck dissection by Dr. Smith in [place]. He completed a comprehensive course of concurrent radiation and chemotherapy on 11/23/15. He received 2 cycles of cisplatin 100 mg/m. For the last cycle he received carboplatin and Taxol instead of cisplatin due to ototoxicity. Restaging with CT and PET on 04/24/16 showed no evidence of recurrence. The patient has a history of Balanitis Xerotica Obliterans (BXO), presented with a lump in his penis. 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 The patient underwent total penectomy with perineal urethrostomy by Dr. Romel Sanchez on 06/26/2016 at [facility]. Surgical pathology revealed well-differentiated squamous cell carcinoma. Tumor size 1.8 x 1.7 x 0.8 cm. The tumor involves corpus spinosum and corpus cavernosum. Tumor thickness or depth of invasion 19.0 mm. A focus suspicious for lymphovascular invasion. Perineural invasion present. No lymph nodes submitted. The main tumor mass is present predominantly in the glans; however, a separate focus of the squamous carcinoma is also present within the corpus cavernosum at the cauterized penectomy resection margin. A p16 immunostain and in situ hybridization for high risk HPV on block B3 are both negative in the carcinoma. Restaging PET scan on 08/14/2016 demonstrated mildly increased FDG uptake within a few pelvic lymph nodes which are more active than the comparison study from April 2016. It is raising a concern for metastatic disease. The morphologic appearance of the lymph nodes have not changed since August 2015. There is increased FDG uptake within a couple right inguinal lymph nodes. The most active showing SUV of 3.5. Left sided inguinal nodes with an SUV of 2.2. Right external iliac node with an SUV of 3.8. Left external iliac node with an SUV of 3.4. . The patient was treated with 3 cycles of preoperative chemotherapy Ifex/carbo/ Taxol followed by Neulasta from 08/28/2016 to 10/11/2016 without major complications. PET scan after 3 cycles of combination chemotherapy carboplatin ifosfamide and Taxol done on 10/23/2016 showed interval resolution of the abnormal uptake within bilateral inguinal lymph nodes. No FDG avid metastatic disease seen. At that point the patient was referred back to Dr. Sanchez at [facility]. 03/04/2017: The patient underwent bilateral inguinal lymph node dissection at [facility] on 11/29/2016. Total of 32 lymph nodes removed from both inguinal and femoral areas bilaterally showed no evidence of residual metastatic disease. Unfortunately, postoperatively the patient has developed bilateral surgical wound infection/dehiscence of incisions. Wound culture was positive for Enterobacter, cloase, anaerobes, strep viridans and normal angeles. He was hospitalized at [facility] on 12/19/2016, managed by Dr. Valadez and Dr. Winters. He underwent wound care, explorations with multiple excisional surgical debridements and application of wound VACS in addition to various antibiotics; Zosyn, Levaquin and Flagyl. The patient has been doing very good. Wound VAC and antibiotics discontinued last month. He has no fever. His chief complaint is mild swelling in his thighs. 05/21/2017: Restaging CT scan of the chest on 05/15/2017 compared to the PET scan from October 2016 showed a new irregular spiculated mass 3.0 x 2.6 cm in the right upper lobe associated with mediastinal adenopathy strongly suspicious for metastasis. Possible left lower lobe metastasis as well. Right pleural effusion with possible pleural metastatic disease. Postobstructive atelectasis in the medial right lower lobe could be due to a hilar or endobronchial lesion. I personally reviewed the CT scan with the radiologist, Dr. Marc Sol. CBC with hemoglobin of 11.7. CMP creatinine 0.7 and normal LFTs. 05/28/2017: The patient underwent bronchoscopy with biopsy by Dr. Sharma which showed grade 23 invasive squamous cell carcinoma. I discussed the pathology with Dr. Connelly at [facility]. I personally reviewed the restaging PET scan with Dr. Marc Sol on 05/28/2017 that showed rapidly progressive pleural and parenchymal metastatic disease in the right chest. This has worsened in the past 2 weeks. There are mediastinal and retroperitoneal nodes and metastatic disease. There is also osseous metastasis. The patient is having more shortness of breath and chest wall pain. 06/02/2017: The patient had more shortness of breath. He underwent thoracocentesis on Friday. Cytology came back negative. Lab CBC and CMP unremarkable. 06/10/2017: The patient received the first cycle of chemotherapy carboplatin/5- FU and cetuximab at [facility]. Unfortunately, he has developed severe reaction to cetuximab requiring Benadryl, steroids and epinephrine in addition to oxygen supplement. Cetuximab was discontinued. The patient was able to complete the 5-FU and carboplatin without complications. Also he underwent Pleurx catheter placement. He presented today with a chief complaint of fatigue and dry mouth. 06/25/2017: The patient presented with worsening shortness of breath and back pain. He was noted to have hypercalcemia. He received Zometa and hydration. The patient was seen and evaluated yesterday by Dr. Sharma. Dr. Sharma called me after he looked at the scan and evaluated the patient. His impression is worsening disease in the right lung especially the pleura with the lung being involved by the tumor mainly due to obstructive disease. There is not much fluid to drain. I personally reviewed the CT scan with Dr. Marc Sol this morning. We compared the scan to the PET scan from May [address] scan from May 15. After we carefully reviewed the scans it appears that the only response is in 1 right lung nodule otherwise the large mass in the right lung, as well as, the mediastinal lymph nodes are stable. However, retroperitoneal lymph nodes are worse. There is not much fluid to be drained at the present time maybe there is around 100 -150 cc of fluid. The patient's chief complaint is shortness of breath and chest wall and back pain. 07/01/2017: The patient received the first dose of docetaxel along with carboplatin and 5-FU last week without problems. He complains of mid back pain , constant dry cough and shortness of breath. Was noted to have low blood pressure. He is not eating and drinking enough. His calcium went down to 9.4. Review of Systems - Constitutional Constitutional: Present: fatigue, weight loss - EENT Eyes: Absent: change in vision Mouth/Throat: Absent: painful swallowing - Cardiovascular Cardiovascular: Present: chest pain, dyspnea on exertion - Respiratory Respiratory: Present: cough, dyspnea on exertion - Gastrointestinal Gastrointestinal: Present: early satiety, nausea - Musculoskeletal Musculoskeletal: Present: muscle weakness. Absent: back pain - Integumentary/Breasts Integumentary: Present: wounds (right chest wall) - Neurological Neurological: Absent: abnormal gait, focal weakness [facility] Patient Stated Medical History Cerebrovascular Accident No Paralysis No Seizures No Syncope No Dental Problems Yes Hearing Loss Yes Angina No Cardiac Arrhythmia No Congestive Heart Failure No Coronary Artery Disease No Heart Murmur No Hypertension No Hypotension No Myocardial Infarction No Rheumatic Fever No Valvular Heart Disease No Other Cardiology No Asthma Yes: Diagnosed in 2008 Bronchitis Yes Chronic Obstructive Pulmonary No Disease (COPD) Pneumonia Yes Pulmonary Edema Yes Pulmonary Embolism No Sleep Apnea Yes Tuberculosis No Other Respiratory No Diabetes Mellitus Type 1 No Diabetes Mellitus Type 2 No Cirrhosis No Gastroesophageal Reflux No Disease Gastrointestinal Bleeding No Hepatitis No Hiatal Hernia No Obstructive Bowel No Ulcer No Other GI No Other Yes: ureter resection Clotting Problems Yes Osteoarthritis Yes: lower back, liana knees Other Musculoskeletal No Anesthesia Reactions No Blood Transfusions No Chemotherapy No Malignant Hyperthermia No Other No Depression Yes Other Behavioral Health Yes: MOOD DISORDERS ON MEDS Now No Medical History Updates: 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 Anaphylactic reaction to Erbitux on 06/02/17. History of squamous cell cancer of the penis, stage IIIB, status post penectomy , chemo, and b/l inguinal lymph node dissection. 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 Obstructive sleep apnea. Normocytic anemia. Gout. Asthma. ANALI. Chronic oxygen use 2-4L Surgical History: Wound exploration and excisional debridement and application of wound VAC to inguinal wounds on 12/19/[address] Valadez. Bilateral inguinal lymph node dissections at the [facility] in [place] on November 29, 2016. Penectomy 06/28/2016. Radical neck resection and salivary gland removal on right 2015. Left IJ PAC placement and PEG tube placement . Family History: Maternal grandmother breast cancer, paternal grandmother breast cancer Family History Updates: Mother-hypertension. Father and sister-type II diabetes - Social History Smoking status: Former smoker second hand exposure: No Substance use type: does not use Alcohol intake frequency: does not drink Housing: house Household members: spouse, family, children Current occupational status: previously employed (registered nurse) Does patient use chewing tobacco?: No Current residence: Apartment/Private Home Medications Home Medications Medication Instructions Recorded Confirmed Type Cyanocobalamin (Vitamin B-12) 1 tab PO DAILY #0 tab 09/04/15 07/16/17 History [Vitamin B-12] Elderberry Fruit/Honey [Little 1 dose PO DAILY #0 09/04/15 07/16/17 History Remedies Cough-Immune] Allopurinol [Zyloprim] 100 mg PO DAILY 12/18/16 07/16/17 History Sertraline [Zoloft] 100 mg PO DAILY 12/18/16 07/16/17 History Sertraline [Zoloft] 50 mg PO DAILY 01/15/17 07/16/17 History Docusate Sodium 100 mg PO PRN PRN 05/30/17 07/16/17 History Oxycodone/Apap 10/325 [Percocet 1 tab PO Q4H PRN 05/30/17 07/16/17 History 10/325] fentaNYL [Fentanyl] 1 each TD Q3D 07/08/17 07/16/17 History Sulfamethox/Tmp [Bactrim Ds] 1 tab PO BID 7 Days #14 tab 07/11/17 07/16/17 Rx Ondansetron HCl 4 mg SL Q6HR 07/16/17 07/16/17 History Senna-S Tablet 1 tab PO BID 07/16/17 07/16/17 History Topiramate [Topamax] 50 mg PO BID 07/16/17 07/16/17 History Betamethasone/Propylene Glyc 50 gm TP TID PRN 07/17/17 07/17/17 History [Betamethasone Dp Aug 0.05% Crm] Allergies Allergy/AdvReac Type Severity Reaction Status Date / Time cetuximab [From Erbitux] Allergy Severe Anaphylactic Verified 07/16/17 16:07 Shock Exam Vital signs: Temperature 97.0 F 07/16/17 23:00 Pulse Rate 89 07/16/17 23:00 Respiratory Rate 22 07/16/17 23:00 Blood Pressure 102/67 07/16/17 23:00 Pulse Oximetry 99 07/16/17 23:00 - Constitutional no acute distress, obese, cooperative - Routine HEENT Exam Head: Present: normocephalic (Conjunctive are pale) Eye: Present: EOMI, PERRL ENT: Present: mucous membranes dry (Tongue mildly erythematous, no lesions or white coating noted) - Routine Neck Exam Present: supple. Absent: lymphadenopathy (single area linear wound, no erythema or active drainage) - Routine Respiratory Exam Present: decreased breath sounds. Absent: wheezes, crackles - Routine Cardiovascular Exam Present: RRR. Absent: no murmur - Routine Abdominal Exam Present: normoactive bowel sounds, tenderness, non distended - Routine Exam Groin: Present: erythema (Erythema left groin along incision. No discrete open areas on left groin. Right groin has 1 cm circular shallow wound with pink center and minimal surrounding erythema) - Routine Extremities Exam Present: edema (trace-1+ liana. LE) - Routine Skin Exam Present: dry, pallor - Routine Neurological Exam Present: alert, oriented X3 - Routine Psychiatric Exam Present: normal affect, cooperative Oncology Results - Labs CBC & Chem 7: 07/17/17 04:39 07/17/17 04:39 Labs: Short CBC 07/16/17 07/17/17 Range/Units 14:40 04:39 WBC 25.1 H* 22.3 H (4.5-11.0) T/MM3 Hgb 7.7 L 7.1 L (13.5-17.5) GM/DL Hct 25.2 L 23.3 L (41-53) % Plt Count 381 327 (130-400) T/MM3 BMP 07/16/17 07/17/17 14:40 04:39 Sodium 133 L 135 Potassium 4.5 4.4 Chloride 94 L 97 L Carbon Dioxide 28 29 BUN 5.0 L 9.0 D Creatinine 0.6 L 0.5 L Glucose 117 H 117 H Calcium 9.2 8.5 Liver Function 07/16/17 07/17/17 Range/Units 14:40 04:39 Total Bilirubin 0.70 0.40 (0.20-1.30) MG/DL AST 49 74 H D (17-59) U/L ALT 21 26 (1-50) U/L Alkaline Phosphatase 171 H 147 H (38-126) U/L Albumin 3.4 L 2.8 L (3.5-5.0) g/dL Urine 07/16/17 Range/Units 14:40 Urine Color Yellow (YELLOW) Urine Clarity Clear Urine pH 7.0 (5.0-8.0) Ur Specific [place] 1.015 (1.015-1.025) Urine Protein Negative (NEGATIVE) Urine Glucose (UA) Negative (NEGATIVE) Assessment and Plan Assessment and Plan: 1. 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 The source is either the head and neck or penile cancer. Current treatment is carboplatin/, last chemotherapy 07/16/17. Held secondary to right upper quadrant pain and noted to liver lesions. Will follow for neutropenia. 2. History of stage IVB anterior tongue SCC s/p partial glossectomy with neck dissection followed by concurrent [place]/XRT in 2016. (The first 2 cycles of chemotherapy were cisplatin. The third cycle was carboplatin and Taxol due to cisplatin induced ototoxicity). 3. 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 4. Symptomatic right pleural effusion most likely malignant. 5. Multiple areas of skin breakdown: Bilateral inguinal/groin; 1 cm open area right inguinal, pink wound bed, minimal surrounding erythema. Linear scar where had prior inguinal lymph node dissection erythematous entire length of scar, but no open areas. Small less than 1 cm rectal decubitus. Patient states rectal area has significantly improved. 6. Bilateral lower extremity lymphedema, improved with physical therapy. 7. History of cisplatin-induced ototoxicity. 8. Right pleural effusion most likely malignant status post thoracocentesis. 9. Bone metastasis and hypercalcemia of malignancy s/p zometa. Plan Continue supportive care, antibiotics. Patient had prior severe oral mucositis/ yeast stomatitis. Would recommend prophylactic nystatin. Will discuss with hospitalist. Follow closely. Await liver biopsy results, scheduled later today. <Yasmany Walker - Last Filed: 07/17/17 22:26> Oncology HPI - Data of Consult Requesting Physician: Wilder Curtis MD Primary Care Provider: Merari Dominguez MD Family Provider: Merari Dominguez MD [facility] Patient Stated Medical History Cerebrovascular Accident No Paralysis No Seizures No Syncope No Dental Problems Yes Hearing Loss Yes Angina No Cardiac Arrhythmia No Congestive Heart Failure No Coronary Artery Disease No Heart Murmur No Hypertension No Hypotension No Myocardial Infarction No Rheumatic Fever No Valvular Heart Disease No Other Cardiology No Asthma Yes: Diagnosed in 2008 Bronchitis Yes Chronic Obstructive Pulmonary No Disease (COPD) Pneumonia Yes Pulmonary Edema Yes Pulmonary Embolism No Sleep Apnea No Tuberculosis No Other Respiratory No Diabetes Mellitus Type 1 No Diabetes Mellitus Type 2 No Cirrhosis No Gastroesophageal Reflux No Disease Gastrointestinal Bleeding No Hepatitis No Hiatal Hernia No Obstructive Bowel No Ulcer No Other GI No Other Yes: ureter resection Clotting Problems Yes Osteoarthritis Yes: lower back, liana knees Other Musculoskeletal No Anesthesia Reactions No Blood Transfusions No Chemotherapy No Malignant Hyperthermia No Other No Depression Yes Other Behavioral Health Yes: MOOD DISORDERS ON MEDS Now No Exam Vital signs: Temperature 97.3 F 07/17/17 20:25 Pulse Rate 105 H 07/17/17 20:25 Respiratory Rate 20 07/17/17 20:25 Blood Pressure 120/69 07/17/17 20:25 Pulse Oximetry 97 07/17/17 20:25 Oncology Results - Labs CBC & Chem 7: 07/17/17 04:39 07/17/17 04:39 Labs: Short CBC 07/17/17 Range/Units 04:39 WBC 22.3 H (4.5-11.0) T/MM3 Hgb 7.1 L (13.5-17.5) GM/DL Hct 23.3 L (41-53) % Plt Count 327 (130-400) T/MM3 BMP 07/17/17 04:39 Sodium 135 Potassium 4.4 Chloride 97 L Carbon Dioxide 29 BUN 9.0 D Creatinine 0.5 L Glucose 117 H Calcium 8.5 Liver Function 07/17/17 Range/Units 04:39 Total Bilirubin 0.40 (0.20-1.30) MG/DL AST 74 H D (17-59) U/L ALT 26 (1-50) U/L Alkaline Phosphatase 147 H (38-126) U/L Albumin 2.8 L (3.5-5.0) g/dL Assessment and Plan Assessment and Plan: Patient examined chart reviewed. Extensive history of 2 separate squamous cell carcinoms with recent progression. Pleurex catheter for pleural effusion but became infected. Catheter removed last week. Increased abdominal pain in last week with U/S showing multiple liver lesions that were new. Marked leukocytosis with neutrophilia. Increased CRP. Pain and symptoms better after 24 hours of antibiotics. CRP and WBC have decreased. Will have liver biopsy this afternoon. Reviewed CT with Dr. Sol. Decreased breath sounds right chest with dullness to percussion, Gram positive cocci on gram stain of pleural would. Could be infectious or neoplastic lesions in liver. Await biopsy. I participated in the development of the plan of care of this patient.
[2017-07-17] MEDS ORDERED: SERTRALINE 100 MG TABLET PO SCH (09:00)
[2017-07-17] MEDS ORDERED: LIDOCAINE 1% (10mg/ml) 5ml PF SDV ONE (10:46)
--- NOTE | 2017-07-17 12:27 | Progress Note ---
- Date 07/17/17 Subjective: Jd is seen while resting in bed, with family at the bedside. He is ecstatic about how good he is feeling today, stating it's the best he's felt in over 2 months. He states that his pain is well controlled and his breathing is stable. He is scheduled to undergo a CT guided liver biopsy this afternoon around 1530 so he remains NPO in anticipation of his procedure. Leukocytosis slowly improving (WBC 22.6). Hemoglobin low but stable at 7.6. He denies any lightheadedness, dizziness, syncope, chest pain, palpitations or increased shortness of breath. Labs revealed slight increase in AST at 76 and down- trending of CRP. Objective Vital signs: Temperature 97.1 F 07/17/17 08:00 Pulse Rate 80 07/17/17 08:00 Respiratory Rate 24 07/17/17 08:00 Blood Pressure 106/66 07/17/17 08:00 Pulse Oximetry 99 07/17/17 08:00 Height/Weight/BMI: Height 5 ft 10 in Weight 292 lb 12.382 oz Body Mass Index 41.9 - Constitutional Present: no acute distress, well nourished, well developed, obese, cooperative - Routine HEENT Exam Head: Present: normocephalic, atraumatic Eye: Present: PERRL. Absent: conjunctival icterus - Routine Respiratory Exam Present: decreased breath sounds, wheezes. Absent: accessory muscle use, respiratory distress Comments: Diminished breath sounds bilaterally with occasional scattered wheezing. No cough or conversational dyspnea. Breathing easily on 3L NC. - Routine Cardiovascular Exam Present: RRR - Routine Abdominal Exam Present: soft, normoactive bowel sounds - Routine Extremities Exam Present: full ROM, pulses intact - Routine Back/Spine/Pelvis Exam Back/Spine: Present: full ROM. Absent: vertebral tenderness - Routine Musculoskeletal Exam Musculoskeletal: Present: no clubbing or cyanosis, moving extremities well - Routine Skin Exam Present: dry, warm. Absent: jaundice Comments: Afebrile. - Routine Neurological Exam Present: alert, oriented X3, moving all extremities, hearing grossly intact, normal speech - Routine Psychiatric Exam Present: normal affect, cooperative Results - Labs CBC & Chem 7: 07/17/17 04:39 07/17/17 04:39 Microbiology Results: Microbiology 07/16/17 15:36 Chest, Right Gram Stain - Final 07/16/17 15:36 Chest, Right Superficial Wound Culture - Preliminary Early growth Assessment and Plan (1) Leukocytosis Current visit: Yes Status: Acute (2) Liver lesion Current visit: Yes Status: Acute Assessment and Plan: Impression Liver Lesions- abscess versus metastatic disease Leukocytosis-present on admission, white count 25 (Has been on Bactrim since ) 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 Continue Zosyn for empiric antimicrobial coverage. CT chest/abdomen/pelvis revealed large complex right pleural effusion, numerous hepatic lesions most likely representing metastatic disease, though could also be hepatic abscesses, slight improvement of lung and mediastinal metastasis with slight worsening of retroperitoneal metastatic disease. CT guided liver biopsy scheduled for this afternoon at 1530 - exam and results pending. Wound culture showing early growth. Blood cultures pending. Continue to monitor and will adjust therapy accordingly. Continue on patient's chronic oxygen 2-4 liters. Continue pain control with home fentanyl patch 25 micrograms topically as well as Percocet for breakthrough pain. Dr. Calderón consulted for management of oncology needs. Appreciate his time and expertise. Maintain NPO status until following CT guided liver biopsy. WBC trending down (22.3). Hgb stable at 7.6 and asymptomatic. Continue to monitor with labs in AM. Ever Biopsy completed - path pending. With continued concern for high risk infection requiring IV antibiotics, will change admission status to inpatient. Continue with Zosyn for antimicrobial coverage. Will decrease IVF to 75cc/hr. DVT Prophylaxis: SCD's Resuscitation Status: Do Not Resuscitate - Time spent with patient Time with patient PN: 25 minutes - Physician Narrative Physician: Wilder Curtis MD Narrative: Date: 07/17/17 Time: 1700 Have independently interviewed and examined pt. Chart reviewed. Case discussed with CM and my PA. Care plan developed with my supervision; agree with above. Feeling better since antibiotics started. Not having sweats. Heart rate decreasing. Less pain to RUQ. Did tolerate liver Bx well-notes minimal local discomfort. Appetite with increase-feels able to eat more now than when at home. No nausea. Breathing stable. Still very weak/tired. Lungs: decreased right breath sounds-minimal sound heard only at apex. CV: tachy, regular AB: soft nt BS present Plan: Biopsy completed - path pending. With continued concern for high risk infection requiring IV antibiotics, will change admission status to inpatient. Continue with Zosyn for antimicrobial coverage. Will decrease IVF to 75cc/hr. Hospital Course Summary Disclaimer: The visit summary below is not to be considered part of the above Progress Note. Hospital Course: 07/16/14 Admit patient to outpatient observation under the care of Dr. Curtis for liver lesions, leukocytosis. On admission will repeat CBC, chemistry panel, venous lactate, pro calcitonin, urinalysis and blood cultures (one peripheral, one Port-A-Cath). Initiate IV Zosyn for antimicrobial coverage. Wound culture obtained from drainage of right chest wall incision. Given recent chest pain. We will obtain a 12-lead EKG. For further evaluation of the liver lesions. Will obtain CT scan of the abdomen , pelvis and chest with contrast. Lesions could be related to infectious abscess versus metastatic disease. Will continue on patient's chronic oxygen 2-4 liters. Patient is chronically utilizing fentanyl patch 25 micrograms topically for pain control as well as Percocet for breakthrough pain. Consultation placed to Dr. Calderón for further oncology management. CBC and CMP follow tomorrow to manage blood counts, renal function and electrolytes. At time of discharge medical care will return to primary care provider, Ace Dominguez. 07/17/17 Overall, Jd is feeling significantly better today - feels less chills, HR decreased, less pain to RUQ. Continue Zosyn for empiric antimicrobial coverage. CT chest/abdomen/pelvis revealed large complex right pleural effusion, numerous hepatic lesions most likely representing metastatic disease, though could also be hepatic abscesses, slight improvement of lung and mediastinal metastasis with slight worsening of retroperitoneal metastatic disease. CT guided liver biopsy scheduled for this afternoon at 1530 - exam and results pending. Wound culture showing early growth. Blood cultures pending. Continue to monitor and will adjust therapy accordingly. Continue on patient's chronic oxygen 2-4 liters. Continue pain control with home fentanyl patch 25 micrograms topically as well as Percocet for breakthrough pain. Dr. Calderón consulted for management of oncology needs. Appreciate his time and expertise. Maintain NPO status until following CT guided liver biopsy. WBC trending down (22.3). Hgb stable at 7.6 and asymptomatic. Continue to monitor with labs in AM. Biopsy completed - path pending. With continued concern for high risk infection requiring IV antibiotics, will change admission status to inpatient. Continue with Zosyn for antimicrobial coverage. Will decrease IVF to 75cc/hr. Diet advanced to regular after liver biopsy. Oral drive decrease, but patient feels is able to eat more now than previously at home.
[2017-07-17] MEDS ORDERED: FentaNYL 100 MCG/2 ML INJECTION IVP ONE (15:00)
[2017-07-17] MEDS ORDERED: MIDAZOLAM 2mg/2ml INJECTION IVP ONE (15:00)
--- NOTE | 2017-07-17 15:29 | Ultrasound Report ---
Indication:LIVER LESIONS Procedure:US biopsy liver MONITORED IV SEDATION: The patient was given 1 mg Versed and 100 mcg fentanyl intravenously.. Moderate sedation was administered by the sedation nurse under the supervision of the radiologist. The patient was continuously monitored with oxygen saturation, heart rate, ECG rhythm, and blood pressure throughout the administration of the sedation and throughout the procedure. There is no complication. Total intra-procedural sedation time was approximately five minutes. ULTRASOUND GUIDED LIVER BIOPSY: After discussing the details of procedure, including the risks, the patient wished to proceed. Informed consent was obtained. A preprocedural timeout was performed to confirm the correct patient and procedure. Using aseptic technique, local lidocaine anesthetic, and ultrasound guidance throughout, three passes using an 18-gauge x 2.3 cm throw core Biopince biopsy needle were performed to obtain multiple tissue samples of a hepatic lesion located in the anterior aspect of the left lobe of the liver. The needle was removed. The tissue samples were placed in formalin and sent to lab for the requested studies. There was no complication. The patient tolerated this procedure well. Following this, the patient was transferred back to his room on the medical floor for continued monitoring. Impression: Technically successful core biopsy of a lesion in the anterior left hepatic lobe. Marc Valenzuela RPA/KASANDRA performed this under my personal supervision. .
[2017-07-17 18:10] VITALS: BMI 42.0
[2017-07-17] MEDS: SERTRALINE 50 MG TABLET PO SCH (20:06)
[2017-07-17] MEDS: POLYETHYL GLYCOL 3350 17gm PACKET PO PRN (21:45)
[2017-07-18] MEDS: PIPERACILLIN/TAZOBACTAM 3.375 GM in NS 100 ML IV SCH ×4 (03:22→21:08)
[2017-07-18] MEDS: ONDANSETRON 4 MG TABLET PO SCH ×4 (03:23→21:10)
[2017-07-18] MEDS: Oxycodone *IR* 5 MG TABLET PO PRN ×4 (03:39→21:09)
[2017-07-18] MEDS: CYANOCOBALAMIN (B-12) 500mcg TABLET PO SCH (08:20)
[2017-07-18] MEDS: SENNA + DOCUSATE TABLET PO SCH ×2 (08:20→21:10)
[2017-07-18] MEDS: TOPIRAMATE 25 MG TABLET PO SCH ×2 (08:20→21:10)
[2017-07-18] MEDS: ALLOPURINOL 100 MG TABLET PO SCH (08:21)
[2017-07-18] MEDS: POLYETHYL GLYCOL 3350 17gm PACKET PO PRN (08:21)
[2017-07-18] MEDS: NS 1,000 ML IV SCH (08:21)
--- NOTE | 2017-07-18 08:46 | Wound Care Progress Note ---
Wound Center Progress Note: In to see Jasvir this AM, discussed his open areas on his scars and his stage II on coccyx. Pt is area that his needs to off load his bottom and get up and move around. On the open areas on his scars it was discussed that he would take a good shower today, fully dry skin under pannis then apply 3M Advanced skin protectant to all the area under pannis. RN in care of this pt informed and will reach back out to wound if needed.
[2017-07-18] MEDS: NYSTATIN 500,000 units/5 ml ORAL LIQUID PO SCH ×3 (09:34→21:09)
[2017-07-18] MEDS: Oxycodone/Apap 10/325 1 TAB PO PRN ×2 (10:24→17:06)
--- NOTE | 2017-07-18 12:11 | Progress Note ---
- Date 07/18/17 Subjective: Jasvir is seen while resting in bed with his CPAP on and family at the bedside. He reports that he is feeling pretty good today. He does complain of some pain to his right upper abdomen, but is unchanged. He denies any chest pain, increased shortness of breath, nausea, vomiting or diarrhea. Results from his liver biopsy are still pending, which he inquires about. Labs revealed a slight increase in his leukocytosis (WBC 23.1). Hemoglobin slightly improved at 7.8 and he remains asymptomatic with anemia. BMP stable. He was seen by wound care regarding his stage II ulceration to his coccyx and recommended off loading weight as much as possible with increased activity as well as bathing well and then applying 3M advance skin protectant under his pannis once the skin is dry. Objective Vital signs: Temperature 96.3 F L 07/18/17 07:41 Pulse Rate 115 H 07/18/17 07:41 Respiratory Rate 20 07/18/17 07:41 Blood Pressure 112/75 07/18/17 07:41 Pulse Oximetry 98 07/18/17 07:41 Height/Weight/BMI: Height 5 ft 10 in Weight 298 lb 11.622 oz Body Mass Index 42.0 Comments: Resting in bed, CPAP in place. - Constitutional Present: no acute distress, well nourished, well developed, obese, cooperative - Routine HEENT Exam Head: Present: normocephalic, atraumatic Eye: Present: PERRL. Absent: conjunctival icterus Comments: oral membranes not visualized on exam due to presence of CPAP. - Routine Respiratory Exam Absent: respiratory distress Comments: diminished breath sounds bilaterally with wheezing noted. Wearing CPAP on exam. - Routine Cardiovascular Exam Present: RRR, S1, S2 - Routine Abdominal Exam Present: soft, normoactive bowel sounds, tenderness (RUQ) Comments: obese - Routine Extremities Exam Present: full ROM - Routine Back/Spine/Pelvis Exam Back/Spine: Present: full ROM. Absent: vertebral tenderness - Routine Musculoskeletal Exam Musculoskeletal: Present: moving extremities well - Routine Skin Exam Present: dry, warm. Absent: jaundice Comments: afebrile. - Routine Neurological Exam Present: alert, oriented X3, moving all extremities, hearing grossly intact, normal speech - Routine Psychiatric Exam Present: cooperative Results - Labs CBC & Chem 7: 07/18/17 03:52 07/18/17 03:52 Microbiology Results: Microbiology 07/16/17 15:36 Chest, Right Gram Stain - Final 07/16/17 15:36 Chest, Right Superficial Wound Culture - Preliminary Staphylococcus aureus Assessment and Plan (1) Leukocytosis Current visit: Yes Status: Acute (2) Liver lesion Current visit: Yes Status: Acute Assessment and Plan: Impression Liver Lesions- abscess versus metastatic disease Leukocytosis-present on admission, white count 25 (Has been on Bactrim since ) Metastatic squamous cell carcinoma of the right lung with recurrent pleural effusion Recent infection in Pleurx catheterization, removed- 07/08/17 Respiratory failure with hypoxia-chronic oxygen use 2-4 liters Asthma Gout ANALI Morbid obesity Plan Patient changed to inpatient status on 07/17/17. Slight increase in leukocytosis (WBC 23.1). Patient remains afebrile. Continue Zosyn for empiric antimicrobial coverage - day 2. CT guided liver biopsy done 07/17/17 - results pending. Wound culture revealed staph aureus with sensitivities pending. Blood cultures pending. Continue to monitor and will adjust therapy accordingly. Continue on patient's chronic oxygen 2-4 liters - baseline. Continue pain control with home fentanyl patch 25 micrograms topically as well as Percocet for breakthrough pain. Hgb stable at 7.8 and asymptomatic. Continue to monitor with labs in AM. Continue current and supportive care. Stage II coccyx ulceration evaluation by wound care who recommended - off loading weight as much as possible with increased activity as well as bathing well and then applying 3M advance skin protectant under his pannis once the skin is dry. Continue to monitor. Recheck labs in AM to monitor blood counts, electrolytes and renal function. Ever Verbal pathology report of metastatic Squamous Cell Carcinoma. Did alert Dr Calderón of path report-plans to visit patient and family later today to discuss treatment options. Will add DuoNeb QID and prn to try to decrease cough; may use Phenergan with Codeine for more severe cough. Decrease IVF to 50cc/hr. Overall, prognosis not favorable. DVT Prophylaxis: SCD's Resuscitation Status: Do Not Resuscitate - Time spent with patient Time with patient PN: 25 minutes - Physician Narrative Physician: Wilder Curtis MD Narrative: Date: 07/18/17 Time: 1207 Have independently interviewed and examined pt. Chart reviewed. Case discussed with CM, Dr Calderón, and my PA. Care plan developed with my supervision; agree with above. Rough night-did not sleep well. Started last evening when a pill he was swallowing got 'caught' in this throat and started to BURN. Significant discomfort with this. More coughing over night. Notes increased pain in RUQ. More sore with coughing. Slight increase of SOA. Appetite with decrease. Did have large stool (first in 6 days). Notes less urine output and dark urine. Lungs: decreased right breath sounds. Frequent cough during interview and exam. CV: tachy MSE: awake alert Plan: Verbal pathology report of metastatic Squamous Cell Carcinoma. Did alert Dr Calderón of path report-plans to visit patient and family later today to discuss treatment options. Will add DuoNeb QID and prn to try to decrease cough ; May use Phenergan with Codeine for more severe cough. Decrease IVF to 50cc/ hr. Will continue with Zosyn for antimicrobial coverage. Overall, prognosis not favorable. Hospital Course Summary Disclaimer: The visit summary below is not to be considered part of the above Progress Note. Hospital Course: 07/16/14 Admit patient to outpatient observation under the care of Dr. Curtis for liver lesions, leukocytosis. On admission will repeat CBC, chemistry panel, venous lactate, pro calcitonin, urinalysis and blood cultures (one peripheral, one Port-A-Cath). Initiate IV Zosyn for antimicrobial coverage. Wound culture obtained from drainage of right chest wall incision. Given recent chest pain. We will obtain a 12-lead EKG. For further evaluation of the liver lesions. Will obtain CT scan of the abdomen , pelvis and chest with contrast. Lesions could be related to infectious abscess versus metastatic disease. Will continue on patient's chronic oxygen 2-4 liters. Patient is chronically utilizing fentanyl patch 25 micrograms topically for pain control as well as Percocet for breakthrough pain. Consultation placed to Dr. Calderón for further oncology management. CBC and CMP follow tomorrow to manage blood counts, renal function and electrolytes. At time of discharge medical care will return to primary care provider, Ace Dominguez. 07/17/17 Overall, Jd is feeling significantly better today - feels less chills, HR decreased, less pain to RUQ. Continue Zosyn for empiric antimicrobial coverage. CT chest/abdomen/pelvis revealed large complex right pleural effusion, numerous hepatic lesions most likely representing metastatic disease, though could also be hepatic abscesses, slight improvement of lung and mediastinal metastasis with slight worsening of retroperitoneal metastatic disease. CT guided liver biopsy scheduled for this afternoon at 1530 - exam and results pending. Wound culture showing early growth. Blood cultures pending. Continue to monitor and will adjust therapy accordingly. Continue on patient's chronic oxygen 2-4 liters. Continue pain control with home fentanyl patch 25 micrograms topically as well as Percocet for breakthrough pain. Dr. Calderón consulted for management of oncology needs. Appreciate his time and expertise. Maintain NPO status until following CT guided liver biopsy. WBC trending down (22.3). Hgb stable at 7.6 and asymptomatic. Continue to monitor with labs in AM. Biopsy completed - path pending. With continued concern for high risk infection requiring IV antibiotics, will change admission status to inpatient. Continue with Zosyn for antimicrobial coverage. Will decrease IVF to 75cc/hr. Diet advanced to regular after liver biopsy. Oral drive decrease, but patient feels is able to eat more now than previously at home. Plan - 07/18/17 Patient changed to inpatient status on 07/17/17. Slight increase in leukocytosis (WBC 23.1). Patient remains afebrile. Continue Zosyn for empiric antimicrobial coverage - day 2. CT guided liver biopsy done 07/17/17 - results pending. Wound culture revealed staph aureus with sensitivities pending. Blood cultures pending. Continue to monitor and will adjust therapy accordingly. Continue on patient's chronic oxygen 2-4 liters - baseline. Continue pain control with home fentanyl patch 25 micrograms topically as well as Percocet for breakthrough pain. Hgb stable at 7.8 and asymptomatic. Continue to monitor with labs in AM. Continue current and supportive care. Stage II coccyx ulceration evaluation by wound care who recommended - off loading weight as much as possible with increased activity as well as bathing well and then applying 3M advance skin protectant under his pannis once the skin is dry. Continue to monitor. Recheck labs in AM to monitor blood counts, electrolytes and renal function.
--- NOTE | 2017-07-18 13:07 | Progress Note ---
<Mya Carty - Last Filed: 07/18/17 16:05> Oncology Subjective Sleeping with CPAP at time of intake, at bedside. Awakens easily. Denies pain currently. Continues with intermittent cough, shortness of air with exertion. Denies worsening symptoms. Has not been using nebulizer as inpatient ; uses DuoNeb intermittently at home. Continues with abdominal pain, describes an instance of bandlike pain last evening across the entire upper abdomen. This resolved. No nausea or vomiting. No diarrhea constipation. No dysuria/ hematuria. General: No fever, no night sweats Eyes: No redness, no pain, no diplopia ENT: No mouth sores, no trouble swallowing Cardiac: No chest pain no palpitations Pulmonary: +cough, intermittent, non-prod. + shortness of breath w/ exertion Abdomen: + RUQ pain, intermittently-denies currently. No nausea vomiting, no diarrhea or constipation : No urgency, frequency, dysuria, or hematuria Musculoskeletal: No arthritis, no myalgias Neurological: No headaches, no focal weakness Skin: + groin and coccyx Psychiatric: No anxiety, no depression Exam Vital signs: Temperature 96.3 F L 07/18/17 07:41 Pulse Rate 115 H 07/18/17 07:41 Respiratory Rate 20 07/18/17 07:41 Blood Pressure 112/75 07/18/17 07:41 Pulse Oximetry 98 07/18/17 07:41 - Constitutional no acute distress, obese, cooperative - Routine HEENT Exam Head: Present: normocephalic Eye: Present: EOMI ENT: Present: mucous membranes dry (no lesions, tongue w/ light brown coating.) - Routine Neck Exam Present: supple. Absent: tenderness - Routine Respiratory Exam Present: wheezes (exp. bilaterally). Absent: respiratory distress - Routine Cardiovascular Exam Present: RRR, no murmur - Routine Abdominal Exam Present: soft, tenderness - Routine Exam Groin: Present: erythema (liana. inguinal erythema, single area open area right groin; ~1cm-unchanged.) - Routine Extremities Exam Present: edema (trace liana. lower) - Routine Skin Exam Present: dry, pallor, alopecia - Routine Neurological Exam Present: alert, oriented X3 - Routine Psychiatric Exam Present: normal affect, cooperative Oncology Results - Labs CBC & Chem 7: 07/18/17 03:52 07/18/17 03:52 Labs: Short CBC 07/18/17 Range/Units 03:52 WBC 23.1 H (4.5-11.0) T/MM3 Hgb 7.8 L (13.5-17.5) GM/DL Hct 26.5 L D (41-53) % Plt Count 371 (130-400) T/MM3 BMP 07/18/17 03:52 Sodium 136 Potassium 3.7 Chloride 98 Carbon Dioxide 26 BUN 8.0 L Creatinine 0.5 L Glucose 101 Calcium 8.6 Urine 07/18/17 Range/Units 11:31 Urine Color Yellow (YELLOW) Urine Clarity Sl cloudy Urine pH 5.0 (5.0-8.0) Ur Specific Story >=1.030 H (1.015-1.025) Urine Protein Trace A (NEGATIVE) Urine Glucose (UA) Negative (NEGATIVE) Assessment and Plan Assessment and Plan: Assessment 1. 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 The source is either the head and neck or penile cancer. Current treatment is carboplatin/, last chemotherapy received on 07/16/17. 5 FU and Gemzar were held secondary to right upper quadrant pain and noted new liver lesions. Will follow for neutropenia. 2. 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 (The first 2 cycles of chemotherapy were cisplatin. The third cycle was carboplatin and Taxol due to cisplatin induced ototoxicity). 3. 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 4. Symptomatic right pleural effusion most likely malignant. Had pleuryx catheter; removed last week because catheter became infected 5. Multiple areas of skin breakdown: Bilateral inguinal/groin; 1 cm open area right inguinal, pink wound bed, minimal surrounding erythema. Linear scar where had prior inguinal lymph node dissection erythematous entire length of scar, but no open areas. Small less than 1 cm rectal decubitus. Patient states rectal area has significantly improved. 6. Bilateral lower extremity lymphedema, improved with physical therapy. 7. History of cisplatin-induced ototoxicity. 8. Right pleural effusion most likely malignant status post thoracocentesis. 9. Bone metastasis and hypercalcemia of malignancy s/p zometa. Plan Awaiting results of liver biopsy done 07/17/17. Continue supportive care, antibiotics. Nystatin added prophylactically secondary to prior history of severe yeast stomatitis. Will discuss with Dr. Villa patient's use of nebulizer treatments, DuoNeb. - Time Spent With Patient Total time spent is greater than 50% in coordination of care (as documented) at patient's floor/unit and/or counseling patient: less than 15 minutes <Hill Calderón - Last Filed: 07/18/17 17:56> Exam Vital signs: Temperature 96.7 F L 07/18/17 15:40 Pulse Rate 95 07/18/17 15:40 Respiratory Rate 24 07/18/17 15:40 Blood Pressure 95/65 07/18/17 15:40 Pulse Oximetry 94 07/18/17 15:40 Oncology Results - Labs CBC & Chem 7: 07/18/17 03:52 07/18/17 03:52 Labs: Short CBC 07/18/17 Range/Units 03:52 WBC 23.1 H (4.5-11.0) T/MM3 Hgb 7.8 L (13.5-17.5) GM/DL Hct 26.5 L D (41-53) % Plt Count 371 (130-400) T/MM3 BMP 07/18/17 03:52 Sodium 136 Potassium 3.7 Chloride 98 Carbon Dioxide 26 BUN 8.0 L Creatinine 0.5 L Glucose 101 Calcium 8.6 Urine 07/18/17 Range/Units 11:31 Urine Color Yellow (YELLOW) Urine Clarity Sl cloudy Urine pH 5.0 (5.0-8.0) Ur Specific Story >=1.030 H (1.015-1.025) Urine Protein Trace A (NEGATIVE) Urine Glucose (UA) Negative (NEGATIVE) Assessment and Plan Assessment and Plan: I interviewed the patient and I examined him. I have had a lengthy discussion with the patient, his appearance and children, we discussed the critical situation of chemotherapy refractory progressive cancer. We discuss options including supportive care/comfort care. The patient would like to continue fighting the cancer. He is aware that his options are very limited. Because he would like to continue treatment I would treat him with PD1 inhibitor Nivolumab/ Opdivo. - Time Spent With Patient Total time spent is greater than 50% in coordination of care (as documented) at patient's floor/unit and/or counseling patient: 25 - 35 minutes
[2017-07-18] MEDS ORDERED: ALBUTEROL/IPRATROPIUM 2.5mg-0.5mg/3ml NEB AEROSOL PRN (16:11)
[2017-07-18] MEDS ORDERED: PROMETHAZINE/CODEINE ORAL LIQUID 5ml PO PRN (16:12)
[2017-07-18] MEDS: NOZIN NASAL SWAB NAS SCH ×2 (17:06→21:10)
[2017-07-18] MEDS: TBO-FILGRASTIM 480mcg/0.8ml INJECTION SQ SCH (18:19)
[2017-07-18] MEDS ORDERED: LORATADINE 10 MG TABLET PO ONE (18:21)
[2017-07-18] MEDS: ALBUTEROL/IPRATROPIUM 2.5mg-0.5mg/3ml NEB AEROSOL SCH ×2 (19:17)
[2017-07-18] MEDS: SERTRALINE 50 MG TABLET PO SCH (21:09)
[2017-07-19] MEDS: Oxycodone/Apap 10/325 1 TAB PO PRN ×4 (00:38→21:07)
[2017-07-19] MEDS: NS 1,000 ML IV SCH ×3 (00:40→13:27)
[2017-07-19] MEDS: PIPERACILLIN/TAZOBACTAM 3.375 GM in NS 100 ML IV SCH ×4 (02:45→21:10)
[2017-07-19] MEDS: ONDANSETRON 4 MG TABLET PO SCH ×4 (04:58→21:11)
[2017-07-19] MEDS: NOZIN NASAL SWAB NAS SCH ×3 (05:55→21:06)
[2017-07-19] MEDS: ALBUTEROL/IPRATROPIUM 2.5mg-0.5mg/3ml NEB AEROSOL SCH ×4 (06:55→19:12)
[2017-07-19] MEDS: Oxycodone *IR* 5 MG TABLET PO PRN ×2 (07:23→19:44)
[2017-07-19] MEDS: NYSTATIN 500,000 units/5 ml ORAL LIQUID PO SCH ×3 (08:02→21:09)
[2017-07-19] MEDS: CYANOCOBALAMIN (B-12) 500mcg TABLET PO SCH (08:02)
[2017-07-19] MEDS: TOPIRAMATE 25 MG TABLET PO SCH ×2 (08:02→21:07)
[2017-07-19] MEDS: SENNA + DOCUSATE TABLET PO SCH ×2 (08:03→21:07)
[2017-07-19] MEDS: ALLOPURINOL 100 MG TABLET PO SCH (08:03)
--- NOTE | 2017-07-19 12:40 | Progress Note ---
Oncology Subjective No new complaints. Has poor appetitite and cough. He understands the plans for salvage treatment with Opdivo next week. He understands the presence of liver mets and his generally poor prognosis. Home Medications Cyanocobalamin (Vitamin B-12) [Vitamin B-12] 1 tab PO DAILY #0 tab 09/04/15 [ History Confirmed 07/16/17] Elderberry Fruit/Honey [Little Remedies Cough-Immune] 1 dose PO DAILY #0 [History Confirmed 07/16/17] Allopurinol [Zyloprim] 100 mg PO DAILY 12/18/16 [History Confirmed 07/16/17] Sertraline [Zoloft] 100 mg PO DAILY 12/18/16 [History Confirmed 07/16/17] Sertraline [Zoloft] 50 mg PO DAILY 01/15/17 [History Confirmed 07/16/17] Docusate Sodium 100 mg PO PRN PRN 05/30/17 [History Confirmed 07/16/17] Oxycodone/Apap 10/325 [Percocet 10/325] 1 tab PO Q4H PRN 05/30/17 [History Confirmed 07/16/17] fentaNYL [Fentanyl] 1 each TD Q3D 07/08/17 [History Confirmed 07/16/17] Sulfamethox/Tmp [Bactrim Ds] 1 tab PO BID 7 Days #14 tab 07/11/17 [Rx Confirmed 07/16/17] Ondansetron HCl 4 mg SL Q6HR 07/16/17 [History Confirmed 07/16/17] Senna-S Tablet 1 tab PO BID 07/16/17 [History Confirmed 07/16/17] Topiramate [Topamax] 50 mg PO BID 07/16/17 [History Confirmed 07/16/17] Betamethasone/Propylene Glyc [Betamethasone Dp Aug 0.05% Crm] 50 gm TP TID PRN 07/17/17 [History Confirmed 07/17/17] Active Medications Albuterol/Ipratropium (Duoneb) 3 ml AEROSOL Q4HR PRN PRN Reason: Shortness of air Albuterol/Ipratropium (Duoneb) 3 ml AEROSOL RTQID [facility] Last Admin: 07/19/17 11:00 Dose: 3 ml Allopurinol (Zyloprim) 100 mg PO DAILY [facility] Last Admin: 07/19/17 08:03 Dose: 100 mg Bisacodyl (Dulcolax) 10 mg RECTALLY DAILY PRN PRN Reason: Constipation Cyanocobalamin (Vit. B-12) 500 mcg PO DAILY [facility] Last Admin: 07/19/17 08:02 Dose: 500 mcg Docusate Sodium (Colace) 100 mg PO PRN PRN PRN Reason: Constipation Fentanyl (Duragesic Patch) 12 mcg TD Q3D@0900 [facility] Last Admin: 07/19/17 08:02 Dose: 12 mcg Fentanyl Citrate (Duragesic Patch Removal) 1 removal TD Q3D [facility] Last Admin: 07/19/17 08:04 Dose: Not Given Piperacillin Sod/Tazobactam (Sod 3.375 gm/ Sodium Chloride) 100 mls @ 200 mls/ hr IV Q6H [facility] Last Infusion: 07/19/17 09:36 Dose: Infused Sodium Chloride (Normal Saline) 1,000 mls @ 50 mls/hr IV .Q20H [facility] Last Infusion: 07/19/17 09:37 Dose: 50 mls/hr Isopropyl Alcohol (Nozin Nasal Swab) 1 each JN 0600,1400,2200 [facility] Last Admin: 07/19/17 05:55 Dose: 1 each Magnesium Hydroxide (Mom) 30 ml PO DAILY PRN PRN Reason: Constipation Morphine Sulfate (Morphine Sulfate Inj) 2 mg IVP Q2HR PRN PRN Reason: Pain Nystatin (Mycostatin) 5 ml PO TID [facility] Last Admin: 07/19/17 08:02 Dose: 5 ml Ondansetron HCl (Zofran) 4 mg IVP Q6H PRN PRN Reason: Nausea Ondansetron HCl (Zofran Po) 4 mg PO Q6HR [facility] Last Admin: 07/19/17 09:07 Dose: Not Given Oxycodone HCl (Roxicodone *Ir*) 10 mg PO Q4H PRN PRN Reason: Pain Last Admin: 07/19/17 07:23 Dose: 10 mg Oxycodone/Acetaminophen (Percocet 10/325) 1 tab PO Q4H PRN PRN Reason: Pain Last Admin: 07/19/17 11:15 Dose: 1 tab Polyethylene Glycol (Miralax) 17 gm PO DAILY PRN Last Admin: 07/18/17 08:21 Dose: 17 gm Promethazine HCl/Codeine (Phenergan + Codeine) 5 ml PO Q4HR PRN PRN Reason: Cough Senna/Docusate Sodium (Senna Plus Tablet) 1 tab PO BID [facility] Last Admin: 07/19/17 08:03 Dose: 1 tab Sertraline HCl (Zoloft) 150 mg PO HS [facility] Last Admin: 07/18/17 21:09 Dose: 150 mg Tbo-Filgrastim (Granix) 480 mcg SQ Q24H [facility] Last Admin: 07/18/17 18:19 Dose: 480 mcg Topiramate (Topamax) 50 mg PO BID [facility] Last Admin: 07/19/17 08:02 Dose: 50 mg Abnormal lab results 07/19/17 07/19/17 Range/Units 04:36 04:36 WBC 53.1 H* D (4.5-11.0) T/MM3 RBC 2.65 L (4.50-5.90) M/MM3 Hgb 7.2 L (13.5-17.5) GM/DL Hct 24.0 L (41-53) % MCHC 30.0 L (31-37) GM/DL RDW Std Deviation 62.7 H (36.9-50.2) FL MPV 9.2 L (9.4-12.4) UM3 Neutrophils % (Manual) 89.0 H (33-66) % Neutrophils # (Manual) 47.3 H (1.8-7.7) T/MM3 Monocytes # (Manual) 2.7 H (0-0.8) T/MM3 Potassium 3.3 L (3.6-5) MEQ/L Chloride 97 L (98-107) MEQ/L BUN 3.0 L D (9-20) MG/DL Creatinine 0.5 L (0.8-1.5) mg/dL Calculated Osmolality 256 L (261-280) MOSM/KG Alkaline Phosphatase 163 H (38-126) U/L C-Reactive Protein 198.5 H (0-9) MG/L Albumin 2.8 L (3.5-5.0) g/dL Albumin/Globulin Ratio 0.8 L (1.1-2.2) RATIO Laboratory Results - last 24 hr 07/19/17 07/19/17 04:36 04:36 WBC 53.1 H* D RBC 2.65 L Hgb 7.2 L Hct 24.0 L MCV 90.6 MCH 27.2 MCHC 30.0 L RDW Std Deviation 62.7 H Plt Count 310 MPV 9.2 L Immature Gran % (Auto) Not performed Neut % (Auto) Not performed Lymph % (Auto) Not performed [place]aine % (Auto) Not performed Eos % (Auto) Not performed Baso % (Auto) Not performed Neut # (Auto) Not performed Lymph # (Auto) Not performed [place]aine # (Auto) Not performed Eos # (Auto) Not performed Baso # (Auto) Not performed Abs Immat Gran (auto) Not performed Neutrophils % (Manual) 89.0 H Band Neutrophils % 6.0 Monocytes % (Manual) 5.0 Neutrophils # (Manual) 47.3 H Band Neutrophils # 3.2 Monocytes # (Manual) 2.7 H Poikilocytosis 1+ Anisocytosis 1+ RBC Morph Comment Abnormal Turbidity < 20 Sodium 135 Potassium 3.3 L Chloride 97 L Carbon Dioxide 29 Anion Gap 9 BUN 3.0 L D Creatinine 0.5 L GFR Calculation 178 BUN/Creatinine Ratio 6 Glucose 85 Calculated Osmolality 256 L Calcium 8.8 Total Bilirubin 0.50 Icterus Index < 2 AST 52 ALT 24 Alkaline Phosphatase 163 H C-Reactive Protein 198.5 H Total Protein 6.3 Albumin 2.8 L Globulin 3.5 Albumin/Globulin Ratio 0.8 L Specimen Hemolysis < 15 Laboratory Results WBC 53.1 T/MM3 (4.5-11.0) H* D 07/19/17 04:36 RBC 2.65 M/MM3 (4.50-5.90) L 07/19/17 04:36 Hgb 7.2 GM/DL (13.5-17.5) L 07/19/17 04:36 Hct 24.0 % (41-53) L 07/19/17 04:36 MCV 90.6 UM3 (80-100) 07/19/17 04:36 MCH 27.2 UUG (26-34) 07/19/17 04:36 MCHC 30.0 GM/DL (31-37) L 07/19/17 04:36 RDW Std Deviation 62.7 FL (36.9-50.2) H 07/19/17 04:36 Plt Count 310 T/MM3 (130-400) 07/19/17 04:36 MPV 9.2 UM3 (9.4-12.4) L 07/19/17 04:36 Immature Gran % (Auto) Not performed 07/19/17 04:36 Neut % (Auto) Not performed 07/19/17 04:36 Lymph % (Auto) Not performed 07/19/17 04:36 Blaine % (Auto) Not performed 07/19/17 04:36 Eos % (Auto) Not performed 07/19/17 04:36 Baso % (Auto) Not performed 07/19/17 04:36 Neut # (Auto) Not performed 07/19/17 04:36 Lymph # (Auto) Not performed 07/19/17 04:36 Blaine # (Auto) Not performed 07/19/17 04:36 Eos # (Auto) Not performed 07/19/17 04:36 Baso # (Auto) Not performed 07/19/17 04:36 Abs Immat Gran (auto) Not performed 07/19/17 04:36 Neutrophils % (Manual) 89.0 % (33-66) H 07/19/17 04:36 Band Neutrophils % 6.0 % (0-6) 07/19/17 04:36 Lymphocytes % (Manual) 1.0 % (23-45) L 07/18/17 03:52 Monocytes % (Manual) 5.0 % (0-9.0) 07/19/17 04:36 Neutrophils # (Manual) 47.3 T/MM3 (1.8-7.7) H 07/19/17 04:36 Band Neutrophils # 3.2 T/MM3 07/19/17 04:36 Lymphocytes # (Manual) 0.2 T/MM3 (1-4.8) L 07/18/17 03:52 Monocytes # (Manual) 2.7 T/MM3 (0-0.8) H 07/19/17 04:36 Hypochromasia 1+ 07/18/17 03:52 Poikilocytosis 1+ 07/19/17 04:36 Anisocytosis 1+ 07/19/17 04:36 RBC Morph Comment Abnormal 07/19/17 04:36 INR 1.28 (0.92-1.18) H 07/17/17 12:29 APTT 30.0 SEC (24-36) 07/17/17 12:29 Turbidity < 20 (0-20) 07/19/17 04:36 Sodium 135 MEQ/L (134-144) 07/19/17 04:36 Potassium 3.3 MEQ/L (3.6-5) L 07/19/17 04:36 Chloride 97 MEQ/L (98-107) L 07/19/17 04:36 Carbon Dioxide 29 MEQ/L (22-30) 07/19/17 04:36 Anion Gap 9 MEQ/L (5-15) 07/19/17 04:36 BUN 3.0 MG/DL (9-20) L D 07/19/17 04:36 Creatinine 0.5 mg/dL (0.8-1.5) L 07/19/17 04:36 Estimated Creat Clear 342 07/17/17 04:39 GFR Calculation 178 07/19/17 04:36 BUN/Creatinine Ratio 6 RATIO (6-26) 07/19/17 04:36 Glucose 85 MG/DL (75-110) 07/19/17 04:36 Calculated Osmolality 256 MOSM/KG (261-280) L 07/19/17 04:36 Calcium 8.8 MG/DL (8.4-10.2) 07/19/17 04:36 Magnesium 2.2 MG/DL (1.6-2.3) 07/16/17 14:40 Total Bilirubin 0.50 MG/DL (0.20-1.30) 07/19/17 04:36 Icterus Index < 2 (0-7) 07/19/17 04:36 AST 52 U/L (17-59) 07/19/17 04:36 ALT 24 U/L (1-50) 07/19/17 04:36 Alkaline Phosphatase 163 U/L (38-126) H 07/19/17 04:36 C-Reactive Protein 198.5 MG/L (0-9) H 07/19/17 04:36 Total Protein 6.3 g/dL (6.3-8.2) 07/19/17 04:36 Albumin 2.8 g/dL (3.5-5.0) L 07/19/17 04:36 Globulin 3.5 G/DL (2.4-3.6) 07/19/17 04:36 Albumin/Globulin Ratio 0.8 RATIO (1.1-2.2) L 07/19/17 04:36 Plasma Lactate 1.4 MMOL/L (0.6-2.2) 07/16/17 18:03 Procalcitonin 0.38 NG/ML 07/17/17 04:39 Specimen Hemolysis < 15 (0-25) 07/19/17 04:36 Ur Collection Type Urine, void-cc/notcc 07/18/17 11:31 Urine Color Yellow (YELLOW) 07/18/17 11:31 Urine Clarity Sl cloudy 07/18/17 11:31 Urine pH 5.0 (5.0-8.0) 07/18/17 11:31 Ur Specific [place] >=1.030 (1.015-1.025) H 07/18/17 11:31 Urine Protein Trace (NEGATIVE) A 07/18/17 11:31 Urine Glucose (UA) Negative (NEGATIVE) 07/18/17 11:31 Urine Ketones Trace (NEGATIVE) A 07/18/17 11:31 Urine Occult Blood Negative (NEGATIVE) 07/18/17 11:31 Urine Nitrate Negative (NEGATIVE) 07/18/17 11:31 Urine Bilirubin Negative (NEGATIVE) 07/18/17 11:31 Urine Urobilinogen 0.2 EU/DL (NORMAL) 07/18/17 11:31 Ur Leukocyte Esterase Negative (NEGATIVE) 07/18/17 11:31 Urine RBC 0-1 /HPF (0-3) 07/18/17 11:31 Urine WBC 1-3 /HPF (0-5) 07/18/17 11:31 Urine Bacteria 4+ (NEGATIVE) H 07/18/17 11:31 Granular Casts 0-1 07/18/17 11:31 Ur Culture Indicated? Cult not indicated 07/18/17 11:31 Urinalysis Comment Microscopic not ind. 07/16/17 14:40 Blood Type A Positive 07/17/17 04:39 Antibody Screen Negative 07/17/17 04:39 Pending at discharge 07/17/17 14:36 Surgical, Routine Pathology [PTH] Routine Procedures Drainage of Right Pleura with Drainage Device, Percutaneous Approach (06/03/17) Excision of Pelvic Region Subcutaneous Tissue and Fascia, Open Approach () Exam Vital signs: Temperature 97.3 F 07/19/17 12:14 Pulse Rate 101 H 07/19/17 11:15 Respiratory Rate 18 07/19/17 12:14 Blood Pressure 94/63 07/19/17 11:15 Pulse Oximetry 99 07/19/17 11:15 - Constitutional no acute distress, obese - Routine HEENT Exam Head: Present: normocephalic, atraumatic - Routine Neck Exam Present: supple, full ROM - Routine Respiratory Exam Present: decreased breath sounds, distant breath sounds - Routine Cardiovascular Exam Present: RRR, no murmur - Routine Abdominal Exam Present: soft, non tender Oncology Results - Labs CBC & Chem 7: 07/19/17 04:36 07/19/17 04:36 Labs: Short CBC 07/19/17 Range/Units 04:36 WBC 53.1 H* D (4.5-11.0) T/MM3 Hgb 7.2 L (13.5-17.5) GM/DL Hct 24.0 L (41-53) % Plt Count 310 (130-400) T/MM3 BMP 07/19/17 04:36 Sodium 135 Potassium 3.3 L Chloride 97 L Carbon Dioxide 29 BUN 3.0 L D Creatinine 0.5 L Glucose 85 Calcium 8.8 Liver Function 07/19/17 Range/Units 04:36 Total Bilirubin 0.50 (0.20-1.30) MG/DL AST 52 (17-59) U/L ALT 24 (1-50) U/L Alkaline Phosphatase 163 H (38-126) U/L Albumin 2.8 L (3.5-5.0) g/dL Assessment and Plan Assessment and Plan: I interviewed the patient and I examined him. I have had a lengthy discussion with the patient, his appearance and children, we discussed the critical situation of chemotherapy refractory progressive cancer. We discuss options including supportive care/comfort care. The patient would like to continue fighting the cancer. He is aware that his options are very limited. Because he would like to continue treatment I would treat him with PD1 inhibitor Nivolumab/ Opdivo. 07/19/2017 Frandy Met squamous cell ca Liver mets lung mets h/o Penile ca h/o h/n ca leukocytosis Plan salvage opdivo as outpatient hold granix - Time Spent With Patient Total time spent is greater than 50% in coordination of care (as documented) at patient's floor/unit and/or counseling patient: less than 15 minutes
--- NOTE | 2017-07-19 12:58 | Progress Note ---
- Date 07/19/17 Subjective: Jasvir is having increased SOA today at rest and with exertion, and his , Jenny, notes increased pallor. He states that yesterday he had a large dark bm yesterday dark stringy clots with bright/dark blood. Today his stool appeared card room manager in color. Poor appetite secondary to RUQ pain but no n/v. States thrush is improving. He's also been having increased pain -- noted fentanyl patch on back is 12 mcg and at home he has 25 mcg patch. He's lost 50-60 lbs over the last month and a half. Had conversation this am with Dr. Wise. Jasvir states that Opdivo is a "Last stitch effort" and that any other options aren't applicable in his case. Nonetheless, he is not ready to give up and remains hopeful. He's not ready for hospice at this time. Objective Vital signs: Temperature 97.3 F 07/19/17 12:14 Pulse Rate 101 H 07/19/17 11:15 Respiratory Rate 18 07/19/17 12:14 Blood Pressure 94/63 07/19/17 11:15 Pulse Oximetry 99 07/19/17 11:15 Height/Weight/BMI: Height 1.78 m Weight 137 kg Body Mass Index 42.0 - Constitutional Present: well nourished, well developed, obese - Routine HEENT Exam Head: Present: normocephalic Eye: Present: PERRL. Absent: conjunctival icterus, scleral injection ENT: Present: mucous membranes dry - Routine Respiratory Exam Present: decreased breath sounds (R>L) - Routine Cardiovascular Exam Present: RRR, S1, S2 - Routine Abdominal Exam Present: soft, tenderness. Absent: normoactive bowel sounds (hyperactive) - Routine Extremities Exam Present: edema (1+ b/l) - Routine Skin Exam Present: intact, dry, pallor, warm - Routine Neurological Exam Present: alert, oriented X3, normal speech - Routine Psychiatric Exam Present: normal affect, normal thought process, cooperative Results - Labs CBC & Chem 7: 07/19/17 04:36 07/19/17 04:36 Microbiology Results: Microbiology 07/16/17 15:36 Chest, Right Gram Stain - Final 07/16/17 15:36 Chest, Right Superficial Wound Culture - Final Staphylococcus aureus Assessment and Plan (1) Leukocytosis Current visit: Yes Status: Acute (2) Liver lesion Current visit: Yes Status: Acute Assessment and Plan: Impression Metastatic squamous cell carcinoma - Liver Lesions Leukocytosis-present on admission, white count 25 (Has been on Bactrim since ) 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 Dr. Wise recommends Opdivo as salvage therapy. WBC increased to 53, though pt received Granix yesterday. Continue Zosyn, day # 3. Increasing symptoms of anemia and reports of a dark-colored stool with dark clots mixed with right red -- will type and cross x1 unit. Check INR and stool for occult blood. Increase fentanyl patch to home dose of 25 mcg. DC IVF and encouraged oral intake. Hypokalemia (3.3) - give KDur. Continue resp treatments - DuoNeb is particularly helpful. D/W Dr. Rudolph. DVT Prophylaxis: SCD's Resuscitation Status: Do Not Resuscitate - Physician Narrative Physician: Roberto Carlos Rudolph MD Narrative: Date: 07/19/17 Time: 1721 I have independently interviewed and examined pt. Chart reviewed. Case discussed with DIGITAL ENGINEER. Care plan developed with my supervision; agree with above. Says he was soa and very fatigued this morning. Says his cough has improved since starting Duonebs. Denies f/c. Reports sweats at times. Reports dark urine. Patient's and parents are present. Lungs: decreased right breath sounds. CV: tachy MSE: awake alert Plan: Continue Duonebs. Will give Vitamin K for coagulopathy. Unclear whether coagulopathy d/t liver mets or poor nutrition. Hemoccult is negative. Will see whether patient feels better after transfusion. Replacing K. WBC is up after Granix. Will continue with Zosyn for antimicrobial coverage. Hospital Course Summary Disclaimer: The visit summary below is not to be considered part of the above Progress Note. Hospital Course: 07/16/14 Admit patient to outpatient observation under the care of Dr. Curtis for liver lesions, leukocytosis. On admission will repeat CBC, chemistry panel, venous lactate, pro calcitonin, urinalysis and blood cultures (one peripheral, one Port-A-Cath). Initiate IV Zosyn for antimicrobial coverage. Wound culture obtained from drainage of right chest wall incision. Given recent chest pain. We will obtain a 12-lead EKG. For further evaluation of the liver lesions. Will obtain CT scan of the abdomen , pelvis and chest with contrast. Lesions could be related to infectious abscess versus metastatic disease. Will continue on patient's chronic oxygen 2-4 liters. Patient is chronically utilizing fentanyl patch 25 micrograms topically for pain control as well as Percocet for breakthrough pain. Consultation placed to Dr. Calderón for further oncology management. CBC and CMP follow tomorrow to manage blood counts, renal function and electrolytes. At time of discharge medical care will return to primary care provider, Ace Dominguez. 07/17/17 Overall, Bill is feeling significantly better today - feels less chills, HR decreased, less pain to RUQ. Continue Zosyn for empiric antimicrobial coverage. CT chest/abdomen/pelvis revealed large complex right pleural effusion, numerous hepatic lesions most likely representing metastatic disease, though could also be hepatic abscesses, slight improvement of lung and mediastinal metastasis with slight worsening of retroperitoneal metastatic disease. CT guided liver biopsy scheduled for this afternoon at 1530 - exam and results pending. Wound culture showing early growth. Blood cultures pending. Continue to monitor and will adjust therapy accordingly. Continue on patient's chronic oxygen 2-4 liters. Continue pain control with home fentanyl patch 25 micrograms topically as well as Percocet for breakthrough pain. Dr. Calderón consulted for management of oncology needs. Appreciate his time and expertise. Maintain NPO status until following CT guided liver biopsy. WBC trending down (22.3). Hgb stable at 7.6 and asymptomatic. Continue to monitor with labs in AM. Biopsy completed - path pending. With continued concern for high risk infection requiring IV antibiotics, will change admission status to inpatient. Continue with Zosyn for antimicrobial coverage. Will decrease IVF to 75cc/hr. Diet advanced to regular after liver biopsy. Oral drive decrease, but patient feels is able to eat more now than previously at home. Plan - 07/18/17 Patient changed to inpatient status on 07/17/17. Slight increase in leukocytosis (WBC 23.1). Patient remains afebrile. Continue Zosyn for empiric antimicrobial coverage - day 2. CT guided liver biopsy done 07/17/17 - results pending. Wound culture revealed staph aureus with sensitivities pending. Blood cultures pending. Continue to monitor and will adjust therapy accordingly. Continue on patient's chronic oxygen 2-4 liters - baseline. Continue pain control with home fentanyl patch 25 micrograms topically as well as Percocet for breakthrough pain. Hgb stable at 7.8 and asymptomatic. Continue to monitor with labs in AM. Continue current and supportive care. Stage II coccyx ulceration evaluation by wound care who recommended - off loading weight as much as possible with increased activity as well as bathing well and then applying 3M advance skin protectant under his pannis once the skin is dry. Continue to monitor. Recheck labs in AM to monitor blood counts, electrolytes and renal function. 07/19/17 Liver lesions noted to be metastatic squamous cell CA per path report. Dr. Wise recommends Opdivo as salvage therapy. WBC increased to 53, though pt received Granix yesterday. Continue Zosyn, day # 3. Increasing symptoms of anemia and reports of a dark-colored stool with dark clots mixed with right red -- will type and cross x1 unit. Check INR and stool for occult blood. Increase fentanyl patch to home dose of 25 mcg. DC IVF and encouraged oral intake. Hypokalemia (3.3) - give KDur. Continue resp treatments - DuoNeb is particularly helpful. Addendum entered and electronically signed by Cheri Gracia APRN 07/19/17 14: 28: In addition, BP has been lower than normal and HR has been slightly tachycardic which is a new finding for him. This supports decision for blood transfusion.
[2017-07-19] MEDS ORDERED: FUROSEMIDE 20 MG/2 ML INJECTION IVP ONE (13:55)
[2017-07-19] MEDS: SALINE FLUSH 10ml SYRINGE IV PRN ×2 (14:30→21:10)
[2017-07-19] MEDS ORDERED: PHYTONADIONE 5 MG/2.5 ML ORAL LIQUID PO ONE (17:21)
[2017-07-19] MEDS: TBO-FILGRASTIM 480mcg/0.8ml INJECTION SQ SCH (17:33)
[2017-07-19] MEDS: SERTRALINE 50 MG TABLET PO SCH (21:07)
[2017-07-19] MEDS: NS FLUSH BAG 500ml IV PRN (21:10)
[2017-07-20] MEDS: PIPERACILLIN/TAZOBACTAM 3.375 GM in NS 100 ML IV SCH ×4 (03:05→20:44)
[2017-07-20] MEDS: Oxycodone/Apap 10/325 1 TAB PO PRN ×2 (04:04→09:07)
[2017-07-20] MEDS: ONDANSETRON 4 MG TABLET PO SCH ×4 (04:33→20:44)
[2017-07-20] MEDS: NOZIN NASAL SWAB NAS SCH ×5 (04:42→22:46)
[2017-07-20] MEDS: ALBUTEROL/IPRATROPIUM 2.5mg-0.5mg/3ml NEB AEROSOL SCH ×4 (07:27→20:20)
[2017-07-20] MEDS: NS FLUSH BAG 500ml IV PRN (08:59)
[2017-07-20] MEDS: NYSTATIN 500,000 units/5 ml ORAL LIQUID PO SCH ×3 (09:00→20:43)
[2017-07-20] MEDS: ALLOPURINOL 100 MG TABLET PO SCH (09:00)
[2017-07-20] MEDS: CYANOCOBALAMIN (B-12) 500mcg TABLET PO SCH (09:00)
[2017-07-20] MEDS: SENNA + DOCUSATE TABLET PO SCH ×2 (09:00→20:44)
[2017-07-20] MEDS: TOPIRAMATE 25 MG TABLET PO SCH ×2 (09:00→20:43)
--- NOTE | 2017-07-20 13:20 | Progress Note ---
- Date 07/20/17 Subjective: "Jasvir" is seen today in follow up. He is very pleasant, and multiple family members are at bedside. He reports some increase in SAMANIEGO, most noticeable when up out of bed. His feels he is more dyspneic when he is speaking as well. He does not report a change in cough. He does feel that Lasix helped for a period of time yesterday. He is endorsing some feelings of fullness in esophagus when swallowing. They feel this could be due to lymph node enlargement due to malignancy. He reports feeling that pills are getting stuck, especially the potassium. He is requesting IV replacement when needed. reports that he is not eating much at all- he is liking the Enlive better than the magic shakes- would like 3 of those per day. We discussed considering Megace for appetite, they would like to hold off on that for now. Lengthy discussion, reviewed labs, questions answered. Objective Vital signs: Temperature 98.0 F 07/20/17 08:29 Pulse Rate 99 07/20/17 08:29 Respiratory Rate 20 07/20/17 11:18 Blood Pressure 105/63 07/20/17 08:29 Pulse Oximetry 100 07/20/17 11:18 Height/Weight/BMI: Height 1.78 m Weight 133 kg Body Mass Index 42.0 - Constitutional Present: mild distress, obese, cooperative Comments: Very pleasant, appears chronically ill. - Routine HEENT Exam Head: Present: normocephalic, atraumatic Eye: Present: EOMI, PERRL ENT: Present: mucous membranes dry. Absent: dentition normal Comments: Missing teeth. Oral mucosa is dry. No apparent thrush visible. Neck: Scarring from prior intervention - Routine Respiratory Exam Present: dyspnea, decreased breath sounds, rhonchi (Expiratory rhonchi), distant breath sounds, diminished air movement. Absent: accessory muscle use, respiratory distress - Routine Cardiovascular Exam Present: RRR, S1, S2, no murmur - Routine Abdominal Exam Present: soft, non distended, non tender - Routine Extremities Exam Present: edema (Mild LE edema, non-pitting. ) - Routine Musculoskeletal Exam Musculoskeletal: Present: moving extremities well - Routine Skin Exam Present: intact, dry, pallor, warm - Routine Neurological Exam Present: alert, oriented X3, moving all extremities - Routine Psychiatric Exam Present: normal affect, normal thought process, cooperative, good insight, good judgment Results - Labs CBC & Chem 7: 07/20/17 04:14 07/20/17 04:14 Labs: Pathology- Liver: Metastatic squamous cell carcinoma Microbiology Results: Microbiology 07/16/17 15:36 Chest, Right Gram Stain - Final 07/16/17 15:36 Chest, Right Superficial Wound Culture - Final Staphylococcus aureus ([id number]) Assessment and Plan (1) Leukocytosis Current visit: Yes Status: Acute (2) Liver lesion Current visit: Yes Status: Acute Assessment and Plan: Impression Metastatic squamous cell carcinoma - Liver Lesions Leukocytosis-present on admission, white count 25 (Has been on Bactrim since ) 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 Plan 07/20/17 Liver lesions noted to be metastatic squamous cell CA per path report. Dr. Wise recommends Opdivo as salvage therapy. S/P Granix; WBC are high, but trending down. CRYSTAL chest wall- Continue Zosyn, day #4. BC NGTD. Anemia/Dark tarry stools- HGB is better post transfusion. INR is mildly elevated, but stable. FOB negative. Increased fentanyl patch to home dose of 25 mcg. Continue IR oxy. Will DC the percocet due to APAP/higher risk for liver toxicity. He is still not eating much- will adjust nutritional supplements per his preference. Offered Megace- hold off for now. Hypokalemia (3.4)- He is not tolerating the PO potassium. Replace IV as supplements are making him feel full. Edema/SOA- add scheduled Lasix. Could potentially addition of aldactone to help prevent potassium wasting. Continue resp treatments - DuoNeb. Follow periodic CXR. In regards to dysphagia- add Carafate Elixer and PPI IV to help decrease any concern for esophagitis or GERD. He is already on Nystatin swish and swallow, so fungal esophageal concerns should be covered. Did not appreciate significant fungal annie on oral exam. D/W Dr. Rudolph and with pt/. Questions answered. DVT Prophylaxis: SCD's GI Prophylaxis: Protonix Resuscitation Status: Do Not Resuscitate - Physician Narrative Physician: Roberto Carlos Rudolph MD Narrative: Date: 07/20/17 Time: 1640 I have independently interviewed and examined patient. Chart reviewed. Case discussed with MERCHANDISE SHOPPER. Care plan developed with my supervision; agree with above. Says he feels better after the transfusion. His thinks he might be more soa with activity and talking. Patient concerned about stopping Percocet 10 because he says it lasts much longer than oxycodone ir 10 mg - 6 vs. 3 hours. He has had some difficulty swallowing, particularly potassium pills. Patient's present. Lungs: decreased right breath sounds. CV: tachy MSE: awake alert Plan: Continue Duonebs. INR down some after Vitamin K for coagulopathy. Hemoccult is negative. Hbg went from 7.2 to 7.8 after transfusion and is 8.1 today. Replacing K. WBC is down. s/p Granix. Will continue with Zosyn for antimicrobial coverage. Discussed pain relief options. Patient understands Tylenol could be a problem for his liver. He is OK stopping Percocet. Because of his desire for longer relief, will try OxyContin. Patient had 5 Percocet 10s yesterday. Will start OxyContin at 15 bid. Hospital Course Summary Disclaimer: The visit summary below is not to be considered part of the above Progress Note. Hospital Course: 07/16/14 Admit patient to outpatient observation under the care of Dr. Curtis for liver lesions, leukocytosis. On admission will repeat CBC, chemistry panel, venous lactate, pro calcitonin, urinalysis and blood cultures (one peripheral, one Port-A-Cath). Initiate IV Zosyn for antimicrobial coverage. Wound culture obtained from drainage of right chest wall incision. Given recent chest pain. We will obtain a 12-lead EKG. For further evaluation of the liver lesions. Will obtain CT scan of the abdomen , pelvis and chest with contrast. Lesions could be related to infectious abscess versus metastatic disease. Will continue on patient's chronic oxygen 2-4 liters. Patient is chronically utilizing fentanyl patch 25 micrograms topically for pain control as well as Percocet for breakthrough pain. Consultation placed to Dr. Calderón for further oncology management. CBC and CMP follow tomorrow to manage blood counts, renal function and electrolytes. At time of discharge medical care will return to primary care provider, Ace Dominguez. 07/17/17 Overall, Jd is feeling significantly better today - feels less chills, HR decreased, less pain to RUQ. Continue Zosyn for empiric antimicrobial coverage. CT chest/abdomen/pelvis revealed large complex right pleural effusion, numerous hepatic lesions most likely representing metastatic disease, though could also be hepatic abscesses, slight improvement of lung and mediastinal metastasis with slight worsening of retroperitoneal metastatic disease. CT guided liver biopsy scheduled for this afternoon at 1530 - exam and results pending. Wound culture showing early growth. Blood cultures pending. Continue to monitor and will adjust therapy accordingly. Continue on patient's chronic oxygen 2-4 liters. Continue pain control with home fentanyl patch 25 micrograms topically as well as Percocet for breakthrough pain. Dr. Calderón consulted for management of oncology needs. Appreciate his time and expertise. Maintain NPO status until following CT guided liver biopsy. WBC trending down (22.3). Hgb stable at 7.6 and asymptomatic. Continue to monitor with labs in AM. Biopsy completed - path pending. With continued concern for high risk infection requiring IV antibiotics, will change admission status to inpatient. Continue with Zosyn for antimicrobial coverage. Will decrease IVF to 75cc/hr. Diet advanced to regular after liver biopsy. Oral drive decrease, but patient feels is able to eat more now than previously at home. Plan - 07/18/17 Patient changed to inpatient status on 07/17/17. Slight increase in leukocytosis (WBC 23.1). Patient remains afebrile. Continue Zosyn for empiric antimicrobial coverage - day 2. CT guided liver biopsy done 07/17/17 - results pending. Wound culture revealed staph aureus with sensitivities pending. Blood cultures pending. Continue to monitor and will adjust therapy accordingly. Continue on patient's chronic oxygen 2-4 liters - baseline. Continue pain control with home fentanyl patch 25 micrograms topically as well as Percocet for breakthrough pain. Hgb stable at 7.8 and asymptomatic. Continue to monitor with labs in AM. Continue current and supportive care. Stage II coccyx ulceration evaluation by wound care who recommended - off loading weight as much as possible with increased activity as well as bathing well and then applying 3M advance skin protectant under his pannis once the skin is dry. Continue to monitor. Recheck labs in AM to monitor blood counts, electrolytes and renal function. 07/19/17 Liver lesions noted to be metastatic squamous cell CA per path report. Dr. Wise recommends Opdivo as salvage therapy. WBC increased to 53, though pt received Granix yesterday. Continue Zosyn, day # 3. Increasing symptoms of anemia and reports of a dark-colored stool with dark clots mixed with right red -- will type and cross x1 unit. Check INR and stool for occult blood. Increase fentanyl patch to home dose of 25 mcg. DC IVF and encouraged oral intake. Hypokalemia (3.3) - give KDur. Continue resp treatments - DuoNeb is particularly helpful. Plan 07/20/17 Liver lesions noted to be metastatic squamous cell CA per path report. Dr. Wise recommends Opdivo as salvage therapy. S/P Granix; WBC are high, but trending down. CRYSTAL chest wall- Continue Zosyn, day #4. BC NGTD. Anemia/Dark tarry stools- HGB is better post transfusion. INR is mildly elevated, but stable. FOB negative. Increased fentanyl patch to home dose of 25 mcg. Continue IR oxy. Will DC the percocet due to APAP/higher risk for liver toxicity. He is still not eating much- will adjust nutritional supplements per his preference. Offered Megace- hold off for now. Hypokalemia (3.4)- He is not tolerating the PO potassium. Replace IV as supplements are making him feel full. Edema/SOA- add scheduled Lasix. Could potentially addition of aldactone to help prevent potassium wasting. Continue resp treatments - DuoNeb. Follow periodic CXR. In regards to dysphagia- add Carafate Elixer and PPI IV to help decrease any concern for esophagitis or GERD. He is already on Nystatin swish and swallow, so fungal esophageal concerns should be covered. Did not appreciate significant fungal annie on oral exam. D/W Dr. Rudolph and with pt/. Questions answered. Discussed pain relief options. Patient understands Tylenol could be a problem for his liver. He is OK stopping Percocet. Because of his desire for longer relief, will try OxyContin. Patient had 5 Percocet 10s yesterday. Will start OxyContin at 15 bid.
[2017-07-20] MEDS: Oxycodone *IR* 5 MG TABLET PO PRN ×2 (13:59→19:27)
[2017-07-20] MEDS: PANTOPRAZOLE 40 MG INJECTION IVP SCH (14:25)
[2017-07-20] MEDS: POTASSIUM CHLORIDE INJ 10 MEQ in NS 100 ML IV SCH ×5 (14:25→17:28)
[2017-07-20] MEDS: TBO-FILGRASTIM 480mcg/0.8ml INJECTION SQ SCH (17:16)
[2017-07-20] MEDS: FUROSEMIDE 20 MG/2 ML INJECTION IVP SCH (17:27)
[2017-07-20] MEDS: SUCRALFATE 1gm/10ml ORAL LIQUID PO SCH ×2 (17:28→20:43)
[2017-07-20] MEDS: SERTRALINE 50 MG TABLET PO SCH (20:44)
[2017-07-21] MEDS: Oxycodone *IR* 5 MG TABLET PO PRN ×3 (01:45→18:26)
[2017-07-21] MEDS: PIPERACILLIN/TAZOBACTAM 3.375 GM in NS 100 ML IV SCH ×4 (01:46→21:27)
[2017-07-21] MEDS: ONDANSETRON 4 MG TABLET PO SCH ×4 (02:34→20:47)
[2017-07-21] MEDS ORDERED: ALTEPLASE (Cathflo*) 2mg INJECTION IV ONE (05:11)
[2017-07-21] MEDS: NOZIN NASAL SWAB NAS SCH ×4 (05:13→21:36)
[2017-07-21] MEDS: SUCRALFATE 1gm/10ml ORAL LIQUID PO SCH ×4 (05:59→20:46)
[2017-07-21] MEDS: ALBUTEROL/IPRATROPIUM 2.5mg-0.5mg/3ml NEB AEROSOL SCH ×4 (07:19→19:16)
[2017-07-21] MEDS: CYANOCOBALAMIN (B-12) 500mcg TABLET PO SCH (09:02)
[2017-07-21] MEDS: TOPIRAMATE 25 MG TABLET PO SCH ×2 (09:02→20:48)
[2017-07-21] MEDS: NYSTATIN 500,000 units/5 ml ORAL LIQUID PO SCH ×3 (09:02→20:47)
[2017-07-21] MEDS: FUROSEMIDE 20 MG/2 ML INJECTION IVP SCH ×2 (09:02→18:17)
[2017-07-21] MEDS: PANTOPRAZOLE 40 MG INJECTION IVP SCH (09:02)
[2017-07-21] MEDS: ALLOPURINOL 100 MG TABLET PO SCH (09:03)
--- NOTE | 2017-07-21 10:23 | Progress Note ---
- Date 07/21/17 Subjective: Jd is seen today with his Jenny at the bedside. His breathing is about the same as he is dyspneic with any movement/exertion. He continues on baseline 3 liters. Reports right upper abdomen pain is better controlled OxyContin and Roxicodone IR. We discussed his diminished appetite. is concerned about increased depression. Objective Vital signs: Temperature 98.4 F 07/21/17 07:38 Pulse Rate 107 H 07/21/17 07:38 Respiratory Rate 22 07/21/17 07:38 Blood Pressure 104/66 07/21/17 07:38 Pulse Oximetry 96 07/21/17 07:38 Height/Weight/BMI: Height 1.78 m Weight 133 kg Body Mass Index 42.0 - Constitutional Present: mild distress, well nourished, well developed - Routine HEENT Exam Eye: Present: EOMI ENT: Present: mucous membranes moist, dentition normal - Routine Respiratory Exam Present: wheezes, crackles - Routine Cardiovascular Exam Present: RRR, S1, S2. Absent: murmur - Routine Abdominal Exam Present: soft, tenderness (RUQ), non distended. Absent: normoactive bowel sounds (hypoactive) - Routine Extremities Exam Present: normal capillary refill - Routine Skin Exam Present: intact, dry, warm - Routine Neurological Exam Present: alert, oriented X3, CN II-XII intact, moving all extremities - Routine Lymphatic Exam Lymphatic: Absent: adenopathy - Routine Psychiatric Exam Present: normal affect, cooperative Results - Labs CBC & Chem 7: 07/21/17 04:13 07/21/17 04:13 Microbiology Results: Microbiology 07/16/17 15:36 Chest, Right Gram Stain - Final 07/16/17 15:36 Chest, Right Superficial Wound Culture - Final Staphylococcus aureus Assessment and Plan (1) Leukocytosis Current visit: Yes Status: Acute (2) Liver lesion Current visit: Yes Status: Acute Assessment and Plan: Impression Metastatic squamous cell carcinoma - Liver Lesions Leukocytosis-present on admission, white count 25 (Has been on Bactrim since ) 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 Plan Received Granix 07/18/17- WBC trending down CRYSTAL chest wall- Continue Zosyn, day #5. Fentanyl patch 25 mcg. Continue IR oxy and Oxycodone. Will increase Zoloft to 200mg daily given situational depression which is understandable We discussed possibly trying Remeron at HS to help with appetite stimulation; patient agreeable. Will start 7.5mg at night. Continue to follow labs. Hgb stable at 8.1. asking about possible transfusion. Will leave this decision up to Oncology. DVT Prophylaxis: SCD's Resuscitation Status: Do Not Resuscitate - Time spent with patient Time with patient PN: 25 minutes - Physician Narrative Physician: Wilder Curtis MD Narrative: Date: 07/21/17 Time: 1754 Have independently interviewed and examined pt. Chart reviewed. Case discussed with Dr Diana and my FILM PROCESSING SHIFT SUPERVISOR. Care plan developed with my supervision; agree with above. Doing fair today. Pain better, but pain meds do make him more sleepy. Still alert enough to be able to play a board game which requires thought! Appetite decreased, bowels moving. SOA at rest and with activities. Still cough. Lungs: decreased right breath sounds. CV: regular MSE: awake alert Gen: appears weak and tires, but interacts well. Plan: Continue Zosyn for coverage. Will add Remeron at night to help appetite and mood. Increase Zoloft. Monitor lab. Hospital Course Summary Disclaimer: The visit summary below is not to be considered part of the above Progress Note. Hospital Course: 07/16/14 Admit patient to outpatient observation under the care of Dr. Curtis for liver lesions, leukocytosis. On admission will repeat CBC, chemistry panel, venous lactate, pro calcitonin, urinalysis and blood cultures (one peripheral, one Port-A-Cath). Initiate IV Zosyn for antimicrobial coverage. Wound culture obtained from drainage of right chest wall incision. Given recent chest pain. We will obtain a 12-lead EKG. For further evaluation of the liver lesions. Will obtain CT scan of the abdomen , pelvis and chest with contrast. Lesions could be related to infectious abscess versus metastatic disease. Will continue on patient's chronic oxygen 2-4 liters. Patient is chronically utilizing fentanyl patch 25 micrograms topically for pain control as well as Percocet for breakthrough pain. Consultation placed to Dr. Calderón for further oncology management. CBC and CMP follow tomorrow to manage blood counts, renal function and electrolytes. At time of discharge medical care will return to primary care provider, Ace Dominguez. 07/17/17 Overall, Jd is feeling significantly better today - feels less chills, HR decreased, less pain to RUQ. Continue Zosyn for empiric antimicrobial coverage. CT chest/abdomen/pelvis revealed large complex right pleural effusion, numerous hepatic lesions most likely representing metastatic disease, though could also be hepatic abscesses, slight improvement of lung and mediastinal metastasis with slight worsening of retroperitoneal metastatic disease. CT guided liver biopsy scheduled for this afternoon at 1530 - exam and results pending. Wound culture showing early growth. Blood cultures pending. Continue to monitor and will adjust therapy accordingly. Continue on patient's chronic oxygen 2-4 liters. Continue pain control with home fentanyl patch 25 micrograms topically as well as Percocet for breakthrough pain. Dr. Calderón consulted for management of oncology needs. Appreciate his time and expertise. Maintain NPO status until following CT guided liver biopsy. WBC trending down (22.3). Hgb stable at 7.6 and asymptomatic. Continue to monitor with labs in AM. Biopsy completed - path pending. With continued concern for high risk infection requiring IV antibiotics, will change admission status to inpatient. Continue with Zosyn for antimicrobial coverage. Will decrease IVF to 75cc/hr. Diet advanced to regular after liver biopsy. Oral drive decrease, but patient feels is able to eat more now than previously at home. 07/18/17 Slight increase in leukocytosis (WBC 23.1). Patient remains afebrile. Continue Zosyn for empiric antimicrobial coverage - day 2. CT guided liver biopsy done 07/17/17 - results pending. Wound culture revealed staph aureus with sensitivities pending. Blood cultures pending. Continue to monitor and will adjust therapy accordingly. Continue on patient's chronic oxygen 2-4 liters - baseline. Continue pain control with home fentanyl patch 25 micrograms topically as well as Percocet for breakthrough pain. Hgb stable at 7.8 and asymptomatic. Continue to monitor with labs in AM. Continue current and supportive care. Stage II coccyx ulceration evaluation by wound care who recommended - off loading weight as much as possible with increased activity as well as bathing well and then applying 3M advance skin protectant under his pannus once the skin is dry. Continue to monitor. Recheck labs in AM to monitor blood counts, electrolytes and renal function. 07/19/17 Liver lesions noted to be metastatic squamous cell CA per path report. Dr. Wise recommends Opdivo as salvage therapy. WBC increased to 53, though pt received Granix yesterday. Continue Zosyn, day # 3. Increasing symptoms of anemia and reports of a dark-colored stool with dark clots mixed with right red -- will type and cross x1 unit. Check INR and stool for occult blood. Increase fentanyl patch to home dose of 25 mcg. DC IVF and encouraged oral intake. Hypokalemia (3.3) - give KDur. Continue resp treatments - DuoNeb is particularly helpful. Plan 07/20/17 Liver lesions noted to be metastatic squamous cell CA per path report. Dr. Wise recommends Opdivo as salvage therapy. S/P Granix; WBC are high, but trending down. CRYSTAL chest wall- Continue Zosyn, day #4. BC NGTD. Anemia/Dark tarry stools- HGB is better post transfusion. INR is mildly elevated, but stable. FOB negative. Increased fentanyl patch to home dose of 25 mcg. Continue IR oxy. Will DC the percocet due to APAP/higher risk for liver toxicity. He is still not eating much- will adjust nutritional supplements per his preference. Offered Megace- hold off for now. Hypokalemia (3.4)- He is not tolerating the PO potassium. Replace IV as supplements are making him feel full. Edema/SOA- add scheduled Lasix. Could potentially addition of aldactone to help prevent potassium wasting. Continue resp treatments - DuoNeb. Follow periodic CXR. In regards to dysphagia- add Carafate Elixer and PPI IV to help decrease any concern for esophagitis or GERD. He is already on Nystatin swish and swallow, so fungal esophageal concerns should be covered. Did not appreciate significant fungal annie on oral exam. Discussed pain relief options. Patient understands Tylenol could be a problem for his liver. He is OK stopping Percocet. Because of his desire for longer relief, will try OxyContin. Patient had 5 Percocet 10s yesterday. Will start OxyContin at 15 bid. 07/21/17 Received Granix 07/18/17- WBC trending down CRYSTAL chest wall- Continue Zosyn, day #5. Fentanyl patch 25 mcg. Continue IR oxy and Oxycodone. Will increase Zoloft to 200mg daily given situational depression which is understandable. We discussed possibly trying Remeron at HS to help with appetite stimulation; patient agreeable. Will start 7.5mg at night. Continue to follow labs. Hgb stable at 8.1. asking about possible transfusion. Will leave this decision up to Oncology.
--- NOTE | 2017-07-21 12:34 | Progress Note ---
<Mya Carty - Last Filed: 07/21/17 12:45> Oncology Subjective Alert and oriented. Continues with shortness of air/cough, denies worsening symptoms. Continues with intermittent right upper quadrant pain, denies pain currently. States is eating and drinking normally. No difficulty voiding. Denies diarrhea or constipation. Normal bowel movement today General: No fever, no night sweats Eyes: No redness, no pain, no diplopia ENT: No mouth sores, no trouble swallowing Cardiac: No chest pain no palpitations Pulmonary: + cough, + shortness of breath, no wheezing Abdomen: Intermittent right upper quadrant pain, no nausea ,vomiting, no diarrhea, or constipation : No urgency, frequency, dysuria, or hematuria Musculoskeletal: No arthritis, no myalgias Neurological: No headaches, no focal weakness Skin: Multiple wounds/decubitus, verbalizes "getting better." Psychiatric: No anxiety, no depression Exam Vital signs: Temperature 98.4 F 07/21/17 07:38 Pulse Rate 107 H 07/21/17 07:38 Respiratory Rate 22 07/21/17 10:32 Blood Pressure 104/66 07/21/17 07:38 Pulse Oximetry 96 07/21/17 07:38 - Constitutional no acute distress, obese - Routine HEENT Exam Head: Present: normocephalic Eye: Present: EOMI, conjunctivae pink ENT: Present: mucous membranes moist - Routine Neck Exam Present: supple. Absent: lymphadenopathy - Routine Respiratory Exam Present: decreased breath sounds. Absent: wheezes, crackles - Routine Cardiovascular Exam Present: RRR, no murmur - Routine Abdominal Exam Present: soft, normoactive bowel sounds, tenderness (mild tenderness with palpation right upper quadrant.) - Routine Extremities Exam Present: edema (trace bilateral lower extremities; improved.) - Routine Back/Spine/Pelvis Exam Back/Spine: Absent: vertebral tenderness - Routine Skin Exam Present: dry, warm, alopecia - Routine Neurological Exam Present: alert, oriented X3 - Routine Psychiatric Exam Present: normal affect, cooperative Oncology Results - Labs CBC & Chem 7: 07/21/17 04:13 07/21/17 04:13 Labs: Short CBC 07/21/17 Range/Units 04:13 WBC 27.9 H* (4.5-11.0) T/MM3 Hgb 8.1 L (13.5-17.5) GM/DL Hct 26.8 L (41-53) % Plt Count 303 (130-400) T/MM3 BMP 07/21/17 04:13 Sodium 135 Potassium 3.5 L Chloride 95 L Carbon Dioxide 32 H BUN 4.0 L Creatinine 0.4 L Glucose 110 Calcium 9.0 Liver Function 07/21/17 Range/Units 04:13 Total Bilirubin 0.60 (0.20-1.30) MG/DL AST 48 (17-59) U/L ALT 23 (1-50) U/L Alkaline Phosphatase 192 H (38-126) U/L Albumin 2.8 L (3.5-5.0) g/dL Assessment and Plan Assessment and Plan: Assessment 1. 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 The source is either the head and neck or penile cancer. Current treatment is carboplatin/, last chemotherapy received on 07/16/17. 5 FU and Gemzar were held secondary to right upper quadrant pain and noted new liver lesions. Progressive, with liver metastasis; Dr. Calderón discussed palliative Opdivo. 2. 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 (The first 2 cycles of chemotherapy were cisplatin. The third cycle was carboplatin and Taxol due to cisplatin induced ototoxicity). 3. 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 4. Symptomatic right pleural effusion most likely malignant. Had pleuryx catheter; catheter removed last week because catheter became infected. Healing nicely. 5. Multiple areas of skin breakdown: Bilateral inguinal/groin; 1 cm open area right inguinal, pink wound bed, minimal surrounding erythema. Linear scar where had prior inguinal lymph node dissection erythematous entire length of scar, but no open areas. Small less than 1 cm rectal decubitus. Improving. 6. Bilateral lower extremity lymphedema, improved with physical therapy. 7. History of cisplatin-induced ototoxicity. 8. Right pleural effusion most likely malignant status post thoracocentesis. 9. Bone metastasis and hypercalcemia of malignancy s/p zometa. Continue supportive care, antibiotics. Patient anxious to begin Opdivo.Verbalizes discouragement related to worsening disease; " But I want to fight." Denies depression currently; denies desire to hurt self, "But I have thought about it.." Encouraged adequate nutrition/oral fluids. Encouraged to be up and about in room, sit in chair for meals. - Time Spent With Patient Total time spent is greater than 50% in coordination of care (as documented) at patient's floor/unit and/or counseling patient: 25 - 35 minutes <Yasmany Walker - Last Filed: 07/21/17 16:50> Exam Vital signs: Temperature 96.6 F L 07/21/17 15:26 Pulse Rate 98 07/21/17 15:26 Respiratory Rate 20 07/21/17 15:26 Blood Pressure 105/72 07/21/17 15:26 Pulse Oximetry 99 07/21/17 15:26 Oncology Results - Labs CBC & Chem 7: 07/21/17 04:13 07/21/17 04:13 Labs: Short CBC 07/21/17 Range/Units 04:13 WBC 27.9 H* (4.5-11.0) T/MM3 Hgb 8.1 L (13.5-17.5) GM/DL Hct 26.8 L (41-53) % Plt Count 303 (130-400) T/MM3 BMP 07/21/17 04:13 Sodium 135 Potassium 3.5 L Chloride 95 L Carbon Dioxide 32 H BUN 4.0 L Creatinine 0.4 L Glucose 110 Calcium 9.0 Liver Function 07/21/17 Range/Units 04:13 Total Bilirubin 0.60 (0.20-1.30) MG/DL AST 48 (17-59) U/L ALT 23 (1-50) U/L Alkaline Phosphatase 192 H (38-126) U/L Albumin 2.8 L (3.5-5.0) g/dL Assessment and Plan Assessment and Plan: Patient examined, chart reviewed, agree with documentation by Pam Carty. Liver biopsy showed metastatic squamous cell carcinoma consistent with metastatic disease. Hemoglobin 8.1 and short of breath with any type of exertion. He would benefit from the symptomatic treatment of his anemia with transfusion. In December 2016 he had a low iron saturation therefore think you may be having some component of iron deficiency. Will go ahead and repeat anemia workup and transfuse with 2 units packed red blood cells in the morning. Our office is currently working on insurance approval for opdivo. Home when stable. Laboratory Tests 06/07/17 07/16/17 07/16/17 04:49 14:40 14:40 WBC 6.9 25.1 H* Hgb 9.5 L 7.7 L Hct 31.1 L Plt Count 226 381 Neutrophils % (Manual) 98.0 H INR APTT Creatinine 0.6 L Glucose 117 H Total Bilirubin Alkaline Phosphatase 171 H C-Reactive Protein 227.3 H Globulin 4.2 H Urine Bacteria 07/17/17 07/17/17 07/17/17 04:39 04:39 12:29 WBC 22.3 H Hgb 7.1 L Hct Plt Count 327 Neutrophils % (Manual) 95.0 H INR 1.28 H APTT 30.0 Creatinine 0.5 L Glucose 117 H Total Bilirubin Alkaline Phosphatase 147 H C-Reactive Protein 184.3 H Globulin 3.9 H Urine Bacteria 07/18/17 07/18/17 07/19/17 03:52 11:31 04:36 WBC Hgb 7.8 L 7.2 L Hct Plt Count Neutrophils % (Manual) INR APTT Creatinine Glucose Total Bilirubin Alkaline Phosphatase C-Reactive Protein Globulin Urine Bacteria 4+ H 07/19/17 07/20/17 07/21/17 04:36 04:14 04:13 WBC Hgb 8.1 L Hct Plt Count Neutrophils % (Manual) INR APTT Creatinine Glucose Total Bilirubin 0.60 Alkaline Phosphatase 192 H C-Reactive Protein 198.5 H 244.9 H Globulin Urine Bacteria 07/21/17 04:13 WBC 27.9 H* Hgb 8.1 L Hct Plt Count 303 Neutrophils % (Manual) 94.0 H INR APTT Creatinine Glucose Total Bilirubin Alkaline Phosphatase C-Reactive Protein Globulin Urine Bacteria - Time Spent With Patient Total time spent is greater than 50% in coordination of care (as documented) at patient's floor/unit and/or counseling patient:
[2017-07-21] MEDS: SENNA + DOCUSATE TABLET PO SCH ×2 (15:30→20:48)
[2017-07-21] MEDS: SALINE FLUSH 10ml SYRINGE IV PRN ×3 (15:31→21:27)
[2017-07-21] MEDS ORDERED: NS FLUSH BAG 500ml IV PRN ×4 (16:43→19:41)
[2017-07-21] MEDS: TBO-FILGRASTIM 480mcg/0.8ml INJECTION SQ SCH (17:28)
[2017-07-21] MEDS: MIRTAZAPINE 15 MG TABLET PO SCH (20:47)
[2017-07-21] MEDS: SERTRALINE 100 MG TABLET PO SCH (20:48)
[2017-07-22] MEDS: Oxycodone *IR* 5 MG TABLET PO PRN ×3 (01:45→14:19)
[2017-07-22] MEDS: ONDANSETRON 4 MG TABLET PO SCH ×4 (03:11→20:06)
[2017-07-22] MEDS: PIPERACILLIN/TAZOBACTAM 3.375 GM in NS 100 ML IV SCH ×4 (03:11→20:04)
[2017-07-22] MEDS: NOZIN NASAL SWAB NAS SCH ×3 (06:04→22:27)
[2017-07-22] MEDS: SUCRALFATE 1gm/10ml ORAL LIQUID PO SCH ×4 (06:05→20:05)
[2017-07-22] MEDS: ALBUTEROL/IPRATROPIUM 2.5mg-0.5mg/3ml NEB AEROSOL SCH ×4 (06:42→19:39)
[2017-07-22] MEDS: SERTRALINE 100 MG TABLET PO SCH (09:36)
[2017-07-22] MEDS: ALLOPURINOL 100 MG TABLET PO SCH (09:36)
[2017-07-22] MEDS: CYANOCOBALAMIN (B-12) 500mcg TABLET PO SCH (09:36)
[2017-07-22] MEDS: TOPIRAMATE 25 MG TABLET PO SCH ×2 (09:36→20:05)
[2017-07-22] MEDS: SENNA + DOCUSATE TABLET PO SCH ×2 (09:36→20:05)
[2017-07-22] MEDS: NYSTATIN 500,000 units/5 ml ORAL LIQUID PO SCH ×3 (09:36→20:06)
[2017-07-22] MEDS: FUROSEMIDE 20 MG/2 ML INJECTION IVP SCH ×2 (09:37→18:22)
[2017-07-22] MEDS: PANTOPRAZOLE 40 MG INJECTION IVP SCH (09:37)
[2017-07-22] MEDS: NS FLUSH BAG 500ml IV PRN ×2 (09:41→13:51)
--- NOTE | 2017-07-22 11:54 | Progress Note ---
- Date 07/22/17 Subjective: The Sunni Schwartz morning in follow-up. He is on 3 liters of oxygen by nasal cannula, and he has to Even at rest, breathing 22-24 times a minute. He continues to report pain in the right upper quadrant of his abdomen and chest which has been ongoing secondary to his liver metastasis. Does note pain medication change agent the last couple days, seems to be helping more. He did sleep better on Remeron last night and was encouraged by his appetite increased this morning, he ate a banana. Objective Vital signs: Temperature 98.5 F 07/22/17 07:00 Pulse Rate 111 H 07/22/17 07:00 Respiratory Rate 20 07/22/17 11:16 Blood Pressure 113/80 07/22/17 07:00 Pulse Oximetry 94 07/22/17 11:16 Height/Weight/BMI: Height 1.78 m Weight 132.7 kg Body Mass Index 42.0 - Constitutional Present: mild distress, well nourished, well developed - Routine HEENT Exam Eye: Present: EOMI ENT: Present: mucous membranes moist, dentition normal - Routine Respiratory Exam Present: wheezes, diminished air movement - Routine Cardiovascular Exam Present: RRR, S1, S2. Absent: murmur - Routine Abdominal Exam Present: soft, normoactive bowel sounds, tenderness (RUQ), non distended - Routine Extremities Exam Present: normal capillary refill - Routine Back/Spine/Pelvis Exam Back/Spine: Present: full ROM - Routine Skin Exam Present: intact, dry, warm - Routine Neurological Exam Present: alert, oriented X3, CN II-XII intact, moving all extremities - Routine Lymphatic Exam Lymphatic: Absent: adenopathy - Routine Psychiatric Exam Present: normal affect, cooperative Results - Labs CBC & Chem 7: 07/22/17 07:20 07/22/17 07:20 Microbiology Results: Microbiology 07/16/17 14:44 Port/Picc Gram Stain - Final Not performed 07/16/17 14:44 Port/Picc Blood Culture - Final No Growth After 5 Days 07/16/17 14:39 Port/Picc Gram Stain - Final Not performed 07/16/17 14:39 Port/Picc Blood Culture - Final No Growth After 5 Days 07/16/17 15:36 Chest, Right Gram Stain - Final 07/16/17 15:36 Chest, Right Superficial Wound Culture - Final Staphylococcus aureus Assessment and Plan (1) Liver lesion Current visit: Yes Status: Acute (2) Leukocytosis Current visit: Yes Status: Acute Assessment and Plan: Impression Metastatic squamous cell carcinoma - Liver Lesions Leukocytosis-present on admission, white count 25 (Has been on Bactrim since ) 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 Plan Received Granix 07/18/17- WBC trending down - 21 CRYSTAL chest wall- Continue Zosyn, day #6. As per oncology. Will transfuse 2 units of packed red blood cells today Continue with increased dose of Zoloft plus Remeron to help with depression and sleep as well as appetite. To need to work on pain control Continue to follow routine labs, mild hypokalemia one-time dose of oral potassium supplementation. Given Bill is hopeful for discharge in the near future Case discussed with attending DVT Prophylaxis: SCD's Resuscitation Status: Do Not Resuscitate - Time spent with patient Time with patient PN: 25 minutes - Physician Narrative Physician: Wilder Curtis MD Narrative: Date: 07/22/17 Time: 1724 Have independently interviewed and examined pt. Chart reviewed. Case discussed with CM and my BOILER REPAIRMAN. Care plan developed with my supervision; agree with above. Doing fair. Tolerating blood transfusion-feels helping his energy some. Breathing still short. Pain problematic-notes RUQ pain. Oxycodone helping, but wonders about trying 15mg to help. No nausea, but very minimal appetite. Lungs: decreased right breath sounds. CV: regular AB: soft nt BS decreased MSE: awake alert, psychomotor slowing Gen: looks weak and tired. Plan: Continue with Zosyn. Will increase Oxycodone to 10-15mg every 4 hours. Check HGB post transfusion. Continue with supportive care. Hospital Course Summary Disclaimer: The visit summary below is not to be considered part of the above Progress Note. Hospital Course: 07/16/14 Admit patient to outpatient observation under the care of Dr. Curtis for liver lesions, leukocytosis. On admission will repeat CBC, chemistry panel, venous lactate, pro calcitonin, urinalysis and blood cultures (one peripheral, one Port-A-Cath). Initiate IV Zosyn for antimicrobial coverage. Wound culture obtained from drainage of right chest wall incision. Given recent chest pain. We will obtain a 12-lead EKG. For further evaluation of the liver lesions. Will obtain CT scan of the abdomen , pelvis and chest with contrast. Lesions could be related to infectious abscess versus metastatic disease. Will continue on patient's chronic oxygen 2-4 liters. Patient is chronically utilizing fentanyl patch 25 micrograms topically for pain control as well as Percocet for breakthrough pain. Consultation placed to Dr. Calderón for further oncology management. CBC and CMP follow tomorrow to manage blood counts, renal function and electrolytes. At time of discharge medical care will return to primary care provider, Ace Dominguez. 07/17/17 Overall, Bill is feeling significantly better today - feels less chills, HR decreased, less pain to RUQ. Continue Zosyn for empiric antimicrobial coverage. CT chest/abdomen/pelvis revealed large complex right pleural effusion, numerous hepatic lesions most likely representing metastatic disease, though could also be hepatic abscesses, slight improvement of lung and mediastinal metastasis with slight worsening of retroperitoneal metastatic disease. CT guided liver biopsy scheduled for this afternoon at 1530 - exam and results pending. Wound culture showing early growth. Blood cultures pending. Continue to monitor and will adjust therapy accordingly. Continue on patient's chronic oxygen 2-4 liters. Continue pain control with home fentanyl patch 25 micrograms topically as well as Percocet for breakthrough pain. Dr. Calderón consulted for management of oncology needs. Appreciate his time and expertise. Maintain NPO status until following CT guided liver biopsy. WBC trending down (22.3). Hgb stable at 7.6 and asymptomatic. Continue to monitor with labs in AM. Biopsy completed - path pending. With continued concern for high risk infection requiring IV antibiotics, will change admission status to inpatient. Continue with Zosyn for antimicrobial coverage. Will decrease IVF to 75cc/hr. Diet advanced to regular after liver biopsy. Oral drive decrease, but patient feels is able to eat more now than previously at home. 07/18/17 Slight increase in leukocytosis (WBC 23.1). Patient remains afebrile. Continue Zosyn for empiric antimicrobial coverage - day 2. CT guided liver biopsy done 07/17/17 - results pending. Wound culture revealed staph aureus with sensitivities pending. Blood cultures pending. Continue to monitor and will adjust therapy accordingly. Continue on patient's chronic oxygen 2-4 liters - baseline. Continue pain control with home fentanyl patch 25 micrograms topically as well as Percocet for breakthrough pain. Hgb stable at 7.8 and asymptomatic. Continue to monitor with labs in AM. Continue current and supportive care. Stage II coccyx ulceration evaluation by wound care who recommended - off loading weight as much as possible with increased activity as well as bathing well and then applying 3M advance skin protectant under his pannus once the skin is dry. Continue to monitor. Recheck labs in AM to monitor blood counts, electrolytes and renal function. 07/19/17 Liver lesions noted to be metastatic squamous cell CA per path report. Dr. Wise recommends Opdivo as salvage therapy. WBC increased to 53, though pt received Granix yesterday. Continue Zosyn, day # 3. Increasing symptoms of anemia and reports of a dark-colored stool with dark clots mixed with right red -- will type and cross x1 unit. Check INR and stool for occult blood. Increase fentanyl patch to home dose of 25 mcg. DC IVF and encouraged oral intake. Hypokalemia (3.3) - give KDur. Continue resp treatments - DuoNeb is particularly helpful. 07/20/17 Liver lesions noted to be metastatic squamous cell CA per path report. Dr. Wise recommends Opdivo as salvage therapy. S/P Granix; WBC are high, but trending down. CRYSTAL chest wall- Continue Zosyn, day #4. BC NGTD. Anemia/Dark tarry stools- HGB is better post transfusion. INR is mildly elevated, but stable. FOB negative. Increased fentanyl patch to home dose of 25 mcg. Continue IR oxy. Will DC the percocet due to APAP/higher risk for liver toxicity. He is still not eating much- will adjust nutritional supplements per his preference. Offered Megace- hold off for now. Hypokalemia (3.4)- He is not tolerating the PO potassium. Replace IV as supplements are making him feel full. Edema/SOA- add scheduled Lasix. Could potentially addition of aldactone to help prevent potassium wasting. Continue resp treatments - DuoNeb. Follow periodic CXR. In regards to dysphagia- add Carafate Elixer and PPI IV to help decrease any concern for esophagitis or GERD. He is already on Nystatin swish and swallow, so fungal esophageal concerns should be covered. Did not appreciate significant fungal annie on oral exam. Discussed pain relief options. Patient understands Tylenol could be a problem for his liver. He is OK stopping Percocet. Because of his desire for longer relief, will try OxyContin. Patient had 5 Percocet 10s yesterday. Will start OxyContin at 15 bid. 07/21/17 Received Granix 07/18/17- WBC trending down. CRYSTAL chest wall- Continue Zosyn, day #5. Fentanyl patch 25 mcg. Continue IR oxy and Oxycodone. Will increase Zoloft to 200mg daily given situational depression which is understandable. We discussed possibly trying Remeron at HS to help with appetite stimulation; patient agreeable. Will start 7.5mg at night. Continue to follow labs. Hgb stable at 8.1. asking about possible transfusion. Will leave this decision up to Oncology. 07/22/17 Received Granix 07/18/17- WBC trending down - 21 CRYSTAL chest wall- Continue Zosyn, day #6. As per oncology. Will transfuse 2 units of packed red blood cells today. Continue with increased dose of Zoloft plus Remeron to help with depression and sleep as well as appetite. Need to work on pain control - Will increase Oxycodone to 10-15mg every 4 hours. Continue to follow routine labs, mild hypokalemia one-time dose of oral potassium supplementation. Bill is hopeful for discharge in the near future.
--- NOTE | 2017-07-22 12:54 | Progress Note ---
<Mya Carty - Last Filed: 07/22/17 13:26> Oncology Subjective Sleeping with C Pap. Awakens easily. Continues to have shortness of air with minimal exertion, weakness; "maybe a little better today." Denies pain currently. No nausea or vomiting. Continues with anorexia, but feels that may be improving slowly. No diarrhea or constipation. No dysuria or hematuria. Wounds improved. General: No fever, no night sweats Eyes: No redness, no pain, no diplopia ENT: No mouth sores, no trouble swallowing Cardiac: No chest pain no palpitations Pulmonary: + cough, +shortness of breath, no wheezing Abdomen: + pain, no nausea vomiting, no diarrhea or constipation : No urgency, frequency, dysuria, or hematuria Musculoskeletal: No arthritis, no myalgias Neurological: No headaches, no focal weakness Skin: Multiple skin wounds, all improving. Psychiatric: No anxiety, no depression Exam Vital signs: Temperature 98.5 F 07/22/17 07:00 Pulse Rate 111 H 07/22/17 07:00 Respiratory Rate 20 07/22/17 11:16 Blood Pressure 113/80 07/22/17 07:00 Pulse Oximetry 94 07/22/17 11:16 - Constitutional no acute distress, obese - Routine HEENT Exam Head: Present: normocephalic Eye: Present: EOMI ENT: Present: mucous membranes moist - Routine Neck Exam Present: supple. Absent: lymphadenopathy - Routine Respiratory Exam Present: decreased breath sounds, wheezes - Routine Cardiovascular Exam Present: RRR, no murmur - Routine Abdominal Exam Present: soft, tenderness (with any palpation.) - Routine Extremities Exam Present: no edema - Routine Skin Exam Present: dry, pallor, wounds (right anterior chest wall almost healed. Improved right inguinal and coccyx.) - Routine Neurological Exam Present: alert, oriented X3 - Routine Psychiatric Exam Present: normal affect, cooperative Oncology Results - Labs CBC & Chem 7: 07/22/17 07:20 07/22/17 07:20 Labs: Short CBC 07/22/17 Range/Units 07:20 WBC 21.0 H (4.5-11.0) T/MM3 Hgb 8.4 L (13.5-17.5) GM/DL Hct 28.1 L (41-53) % Plt Count 284 (130-400) T/MM3 [facility] 07/22/17 07:20 Sodium 136 Potassium 3.4 L Chloride 93 L Carbon Dioxide 36 H BUN 4.0 L Creatinine 0.4 L Glucose 116 H Calcium 9.6 Assessment and Plan Assessment and Plan: 1. 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 The source is either the head and neck or penile cancer. Current treatment is carboplatin/, last chemotherapy received on 07/16/17. 5 FU and Gemzar were held secondary to right upper quadrant pain and noted new liver lesions. Progressive, with liver metastasis; Dr. Calderón discussed palliative Opdivo. 2. 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 (The first 2 cycles of chemotherapy were cisplatin. The third cycle was carboplatin and Taxol due to cisplatin induced ototoxicity). 3. 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 4. Symptomatic right pleural effusion most likely malignant. Had pleuryx catheter; catheter removed last week because catheter became infected. Healing nicely. 5. Multiple areas of skin breakdown: Bilateral inguinal/groin; 1 cm open area right inguinal, pink wound bed, minimal surrounding erythema. Linear scar where had prior inguinal lymph node dissection erythematous entire length of scar, but no open areas. Small less than 1 cm rectal decubitus. Improving. 6. Bilateral lower extremity lymphedema, improved with physical therapy. 7. History of cisplatin-induced ototoxicity. 8. Right pleural effusion most likely malignant status post thoracocentesis. 9. Bone metastasis and hypercalcemia of malignancy s/p zometa. 10. Anemia, persists. Slightly improved, but symptomatic with weakness, shortness of air with minimal exertion; to receive 2 units packed RBCs today. Plan Continue supportive care. Anemia workup results pending; will follow-up as outpatient. Oncology okay with dismissal; working on approval for initiation of treatment with Opdivo. - Time Spent With Patient Total time spent is greater than 50% in coordination of care (as documented) at patient's floor/unit and/or counseling patient: less than 15 minutes <Hill Calderón - Last Filed: 07/23/17 14:27> Exam Vital signs: Temperature 98.6 F 07/23/17 08:00 Pulse Rate 100 07/23/17 08:00 Respiratory Rate 16 07/23/17 08:00 Blood Pressure 102/66 07/23/17 08:00 Pulse Oximetry 98 07/23/17 08:00 Oncology Results - Labs CBC & Chem 7: 07/23/17 04:27 07/23/17 04:27 Labs: Short CBC 07/22/17 07/23/17 Range/Units 17:39 04:27 WBC 46.5 H* D (4.5-11.0) T/MM3 Hgb 9.6 L D 9.6 L (13.5-17.5) GM/DL Hct 31.0 L (41-53) % Plt Count 247 (130-400) T/MM3 BMP 07/23/17 04:27 Sodium 136 Potassium 3.3 L Chloride 92 L Carbon Dioxide 36 H BUN 5.0 L Creatinine 0.5 L Glucose 93 Calcium 9.6 Assessment and Plan Assessment and Plan: I have seen and examined patient with Pam Carty APRN and I developed the plan of care. He is scheduled for follow up as outpatient for possible Opdivo. - Time Spent With Patient Total time spent is greater than 50% in coordination of care (as documented) at patient's floor/unit and/or counseling patient:
[2017-07-22] MEDS: Oxycodone *IR* 15 MG TABLET PO PRN (18:21)
[2017-07-22] MEDS: TBO-FILGRASTIM 480mcg/0.8ml INJECTION SQ SCH (18:29)
[2017-07-22] MEDS ORDERED: LORATADINE 10 MG TABLET PO ONE (18:45)
[2017-07-22] MEDS: MIRTAZAPINE 15 MG TABLET PO SCH (20:06)
[2017-07-23] MEDS: Oxycodone *IR* 15 MG TABLET PO PRN ×2 (00:01→07:49)
[2017-07-23] MEDS: PIPERACILLIN/TAZOBACTAM 3.375 GM in NS 100 ML IV SCH ×2 (02:41→07:50)
[2017-07-23] MEDS: ONDANSETRON 4 MG TABLET PO SCH ×2 (02:41→08:40)
[2017-07-23] MEDS: SALINE FLUSH 10ml SYRINGE IV PRN ×2 (04:28→11:35)
[2017-07-23] MEDS: SUCRALFATE 1gm/10ml ORAL LIQUID PO SCH (06:33)
[2017-07-23] MEDS: NOZIN NASAL SWAB NAS SCH (06:33)
[2017-07-23] MEDS: ALBUTEROL/IPRATROPIUM 2.5mg-0.5mg/3ml NEB AEROSOL SCH ×2 (07:00→10:56)
[2017-07-23 08:32] VITALS: BP 102/66; PULSE 100; RESP 16; TEMP 98.6; O2SAT 98
[2017-07-23] MEDS: SERTRALINE 100 MG TABLET PO SCH (08:38)
[2017-07-23] MEDS: ALLOPURINOL 100 MG TABLET PO SCH (08:39)
[2017-07-23] MEDS: PANTOPRAZOLE 40 MG INJECTION IVP SCH (08:39)
[2017-07-23] MEDS: FUROSEMIDE 20 MG/2 ML INJECTION IVP SCH (08:39)
[2017-07-23] MEDS: TOPIRAMATE 25 MG TABLET PO SCH (08:39)
[2017-07-23] MEDS: NYSTATIN 500,000 units/5 ml ORAL LIQUID PO SCH (08:39)
[2017-07-23] MEDS: CYANOCOBALAMIN (B-12) 500mcg TABLET PO SCH (08:40)
[2017-07-23] MEDS: SENNA + DOCUSATE TABLET PO SCH (08:40)
--- NOTE | 2017-07-23 10:17 | Discharge Summary ---
Discharge Information Date of admission: 07/17/17 16:59 Anticipated date of discharge: 07/23/17 Attending Physician: Wilder Curtis MD Primary care physician: Merari Dominguez MD Consults: Dr. 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 - Procedures Procedures: 07/17/[id number] liver biopsy - Laboratory Labs: 07/23/17 04:27 07/23/17 04:27 - Microbiology Microbiology 07/16/17 14:44 Port/Picc Gram Stain - Final Not performed 07/16/17 14:44 Port/Picc Blood Culture - Final No Growth After 5 Days 07/16/17 14:39 Port/Picc Gram Stain - Final Not performed 07/16/17 14:39 Port/Picc Blood Culture - Final No Growth After 5 Days 07/16/17 15:36 Chest, Right Gram Stain - Final 07/16/17 15:36 Chest, Right Superficial Wound Culture - Final Staphylococcus aureus - Radiology Radiology: 07/16/17-CT chest, abdomen, pelvis- Impression: 1. Large complex right pleural effusion with a tiny focus of gas. Findings could represent a malignant effusion with residual gas left over from the patient's prior indwelling pleural catheter versus an empyema. 2. Numerous hepatic lesions most likely representing metastatic disease. Hepatic abscesses are possible given the history of recent infection, however there does not appear to be a discrete fluid component within most of the lesions. Tissue diagnosis could be obtained with a percutaneous image guided biopsy. 3. Slight improvement in the lung and mediastinal metastases with slight worsening in retroperitoneal metastatic disease. 4. Grossly stable osseous metastases. 07/17/1783-[id number] biopsy of the liver- Impression: Technically successful core biopsy of a lesion in the anterior left hepatic lobe. - Pathology 07/17/17-liver biopsy-pathology revealing metastatic squamous cell carcinoma History of Present Illness HPI: "Bill" is a 47 yr old male who is well known to the hospitalist services from previous admissions. 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 Unfortunately, in 2017. 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 He underwent a Penectomy in 2017 and underwent a bilateral inguinal lymph node dissection at [facility] in [place], and November 2016. Unfortunately, these incisions developed wounds and patient underwent Wound care under the care of Dr. Valadez. These wound have resolved, and recently he complained of feeling more short of breath. On 05/15/17. He had a CT scan of the chest that unfortunately revealed a right upper lobe pulmonary nodule with mediastinal adenopathy suspicious for metastasis as well as a right pleural effusion. A Pleurx catheter placed on 06/05/[address] Sharma. On 07/02 Jd noticed some external infection of the skin in the right chest near the site of Pleurx catheter. He reported that it " exploded with drainage". He reported this to his primary care provider and was started on Bactrim DS on 07/02/17. Unfortunately, he continued to have erythema and drainage at the Pleurx insertion site, and catheter was removed by Dr. Sharma on 07/08/17. Will continues to undergo chemotherapy. He presented to oncology office today for chemotherapy and routine labs. He reported to the oncology team that he continues to have pain in the right upper quadrant location seems to be worse over the past 2-3 days. Outpatient labs were obtained as well as a liver sonogram did reveal multiple new liver lesions representing either abscess versus metastasis. The gallbladder, does reveal resonance of sludge, however, no evidence of acute cholecystitis. Patient's white count has continued to be elevated at 25. He last received Neulasta on 07/01/17. Given these acute concerns , leukocytosis, finding of new lesions of the liver. The hospitalist services were contacted directly by Dr. Chun and patient was accepted as a direct admission for further medical workup and evaluation. It is reported that Jd has continued to have significant amount of fatigue and lethargy over the past several months. He has had decrease in appetite with continued weight loss. He is utilizing oxygen [id number], 2-3 liters at rest, 4 liters with exertion. He also reports having some intermittent episodes of left-sided chest pain that is sharp in nature and sometimes takes his breath away. We did discuss advanced directives. Patient does report that he would like to be a do not resuscitate, and would not like to be placed on a ventilator, however, he does indicate he would want acute intervention if he had another incident such as anaphylaxis reaction to previous chemotherapy. For complete details of the H&P refer to that document. Objective Vital signs: Temperature 98.6 F 07/23/17 08:00 Pulse Rate 100 07/23/17 08:00 Respiratory Rate 16 07/23/17 08:00 Blood Pressure 102/66 07/23/17 08:00 Pulse Oximetry 98 07/23/17 08:00 Height/Weight/BMI: Height 1.78 m Weight 133 kg Body Mass Index 42.0 - Constitutional Present: no acute distress, well nourished, well developed - Routine HEENT Exam Eye: Present: EOMI ENT: Present: mucous membranes moist, dentition normal - Routine Respiratory Exam Present: CTA bilaterally. Absent: wheezes - Routine Cardiovascular Exam Present: RRR, S1, S2. Absent: murmur - Routine Abdominal Exam Present: soft, normoactive bowel sounds, non distended. Absent: tenderness - Routine Extremities Exam Present: edema - Routine Back/Spine/Pelvis Exam Back/Spine: Present: full ROM - Routine Skin Exam Present: intact, dry, warm - Routine Neurological Exam Present: alert, oriented X3, CN II-XII intact, moving all extremities - Routine Lymphatic Exam Lymphatic: Absent: adenopathy - Routine Psychiatric Exam Present: normal affect, cooperative Hospital Course This is a general summary of the patient's hospital course. For more details refer to the complete medical record. Hospital course: 07/16/14 Admit patient to outpatient observation under the care of Dr. Curtis for liver lesions, leukocytosis. On admission will repeat CBC, chemistry panel, venous lactate, pro calcitonin, urinalysis and blood cultures (one peripheral, one Port-A-Cath). Initiate IV Zosyn for antimicrobial coverage. Wound culture obtained from drainage of right chest wall incision. Given recent chest pain. We will obtain a 12-lead EKG. For further evaluation of the liver lesions. Will obtain CT scan of the abdomen , pelvis and chest with contrast. Lesions could be related to infectious abscess versus metastatic disease. Will continue on patient's chronic oxygen 2-4 liters. Patient is chronically utilizing fentanyl patch 25 micrograms topically for pain control as well as Percocet for breakthrough pain. Consultation placed to Dr. Calderón for further oncology management. CBC and CMP follow tomorrow to manage blood counts, renal function and electrolytes. At time of discharge medical care will return to primary care provider, Ace Dominguez. 07/17/17 Overall, Bill is feeling significantly better today - feels less chills, HR decreased, less pain to RUQ. Continue Zosyn for empiric antimicrobial coverage. CT chest/abdomen/pelvis revealed large complex right pleural effusion, numerous hepatic lesions most likely representing metastatic disease, though could also be hepatic abscesses, slight improvement of lung and mediastinal metastasis with slight worsening of retroperitoneal metastatic disease. CT guided liver biopsy scheduled for this afternoon at 1530 - exam and results pending. Wound culture showing early growth. Blood cultures pending. Continue to monitor and will adjust therapy accordingly. Continue on patient's chronic oxygen 2-4 liters. Continue pain control with home fentanyl patch 25 micrograms topically as well as Percocet for breakthrough pain. Dr. Calderón consulted for management of oncology needs. Appreciate his time and expertise. Maintain NPO status until following CT guided liver biopsy. WBC trending down (22.3). Hgb stable at 7.6 and asymptomatic. Continue to monitor with labs in AM. Biopsy completed - path pending. With continued concern for high risk infection requiring IV antibiotics, will change admission status to inpatient. Continue with Zosyn for antimicrobial coverage. Will decrease IVF to 75cc/hr. Diet advanced to regular after liver biopsy. Oral drive decrease, but patient feels is able to eat more now than previously at home. 07/18/17 Slight increase in leukocytosis (WBC 23.1). Patient remains afebrile. Continue Zosyn for empiric antimicrobial coverage - day 2. CT guided liver biopsy done 07/17/17 - results pending. Wound culture revealed staph aureus with sensitivities pending. Blood cultures pending. Continue to monitor and will adjust therapy accordingly. Continue on patient's chronic oxygen 2-4 liters - baseline. Continue pain control with home fentanyl patch 25 micrograms topically as well as Percocet for breakthrough pain. Hgb stable at 7.8 and asymptomatic. Continue to monitor with labs in AM. Continue current and supportive care. Stage II coccyx ulceration evaluation by wound care who recommended - off loading weight as much as possible with increased activity as well as bathing well and then applying 3M advance skin protectant under his pannus once the skin is dry. Continue to monitor. Recheck labs in AM to monitor blood counts, electrolytes and renal function. 07/19/17 Liver lesions noted to be metastatic squamous cell CA per path report. Dr. Wise recommends Opdivo as salvage therapy. WBC increased to 53, though pt received Granix yesterday. Continue Zosyn, day # 3. Increasing symptoms of anemia and reports of a dark-colored stool with dark clots mixed with right red -- will type and cross x1 unit. Check INR and stool for occult blood. Increase fentanyl patch to home dose of 25 mcg. DC IVF and encouraged oral intake. Hypokalemia (3.3) - give KDur. Continue resp treatments - DuoNeb is particularly helpful. 07/20/17 Liver lesions noted to be metastatic squamous cell CA per path report. Dr. Wise recommends Opdivo as salvage therapy. S/P Granix; WBC are high, but trending down. CRYSTAL chest wall- Continue Zosyn, day #4. BC NGTD. Anemia/Dark tarry stools- HGB is better post transfusion. INR is mildly elevated, but stable. FOB negative. Increased fentanyl patch to home dose of 25 mcg. Continue IR oxy. Will DC the percocet due to APAP/higher risk for liver toxicity. He is still not eating much- will adjust nutritional supplements per his preference. Offered Megace- hold off for now. Hypokalemia (3.4)- He is not tolerating the PO potassium. Replace IV as supplements are making him feel full. Edema/SOA- add scheduled Lasix. Could potentially addition of aldactone to help prevent potassium wasting. Continue resp treatments - DuoNeb. Follow periodic CXR. In regards to dysphagia- add Carafate Elixer and PPI IV to help decrease any concern for esophagitis or GERD. He is already on Nystatin swish and swallow, so fungal esophageal concerns should be covered. Did not appreciate significant fungal annie on oral exam. Discussed pain relief options. Patient understands Tylenol could be a problem for his liver. He is OK stopping Percocet. Because of his desire for longer relief, will try OxyContin. Patient had 5 Percocet 10s yesterday. Will start OxyContin at 15 bid. 07/21/17 Received Granix 07/18/17- WBC trending down. CRYSTAL chest wall- Continue Zosyn, day #5. Fentanyl patch 25 mcg. Continue IR oxy and Oxycodone. Will increase Zoloft to 200mg daily given situational depression which is understandable. We discussed possibly trying Remeron at HS to help with appetite stimulation; patient agreeable. Will start 7.5mg at night. Continue to follow labs. Hgb stable at 8.1. asking about possible transfusion. Will leave this decision up to Oncology. 07/22/17 Received Granix 07/18/17- WBC trending down - 21 CRYSTAL chest wall- Continue Zosyn, day #6. As per oncology. Will transfuse 2 units of packed red blood cells today. Continue with increased dose of Zoloft plus Remeron to help with depression and sleep as well as appetite. Need to work on pain control - Will increase Oxycodone to 10-15mg every 4 hours. Continue to follow routine labs, mild hypokalemia one-time dose of oral potassium supplementation. Jd is hopeful for discharge in the near future. 07/23/17- Discharge Jd is seen prior to discharge today. He is up in the chair and has been eating a pancake. He states that he feels better today and is ready to be discharged home. is at the bedside. We discussed in detail. All medications that he will be discharged with. He will continue on Augmentin antibiotic for 5 additional days. He will use Lasix on a as needed basis. 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 He discussed to use it daily if having increased edema, increased difficulty breathing, or weight gain of 3 pounds in 1 day or 5 pounds in one week. They're also instructed to pare a dose of potassium each time Lasix is utilized. He will continue with DuoNeb breathing treatments and home oxygen. Pain regimen has been changed during this hospitalization. 2. Fentanyl 25 micrograms patches every 72 hour, OxyContin 15 milligrams every 12 hours, and Roxicodone IR 15 milligrams to use as needed every 4 hours for breakthrough pain. We did increase his Zoloft to 200 milligrams daily given situational depression and also added Remeron 7.5 milligrams at at bedtime to help with appetite stimulation. He will follow-up in the outpatient setting with his primary care provider, Dr. Ace Dominguez as well as oncologist, Dr. Calderón Time spent with patient: discharge greater than 30 minutes Resuscitation Status: Do Not Resuscitate Discharge Plan - Discharge Disposition Discharge Date: 07/23/17 Disposition: Discharged Home, Self-Care *Condition: Stable Reason For Visit (Visit label in EMR): Leukocytosis, Possible infection - Discharge Medications *Discharge Medications: New Albuterol/Ipratropium [Duoneb] 3 ml AEROSOL RTQID #1 box Mirtazapine [Remeron] 7.5 mg PO HS #30 tab Oxycodone *IR* [Roxicodone *Ir*] 15 mg PO Q4H PRN #30 tab PRN Reason: Pain Oxycodone CR [Oxycontin] 15 mg PO Q12HR #30 tab Sertraline [Zoloft] 200 mg PO DAILY #30 tab Furosemide [Lasix] 20 mg PO DAILY PRN #30 tab PRN Reason: edema Potassium Chloride 10 meq PO PRN PRN #30 capsule.er PRN Reason: Leg Swelling PEG 3350 17gm PACKET [Miralax] 17 gm PO DAILY PRN #1 packet PRN Reason: constipation Amoxicillin/Potassium Clav [Augmentin 875-125 Tablet] 1 each PO BID 5 Days # 10 tab Continue Cyanocobalamin (Vitamin B-12) [Vitamin B-12] 1 tab PO DAILY #0 tab Allopurinol [Zyloprim] 100 mg PO DAILY Docusate Sodium 100 mg PO PRN PRN PRN Reason: Constipation Senna-S Tablet 1 tab PO BID Betamethasone/Propylene Glyc [Betamethasone Dp Aug 0.05% Crm] 50 gm TP TID PRN PRN Reason: Wound Healing Elderberry Fruit/Honey [Little Remedies Cough-Immune] 1 dose PO DAILY #0 Ondansetron HCl 4 mg SL Q6HR Topiramate [Topamax] 50 mg PO BID Changed fentaNYL [Fentanyl] 25 mcg TD Q3D #10 patch.[id number] Discontinued Sertraline [Zoloft] 50 mg PO DAILY Oxycodone/Apap 10/325 [Percocet 10/325] 1 tab PO Q4H PRN PRN Reason: Pain Sertraline [Zoloft] 100 mg PO DAILY Sulfamethox/Tmp [Bactrim Ds] 1 tab PO BID 7 Days #14 tab - Discharge Packet/Instructions *Diet: Regular *Activity: Activity as tolerated *Pain Management/Treatment: Fentanyl patch. OxyContin 15 milligrams twice a day. Roxicodone IR 15 milligrams every 4 hours as needed for breakthrough pain *Wound Care: Dressing to wound as needed Additional Instructions: May use Lasix as needed. Recommend using this if you have increased swelling, weight gain of greater than 3 pounds in 1 day or 5 pounds in one week or you feel like you're having increased difficulty breathing. Take a potassium tablet each time you take Lasix. Complete antibiotic course as directed. Follow-up with Dr. Dominguez in one week *Expected Signs/Symptoms: Continued work on increased appetite *Notify Physician if: Fevers, chills, severe shortness of breath or other concerning symptoms *During Business Hours Contact: Contact Dr. Dominguez or Dr. Calderón's office *After Business Hours Contact: Page oncall Physician *Pending Lab/Results: No Pending Lab - Referrals/Follow Up *Referrals/Follow Up: Hill Calderón MD [Physician] - (Follow up as instructed) Merari Dominguez MD [Family Provider] - (Scheduled follow-up appointment for 1 week ) - Patient Handouts Patient Handouts: Percutaneous Liver Biopsy (DC) - Dismissal Complete Discharge Instructions are:: Complete Physician Narrative - Narrative Physician: Wilder Curtis MD Attestation Narrative: Date: 07/23/17 Time: 1013 I have independently interviewed and examined patient prior to discharge. Chart reviewed. Case discussed with REGAN and my SPRAYING MACHINE OPERATOR. Care plan developed with my supervision; agree with above. Doing well today. Pain still present, but medication changes have been very helpful. Tolerating pain medications well. Breathing stable. Appetite still poor. Lungs: decreased right breath sounds. CV: regular MSE: awake alert Plan: Medically stable for discharge to home. See orders for details.
== END 2017-07-23 11:37 | disposition home or self-care (01) | DRG 436 ==
LOC: MED → SUATTDRO 07-17 16:59
PROVIDERS: ADMIT Hospitalist; ATTEND Hospitalist

== ENCOUNTER 2017-07-25 12:06 | Inpatient (IN) ==
--- NOTE | 2017-07-25 12:36 | Emergency Department Report ---
Weakness HPI - General Chief complaint: Weakness Stated complaint: low oxygen, infection in pleurex cath Time Seen by Provider: 07/25/17 12:11 Source: patient, family, RN notes reviewed, old records reviewed Mode of arrival: ambulatory Limitations: no limitations - History of Present Illness HPI Narrative: 47yo man presents to the ER today for evaluation of weakness. Pt has metastatic squamous cell CA; he is post chemo treatment and is looking to start biologics. Over the last 24hrs, pt has developed increased O2 requirement (from 3-4L by NC) , difficulty with ADLs, and serous drainage from a secondary pleurex site. The primary site has healed since removal. Pt was initially concerned about recurrent cellulitis. Now he is concerned about a communication with the pleural space. Additionally, pt has begun to have auditory hallucinations; this has happened in the past when his calcium was high. MD Complaint: generalized weakness Onset (ago): hour(s) Duration: constant Severity: severe Relieving factors: none Exacerbating factors: exertion Context: recent illness, history of similar - Related Data Home Medications Medication Instructions Recorded Confirmed Cyanocobalamin (Vitamin B-12) 1 tab PO DAILY #0 tab 09/04/15 07/25/17 [Vitamin B-12] Elderberry Fruit/Honey [Little 1 dose PO DAILY #0 09/04/15 07/25/17 Remedies Cough-Immune] Allopurinol [Zyloprim] 100 mg PO DAILY 12/18/16 07/25/17 Docusate Sodium 100 mg PO BID PRN 05/30/17 07/25/17 Ondansetron HCl 4 mg SL Q6HR PRN 07/16/17 07/25/17 Topiramate [Topamax] 50 mg PO BID 07/16/17 07/25/17 Betamethasone/Propylene Glyc 1 applicatio TP TID PRN 07/17/17 07/25/17 [Betamethasone Dp Aug 0.05% Crm] Sennosides/Docusate Sodium 1 tab PO BID 07/25/17 07/25/17 [Senna-S Tablet] Previous Rx's Medication Instructions Recorded Albuterol/Ipratropium [Duoneb] 3 ml AEROSOL RTQID #1 box 07/23/17 Amoxicillin/Potassium Clav 1 each PO BID 5 Days #10 tab 07/23/17 [Augmentin 875-125 Tablet] Furosemide [Lasix] 20 mg PO DAILY PRN #30 tab 07/23/17 Mirtazapine [Remeron] 7.5 mg PO HS #30 tab 07/23/17 Oxycodone *IR* [Roxicodone *Ir*] 15 mg PO Q4H PRN #30 tab 07/23/17 Oxycodone CR [Oxycontin] 15 mg PO Q12HR #30 tab 07/23/17 PEG 3350 17gm PACKET [Miralax] 17 gm PO DAILY PRN #1 packet 07/23/17 Potassium Chloride 10 meq PO PRN PRN #30 capsule.er 07/23/17 Sertraline [Zoloft] 200 mg PO DAILY #30 tab 07/23/17 fentaNYL [Fentanyl] 25 mcg TD Q3D #10 patch.td72 07/23/17 Allergies Allergy/AdvReac Type Severity Reaction Status Date / Time cetuximab [From Erbitux] Allergy Severe Anaphylactic Verified 07/25/17 12:27 Shock Review of Systems All systems: reviewed and negative except as stated Constitutional: Reports: as per HPI, weakness. Denies: fever, chills, weight change, night sweats Integumentary: Reports: as per HPI, non-healing lesions, wounds Neurological: Reports: as per HPI, weakness. Denies: headache, numbness, paresthesias, confusion, abnormal gait, vertigo Psychiatric: Reports: as per HPI, auditory hallucinations. Denies: anxiety, depression, suicidal thoughts, homicidal thoughts, visual hallucinations PFS Patient Stated Medical History Cerebrovascular Accident No Paralysis No Seizures No Syncope No Dental Problems Yes Hearing Loss Yes Angina No Cardiac Arrhythmia No Congestive Heart Failure No Coronary Artery Disease No Heart Murmur No Hypertension No Hypotension No Myocardial Infarction No Rheumatic Fever No Valvular Heart Disease No Other Cardiology No Asthma Yes: Diagnosed in 2008 Bronchitis Yes Chronic Obstructive Pulmonary No Disease (COPD) Pneumonia Yes Pulmonary Edema Yes Pulmonary Embolism No Sleep Apnea No Tuberculosis No Other Respiratory No Diabetes Mellitus Type 1 No Diabetes Mellitus Type 2 No Cirrhosis No Gastroesophageal Reflux No Disease Gastrointestinal Bleeding No Hepatitis No Hiatal Hernia No Obstructive Bowel No Ulcer No Other GI No Other Yes: ureter resection Clotting Problems Yes Osteoarthritis Yes: lower back, liana knees Other Musculoskeletal No Anesthesia Reactions No Blood Transfusions No Chemotherapy No Malignant Hyperthermia No Other No Depression Yes Other Behavioral Health Yes: MOOD DISORDERS ON MEDS Now No Medical History Updates: 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 Anaphylactic reaction to Erbitux on 06/02/17. History of squamous cell cancer of the penis, stage IIIB, status post penectomy , chemo, and b/l inguinal lymph node dissection. 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 Obstructive sleep apnea. Normocytic anemia. Gout. Asthma. ANALI. Chronic oxygen use 2-4L Surgical History: Wound exploration and excisional debridement and application of wound VAC to inguinal wounds on 12/19/[address] Valadez. Bilateral inguinal lymph node dissections at the [facility] in [place] on November 29, 2016. Penectomy 06/28/2016. Radical neck resection and salivary gland removal on right 2015. Left IJ PAC placement and PEG tube placement . Family History Updates: Mother-hypertension. Father and sister-type II diabetes - Social History Smoking status: Former smoker second hand exposure: No Substance use type: does not use Alcohol intake frequency: does not drink Housing: house Household members: spouse, family, children Current occupational status: previously employed (registered nurse) Does patient use chewing tobacco?: No Current residence: Apartment/Private Home Physical Exam - Limitations Limitations: no limitations - General General appearance: alert, in no apparent distress, obese (Morbid) - Normal Exams: Head:: Normocephalic without trauma Eyes:: Pupils are PERRLA w/ EOMI, No scleral icterus, irritation, or foreign bodies noted ENMT:: No facial trauma, nasal exudates, pharyngeal erythema, or exudates are noted Neck:: Full range of motion, without adenopathy Lymphatic:: No lymphadenopathy Musculoskeletal:: No tenderness, or deformity noted Integumentary:: No rashes, hives, or bruising noted Neurological:: Patient is alert, and oriented - Chest Chest inspection: Present: normal inspection, symmetric chest wall rise, rash ( Venous stasis). Absent: tenderness - Respiratory Respiratory exam: Present: crackles (Throughout right lung perez). Absent: normal lung sounds bilaterally, respiratory distress, wheezes, prolonged expiratory phase - Cardiovascular Cardiovascular exam: Present: normal rhythm, tachycardia, normal heart sounds. Absent: regular rate, rubs, gallop, clicks - Abdominal Exam Abdominal exam: Present: soft, normal bowel sounds. Absent: distention, tenderness, guarding, rebound, rigidity Course - Consultations Consultation #1: Hospitalist: Will accept pt for further eval/treatment. Time: 14:10 Vital Signs Temperature 97.8 F 07/25/17 12:06 Pulse Rate 103 H 07/25/17 12:06 Respiratory Rate 24 07/25/17 12:06 Blood Pressure 110/73 07/25/17 12:06 Pulse Oximetry 98 07/25/17 12:06 Temperature 97.8 F 07/25/17 12:18 Pulse Rate 99 07/25/17 12:40 Respiratory Rate 24 07/25/17 12:18 Blood Pressure 110/73 07/25/17 12:18 Pulse Oximetry 98 07/25/17 13:07 Weakness - MDM Narrative Medical decision making narrative: Pt with acutely increased weakness, hypoxia, and hypercalcemia sx. 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 Discussed pt with hospitalist, who will admit for further eval/treatment. - Differential Diagnosis Differential diagnosis: Likely: anemia, hypoglycemia, hypothyroidism, sepsis, dehydration (Hypercalcemia) - Medical Records Attestation: I reviewed the patient's medical records. - Lab Data Attestation: I reviewed the patient's lab results. Result diagrams: 07/25/17 12:56 07/25/17 12:56 Lab Results 07/25/17 07/25/17 Range/Units 12:56 12:56 WBC 23.9 H D (4.5-11.0) T/MM3 RBC 3.45 L (4.50-5.90) M/MM3 Hgb 9.4 L (13.5-17.5) GM/DL Hct 31.6 L (41-53) % MCV 91.6 (80-100) UM3 MCH 27.2 (26-34) UUG MCHC 29.7 L (31-37) GM/DL RDW Std Deviation 62.1 H (36.9-50.2) FL Plt Count 217 (130-400) T/MM3 MPV 9.5 (9.4-12.4) UM3 Immature Gran % (Auto) Not performed Neut % (Auto) Not performed Lymph % (Auto) Not performed [place] % (Auto) Not performed Eos % (Auto) Not performed Baso % (Auto) Not performed Neut # (Auto) Not performed Lymph # (Auto) Not performed [place] # (Auto) Not performed Eos # (Auto) Not performed Baso # (Auto) Not performed Abs Immat Gran (auto) Not performed Neutrophils % (Manual) 96.0 H (33-66) % Lymphocytes % (Manual) 3.0 L (23-45) % Monocytes % (Manual) 1.0 (0-9.0) % Neutrophils # (Manual) 22.9 H (1.8-7.7) T/MM3 Lymphocytes # (Manual) 0.7 L (1-4.8) T/MM3 Monocytes # (Manual) 0.2 (0-0.8) T/MM3 Poikilocytosis 1+ Anisocytosis 1+ RBC Morph Comment Abnormal Turbidity < 20 (0-20) Sodium 138 (134-144) MEQ/L Potassium 3.3 L (3.6-5) MEQ/L Chloride 91 L (98-107) MEQ/L Carbon Dioxide 36 H (22-30) MEQ/L Anion Gap 11 (5-15) meq/L BUN 8.0 L D (9-20) MG/DL Creatinine 0.5 L (0.8-1.5) mg/dL GFR Calculation 178 BUN/Creatinine Ratio 16 (6-26) RATIO Glucose 97 (75-110) MG/DL Calculated Osmolality 264 (261-280) MOSM/KG Calcium 10.5 H D (8.4-10.2) MG/DL Total Bilirubin 0.80 (0.20-1.30) MG/DL Icterus Index < 2 (0-7) AST 56 (17-59) U/L ALT 23 (1-50) U/L Alkaline Phosphatase 230 H (38-126) U/L Troponin I < 0.012 (0-0.12) ng/ml NT-Pro-B Natriuret Pep 754 H (0-175) pg/mL Total Protein 6.8 (6.3-8.2) g/dL Albumin 3.0 L (3.5-5.0) g/dL Globulin 3.8 H (2.4-3.6) G/DL Albumin/Globulin Ratio 0.8 L (1.1-2.2) RATIO Specimen Hemolysis < 15 (0-25) - Radiology Data Attestation: I reviewed the patient's radiology results. CT Chest: Impression: 1. CT chest showing significant fluid and pleural reaction on the right side with moderate changes on the left. Patient shows partial collapse of the right lower lobe and part of the right middle lobe. Scattered areas of increased interstitial prominence identified likely in the right chest. Just mild changes seen on the left. 2. There is a subtle track along the right of the chest probably representing the site of the previous Pleurx which may be spontaneously decompressing. - EKG Data EKG #1 EKG attestation: Yes: I reviewed and interpreted this EKG. EKG shows normal: sinus rhythm, axis, intervals, ST-T waves Rate: normal Voltage: decreased voltage throughout When compared to previous EKG there are: no significant changes Disposition Clinical Impression: Weakness, Hypoxia, Pleural effusion, Hypercalcemia, Fistula Disposition: 02 To [facility] Print Language: Georgian Condition: Improved Prescriptions: No Action Cyanocobalamin (Vitamin B-12) [Vitamin B-12] 1 tab PO DAILY #0 tab Allopurinol [Zyloprim] 100 mg PO DAILY Docusate Sodium 100 mg PO BID PRN PRN Reason: Constipation Betamethasone/Propylene Glyc [Betamethasone Dp Aug 0.05% Crm] 1 applicatio TP TID PRN PRN Reason: Wound Healing Albuterol/Ipratropium [Duoneb] 3 ml AEROSOL RTQID #1 box Mirtazapine [Remeron] 7.5 mg PO HS #30 tab Oxycodone *IR* [Roxicodone *Ir*] 15 mg PO Q4H PRN #30 tab PRN Reason: Pain Oxycodone CR [Oxycontin] 15 mg PO Q12HR #30 tab Sertraline [Zoloft] 200 mg PO DAILY #30 tab fentaNYL [Fentanyl] 25 mcg TD Q3D #10 patch.td72 Furosemide [Lasix] 20 mg PO DAILY PRN #30 tab PRN Reason: edema Potassium Chloride 10 meq PO PRN PRN #30 capsule.er PRN Reason: Leg Swelling Elderberry Fruit/Honey [Little Remedies Cough-Immune] 1 dose PO DAILY #0 Ondansetron HCl 4 mg SL Q6HR PRN PRN Reason: Nausea Topiramate [Topamax] 50 mg PO BID PEG 3350 17gm PACKET [Miralax] 17 gm PO DAILY PRN #1 packet PRN Reason: constipation Amoxicillin/Potassium Clav [Augmentin 875-125 Tablet] 1 each PO BID 5 Days # 10 tab Sennosides/Docusate Sodium [Senna-S Tablet] 1 tab PO BID Referrals: Merari Dominguez MD [Family Provider] - Time of Disposition: 14:29 - Seen By: physician
--- OUTSIDE RECORDS SUMMARY | 2017-07-25 12:46 | External Medical Summary | Continuity of Care Document ---
:1970 Author Organization [facility] Care Team Providers Name Role Phone [employer] Unavailable Unavailable Encounters Location Location Encounter Encounter Reason Attending ADM DC Status Source Details Type Number For Provider Date Date Visit OUTPATIENT 04/24 04/24 Active [facility] INPATIENT [id number] [place] 11/29 12/02 Active The [place] [facility]2016 [facility]
--- OUTSIDE RECORDS SUMMARY | 2017-07-25 12:47 | External Medical Summary | Clinical Summary ---
:1970 Author Organization [facility] Address [address] [place] [address] Care Team Providers Name Role Phone Hill Calderón MD Unavailable Humphrey Dominguez MD Primary Care Provider Source Comments Some departments are not documenting in the electronic medical record. If you do not see the information that you expected, contact Release of Information in the Health Information Management department at [phone] for further assistance in locating additional records.[facility] Allergies No Known Allergies Current Medications Prescription Sig. Disp. Refills Start Date End Date Status topiramate (TOPAMAX) Take 50 mg by mouth Active 50 mg tablet twice daily. allopurinol Take 100 mg by Active (ZYLOPRIM) 100 mg mouth daily. Take tablet with food. sertraline (ZOLOFT) Take 150 mg by Active 100 mg tablet mouth at bedtime daily. 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 from Last 3 Months
[2017-07-25] MEDS ORDERED: SALINE FLUSH 10ml SYRINGE ONE (13:24)
[2017-07-25] MEDS ORDERED: IOHEXOL 300mg/ml 75ml INJECTION ONE (13:24)
[2017-07-25] MEDS ORDERED: CALCITONIN 400 UNIT/2 ML INJECTION IM SCH (14:00)
--- NOTE | 2017-07-25 14:05 | CT Scan Report ---
Indication: Serous drainage from pleurex site CT chest w con: Comparison: 07/16/2017 Technique: Patient is scanned from above the thoracic inlet to below the diaphragm after 75 cc Omni 300 intravenous contrast is used. Dose reduction imaging technology with reformatted sagittal and coronal image planes are provided. Findings: Patient shows a port in the left upper pectoral region. Moderate pleural reaction is identified in the left chest with a sizable amount of pleural fluid identified on the right side. Patient demonstrates some collapse of the right lower lobe. Liver is extremely heterogeneous in texture. Along the soft tissues of the right lower chest there is possible. The the vertex brain was probably place. This has not changed dramatically since from 07/16/2017 Impression: 1. CT chest showing significant fluid and pleural reaction on the right side with moderate changes on the left. Patient shows partial collapse of the right lower lobe and part of the right middle lobe. Scattered areas of increased interstitial prominence identified likely in the right chest. Just mild changes seen on the left. 2. There is a subtle track along the right of the chest probably representing the site of the previous Pleurx which may be spontaneously decompressing. .
[2017-07-25] MEDS ORDERED: MORPHINE SULFATE 4mg INJECTION IVP ONE (15:49)
[2017-07-25] MEDS ORDERED: ONDANSETRON 4 MG/2 ML INJECTION IVP ONE (15:50)
[2017-07-25] MEDS: SALINE FLUSH 10ml SYRINGE IVF PRN ×2 (16:02→20:47)
--- NOTE | 2017-07-25 16:04 | History & Physical Report ---
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 He presents to the ER today with a 6 day history of worsening cough and significant increase in drainage from the incision in his right chest where he previously had a Pleurx catheter removed. The Pleurx catheter was placed on 06/[address] Sharma, unfortunately, this had to be removed on 07/08/17 due to infection. He has continued to have drainage since removal. Patient was recently hospitalized from 07/16 through 07/23 due to right upper quadrant pain. During this hospitalization he was found to have multiple new liver lesions and pathology revealed liver metastasis. He states he continues to have moderate right upper quadrant pain and has not been eating or drinking much. He is having some nausea presently, but thinks this is more related to his ongoing cough. He continues to use supplemental oxygen, and reports he is up to 4 L from 3 L recently. He has significant shortness of breath with exertion. Review of Systems All systems PM: 10-point ROS was reviewed, no additional remarkable complaints except (nausea, pain - [place] RUQ, SOA, cough with sputum production and drainage from previous pleuryx catheter site. Normal BM this am. Occ hears sounds he describes as sounds from the "[employer]" video game that come and go. No fever. No urinary sxs.) Past Medical History Medical History Updates: 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 Anaphylactic reaction to Erbitux on 06/02/17. History of squamous cell cancer of the penis, stage IIIB, status post penectomy , chemo, and b/l inguinal lymph node dissection. 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 Obstructive sleep apnea. Normocytic anemia. Gout. Asthma. Chronic oxygen use 3-4L Surgical History: Wound exploration and excisional debridement and application of wound VAC to inguinal wounds on 12/19/[address] Valadez. Bilateral inguinal lymph node dissections at the [facility] in [place] on November 29, 2016. Penectomy 06/28/2016. Radical neck resection and salivary gland removal on right 2015. Left IJ PAC placement and PEG tube placement . Family History Updates: Mother-hypertension. Father and sister-type II diabetes Family History: As Above - Social History Smoking status: Former smoker Substance use type: does not use Alcohol intake frequency: does not drink Housing: house Household members: spouse, children Current occupational status: previously employed (RN), disabled Social history: Primary care provider, Dr. Ace Dominguez Oncologist, Dr. Calderón Medications Home Medications Medication Instructions Recorded Confirmed Type Cyanocobalamin (Vitamin B-12) 1 tab PO DAILY #0 tab 09/04/15 07/25/17 History [Vitamin B-12] Elderberry Fruit/Honey [Little 1 dose PO DAILY #0 09/04/15 07/25/17 History Remedies Cough-Immune] Allopurinol [Zyloprim] 100 mg PO DAILY 12/18/16 07/25/17 History Docusate Sodium 100 mg PO BID PRN 05/30/17 07/25/17 History Ondansetron HCl 4 mg SL Q6HR PRN 07/16/17 07/25/17 History Topiramate [Topamax] 50 mg PO BID 07/16/17 07/25/17 History Betamethasone/Propylene Glyc 1 applicatio TP TID PRN 07/17/17 07/25/17 History [Betamethasone Dp Aug 0.05% Crm] Albuterol/Ipratropium [Duoneb] 3 ml AEROSOL RTQID #1 box 07/23/17 07/25/17 Rx Amoxicillin/Potassium Clav 1 each PO BID 5 Days #10 tab 07/23/17 07/25/17 Rx [Augmentin 875-125 Tablet] Furosemide [Lasix] 20 mg PO DAILY PRN #30 tab 07/23/17 07/25/17 Rx Mirtazapine [Remeron] 7.5 mg PO HS #30 tab 07/23/17 07/25/17 Rx Oxycodone *IR* [Roxicodone *Ir*] 15 mg PO Q4H PRN #30 tab 07/23/17 07/25/17 Rx Oxycodone CR [Oxycontin] 15 mg PO Q12HR #30 tab 07/23/17 07/25/17 Rx PEG 3350 17gm PACKET [Miralax] 17 gm PO DAILY PRN #1 packet 07/23/17 07/25/17 Rx Potassium Chloride 10 meq PO PRN PRN #30 capsule.er 07/23/17 07/25/17 Rx Sertraline [Zoloft] 200 mg PO DAILY #30 tab 07/23/17 07/25/17 Rx fentaNYL [Fentanyl] 25 mcg TD Q3D #10 patch.td72 07/23/17 07/25/17 Rx Sennosides/Docusate Sodium 1 tab PO BID 07/25/17 07/25/17 History [Senna-S Tablet] Allergies Allergy/AdvReac Type Severity Reaction Status Date / Time cetuximab [From Erbitux] Allergy Severe Anaphylactic Verified 07/25/17 12:27 Shock Exam Vital Signs: Temperature 97.5 F 07/25/17 15:29 Pulse Rate 105 H 07/25/17 15:29 Respiratory Rate 28 H 07/25/17 15:29 Blood Pressure 148/102 H 07/25/17 15:29 Pulse Oximetry 97 07/25/17 15:29 Height/Weight/BMI: Height 1.78 m Weight 135 kg Body Mass Index 42.7 - Constitutional Present: mild distress, well nourished, well developed, obese - Routine HEENT Exam Head: Present: normocephalic, atraumatic Eye: Present: EOMI, PERRL ENT: Present: mucous membranes dry Comments: Mucus noted in oropharynx and on tongue. - Routine Neck Exam Absent: lymphadenopathy, thyromegaly - Routine Respiratory Exam Present: dyspnea, decreased breath sounds, crackles (diffuse), diminished air movement. Absent: wheezes Comments: Difficult exam due to ongoing cough - Routine Cardiovascular Exam Present: no murmur, tachycardia - Routine Abdominal Exam Present: soft, normoactive bowel sounds, tenderness (diffuse, but especially right upper quadrant), surgical scars (healed incision medially (initial Pleurx catheter insertion site) to the open/draining wound). Absent: distended Comments: Less than 1 cm incision on right anterior chest wall with milky appearing drainage with every cough - Routine Extremities Exam Present: normal capillary refill Comments: Chronic lymphedema, but currently without significant findings. - Routine Skin Exam Present: dry, warm - Routine Neurological Exam Present: alert, oriented X3, CN II-XII intact - Routine Psychiatric Exam Present: normal affect, cooperative Results - Labs CBC & Chem 7: 07/25/17 12:56 07/25/17 12:56 Labs: Laboratory Tests 07/25/17 12:56 Troponin I < 0.012 NT-Pro-B Natriuret Pep 754 H Microbiology Results: Wound culture from right chest from 07/16/17 reveals growth of Staphylococcus aureus which is pansensitive. - Imaging and Cardiology CT scan - chest Additional comments: Date of Exam: 07/25/17 Indication: Serous drainage from pleurex siteCT chest w con: Findings: Patient shows a port in the left upper pectoral region. Moderate pleural reaction is identified in the left chest with a sizable amount of pleural fluid identified on the right side. Patient demonstrates some collapse of the right lower lobe. Liver is extremely heterogeneous in texture. Along the soft tissues of the right lower chest there is possible. The the vertex brain was probably place. This has not changed dramatically since from 07/16/2017 Impression: 1. CT chest showing significant fluid and pleural reaction on the right side with moderate changes on the left. Patient shows partial collapse of the right lower lobe and part of the right middle lobe. Scattered areas of increased interstitial prominence identified likely in the right chest. Just mild changes seen on the left. 2. There is a subtle track along the right of the chest probably representing the site of the previous Pleurx which may be spontaneously decompressing. Assessment and Plan (1) Pleural effusion Current visit: Yes Status: Acute (2) Weakness Problem details: With recent fall Current visit: Yes Status: Acute (3) Squamous cell carcinoma, metastatic Current visit: No Status: Chronic Assessment and Plan: Assessment Respiratory failure with progressive cough and hypoxia (home oxygen use 3-4 L) Rapidly progressive metastatic squamous cell carcinoma to the lungs, pleural cavity, mediastinum, retroperitoneal lymph nodes, and liver Symptomatic right pleural effusion most likely malignant. Had Pleurx catheter ( catheter removed 07/08 d/t infection). Leukocytosis-POA Hypercalcemia-POA Hypokalemia-POA Probable dehydration-RLL 07/25/17 Chronic/associated conditions Anemia History of Stage IVB anterior tongue SCC s/p partial glossectomy with neck dissection followed by concurrent [place]/XRT in 2016. 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 Asthma Gout ANALI Morbid obesity Plan Admit, observation, for progressive cough, hypoxia, pleural effusion. Hydrate with normal saline with KCl given his hypokalemia Continue home pain medication regimen with PRN morphine IV. Zofran and promethazine PRN nausea. Promethazine with DM PRN cough. DuoNebs, RT consult. CXR in am to follow pleural effusion. Repeat labs in a.m. to follow leukocytosis, hypercalcemia and hypokalemia. Continue Augmentin p.o. (if tolerated) for pulmonary and GI coverage in light of recent infection. (Staph aureus on wound culture from right chest wound -pansensitive.) Attending to make further recommendations. Patient and family request not to see Dr. Sharma. They request consult with Dr. Valadez for his opinion. Case discussed with Dr. Valadez who indicated he would see him Friday. Would not recommend surgery at this time, and ideally , if he did have surgery, would recommend this be done by cardiothoracic surgeon. Patient, at this time, declines transfer to [facility]. Patient requests DNR code status. Mother indicates family is willing to discuss hospice or [facility] opts w/ this discharge given his increasing weakness and recent fall. Care to return to Dr Chris oDminguez on discharge. DVT Prophylaxis: SCD's Resuscitation Status: Do Not Resuscitate - Physician Narrative Physician: Alley Chavez MD Narrative: Date: 07/25/17 Time: 1929 I have independently evaluated and examined this patient. I reviewed the chart, the patient's history, and the PACKING ROOM SUPERVISOR/PA's documented findings as above. We discussed and formulated the assessment and plan as above with additions as below: Jasvir is known from prior admissions. He discharged 2 days ago after liver biopsy revealed metastatic squamous cell carcinoma. Since discharge the patient has had one fall; he describes being much weaker than he anticipated and more short of breath than normal. He has cough productive of significant white sputum but is not aware of fever. He has had ongoing drainage from Pleurx catheter site in the right anterior chest which has primarily been serous. Auditory hallucinations developed which he associates with hypercalcemia as previously described. Patient acknowledges poor oral intake due to ongoing nausea and poor appetite. On exam the patient is morbidly obese, weight stable from discharge but down 25 kg from late May Drowsy after medications but able to provide history, and appears comfortable Breath sounds are diminished, R>L Serous drainage (large volume, ABD placed in the emergency room is soaked at the time of my exam approximately 2 hours later) from Pleurx site lower right anterior chest wall without surrounding erythema or skin maceration. Regular cardiac rhythm. No tenderness or areas of soft tissue swelling over the scalp; no tenderness on palpation over the cervical spine. Laboratory data reviewed-leukocytosis noted but has been present previously/ chronically, hemoglobin 9.4 (stable from discharge, received 3 units packed red blood cells prior to admission) electrolytes as noted, proBNP 754, alkaline phosphatase 230-progressively increasing. CT chest reviewed by myself and discussed with ER physician-moderate right pleural effusion with compressive atelectasis/collapse of the right lower lobe; liver metastases visualized and unchanged from 07/16/17 per radiology report. Radiology describes several tracts along the right chest possibly representing Pleurx site which I cannot pick out. Previously the Pleurx catheter drainage was positive for CRYSTAL on 07/16/17 Will switch from oral antibiotics to Ancef 1 g every 8 hours IV pending blood cultures; leukocytosis appears to be chronic and drainage present at time of my exam was primarily serous. Not recultured at this time. Dr. Valadez consulted to determine if there are additional options for managing persistent leak from Pleurx site. Will additionally consult Dr. Calderón regarding future chemotherapy plans at request of family. Received Miacalcin in the emergency room for elevated calcium; anticipate improvement with hydration. Continue supportive care. Patient's is his alternate decision maker; DO NOT RESUSCITATE. Discussed with Dr. Osuna and Dr. Calderón. Hospital Course Summary Disclaimer: The visit summary below is not to be considered part of the above Progress Note. Hospital Course: 07/25/17 - Hospital admission Admit, observation, for progressive cough, hypoxia, pleural effusion. Hydrate with normal saline with KCl given his hypokalemia Continue home pain medication regimen with PRN morphine IV. Zofran and promethazine PRN nausea. Promethazine with DM PRN cough. DuoNebs, RT consult. CXR in am to follow pleural effusion. Repeat labs in a.m. to follow leukocytosis, hypercalcemia and hypokalemia. Continue Augmentin p.o. (if tolerated) for pulmonary and GI coverage in light of recent infection. (Staph aureus on wound culture from right chest wound -pansensitive.) Attending to make further recommendations. Patient and family request not to see Dr. Sharma. They request consult with Dr. Valadez for his opinion. Case discussed with Dr. Valadez who indicated he would see him Friday. Would not recommend surgery at this time, and ideally , if he did have surgery, would recommend this be done by cardiothoracic surgeon. Patient, at this time, declines transfer to [facility]. Patient requests DNR code status. Mother indicates family is willing to discuss hospice or [facility] opts w/ this discharge given his increasing weakness and recent fall. Care to return to Dr Chris Dominguez on discharge.
[2017-07-25] MEDS: ALBUTEROL/IPRATROPIUM 2.5mg-0.5mg/3ml NEB AEROSOL SCH ×2 (16:20→19:51)
[2017-07-25] MEDS ORDERED: [UNRECOGNIZED DRUG - OTHER] TP PRN (16:22)
[2017-07-25] MEDS ORDERED: POLYETHYL GLYCOL 3350 17gm PACKET PO PRN (16:22)
[2017-07-25] MEDS ORDERED: BETAMETHASONE TP PRN (16:22)
[2017-07-25] MEDS ORDERED: ONDANSETRON 4 MG TABLET PO PRN (16:22)
[2017-07-25] MEDS ORDERED: FUROSEMIDE 20 MG TABLET PO PRN (16:22)
[2017-07-25] MEDS ORDERED: PROPYLENE GLYC TP PRN (16:22)
[2017-07-25] MEDS ORDERED: NS 500 ML IV ONE (16:36)
[2017-07-25] MEDS ORDERED: HYDROCODONE/CHLORPHENIRAMINE ER ORAL LIQ 5ml PO PRN (16:46)
[2017-07-25] MEDS ORDERED: PROMETHAZINE 25 MG INJECTION IVP ONE (17:09)
[2017-07-25] MEDS ORDERED: PROMETHAZINE DM PO PRN (17:20)
[2017-07-25] MEDS: Oxycodone *IR* 15 MG TABLET PO PRN ×2 (17:39→23:55)
[2017-07-25] MEDS: POTASSIUM CHLORIDE INJ 10 MEQ in NS 100 ML IV SCH ×4 (18:00→22:21)
[2017-07-25] MEDS ORDERED: MORPHINE SULFATE 2mg INJ IVP PRN (18:20)
[2017-07-25] MEDS: TOPIRAMATE 25 MG TABLET PO SCH (20:46)
[2017-07-25] MEDS: SENNA + DOCUSATE TABLET PO SCH (20:46)
[2017-07-25] MEDS: MIRTAZAPINE 15 MG TABLET PO SCH (20:46)
[2017-07-25] MEDS: ONDANSETRON 4 MG/2 ML INJECTION IVP PRN (20:47)
[2017-07-25] MEDS ORDERED: AMOX/CLAV 875 MG/125 MG TABLET PO SCH (21:00)
[2017-07-25] MEDS: CEFAZOLIN 1 G in NS 100 ML IV SCH (23:48)
[2017-07-26] MEDS: SALINE FLUSH 10ml SYRINGE IVF PRN ×6 (00:54→17:40)
[2017-07-26] MEDS: CEFAZOLIN 1 G in NS 100 ML IV SCH ×4 (00:54→23:58)
[2017-07-26] MEDS: Oxycodone *IR* 15 MG TABLET PO PRN ×2 (05:02→16:11)
[2017-07-26] MEDS: ALBUTEROL/IPRATROPIUM 2.5mg-0.5mg/3ml NEB AEROSOL SCH ×7 (07:22→20:49)
[2017-07-26] MEDS: TOPIRAMATE 25 MG TABLET PO SCH ×2 (08:48→22:07)
[2017-07-26] MEDS: SENNA + DOCUSATE TABLET PO SCH ×2 (08:49→22:08)
[2017-07-26] MEDS: ALLOPURINOL 100 MG TABLET PO SCH (08:49)
[2017-07-26] MEDS: SERTRALINE 100 MG TABLET PO SCH (08:49)
[2017-07-26] MEDS: ONDANSETRON 4 MG/2 ML INJECTION IVP PRN (09:44)
[2017-07-26] MEDS ORDERED: PROMETHAZINE 25 MG INJECTION IVP PRN (11:01)
--- NOTE | 2017-07-26 16:15 | Progress Note ---
- Date 07/26/17 Subjective: Jasvir reports nursing drained 55 mL of cloudy fluid from the ostomy bag was placed over the Pleurx catheter site this morning. Drainage is ongoing. He reports that the hydro plant site manager healed until 2 days ago when it started draining again-he appears to forgotten that we discussed this yesterday. He describes increasing pain in a band across the upper abdomen and along the right flank. Nursing report pain has consistently been 6/10 overnight or higher. Patient reports marked exertional dyspnea with speech resulting in dyspnea and limiting him to speaking in short phrases. Ambulating to the bathroom exhausted him and resulted in oxygen saturation dropping into the upper 80s while wearing 4 L supplemental O2. He reports having night sweats overnight but had no fever or chills. Weakness persists and his appetite is poor. Objective Vital signs: Temperature 97.5 F 07/26/17 15:18 Pulse Rate 101 H 07/26/17 15:18 Respiratory Rate 32 H 07/26/17 15:18 Blood Pressure 135/90 H 07/26/17 15:18 Pulse Oximetry 96 -4 L 07/26/17 15:18 MAXIMUM TEMPERATURE 97.8 I/O 1989/1610 NAD, drowsy, slightly confused Conjunctiva clear, EOMI, oropharynx clear but membranes are dry Regular rhythm with low-grade tachycardia, S1-S2 Respirations nonlabored lying in bed but breath sounds are diminished throughout especially in the right lung-anterior exam only Ostomy bag over Pleurx catheter site in the right anterior chest wall, blood- tinged cloudy drainage present Abdomen obese, soft, mild generalized tenderness in the upper abdomen, liver palpably enlarged Trace edema bilateral lower extremities Results - Labs CBC & Chem 7: 07/26/17 04:48 07/26/17 04:48 Labs: S97 B2 L1 Phosphorus 2.4, magnesium 2.0, albumin 3.0 Pleural fluid: RBCs 83,000, WBCs 80,803-S81%, L11%, mono/macrophage 8% - Imaging and Cardiology Chest x-ray Status: image reviewed by me (bilateral pleural effusions-right significantly larger than left, increased vascular markings were interstitial markings-no significant change since 07/16/17) Assessment and Plan (1) Pleural effusion Current visit: Yes Status: Acute (2) Weakness Problem details: With recent fall Current visit: Yes Status: Acute (3) Squamous cell carcinoma, metastatic Problem details: H&N, penile-2 primaries Current visit: No Status: Chronic Assessment and Plan: Assessment Respiratory failure with progressive cough and hypoxia (home oxygen use 3-4 L) Rapidly progressive metastatic squamous cell carcinoma to the lungs, pleural cavity, mediastinum, retroperitoneal lymph nodes, and liver Symptomatic right pleural effusion most likely malignant. Had Pleurx catheter ( catheter removed 07/08 d/t infection). CRYSTAL infection right pleural space/fluid Leukocytosis-POA Hypercalcemia-POA Hypokalemia-POA Probable dehydration Chronic/associated conditions Anemia History of Stage IVB anterior tongue SCC s/p partial glossectomy with neck dissection followed by concurrent [place]/XRT in 2015. 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 Asthma Gout ANALI Morbid obesity Plan Continue cefazolin for CRYSTAL infection of the pleural space; white count of fluid draining currently significantly elevated. Fluid originally appeared serous on dressings but is clearly cloudy as being collected now. White count slightly better with conversion to IV antibiotics. Briefly discussed with Dr. Meza who is on-call for Dr. Valadez, surgical consultation planned when Dr. Valadez returns Friday as no surgical intervention would be initiated in the intervening time for pleural fluid collection. SIRS criteria present; will not obtain lactic acid as extended patient's liver disease will make result noninterpretable. Patient reports plan to continue treatment of malignancy with biologic agent which will be delayed managing acute symptoms. The complication introduced by managing infection/potential drainage and delayed treatment of rapidly progressive malignancy discussed with patient as we may not have a perfect outcome/option to offer. Pain and nausea control suboptimal-OxyContin increased to 15 mg every 8 hours, will discuss further with the patient as he is onto long-acting pain medications. May be better served by conversion to MS Contin from a cost perspective. Additional antiemetics available. Nutritional supplements 3 times a day, soft diet-patient reports chewing food fatigues him and causes dyspnea. Continue supportive care. DVT Prophylaxis: SCD's Resuscitation Status: Do Not Resuscitate - Physician Narrative Narrative: Date: 07/26/17 Time: 1610 Sepsis Assessment - Evaluation SIRS Criteria: temperature < 96.8, pulse > 90 beats/minute, WBC > 12,000, RR > 20 Hospital Course Summary Disclaimer: The visit summary below is not to be considered part of the above Progress Note. Hospital Course: 07/25/17 - Hospital admission Admit, observation, for progressive cough, hypoxia, pleural effusion. Hydrate with normal saline with KCl given his hypokalemia Continue home pain medication regimen with PRN morphine IV. Zofran and promethazine PRN nausea. Promethazine with DM PRN cough. Maicol, RT consult. CXR in am to follow pleural effusion. Repeat labs in a.m. to follow leukocytosis, hypercalcemia and hypokalemia. Continue Augmentin p.o. (if tolerated) for pulmonary and GI coverage in light of recent infection. (Staph aureus on wound culture from right chest wound -pansensitive.) Attending to make further recommendations. Patient and family request not to see Dr. Sharma. They request consult with Dr. Valadez for his opinion. Case discussed with Dr. Valadez who indicated he would see him Friday. Would not recommend surgery at this time, and ideally , if he did have surgery, would recommend this be done by cardiothoracic surgeon. Patient, at this time, declines transfer to [facility]. Patient requests DNR code status. Mother indicates family is willing to discuss hospice or [facility] opts w/ this discharge given his increasing weakness and recent fall. Care to return to Dr Chris Dominguez on discharge. 07/26/17 Continue cefazolin for CRYSTAL infection of the pleural space; white count of fluid draining currently significantly elevated. Fluid originally appeared serous on dressings but is clearly cloudy as being collected now. White count slightly better with conversion to IV antibiotics. Briefly discussed with Dr. Meza who is on-call for Dr. Valadez, surgical consultation planned when Dr. Valadez returns Friday as no surgical intervention would be initiated in the intervening time for pleural fluid collection. SIRS criteria present; will not obtain lactic acid as extended patient's liver disease will make result noninterpretable. Patient reports plan to continue treatment of malignancy with biologic agent which will be delayed managing acute symptoms. The complication introduced by managing infection/potential drainage and delayed treatment of rapidly progressive malignancy discussed with patient as we may not have a perfect outcome/option to offer. Pain and nausea control suboptimal-OxyContin increased to 15 mg every 8 hours, will discuss further with the patient as he is onto long-acting pain medications. May be better served by conversion to MS Contin from a cost perspective. Additional antiemetics available. Nutritional supplements 3 times a day, soft diet-patient reports chewing food fatigues him and causes dyspnea. Continue supportive care.
[2017-07-26] MEDS: ALBUTEROL/IPRATROPIUM 2.5mg-0.5mg/3ml NEB AEROSOL PRN (17:10)
[2017-07-26] MEDS: PROCHLORPERAZINE 10 MG/2 ML INJECTION IVP PRN (17:40)
[2017-07-26] MEDS: MIRTAZAPINE 15 MG TABLET PO SCH (22:08)
[2017-07-27] MEDS: Oxycodone *IR* 15 MG TABLET PO PRN ×3 (04:54→19:34)
[2017-07-27] MEDS: ALBUTEROL/IPRATROPIUM 2.5mg-0.5mg/3ml NEB AEROSOL SCH ×4 (08:07→19:14)
[2017-07-27] MEDS: CEFAZOLIN 1 G in NS 100 ML IV SCH ×2 (09:41→15:47)
[2017-07-27] MEDS: SERTRALINE 100 MG TABLET PO SCH (09:42)
[2017-07-27] MEDS: ALLOPURINOL 100 MG TABLET PO SCH (09:43)
[2017-07-27] MEDS: TOPIRAMATE 25 MG TABLET PO SCH ×2 (09:43→20:46)
[2017-07-27] MEDS: SENNA + DOCUSATE TABLET PO SCH ×2 (09:50→20:46)
--- NOTE | 2017-07-27 09:53 | XRay Report ---
INDICATION: SOA, pleural effusion PROCEDURE: CHEST 2-VIEWS UPRIGHT (PA & LAT) Encounter: Initial COMPARISON: July 25, [address] FINDINGS: Moderate to large right pleural effusion is again noted without significant interval change. Continued compressive atelectasis of the right middle and lower lobes. Small left effusion is grossly stable. No pneumothorax. Prominent interstitial markings in the left lung compared to the prior study. Left heart border is stable. Mediastinal contours are stable. Impression: Stable pleural effusions with moderate pulmonary edema. .
--- NOTE | 2017-07-27 13:16 | Progress Note ---
- Date 07/27/17 Subjective: "Jasvir" is seen in follow up. He is resting on CPAP. He opens eyes, and can respond, but is visibly fatigued. reports he has been more anxious today- I encouraged him to keep CPAP on to avoid respiratory distress. She had some questions about his ongoing feeling of esophageal dysphagia. Reviewed chart and d/w her that PPI has been started. (He did have this c/o during his last stay- I believe we had used some Carafate elixer for that in the past). Objective Vital signs: Temperature 98.3 F 07/27/17 09:12 Pulse Rate 110 H 07/27/17 09:12 Respiratory Rate 20 07/27/17 09:12 Blood Pressure 147/90 H 07/27/17 09:12 Pulse Oximetry 97 07/27/17 09:12 Height/Weight/BMI: Weight 131.1 kg - Constitutional Present: obese, cooperative, other (Ill appearing, pale) - Routine HEENT Exam Head: Present: normocephalic, atraumatic - Routine Respiratory Exam Present: decreased breath sounds, diminished air movement. Absent: rales, rhonchi, wheezes - Routine Cardiovascular Exam Present: RRR, S1, S2 - Routine Abdominal Exam Present: soft, tenderness (mild). Absent: normoactive bowel sounds (Hypoactive) , non tender - Routine Extremities Exam Present: edema (Diffuse, mild generalized edema. ) - Routine Musculoskeletal Exam Musculoskeletal: Present: moving extremities well - Routine Skin Exam Present: intact, dry, pallor, warm - Routine Neurological Exam Present: moving all extremities - Routine Psychiatric Exam Present: cooperative Results - Labs CBC & Chem 7: 07/27/17 04:26 07/27/17 04:26 Assessment and Plan (1) Squamous cell carcinoma, metastatic Problem details: H&N, penile-2 primaries Current visit: No Status: Chronic (2) Weakness Problem details: With recent fall Current visit: Yes Status: Acute (3) Pleural effusion Current visit: Yes Status: Acute Assessment and Plan: Assessment Respiratory failure with progressive cough and hypoxia (home oxygen use 3-4 L) Rapidly progressive metastatic squamous cell carcinoma to the lungs, pleural cavity, mediastinum, retroperitoneal lymph nodes, and liver Symptomatic right pleural effusion most likely malignant. Had Pleurx catheter ( catheter removed 07/08 d/t infection). CRYSTAL infection right pleural space/fluid Leukocytosis-POA Hypercalcemia-POA Hypokalemia-POA Probable dehydration Chronic/associated conditions Anemia History of Stage IVB anterior tongue SCC s/p partial glossectomy with neck dissection followed by concurrent [place]/XRT in 2015. 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 Asthma Gout ANALI Morbid obesity Plan 07/27/17 Jasvir remains very ill. WBC count elevated, +bandemia. Continue cefazolin for CRYSTAL infection of the pleural space. Fluid originally appeared serous on dressings but is clearly cloudy as being collected now. White count remains elevated- past cultures did show an anaerobic concern. Consider adding broader coverage. Will D/W Dr. Chavez. Consult Dr. Valadez in AM. SIRS criteria present; will not obtain lactic acid as extended patient's liver disease will make result noninterpretable. Patient reports plan to continue treatment of malignancy with biologic agent which will be delayed managing acute symptoms. The complication introduced by managing infection/potential drainage and delayed treatment of rapidly progressive malignancy discussed with patient as we may not have a perfect outcome/option to offer. Pain and nausea control suboptimal-OxyContin increased to 15 mg every 8 hours, will discuss further with the patient as he is onto long-acting pain medications. May be better served by conversion to MS Contin from a cost perspective. Additional antiemetics available. Nutritional supplements 3 times a day, soft diet-patient reports chewing food fatigues him and causes dyspnea. Continue supportive care. Ongoing concerns for esophageal dysphagia- PPI BID. May need to resume Carafate. Grim prognosis. Very sad situation. Continue close eye on labs. DVT Prophylaxis: SCD's GI Prophylaxis: Protonix Resuscitation Status: Do Not Resuscitate - Time spent with patient Time with patient PN: 35 minutes Coordination of Care: >50% of visit spent providing counseling/coordination of care - Physician Narrative Physician: Alley Chavez MD Narrative: Date: 07/27/17 Time: 1420 I have independently evaluated and examined this patient. I reviewed the chart, the patient's history, and the DRAWER MAKER/PA's documented findings as above. We discussed and formulated the assessment and plan as above with additions as below: Jasvir was seen earlier this morning with his at the bedside. He described feeling her today with some hypoxia on CPAP overnight requiring oxygen flow rate be increased with CPAP. He has marked exertional dyspnea transferring from the bathroom to the bed; he had a loose stool this morning with a small amount of bright red blood per rectum which he attributes to chronic hemorrhoids. He feels like there is a "rock" at the distal esophagus limiting oral intake because solids hang up in the lower esophagus. He denies difficulty with liquids. Continues to have nocturnal sweats but denied fevers or chills. Drainage from the Pleurx catheter site remains cloudy with volume was down over the past 24 hours (25 mL). NAD at rest, decreased breath sounds bilaterally R>L, abdomen soft but tender to palpation diffusely through the upper/right abdomen. No evidence of thrush. Check Gram stain on fluid draining from pleural space; discuss more definitive drainage options with surgery and oncology tomorrow when Dr. Valadez and Dr. Calderón are available. PPI initiated. CT chest obtained this admission and on 07/16 reviewed-esophagus lumen can be seen in the upper chest but before the bifurcation of the airway esophagus lumen really can no longer be seen with only glimpses of lumen more distally. Will discuss with radiology tomorrow. OxyContin discontinued overnight and replaced with morphine ER 15 mg every 8 hours; currently plan to discontinue fentanyl patches in the next 24-48 hours and increase morphine to 30 mg every 12 hours if pain control remained stable. Overall patient/ think pain control is slightly better today than it has been and he has not required any OxyIR since 5 a.m. Hospital Course Summary Disclaimer: The visit summary below is not to be considered part of the above Progress Note. Hospital Course: 07/25/17 - Hospital admission Admit, observation, for progressive cough, hypoxia, pleural effusion. Hydrate with normal saline with KCl given his hypokalemia Continue home pain medication regimen with PRN morphine IV. Zofran and promethazine PRN nausea. Promethazine with DM PRN cough. Keybs, RT consult. CXR in am to follow pleural effusion. Repeat labs in a.m. to follow leukocytosis, hypercalcemia and hypokalemia. Continue Augmentin p.o. (if tolerated) for pulmonary and GI coverage in light of recent infection. (Staph aureus on wound culture from right chest wound 4/4/ 18-pansensitive.) Attending to make further recommendations. Patient and family request not to see Dr. Sharma. They request consult with Dr. Valadez for his opinion. Case discussed with Dr. Valadez who indicated he would see him Friday. Would not recommend surgery at this time, and ideally , if he did have surgery, would recommend this be done by cardiothoracic surgeon. Patient, at this time, declines transfer to [place]. Patient requests DNR code status. Mother indicates family is willing to discuss hospice or [facility] opts w/ this discharge given his increasing weakness and recent fall. Care to return to Dr Chris Dominguez on discharge. 07/26/17 Continue cefazolin for CRYSTAL infection of the pleural space; white count of fluid draining currently significantly elevated. Fluid originally appeared serous on dressings but is clearly cloudy as being collected now. White count slightly better with conversion to IV antibiotics. Briefly discussed with Dr. Meza who is on-call for Dr. Valadez, surgical consultation planned when Dr. Valadez returns Friday as no surgical intervention would be initiated in the intervening time for pleural fluid collection. SIRS criteria present; will not obtain lactic acid as extended patient's liver disease will make result noninterpretable. Patient reports plan to continue treatment of malignancy with biologic agent which will be delayed managing acute symptoms. The complication introduced by managing infection/potential drainage and delayed treatment of rapidly progressive malignancy discussed with patient as we may not have a perfect outcome/option to offer. Pain and nausea control suboptimal-OxyContin increased to 15 mg every 8 hours, will discuss further with the patient as he is onto long-acting pain medications. May be better served by conversion to MS Contin from a cost perspective. Additional antiemetics available. Nutritional supplements 3 times a day, soft diet-patient reports chewing food fatigues him and causes dyspnea. Continue supportive care. 07/27/17 Jasvir remains very ill. WBC count elevated, +bandemia. Continue cefazolin for CRYSTAL infection of the pleural space. Fluid originally appeared serous on dressings but is clearly cloudy as being collected now. White count remains elevated- past cultures did show an anaerobic concern. Consider adding broader coverage. Will D/W Dr. Chavez. Consult Dr. Valadez in AM. SIRS criteria present; will not obtain lactic acid as extended patient's liver disease will make result noninterpretable. Pain and nausea control suboptimal-OxyContin inverted to morphine ER to 15 mg every 8 hours. Additional antiemetics available. Nutritional supplements 3 times a day, soft diet-patient reports chewing food fatigues him and causes dyspnea. Continue supportive care. Ongoing concerns for esophageal dysphagia- PPI BID.
[2017-07-27] MEDS ORDERED: ACETAMINOPHEN 325 MG TABLET PO PRN (14:33)
[2017-07-27] MEDS: PANTOPRAZOLE 40 MG TABLET PO SCH ×2 (15:49→17:09)
[2017-07-27] MEDS: PROCHLORPERAZINE 10 MG/2 ML INJECTION IVP PRN (20:28)
[2017-07-27] MEDS: MIRTAZAPINE 15 MG TABLET PO SCH (20:46)
[2017-07-28] MEDS: CEFAZOLIN 1 G in NS 100 ML IV SCH ×4 (00:16→23:52)
[2017-07-28] MEDS: PANTOPRAZOLE 40 MG TABLET PO SCH ×2 (06:40→16:05)
[2017-07-28] MEDS: ALBUTEROL/IPRATROPIUM 2.5mg-0.5mg/3ml NEB AEROSOL SCH ×5 (07:35→19:37)
--- NOTE | 2017-07-28 07:42 | General Surgery Consult Note ---
Consult date: 07/28/17 Attending Physician: Alley Chavez MD [facility] Medical History Updates: -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 -Anaphylactic reaction to Erbitux on 06/02/17. -History of squamous cell cancer of the penis, stage IIIB, status post penectomy, chemo, and b/l inguinal lymph node dissection. 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 -Obstructive sleep apnea. -Normocytic anemia. -Gout. -Asthma. -Chronic oxygen use 3-4L Surgical History: -Wound exploration and excisional debridement and application of wound VAC to inguinal wounds on 12/19/[address] Valadez. -Bilateral inguinal lymph node dissections at the [facility] in [place] on November 29, 2016. -Penectomy 06/28/2016. -Radical neck resection and salivary gland removal on right 2015. -Left IJ PAC placement and PEG tube placement 09/07. Family History Updates: Mother-hypertension. Father and sister-type II diabetes - Social History Smoking status: Former smoker second hand exposure: No Substance use type: does not use Alcohol intake frequency: does not drink Housing: house Household members: spouse, children Current occupational status: previously employed (RN), disabled Does patient use chewing tobacco?: No Current residence: Apartment/Private Home Medications Home Medications Medication Instructions Recorded Confirmed Type Cyanocobalamin (Vitamin B-12) 1 tab PO DAILY #0 tab 09/04/15 07/25/17 History [Vitamin B-12] Elderberry Fruit/Honey [Little 1 dose PO DAILY #0 09/04/15 07/25/17 History Remedies Cough-Immune] Allopurinol [Zyloprim] 100 mg PO DAILY 12/18/16 07/25/17 History Docusate Sodium 100 mg PO BID PRN 05/30/17 07/25/17 History Ondansetron HCl 4 mg SL Q6HR PRN 07/16/17 07/25/17 History Topiramate [Topamax] 50 mg PO BID 07/16/17 07/25/17 History Betamethasone/Propylene Glyc 1 applicatio TP TID PRN 07/17/17 07/25/17 History [Betamethasone Dp Aug 0.05% Crm] Albuterol/Ipratropium [Duoneb] 3 ml AEROSOL RTQID #1 box 07/23/17 07/25/17 Rx Amoxicillin/Potassium Clav 1 each PO BID 5 Days #10 tab 07/23/17 07/25/17 Rx [Augmentin 875-125 Tablet] Furosemide [Lasix] 20 mg PO DAILY PRN #30 tab 07/23/17 07/25/17 Rx Mirtazapine [Remeron] 7.5 mg PO HS #30 tab 07/23/17 07/25/17 Rx Oxycodone *IR* [Roxicodone *Ir*] 15 mg PO Q4H PRN #30 tab 07/23/17 07/25/17 Rx Oxycodone CR [Oxycontin] 15 mg PO Q12HR #30 tab 07/23/17 07/25/17 Rx PEG 3350 17gm PACKET [Miralax] 17 gm PO DAILY PRN #1 packet 07/23/17 07/25/17 Rx Potassium Chloride 10 meq PO PRN PRN #30 capsule.er 07/23/17 07/25/17 Rx Sertraline [Zoloft] 200 mg PO DAILY #30 tab 07/23/17 07/25/17 Rx fentaNYL [Fentanyl] 25 mcg TD Q3D #10 patch.td72 07/23/17 07/25/17 Rx Sennosides/Docusate Sodium 1 tab PO BID 07/25/17 07/25/17 History [Senna-S Tablet] Allergies Allergy/AdvReac Type Severity Reaction Status Date / Time cetuximab [From Erbitux] Allergy Severe Anaphylactic Verified 07/25/17 12:27 Shock Review of Systems 10-point ROS: negative except for HPI and the following: - Eyes/Ears/Nose/Throat Ear Nose Throat: Present: other (hears "sounds" ) Additional comments: prior tongue cancer excised - Respiratory Respiratory: Present: difficulty breathing, cough (nearly constant), sleep apnea , use of CPAP, use of oxygen (use has gone up from 3L to4L recently, sats drop into the 80's with activity) Additional comments: drainage from right chest site of prior PleurX catheter - Gastrointestinal Gastrointestinal: Present: nausea, other (states food sticks distal esophagus, has had no solid food for about 2 weeks, has been taking Protein shakes.) Additional comments: RUQ abd pain - Genitourinary Additional comments: prior penectomy - Musculoskeletal Musculoskeletal: Present: joint pain - Neurological Neurological: Present: muscle weakness, other (confusion) - Psychiatric Psychiatric: Present: anxiety, depression - Vital Signs Last Vital Signs Temp 97.6 F 07/28/17 00:17 Pulse 100 07/28/17 00:17 Resp 18 07/28/17 00:17 BP 111/65 07/28/17 00:17 Pulse Ox 92 07/28/17 05:43 - Laboratory Result Diagrams: 07/28/17 04:31 07/28/17 04:31 General Surgery Results - Results Labs: 07/28/17 04:31 07/28/17 04:31
[2017-07-28] MEDS: SENNA + DOCUSATE TABLET PO SCH ×2 (08:34→20:21)
[2017-07-28] MEDS: ALLOPURINOL 100 MG TABLET PO SCH (08:34)
[2017-07-28] MEDS: TOPIRAMATE 25 MG TABLET PO SCH ×2 (08:34→20:23)
[2017-07-28] MEDS: SERTRALINE 100 MG TABLET PO SCH (08:34)
[2017-07-28] MEDS ORDERED: ALBUTEROL 2.5mg/3ml (0.083%) NEB AEROSOL PRN (09:22)
[2017-07-28] MEDS: ALBUTEROL/IPRATROPIUM 2.5mg-0.5mg/3ml NEB AEROSOL PRN ×2 (09:37→15:56)
[2017-07-28] MEDS: PHOSPHORUS 250 MG TABLET PO SCH ×3 (11:42→20:20)
--- NOTE | 2017-07-28 12:15 | Progress Note ---
- Date 07/28/17 Subjective: Jasvir was coughing frequently. He stated "It feels like I have a mucous plug". Indeed, after a few minutes, he coughed up thick clear-white mucous and his coughing temporarily improved but overall, he is coughing much more today. His family report that he slept a lot yesterday. He feels short of breath and c/o pain. His swallowing is better today. He's having auditory hallucinations - similar to what he hears when his calcium is elevated. He and his family want to go over pros and cons of having an I&D versus focusing on nonsurgical management with both Dr. Valadez and Dr. Calderón. Objective Vital signs: Temperature 96.3 F L 07/28/17 08:00 Pulse Rate 115 H 07/28/17 08:02 Respiratory Rate 25 H 07/28/17 09:38 Blood Pressure 136/95 H 07/28/17 08:00 Pulse Oximetry 94 07/28/17 10:15 Height/Weight/BMI: Weight 131.6 kg - Constitutional Present: mild distress, obese Comments: pale, appears weak and ill - Routine HEENT Exam Head: Present: normocephalic Eye: Present: PERRL. Absent: conjunctival icterus, scleral injection ENT: Present: mucous membranes dry - Routine Respiratory Exam Present: crackles (left), diminished air movement (right) Comments: ostomy bag to pleurx site with light brown drainage - Routine Cardiovascular Exam Present: RRR, S1, S2, tachycardia - Routine Abdominal Exam Present: soft, tenderness (RUQ). Absent: normoactive bowel sounds (hypoactive) - Routine Extremities Exam Present: edema (BLE) - Routine Skin Exam Present: dry, pallor, warm Comments: ostomy bag covering the pleurx site - Routine Neurological Exam Present: alert, oriented X3, CN II-XII intact, moving all extremities, vision grossly intact, hearing grossly intact, normal speech - Routine Psychiatric Exam Present: normal affect, normal thought process, cooperative Results - Labs CBC & Chem 7: 07/28/17 04:31 07/28/17 04:31 Microbiology Results: Microbiology 07/28/17 06:58 Thoracic Fluid Gram Stain - Final 07/28/17 06:58 Thoracic Fluid Body Fluid Culture - Preliminary Culture Initiated - Results Pending Assessment and Plan (1) Squamous cell carcinoma, metastatic Problem details: H&N, penile-2 primaries Current visit: No Status: Chronic (2) Weakness Problem details: With recent fall Current visit: Yes Status: Acute (3) Pleural effusion Current visit: Yes Status: Acute Assessment and Plan: Assessment Respiratory failure with progressive cough and hypoxia (home oxygen use 3-4 L) Rapidly progressive metastatic squamous cell carcinoma to the lungs, pleural cavity, mediastinum, retroperitoneal lymph nodes, and liver Symptomatic right pleural effusion most likely malignant. Had Pleurx catheter ( catheter removed 07/08 d/t infection). CRYSTAL infection right pleural space/fluid Leukocytosis-POA Hypercalcemia-POA Hypokalemia-POA Probable dehydration Chronic/associated conditions Anemia History of Stage IVB anterior tongue SCC s/p partial glossectomy with neck dissection followed by concurrent Inupiat/XRT in 2015. 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 Asthma Gout ANALI Morbid obesity Plan 07/28/17 Continue cefazolin for CRYSTAL infection of the pleural space. WBC still elevated at 20 - may need to expand abx. He's coughing frequently, though this could also be related to pulmonary edema. He received furosemide 20 mg PO this am - may need to provide IV diuresis. Repeat CXR today. K still slightly low with oral furosemide, give extra KDur. Dysphagia improving with Protonix. Barium swallow ordered for tomorrow. Ca up to 11; c/o auditory hallucinations. Dr. Valadez is planning on seeing him this afternoon. Discussed with Dr. Calderón. He will see Mr. Rivera tomorrow. There are questions regarding Opdivo. Continue pain meds with MS Contin (changed to 30 mg BID), fentanyl patch Patient/family weighing options of surgical intervention versus conservative management -- they wish to proceed with the one that will give him the best quality of life. Discussed with family, Pam Carty APRN, & Dr. Chavez. GI Prophylaxis: Protonix Resuscitation Status: Do Not Resuscitate - Time spent with patient Time with patient PN: 50 minutes - Physician Narrative Physician: Alley Chavez MD Narrative: Date: 07/28/17 Time: 1999 I have independently evaluated and examined this patient. I reviewed the chart, the patient's history, and the INDUSTRIAL ENG/PA's documented findings as above. We discussed and formulated the assessment and plan as above with additions as below: Jasvir was seen with multiple family members at the bedside. Abdominal pain is better but swallow continues to be problematic limiting him to liquids although his believes he is drinking more today than prior days. Pleased with pain control. NAD, alert at time of my assessment earlier today decreased airflow bilaterally R>L, no wheezing Dr. Valadez and Dr. Walker met with pt/family later today--> no surgical option for managment of pleural effusion available here and would require CV surgery and thoracotomy to address, Opdiva tomorrow per oncology. CXR reviewed by myself and has bilat pleural effusions R>L, and is c/w CHF by my review but not read as such by radiology. Plan echo, modified BaSW . Can discontinue now fentanyl patch tomorrow after increased Morphine ER dose started. d/w speech therapy, consulting MDs, case managment, and family. Hospital Course Summary Disclaimer: The visit summary below is not to be considered part of the above Progress Note. Hospital Course: 07/25/17 - Hospital admission Admit, observation, for progressive cough, hypoxia, pleural effusion. Hydrate with normal saline with KCl given his hypokalemia Continue home pain medication regimen with PRN morphine IV. Zofran and promethazine PRN nausea. Promethazine with DM PRN cough. DuoNebs, RT consult. CXR in am to follow pleural effusion. Repeat labs in a.m. to follow leukocytosis, hypercalcemia and hypokalemia. Continue Augmentin p.o. (if tolerated) for pulmonary and GI coverage in light of recent infection. (Staph aureus on wound culture from right chest wound -pansensitive.) Attending to make further recommendations. Patient and family request not to see Dr. Sharma. They request consult with Dr. Valadez for his opinion. Case discussed with Dr. Valadez who indicated he would see him Friday. Would not recommend surgery at this time, and ideally , if he did have surgery, would recommend this be done by cardiothoracic surgeon. Patient, at this time, declines transfer to [place]. Patient requests DNR code status. Mother indicates family is willing to discuss hospice or [facility] opts w/ this discharge given his increasing weakness and recent fall. Care to return to Dr Chris Dominguez on discharge. 07/26/17 Continue cefazolin for CRYSTAL infection of the pleural space; white count of fluid draining currently significantly elevated. Fluid originally appeared serous on dressings but is clearly cloudy as being collected now. White count slightly better with conversion to IV antibiotics. Briefly discussed with Dr. Meza who is on-call for Dr. Valadez, surgical consultation planned when Dr. Valadez returns Friday as no surgical intervention would be initiated in the intervening time for pleural fluid collection. SIRS criteria present; will not obtain lactic acid as extended patient's liver disease will make result noninterpretable. Patient reports plan to continue treatment of malignancy with biologic agent which will be delayed managing acute symptoms. The complication introduced by managing infection/potential drainage and delayed treatment of rapidly progressive malignancy discussed with patient as we may not have a perfect outcome/option to offer. Pain and nausea control suboptimal-OxyContin increased to 15 mg every 8 hours, will discuss further with the patient as he is onto long-acting pain medications. May be better served by conversion to MS Contin from a cost perspective. Additional antiemetics available. Nutritional supplements 3 times a day, soft diet-patient reports chewing food fatigues him and causes dyspnea. Continue supportive care. 07/27/17 Jasvir remains very ill. WBC count elevated, +bandemia. Continue cefazolin for CRYSTAL infection of the pleural space. Fluid originally appeared serous on dressings but is clearly cloudy as being collected now. White count remains elevated- past cultures did show an anaerobic concern. Consider adding broader coverage. Will D/W Dr. Chavez. Consult Dr. Valadez in AM. SIRS criteria present; will not obtain lactic acid as extended patient's liver disease will make result noninterpretable. Pain and nausea control suboptimal-OxyContin inverted to morphine ER to 15 mg every 8 hours. Additional antiemetics available. Nutritional supplements 3 times a day, soft diet-patient reports chewing food fatigues him and causes dyspnea. Continue supportive care. Ongoing concerns for esophageal dysphagia- PPI BID. 07/28/17 Continue cefazolin for CRYSTAL infection of the pleural space. WBC still elevated at 20 - may need to expand abx. He's coughing frequently, though this could also be related to pulmonary edema. He received furosemide 20 mg PO this am - may need to provide IV diuresis. Repeat CXR today. K still slightly low with oral furosemide, give extra KDur. Dysphagia improving with Protonix. Barium swallow ordered for tomorrow. Ca up to 11; c/o auditory hallucinations. Dr. Valadez is planning on seeing him this afternoon. Discussed with Dr. Calderón. He will see Mr. Rviera tomorrow. There are questions regarding Opdivo. Continue pain meds with MS Contin (changed to 30 mg BID), fentanyl patch Patient/family weighing options of surgical intervention versus conservative management -- they wish to proceed with the one that will give him the best quality of life.
[2017-07-28] MEDS: Oxycodone *IR* 15 MG TABLET PO PRN (13:41)
--- NOTE | 2017-07-28 14:59 | XRay Report ---
Indication: cough, pulm edema, leukocytosis PROCEDURE: XR chest 1V: Encounter: Initial Comparison: July 26, 2017 Findings: Lungs are stable in appearance with unchanged bilateral pleural effusions, right greater than left. Compressive atelectasis in the right lung with pleural thickening and pleural disease. Heart size and mediastinal contours are grossly stable. Impression: Stable appearance of the chest. .
[2017-07-28] MEDS ORDERED: FUROSEMIDE 20 MG/2 ML INJECTION IVP ONE (15:04)
--- NOTE | 2017-07-28 15:32 | Consult Note ---
<Mya Carty - Last Filed: 07/28/17 15:29> Oncology HPI - Data of Consult Patient: known to practice within the last 3 years Consult date: 07/28/17 Requesting Physician: Alley Chavez MD Primary Care Provider: Merari Dominguez MD - Consult Narrative History of present illness: 47-year-old male, well known to Dr. Calderón and Dr. Walker with progressive metastatic squamous cell was recently hospitalized at [facility] from 07/16 to 07/23 with right upper quadrant pain and infection from Pleurx catheter, which had been removed. Noted to have multiple new liver lesions; pathology on biopsy revealed met.squamous cell disease; anticipated beginning OpDivo for palliative treatment. Was dismissed to home; but states had significant weakness; had one fall at home when his legs gave out after he had walked into the home following hospital dismissal. Denies severe injury at time of fall but continued to have weakness. He then developed copious drainage from chest wall/previous Pleurx catheter site. Reports initally copious clear drainage, which turned purulent. Also noted increasing cough, increasing shortness of air and presented to [facility] emergency room and was admitted for further evaluation and supportive care. History of present illness: :Initally diagnosed 08/01/15 w/ stage IVB squamous cell CA of tongue, s/p right parital glossectomy With radical neck dissection by Dr. Moore in [place]. Completed concurrent chemo/radiation then cisplatin. For last cycle he received carboplatin and Taxol secondary to ototoxicity. 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 Status post total penectomy with perineal urethrostomy 06/26/16 at [facility]. : Restaging PET scan 08/14/16 showed increased FDG uptake within pelvic lymph nodes. Treated with 3 cycles of preoperative chemotherapy IFEX/carbo/Taxol from 08/28/16 to 10/11/16 without complications. Then received 3 cycles carboplatin/ifosfamide/Taxol. : 03/04/2017 underwent lymph node dissection at [facility], 32 lymph nodes removed which showed no evidence of residual metastatic disease. Postoperatively patient developed severe bilateral wound infection/dehiscence of incisions. Treated with wound VAC/long-term antibiotics. : 05/21/17 restaging showed new spiculated mass in right upper lobe with right pleural effusion. He then underwent bronchoscopy with biopsy by Dr. Sharma which showed invasive squamous cell carcinoma. : 06/10/17 received first cycle chemotherapy/carboplatin/5-FU's/cetuximab unfortunately developed severe reaction to cetuximab. He did complete 5-FU/and carboplatin. He underwent Pleurx catheter placement. : 06/25/17 increasing shortness of air and back pain; Also noted to have hypercalcemia. He received Zometa and hydration, 07/01/17 received first dose of docetaxel along with carboplatin and 5-FU. Review of Systems - Constitutional Constitutional: Present: fatigue, weakness, weight loss - EENT Eyes: Absent: diplopia Mouth/Throat: Absent: sore throat - Cardiovascular Cardiovascular: Present: dyspnea on exertion. Absent: chest pain - Respiratory Respiratory: Present: cough, dyspnea, dyspnea on exertion - Gastrointestinal Gastrointestinal: Present: abdominal pain. Absent: constipation, diarrhea - Genitourinary Genitourinary: Absent: urinary frequency, urinary urgency - Musculoskeletal Musculoskeletal: Present: muscle weakness. Absent: back pain - Neurological Neurological: Present: weakness. Absent: vertigo - Psychiatric Psychiatric: Present: anxiety, depression (R/T life-threatening illness) [facility] Medical History Updates: -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 -Anaphylactic reaction to Erbitux on 06/02/17. -History of squamous cell cancer of the penis, stage IIIB, status post penectomy, chemo, and b/l inguinal lymph node dissection. 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 -Obstructive sleep apnea. -Normocytic anemia. -Gout. -Asthma. -Chronic oxygen use 3-4L Surgical History: -Wound exploration and excisional debridement and application of wound VAC to inguinal wounds on 12/19/[address] Valadez. -Bilateral inguinal lymph node dissections at the [facility] in [place] on November 29, 2016. -Penectomy 06/28/2016. -Radical neck resection and salivary gland removal on right 2015. -Left IJ PAC placement and PEG tube placement 09/07. Family History Updates: Mother-hypertension. Father and sister-type II diabetes - Social History Smoking status: Former smoker second hand exposure: No Substance use type: does not use Alcohol intake frequency: does not drink Housing: house Household members: spouse, children Current occupational status: previously employed (RN), disabled Does patient use chewing tobacco?: No Current residence: Apartment/Private Home Medications Home Medications Medication Instructions Recorded Confirmed Type Cyanocobalamin (Vitamin B-12) 1 tab PO DAILY #0 tab 09/04/15 07/25/17 History [Vitamin B-12] Elderberry Fruit/Honey [Little 1 dose PO DAILY #0 09/04/15 07/25/17 History Remedies Cough-Immune] Allopurinol [Zyloprim] 100 mg PO DAILY 12/18/16 07/25/17 History Docusate Sodium 100 mg PO BID PRN 05/30/17 07/25/17 History Ondansetron HCl 4 mg SL Q6HR PRN 07/16/17 07/25/17 History Topiramate [Topamax] 50 mg PO BID 07/16/17 07/25/17 History Betamethasone/Propylene Glyc 1 applicatio TP TID PRN 07/17/17 07/25/17 History [Betamethasone Dp Aug 0.05% Crm] Albuterol/Ipratropium [Duoneb] 3 ml AEROSOL RTQID #1 box 07/23/17 07/25/17 Rx Amoxicillin/Potassium Clav 1 each PO BID 5 Days #10 tab 07/23/17 07/25/17 Rx [Augmentin 875-125 Tablet] Furosemide [Lasix] 20 mg PO DAILY PRN #30 tab 07/23/17 07/25/17 Rx Mirtazapine [Remeron] 7.5 mg PO HS #30 tab 07/23/17 07/25/17 Rx Oxycodone *IR* [Roxicodone *Ir*] 15 mg PO Q4H PRN #30 tab 07/23/17 07/25/17 Rx Oxycodone CR [Oxycontin] 15 mg PO Q12HR #30 tab 07/23/17 07/25/17 Rx PEG 3350 17gm PACKET [Miralax] 17 gm PO DAILY PRN #1 packet 07/23/17 07/25/17 Rx Potassium Chloride 10 meq PO PRN PRN #30 capsule.er 04/11/18 04/13/18 Rx Sertraline [Zoloft] 200 mg PO DAILY #30 tab 07/23/17 07/25/17 Rx fentaNYL [Fentanyl] 25 mcg TD Q3D #10 patch.td72 07/23/17 07/25/17 Rx Sennosides/Docusate Sodium 1 tab PO BID 07/25/17 07/25/17 History [Senna-S Tablet] Allergies Allergy/AdvReac Type Severity Reaction Status Date / Time cetuximab [From Erbitux] Allergy Severe Anaphylactic Verified 07/25/17 12:27 Shock Exam Vital signs: Temperature 96.3 F L 07/28/17 08:00 Pulse Rate 115 H 07/28/17 08:02 Respiratory Rate 26 H 07/28/17 14:00 Blood Pressure 136/95 H 07/28/17 08:00 Pulse Oximetry 97 07/28/17 14:00 - Constitutional no acute distress, obese, cooperative - Routine HEENT Exam Head: Present: normocephalic Eye: Present: EOMI ENT: Present: mucous membranes moist - Routine Neck Exam Present: supple. Absent: lymphadenopathy - Routine Respiratory Exam Present: decreased breath sounds. Absent: wheezes, crackles - Routine Cardiovascular Exam Present: RRR. Absent: no murmur - Routine Abdominal Exam Present: soft, normoactive bowel sounds, tenderness (mild tenderness w/ examination), non distended - Routine Extremities Exam Absent: no edema - Routine Back/Spine/Pelvis Exam Back/Spine: Absent: vertebral tenderness - Routine Skin Exam Present: dry, warm. Absent: rash - Routine Neurological Exam Present: alert, oriented X3 - Routine Psychiatric Exam Present: normal affect, cooperative, anxious Oncology Results - Labs CBC & Chem 7: 07/28/17 04:31 07/28/17 04:31 Labs: Short CBC 07/28/17 Range/Units 04:31 WBC 20.1 H (4.5-11.0) T/MM3 Hgb 9.4 L (13.5-17.5) GM/DL Hct 32.0 L (41-53) % Plt Count 216 (130-400) T/MM3 [facility] 07/28/17 04:31 Sodium 142 Potassium 3.5 L Chloride 99 Carbon Dioxide 32 H BUN 9.0 D Creatinine 0.5 L Glucose 113 H Calcium 11.0 H D Liver Function 07/28/17 Range/Units 04:31 Albumin 2.9 L (3.5-5.0) g/dL Assessment and Plan Assessment and Plan: Impression. 1. 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 2. 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 3. 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 4. Bilateral pleural effusion, previous Pleurx catheter, this was removed because the catheter became infected, now with significant drainage from chest wall. Wound cultures done today,07/28/17, awaiting micro biology results. 5. Increased weakness 6. Bone metastasis/hypercalcemia of malignancy. Plan. Patient//mother aware of likely poor outcome. Hospice has been discussed previously. They understand limited treatment options, but "want to fight as long as I can." Would like to begin Opdivo when feasible; awaiting input from Dr. Devlin and Dr. Walker/Dr. Calderón. Continue supportive care. <Yasmany Walker D - Last Filed: 07/28/17 18:02> Oncology HPI - Data of Consult Requesting Physician: Alley Chavez MD Primary Care Provider: Mreari Dominguez MD Exam Vital signs: Temperature 96.0 F L 07/28/17 16:00 Pulse Rate 113 H 07/28/17 16:17 Respiratory Rate 28 H 07/28/17 16:00 Blood Pressure 112/62 07/28/17 17:27 Pulse Oximetry 97 07/28/17 16:00 Oncology Results - Labs CBC & Chem 7: 07/28/17 04:31 07/28/17 04:31 Labs: Short CBC 07/28/17 Range/Units 04:31 WBC 20.1 H (4.5-11.0) T/MM3 Hgb 9.4 L (13.5-17.5) GM/DL Hct 32.0 L (41-53) % Plt Count 216 (130-400) T/MM3 BMP 07/28/17 04:31 Sodium 142 Potassium 3.5 L Chloride 99 Carbon Dioxide 32 H BUN 9.0 D Creatinine 0.5 L Glucose 113 H Calcium 11.0 H D Liver Function 07/28/17 Range/Units 04:31 Albumin 2.9 L (3.5-5.0) g/dL Assessment and Plan Assessment and Plan: Patient examined chart reviewed. Discussed with patient , family, Cheri Shi. Progressive disease with increased weakness. Falls. Needs to evaluate brain to rule out brain metastasis. Would do ct as would not tolerate MRI. Progressive respiratory distress with empyema on right. Not candidate for decortication. Overall prognosis is guarded. Discussed treatment options and comfort care. We currently have Free Opdivo at office and can administer tomorrow. Dr. Calderón will see tomorrow. Discussed hospice care, comfort care and palliative chemotherapy with Opdivo. He would like to try opdivo. Family is in agreement. Recommendations Imaging of brain. Antibiotics and diuretics Consider Zometa for hypercalcemia Opdivo tomorrow.
[2017-07-28 16:30] VITALS: BMI 41.6
--- NOTE | 2017-07-28 18:19 | Consultation ---
DATE OF SERVICE 07/28/2017 FINDINGS Mr. 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 The patient is known to my surgical practice. 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 The patient's inguinal wounds have been healed for an extended period time. He has been undergoing chemotherapy as a result of his metastatic squamous cell cancer. Unfortunately, his malignancy has continued to progress and now the patient has developed several hepatic metastases. The patient also had developed a large right pleural effusion/ possible empyema. A PleurX catheter was placed previously which unfortunately apparently became infected and was removed. He now has continuous drainage from where his PleurX catheter had been previously placed upon the right anterior chest. Patient states that he has progressively become more weak. He has recently fallen. He was admitted to the hospital for further care. PAST MEDICAL HISTORY, PAST SURGICAL HISTORY, MEDICATIONS, ALLERGIES, SOCIAL HISTORY, FAMILY HISTORY, REVIEW OF SYSTEMS Performed by my nurse practitioner, Abundio Caldera APRN. PHYSICAL EXAMINATION GENERAL: Mr. Rivera is a 47-year-old gentleman who appears significantly worse than the last time I saw him several months ago. He does appear more frail in nature. VITAL SIGNS: Temperature 96.0, pulse 113, respirations 28, blood pressure 112/ 62, SAO2 97% on 4 L/nasal cannula. HEENT: Normocephalic. Pupils are equally round and react to light and accommodation. CHEST: Auscultation of the right chest reveals essentially absent breath sounds. One can hear some faint breath sounds within the right apex. Left lung perez are clear. Upon visualization the patient does have an ostomy appliance present involving the right anterior chest. There is perhaps about 50 -100 mL of straw-colored fluid within this ostomy appliance. There does not appear to be any air within the ostomy appliance to suggest a bronchopleural fistula but more of a pleurocutaneous fistula. ABDOMEN: Palpation of the abdomen reveals it to be soft and nontender. I do not appreciate any evidence for hepatosplenomegaly or other abnormal masses. EXTREMITIES: Without clubbing, cyanosis, or edema. NEURO: Cranial nerves II-XII grossly intact. Patient is without focal motor or sensory deficits. LABORATORY/RADIOGRAPHIC EVALUATION The patient's white count is elevated at 20,000. Hemoglobin is 9.4. Does have a left shift with 96% neutrophils. BMP was obtained and found to be without marked abnormalities. I did spend some time reviewing the patient's chart electronically including prior CT scan of his abdomen and pelvis and ultrasound=guided liver biopsies that returned revealing evidence for metastatic squamous cell cancer. I reviewed his most recent CT scan of his chest from 07/25/2017. The patient has almost complete opacification or collapse of the right lung. There is still a portion of the right upper lobe which is being aerated. There was significant pleural reaction present with associated fluid. Some mild changes were noted within the left. I do see the patient's pleural fluid has been previously sent for cytology and was negative. I do see that pleural fluid was sent on 07/28/2017 and a gram stain was obtained revealing many neutrophils. No organisms were seen. Culture was initiated today. ASSESSMENT 47-year-old gentleman with the misfortune of developing metastatic squamous cell carcinoma. Patient with CT scan findings suggestive of empyema/marked inflammatory changes involving right pleura with associated fluid. PLAN The patient was informed that from a surgical standpoint I did not feel that he was an operative candidate. I informed the patient that I am not a cardiothoracic surgeon but in my opinion it appears that he would probably benefit from a video-assisted thorascopic surgery to see if indeed he had an empyema with possible need for thoracotomy and decortication and placement of multiple chest tubes. I do not feel that given his current status this is a valid option. I informed the patient that I did not feel that a chest tube could be placed in this type of process, for the space between the lung and the pleura has likely been obliterated as a result of inflammatory changes that are present and placing a chest tube would likely end up with the tube being placed intraparenchymally within the right lung. The patient was in the process of discussing further options with Oncology. I informed the patient that ultimately I believe the decision on how to proceed is going to be made by his oncologist as well as himself. In my opinion I believe that the options at this point in time are to continue with ongoing chemotherapy versus hospice/ palliative care. Unfortunately, I do not have much to offer from a surgical standpoint in regards to the disease process present within the right thorax. The patient has expressed previously that he does not want to go to [place] nor do I believe that he is an operative candidate, as stated above. MTDD
[2017-07-28] MEDS: MIRTAZAPINE 15 MG TABLET PO SCH (20:20)
--- NOTE | 2017-07-28 20:44 | CT Scan Report ---
Indication: weakness, r/o mets PROCEDURE: CT head/brain wo con: Encounter: Initial Comparison: None Technique: Axial CT images through the head were performed without contrast. Iterative Reconstruction dose reducing technique was utilized. FINDINGS: The ventricles are of normal size, shape, and configuration for the patient's age. There is no evidence of acute intracranial hemorrhage, midline displacement, or mass effect. The CT attenuation of the brain parenchyma is normal within the cerebellum, brain stem, and cerebral hemispheres. The tympanic cavities and mastoid air cells are free of appreciable disease. There are no definite fractures of the skull base, calvarium, or visualized portion of the midface. IMPRESSION: No CT evidence of acute intracranial abnormality. No noncontrast CT evidence of intracranial metastatic disease. .
[2017-07-29] MEDS: PANTOPRAZOLE 40 MG TABLET PO SCH ×2 (05:30→17:07)
[2017-07-29] MEDS: ALBUTEROL/IPRATROPIUM 2.5mg-0.5mg/3ml NEB AEROSOL SCH ×4 (08:20→18:30)
[2017-07-29] MEDS: CEFAZOLIN 1 G in NS 100 ML IV SCH ×3 (09:12→23:43)
[2017-07-29] MEDS: PHOSPHORUS 250 MG TABLET PO SCH (09:13)
[2017-07-29] MEDS: SENNA + DOCUSATE TABLET PO SCH ×2 (09:13→20:38)
[2017-07-29] MEDS: TOPIRAMATE 25 MG TABLET PO SCH ×2 (09:13→20:38)
[2017-07-29] MEDS: SERTRALINE 100 MG TABLET PO SCH (09:13)
[2017-07-29] MEDS: ALLOPURINOL 100 MG TABLET PO SCH (09:13)
[2017-07-29] MEDS ORDERED: AQUAPHOR TOPICAL OINTMENT 52.5 G TUBE TP PRN (10:01)
[2017-07-29] MEDS ORDERED: ZOLEDRONIC ACID 4 MG/100 ML BAG IV ONE (10:19)
--- NOTE | 2017-07-29 10:21 | Progress Note ---
- Date 07/29/17 Subjective: Jasvir is breathing more comfortably today. He is not as tachypneic and his cough is not as frequent, compared to yesterday. He was able to sleep well last night. He woke up at 0500 with an increase in pain, but after he was given MS Contin, this pain returned to an acceptable level of 3/10. The sensation of food getting stuck in his esophagus has improved much. He denies nausea or vomiting, but his states he's been refusing K-Phos because he has difficulty swallowing it. He just returned from his barium swallow study. His also notes that he is starting to have dry flaky skin on his hands and shoulders. Objective Vital signs: Temperature 96.5 F L 07/29/17 07:21 Pulse Rate 97 07/29/17 08:00 Respiratory Rate 22 07/29/17 07:21 Blood Pressure 115/69 07/29/17 07:21 Pulse Oximetry 93 07/29/17 07:21 Height/Weight/BMI: Height 1.78 m Weight 129.2 kg Body Mass Index 41.6 - Constitutional Present: mild distress, morbidly obese - Routine HEENT Exam Head: Present: normocephalic Eye: Present: PERRL. Absent: conjunctival icterus, scleral injection - Routine Respiratory Exam Present: crackles (very faint crackles to the left base, much improved compared to yesterday) Comments: Markedly diminished air movement on the right - Routine Cardiovascular Exam Present: RRR, S1, S2 - Routine Abdominal Exam Present: soft, normoactive bowel sounds, non distended, non tender Comments: He has an ostomy bag over the site where his Pleurx catheter was in order to collect the fluid drainage. - Routine Extremities Exam Present: no edema, pulses intact - Routine Skin Exam Present: dry, pallor, warm - Routine Neurological Exam Present: alert, oriented X3, CN II-XII intact, vision grossly intact, hearing grossly intact, normal speech - Routine Psychiatric Exam Present: normal affect, normal thought process, cooperative Results - Labs CBC & Chem 7: 07/29/17 05:07 07/29/17 05:07 Microbiology Results: Microbiology 07/28/17 06:58 Thoracic Fluid Gram Stain - Final 07/28/17 06:58 Thoracic Fluid Body Fluid Culture - Preliminary No Growth After 1 Day Assessment and Plan (1) Squamous cell carcinoma, metastatic Problem details: H&N, penile-2 primaries Current visit: No Status: Chronic (2) Weakness Problem details: With recent fall Current visit: Yes Status: Acute (3) Pleural effusion Current visit: Yes Status: Acute Assessment and Plan: Assessment Respiratory failure with progressive cough and hypoxia (home oxygen use 3-4 L) Rapidly progressive metastatic squamous cell carcinoma to the lungs, pleural cavity, mediastinum, retroperitoneal lymph nodes, and liver Symptomatic right pleural effusion most likely malignant. Had Pleurx catheter ( catheter removed 07/08 d/t infection). CRYSTAL infection right pleural space/fluid Leukocytosis-POA Hypercalcemia-POA Hypokalemia-POA Probable dehydration Chronic/associated conditions Anemia History of Stage IVB anterior tongue SCC s/p partial glossectomy with neck dissection followed by concurrent [place]/XRT in 2015. 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 Asthma Gout ANALI Morbid obesity Plan 07/29/17 Continue cefazolin for CRYSTAL infection of the pleural space. Gram stains and cultures from 07/25 and 07/28 have been negative to date. White count is trending down, currently at 17.6. Respiratory status and coughing has improved with IV diuresis yesterday. Repeat chest x-ray tomorrow morning. His renal function remained stable with creatinine of 0.5 and BUN of 12. Potassium is still slightly low at 3.5, will give an additional K-Dur this morning. Phosphorus has improved to 3.1, will discontinue K-Phos. Hemoglobin remains stable at 9.1. Barium swallow study is pending. Continue PPI. Discussed case with Dr. Calderón: He will start Opdivo today. Also will order Zometa for hypercalcemia. Aquaphor ordered for dry skin. DVT Prophylaxis: SCD's GI Prophylaxis: Protonix Resuscitation Status: Do Not Resuscitate - Physician Narrative Physician: Marie Edmondson MD Narrative: Date: 07/29/17 Time: 1700 Mr. Rivera was interviewed and examined by me earlier in the day. Lots of family at bedside. He continues to complain of some shortness of air and cough. He sounds as though he has quite a bit of upper airway congestion. He continues to complain of some pain in the abdomen particularly with palpation. He denies nausea or vomiting. He does have some dysphasia. He complains of dry flaky skin on his hands and shoulders. He denies chest pain, pressure tightness. He denies palpitations. He has good urine and stool output. He did have his barium swallow which showed aspiration. He has been placed on nectar thickened liquids and pureed meat. He was started on OpDivo today by hematology/oncology PE: Gen: alert and oriented. NAD Skin: warm and dry HEENT: NC/AT PERRL, EOMI, Sclera, lids and conjunctiva wnl. MMM. OP clear. Neck: SHort and thick. No JVD, Carotids 2+ without bruits Lungs: Diminished. +Crackles R>L. No rhonchi or wheezes CV: regular. No murmur, rub or gallop Abd: soft. +BS. TTP diffusely. ND MS: No edema. Good distal pulses, Good strength and ROM Neuro: No focal deficits Psy: Appropriate mood and affect. Assessment and Plan: (1) Squamous cell carcinoma, metastatic to liver, mediastinum, retroperitoneal LNs, pleural cavity, lungs. -H&N, penile-2 primaries -Failed prior therapies -Rapidly progressing -Started on OpDivo today as palliative chemo (2) Weakness -recent fall -PT (3) Pleural effusion -Symptomatic right pleural effusion most likely malignant. Had Pleurx catheter ( catheter removed 07/08 d/t infection) -Not really a candidate for invasive treatment -Has catheter in fistula from prior Pleurx catheter (4) Respiratory failure with progressive cough and hypoxia (home oxygen use 3-4 L) -Upper airway congestion -Try mucinex -Repeat CXR in am. (5) CRYSTAL infection right pleural space/fluid -Continue Cefazolin -Follow WBC, trending down (6) Hypercalcemia -POA -Due to bone mets/malignancy -Zometa given today -Follow labs (7) Hypokalemia -POA -Continue to replace -Follow labs (8) hypophos -Better, dc K-Phos (9) Anemia -relatively stable -Continue to follow (10) Hypothyroid -Synthroid started (11) ANALI -CPAP (12) Aspiration -On thickened liquid and pureed meats, Ice chips (13) GERD -On PPI (14) Prophylaxis -PPI and SCDs I have reviewed Cheri Gracia APRN note and agree with assessment and plan with the above-mentioned changes. Hospital Course Summary Disclaimer: The visit summary below is not to be considered part of the above Progress Note. Hospital Course: 07/25/17 - Hospital admission Admit, observation, for progressive cough, hypoxia, pleural effusion. Hydrate with normal saline with KCl given his hypokalemia Continue home pain medication regimen with PRN morphine IV. Zofran and promethazine PRN nausea. Promethazine with DM PRN cough. Maicol, RT consult. CXR in am to follow pleural effusion. Repeat labs in a.m. to follow leukocytosis, hypercalcemia and hypokalemia. Continue Augmentin p.o. (if tolerated) for pulmonary and GI coverage in light of recent infection. (Staph aureus on wound culture from right chest wound -pansensitive.) Attending to make further recommendations. Patient and family request not to see Dr. Sharma. They request consult with Dr. Valadez for his opinion. Case discussed with Dr. Valadez who indicated he would see him Friday. Would not recommend surgery at this time, and ideally , if he did have surgery, would recommend this be done by cardiothoracic surgeon. Patient, at this time, declines transfer to [place]. Patient requests DNR code status. Mother indicates family is willing to discuss hospice or [facility] opts w/ this discharge given his increasing weakness and recent fall. Care to return to Dr Chris Dominguez on discharge. 07/26/17 Continue cefazolin for CRYSTAL infection of the pleural space; white count of fluid draining currently significantly elevated. Fluid originally appeared serous on dressings but is clearly cloudy as being collected now. White count slightly better with conversion to IV antibiotics. Briefly discussed with Dr. Meza who is on-call for Dr. Valadez, surgical consultation planned when Dr. Valadez returns Friday as no surgical intervention would be initiated in the intervening time for pleural fluid collection. SIRS criteria present; will not obtain lactic acid as extended patient's liver disease will make result noninterpretable. Patient reports plan to continue treatment of malignancy with biologic agent which will be delayed managing acute symptoms. The complication introduced by managing infection/potential drainage and delayed treatment of rapidly progressive malignancy discussed with patient as we may not have a perfect outcome/option to offer. Pain and nausea control suboptimal-OxyContin increased to 15 mg every 8 hours, will discuss further with the patient as he is onto long-acting pain medications. May be better served by conversion to MS Contin from a cost perspective. Additional antiemetics available. Nutritional supplements 3 times a day, soft diet-patient reports chewing food fatigues him and causes dyspnea. Continue supportive care. 07/27/17 Jasvir remains very ill. WBC count elevated, +bandemia. Continue cefazolin for CRYSTAL infection of the pleural space. Fluid originally appeared serous on dressings but is clearly cloudy as being collected now. White count remains elevated- past cultures did show an anaerobic concern. Consider adding broader coverage. Will D/W Dr. Chavez. Consult Dr. Valadez in AM. SIRS criteria present; will not obtain lactic acid as extended patient's liver disease will make result noninterpretable. Pain and nausea control suboptimal-OxyContin inverted to morphine ER to 15 mg every 8 hours. Additional antiemetics available. Nutritional supplements 3 times a day, soft diet-patient reports chewing food fatigues him and causes dyspnea. Continue supportive care. Ongoing concerns for esophageal dysphagia- PPI BID. 07/28/17 Continue cefazolin for CRYSTAL infection of the pleural space. WBC still elevated at 20 - may need to expand abx. He's coughing frequently, though this could also be related to pulmonary edema. He received furosemide 20 mg PO this am - may need to provide IV diuresis. Repeat CXR today. K still slightly low with oral furosemide, give extra KDur. Dysphagia improving with Protonix. Barium swallow ordered for tomorrow. Ca up to 11; c/o auditory hallucinations. Dr. Valadez is planning on seeing him this afternoon. Discussed with Dr. Calderón. He will see Mr. Rivera tomorrow. There are questions regarding Opdivo. Continue pain meds with MS Contin (changed to 30 mg BID), fentanyl patch Patient/family weighing options of surgical intervention versus conservative management -- they wish to proceed with the one that will give him the best quality of life. 07/29/17 Continue cefazolin for CRYSTAL infection of the pleural space. Gram stains and cultures from 07/25 and 07/28 have been negative to date. White count is trending down, currently at 17.6. Respiratory status and coughing has improved with IV diuresis yesterday. Repeat chest x-ray tomorrow morning. His renal function remained stable with creatinine of 0.5 and BUN of 12. Potassium is still slightly low at 3.5, will give an additional K-Dur this morning. Phosphorus has improved to 3.1, will discontinue K-Phos. Hemoglobin remains stable at 9.1. Barium swallow study is pending. Continue PPI. Discussed case with Dr. Calderón: He will start Opdivo today. Also will order Zometa for hypercalcemia. Aquaphor ordered for dry skin.
[2017-07-29] MEDS: Oxycodone *IR* 15 MG TABLET PO PRN (11:18)
--- NOTE | 2017-07-29 11:22 | Fluoroscopy Report ---
Indication: dysphagia PROCEDURE: FL barium swallow modified: Encounter: Initial Comparison: None. Findings: Videofluoroscopy was performed in conjunction with a commercial pest control representative from speech pathology and a separate report and recommendations will be provided. Varying gradations of barium from thin to solid were administered. There was was flash penetration with the nectar thick liquid and episodes of mostly sensate aspiration with thin and water consistencies. There was delayed oropharyngeal timing and motility with vallecular stasis. On the AP view the bolus showed no preference for either side. Impression: Aspiration with thin liquids. Fluoroscopy dose: 6.77 mGy (Cumulative air kerma) Please see the speech pathology report for additional details and recommendations. .
--- NOTE | 2017-07-29 11:24 | Progress Note ---
<Mya Carty - Last Filed: 07/29/17 11:43> Oncology Subjective Reclining in hospital bed, at bedside. He is alert and oriented. Continues with intermittent shortness of air, cough, denies increased symptoms. Intermittent chest/abdominal pain, well controlled with morphine. Denies diarrhea or constipation. No problems with voiding. General: No fever, no night sweats Eyes: No redness, no pain, no diplopia ENT: No mouth sores, no trouble swallowing Cardiac: + chest pain no palpitations Pulmonary: + cough, + shortness of breath, no wheezing Abdomen: + pain, + nausea, no vomiting, no diarrhea or constipation : No urgency, frequency, dysuria, or hematuria Musculoskeletal: generalized weakness Neurological: No headaches, no focal weakness Skin: No rash, no sores Psychiatric: + anxiety; related to illness Exam Vital signs: Temperature 96.5 F L 07/29/17 07:21 Pulse Rate 97 07/29/17 08:00 Respiratory Rate 22 07/29/17 07:21 Blood Pressure 115/69 07/29/17 07:21 Pulse Oximetry 93 07/29/17 07:21 - Constitutional no acute distress, obese, cooperative - Routine HEENT Exam Head: Present: normocephalic Eye: Present: EOMI. Absent: conjunctival icterus Nose: moist mucous membranes - Routine Neck Exam Present: supple. Absent: lymphadenopathy, tenderness - Routine Chest/Breast/Axilla Exam Chest wall: Present: tenderness - Routine Respiratory Exam Present: rhonchi (left/minimal air movement right ) - Routine Cardiovascular Exam Present: RRR - Routine Extremities Exam Present: no edema, full ROM - Routine Back/Spine/Pelvis Exam Back/Spine: Absent: vertebral tenderness - Routine Skin Exam Present: dry, pallor - Routine Neurological Exam Present: alert, oriented X3 - Routine Psychiatric Exam Present: normal affect, cooperative Oncology Results - Labs CBC & Chem 7: 07/29/17 05:07 07/29/17 05:07 Labs: Short CBC 07/29/17 Range/Units 05:07 WBC 17.6 H (4.5-11.0) T/MM3 Hgb 9.1 L (13.5-17.5) GM/DL Hct 31.5 L (41-53) % Plt Count 198 (130-400) T/MM3 BMP 07/29/17 05:07 Sodium 142 Potassium 3.5 L Chloride 95 L Carbon Dioxide 37 H BUN 12.0 Creatinine 0.5 L Glucose 92 Calcium 11.0 H Liver Function 07/29/17 Range/Units 05:07 Total Bilirubin 0.90 (0.20-1.30) MG/DL AST 118 H (17-59) U/L ALT 37 (1-50) U/L Alkaline Phosphatase 227 H (38-126) U/L Albumin 2.9 L (3.5-5.0) g/dL - Impressions Date of Exam: 07/28/17 Ordering Provider: Cheri Gracia APRN Type of Exam(s): CT head/brain wo con Reason for Exam(s): weakness, r/o mets Indication: weakness, r/o mets PROCEDURE: CT head/brain wo con: Encounter: Initial Comparison: None Technique: Axial CT images through the head were performed without contrast. Iterative Reconstruction dose reducing technique was utilized. FINDINGS: The ventricles are of normal size, shape, and configuration for the patient's age. There is no evidence of acute intracranial hemorrhage, midline displacement, or mass effect. The CT attenuation of the brain parenchyma is normal within the cerebellum, brain stem, and cerebral hemispheres. The tympanic cavities and mastoid air cells are free of appreciable disease. There are no definite fractures of the skull base, calvarium, or visualized portion of the midface. IMPRESSION: No CT evidence of acute intracranial abnormality. No noncontrast CT evidence of intracranial metastatic disease. . Assessment and Plan Assessment and Plan: 1. 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 2. 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 3. 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 4. Bilateral pleural effusion, previous Pleurx catheter, this was removed because the catheter became infected, now with significant drainage from chest wall. Wound cultures done 07/28/17, awaiting micro biology results. 5. Increased weakness 6. Bone metastasis/hypercalcemia of malignancy. Plan Dr. Calderón visited with patient/; again discussed OpDivo, and this would be palliative treatment. Patient desires to begin OpDivo. Patient treatment information sheets printed, copies provided to patient, and entire contents reviwed, including what do I need to know before starting treatment/starting OpDivo, how will I get the treatment, when should I call my healthcare provider , and what are the possible side effects? Following discussion, /patient's questions are answered and informed consent is obtained. Will give Zometa today for hypercalcemia, then begin OpDivo. Will get baseline TSH and ACTH today. Continue antibiotics/supportive care per hospitalist. - Time Spent With Patient Total time spent is greater than 50% in coordination of care (as documented) at patient's floor/unit and/or counseling patient: 25 - 35 minutes <Hill Calderón - Last Filed: 07/29/17 16:27> Exam Vital signs: Temperature 96.5 F L 07/29/17 07:21 Pulse Rate 94 07/29/17 15:35 Respiratory Rate 16 07/29/17 15:35 Blood Pressure 114/72 07/29/17 15:35 Pulse Oximetry 89 L 07/29/17 15:35 Oncology Results - Labs CBC & Chem 7: 07/29/17 05:07 07/29/17 05:07 Labs: Short CBC 07/29/17 Range/Units 05:07 WBC 17.6 H (4.5-11.0) T/MM3 Hgb 9.1 L (13.5-17.5) GM/DL Hct 31.5 L (41-53) % Plt Count 198 (130-400) T/MM3 BMP 07/29/17 05:07 Sodium 142 Potassium 3.5 L Chloride 95 L Carbon Dioxide 37 H BUN 12.0 Creatinine 0.5 L Glucose 92 Calcium 11.0 H Liver Function 07/29/17 Range/Units 05:07 Total Bilirubin 0.90 (0.20-1.30) MG/DL AST 118 H (17-59) U/L ALT 37 (1-50) U/L Alkaline Phosphatase 227 H (38-126) U/L Albumin 2.9 L (3.5-5.0) g/dL Assessment and Plan Assessment and Plan: I have seen and examined the patient with Pam Carty APRN. I developed the plan of care. The patient will start Opdivo today. Also gave him a dose of Zometa for the hypercalcemia. - Time Spent With Patient Total time spent is greater than 50% in coordination of care (as documented) at patient's floor/unit and/or counseling patient:
[2017-07-29] MEDS ORDERED: GRANISETRON 1mg/ml INJECTION IVP ONE (14:00)
[2017-07-29] MEDS ORDERED: DiphenhydrAMINE 50 MG/ML INJECTION IVP PRN (14:09)
[2017-07-29] MEDS ORDERED: HYDROCORTISONE SOD SUCC 100mg/2ml INJECTION IVP PRN (14:10)
[2017-07-29] MEDS ORDERED: DiphenhydrAMINE 50 MG/ML INJECTION IVP ONE (14:10)
[2017-07-29] MEDS ORDERED: METHYLPREDNISOLONE SOD SUCC 125mg/2ml INJECTION IVP PRN (14:11)
[2017-07-29] MEDS ORDERED: OPDIVO IV SCH (14:30)
[2017-07-29] MEDS ORDERED: NS IV SCH (14:30)
--- NOTE | 2017-07-29 14:55 | Echocardiogram ---
DATE OF PROCEDURE July 28, [address] Alley Chavez This is a two-dimensional echo with spectral Doppler, color-flow and M-mode. It was obtained in a patient with congestive heart failure and tachycardia. Left atrial dimension is normal. Left ventricular end-diastolic dimension is normal. Left ventricle wall thickness is normal. LV systolic function is normal with ejection fraction of about 70%. Right atrium is normal. Right ventricle is normal. Aortic root dimension is normal. Mitral valve appears to be normal. Aortic valve appears to be normal. Tricuspid valve appears to be normal. Pulmonary valve shows trace of pulmonary insufficiency. There is no pericardial effusion. This is a technically difficult study. IMPRESSION 1. Technically difficult study. 2. Normal LV systolic function with ejection fraction of 70%. 3. Trace of pulmonary insufficiency. MTDD
[2017-07-29] MEDS: ALBUTEROL/IPRATROPIUM 2.5mg-0.5mg/3ml NEB AEROSOL PRN (20:19)
[2017-07-29] MEDS: SALINE FLUSH 10ml SYRINGE IVF PRN (20:37)
[2017-07-29] MEDS: MIRTAZAPINE 15 MG TABLET PO SCH (20:38)
[2017-07-29] MEDS ORDERED: NS FLUSH BAG 500ml IV PRN (23:32)
[2017-07-30] MEDS: ALBUTEROL/IPRATROPIUM 2.5mg-0.5mg/3ml NEB AEROSOL PRN (04:38)
[2017-07-30] MEDS: PANTOPRAZOLE 40 MG TABLET PO SCH ×2 (05:35→16:13)
[2017-07-30] MEDS ORDERED: LEVOTHYROXINE 25 MCG TABLET PO SCH (06:30)
[2017-07-30 07:12] VITALS: BP 130/80; TEMP 95.8
[2017-07-30] MEDS: ALBUTEROL/IPRATROPIUM 2.5mg-0.5mg/3ml NEB AEROSOL SCH ×4 (07:45→20:35)
[2017-07-30] MEDS: CEFAZOLIN 1 G in NS 100 ML IV SCH ×2 (08:57→16:11)
[2017-07-30] MEDS: SERTRALINE 100 MG TABLET PO SCH (08:59)
[2017-07-30] MEDS: ALLOPURINOL 100 MG TABLET PO SCH (08:59)
[2017-07-30] MEDS: TOPIRAMATE 25 MG TABLET PO SCH (08:59)
[2017-07-30] MEDS: SENNA + DOCUSATE TABLET PO SCH (08:59)
[2017-07-30 09:48] VITALS: PULSE 110
--- NOTE | 2017-07-30 10:46 | Progress Note ---
- Date 07/30/17 Subjective: Jd is seen today in follow up. He is lethargic today and has difficulty keeping his eyes open for discussion. His parents are at his side this morning and verify that he is much more lethargic and confused at times today. He continues on 4 liters of oxygen and is noted to have mild respiratory distress with crackles and wheezes present. He denies having pain during examination. Noted to be tachycardic at 110. Objective Vital signs: Temperature 95.8 F L 07/30/17 07:07 Pulse Rate 110 H 07/30/17 08:00 Respiratory Rate 18 07/30/17 07:45 Blood Pressure 130/80 07/30/17 07:07 Pulse Oximetry 95 07/30/17 07:45 Height/Weight/BMI: Height 1.78 m Weight 130.5 kg Body Mass Index 41.6 - Constitutional Present: mild distress, well nourished, well developed - Routine HEENT Exam Eye: Present: EOMI ENT: Present: mucous membranes moist, dentition normal - Routine Respiratory Exam Present: respiratory distress, wheezes, crackles - Routine Cardiovascular Exam Present: S1, S2, tachycardia (110). Absent: murmur - Routine Abdominal Exam Present: soft, normoactive bowel sounds, non distended. Absent: tenderness - Routine Extremities Exam Present: no edema, full ROM - Routine Skin Exam Present: intact, dry, warm - Routine Neurological Exam Present: alert, CN II-XII intact, moving all extremities - Routine Lymphatic Exam Lymphatic: Absent: adenopathy - Routine Psychiatric Exam Present: cooperative Results - Labs CBC & Chem 7: 07/30/17 04:28 07/30/17 04:28 Microbiology Results: Microbiology 07/28/17 06:58 Thoracic Fluid Gram Stain - Final 07/28/17 06:58 Thoracic Fluid Body Fluid Culture - Final Staphylococcus aureus Assessment and Plan (1) Squamous cell carcinoma, metastatic Problem details: H&N, penile-2 primaries Current visit: No Status: Chronic (2) Weakness Problem details: With recent fall Current visit: Yes Status: Acute (3) Pleural effusion Current visit: Yes Status: Acute Assessment and Plan: Assessment Respiratory failure with progressive cough and hypoxia (home oxygen use 3-4 L) Rapidly progressive metastatic squamous cell carcinoma to the lungs, pleural cavity, mediastinum, retroperitoneal lymph nodes, and liver Symptomatic right pleural effusion most likely malignant. Had Pleurx catheter ( catheter removed 07/08 d/t infection). CRYSTAL infection right pleural space/fluid Leukocytosis-POA Hypercalcemia-POA Hypokalemia-POA Probable dehydration Chronic/associated conditions Anemia History of Stage IVB anterior tongue SCC s/p partial glossectomy with neck dissection followed by concurrent [place]/XRT in 2015. 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 Asthma Gout ANALI Morbid obesity Plan Barium swallow did revel aspiration- Speech recommended pureed meat- Syrup thick liquids Continue cefazolin for CRYSTAL infection of the pleural space. Gram stains and cultures from 07/25 and 07/28 have been negative to date. White count is trending down, currently at 17.6. Mild respiratory distress- Continue with scheduled Duoneb Nebs, suctioning and Lasix for diuresis. Pain appears to be well controlled- Continue with current regimen including MS Contin, oxycodone, fentanyl patch Oncology management as per Dr Calderón- Did receive Opdivo yesterday. ( this may be causing increased Lethargy today) Continue to follow labs, white count remains elevated at 18.7, helical been stable at 9.5 Did discuss plan of care with Jd and his parents. 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 Case discussed with attending, Dr Edmondson - Time spent with patient Time with patient PN: 50 minutes - Physician Narrative Physician: Marie Edmondson MD Narrative: Date: 07/30/17 Time: 1614 patient was seen multiple times throughout the day. Initially he was certainly worse than I saw yesterday. He has much more upper airway congestion and is unable to clear that. He is much more lethargic. This morning mom, dad and half -brother were in the room. This afternoon both children and were in the room. Dr. Serrato stopped the OpDivo. It was felt that this indeed had made him worse and there is no other option at this point. I had a long discussion this morning with his parents and half-brother as well as the patient, discussing palliative care. I explained that there was no good outcome to this situation and it was just a matter of time. I felt with his rapidly progressive dyspnea he would be best served with comfort care. Subsequently, a family meeting with the children and was conducted along with Dr. Serrato and myself. The decision was made to initiate comfort care. Hospice is supposed to come in the next hour or so. PE: Gen: lethagic, somewhat confused. Repeats himself frequently. Skin: warm and dry HEENT: NC/AT PERRL, EOMI, Sclera, lids and conjunctiva wnl. MMM. OP clear. Neck: SHort and thick. No JVD, Carotids 2+ without bruits Lungs: Diminished. +Crackles, Considerable upper airway congestion CV: regular. No murmur, rub or gallop Abd: soft. +BS. TTP diffusely. MS: No edema. Good distal pulses Neuro: No focal deficits Assessment and Plan: (1) Squamous cell carcinoma, metastatic to liver, mediastinum, retroperitoneal LNs, pleural cavity, lungs. -H&N, penile-2 primaries -Failed prior therapies -Rapidly progressing -Started on OpDivo yesterday, Rapid decline today. -OpDivo dc'd -Hospice consulted (2) Weakness (3) Pleural effusion -Symptomatic right pleural effusion most likely malignant. Had Pleurx catheter ( catheter removed 07/08 d/t infection) -Not really a candidate for invasive treatment -Has catheter in fistula from prior Pleurx catheter (4) Respiratory failure with progressive cough and hypoxia (home oxygen use 3-4 L) -Upper airway congestion (5) CRYSTAL infection right pleural space/fluid (6) Hypercalcemia -POA -Due to bone mets/malignancy -Zometa given yesterday (7) Hypokalemia -POA (8) hypophos -Better, dc K-Phos (9) Anemia -relatively stable (10) Hypothyroid (11) ANALI (12) Aspiration (13) GERD (14) Prophylaxis Hospice is currently seeing the patient. We will convert him over to comfort care today. I am not sure he will even make it through the night but certainly our goal will be to keep him comfortable. I did independently examine and speak with the patient. Hospital Course Summary Disclaimer: The visit summary below is not to be considered part of the above Progress Note. Hospital Course: 07/25/17 - Hospital admission Admit, observation, for progressive cough, hypoxia, pleural effusion. Hydrate with normal saline with KCl given his hypokalemia Continue home pain medication regimen with PRN morphine IV. Zofran and promethazine PRN nausea. Promethazine with DM PRN cough. Maicol, RT consult. CXR in am to follow pleural effusion. Repeat labs in a.m. to follow leukocytosis, hypercalcemia and hypokalemia. Continue Augmentin p.o. (if tolerated) for pulmonary and GI coverage in light of recent infection. (Staph aureus on wound culture from right chest wound -pansensitive.) Attending to make further recommendations. Patient and family request not to see Dr. Sharma. They request consult with Dr. Valadez for his opinion. Case discussed with Dr. Valadez who indicated he would see him Friday. Would not recommend surgery at this time, and ideally , if he did have surgery, would recommend this be done by cardiothoracic surgeon. Patient, at this time, declines transfer to [facility]. Patient requests DNR code status. Mother indicates family is willing to discuss hospice or [facility] opts w/ this discharge given his increasing weakness and recent fall. Care to return to Dr Chris Dominguez on discharge. 07/26/17 Continue cefazolin for CRYSTAL infection of the pleural space; white count of fluid draining currently significantly elevated. Fluid originally appeared serous on dressings but is clearly cloudy as being collected now. White count slightly better with conversion to IV antibiotics. Briefly discussed with Dr. Meza who is on-call for Dr. Valadez, surgical consultation planned when Dr. Valadez returns Friday as no surgical intervention would be initiated in the intervening time for pleural fluid collection. SIRS criteria present; will not obtain lactic acid as extended patient's liver disease will make result noninterpretable. Patient reports plan to continue treatment of malignancy with biologic agent which will be delayed managing acute symptoms. The complication introduced by managing infection/potential drainage and delayed treatment of rapidly progressive malignancy discussed with patient as we may not have a perfect outcome/option to offer. Pain and nausea control suboptimal-OxyContin increased to 15 mg every 8 hours, will discuss further with the patient as he is onto long-acting pain medications. May be better served by conversion to MS Contin from a cost perspective. Additional antiemetics available. Nutritional supplements 3 times a day, soft diet-patient reports chewing food fatigues him and causes dyspnea. Continue supportive care. 07/27/17 Jasvir remains very ill. WBC count elevated, +bandemia. Continue cefazolin for CRYSTAL infection of the pleural space. Fluid originally appeared serous on dressings but is clearly cloudy as being collected now. White count remains elevated- past cultures did show an anaerobic concern. Consider adding broader coverage. Will D/W Dr. Chavez. Consult Dr. Valadez in AM. SIRS criteria present; will not obtain lactic acid as extended patient's liver disease will make result noninterpretable. Pain and nausea control suboptimal-OxyContin inverted to morphine ER to 15 mg every 8 hours. Additional antiemetics available. Nutritional supplements 3 times a day, soft diet-patient reports chewing food fatigues him and causes dyspnea. Continue supportive care. Ongoing concerns for esophageal dysphagia- PPI BID. 07/28/17 Continue cefazolin for CRYSTAL infection of the pleural space. WBC still elevated at 20 - may need to expand abx. He's coughing frequently, though this could also be related to pulmonary edema. He received furosemide 20 mg PO this am - may need to provide IV diuresis. Repeat CXR today. K still slightly low with oral furosemide, give extra KDur. Dysphagia improving with Protonix. Barium swallow ordered for tomorrow. Ca up to 11; c/o auditory hallucinations. Dr. Valadez is planning on seeing him this afternoon. Discussed with Dr. Calderón. He will see Mr. Rivera tomorrow. There are questions regarding Opdivo. Continue pain meds with MS Contin (changed to 30 mg BID), fentanyl patch Patient/family weighing options of surgical intervention versus conservative management -- they wish to proceed with the one that will give him the best quality of life. 07/29/17 Continue cefazolin for CRYSTAL infection of the pleural space. Gram stains and cultures from 07/25 and 07/28 have been negative to date. White count is trending down, currently at 17.6. Respiratory status and coughing has improved with IV diuresis yesterday. Repeat chest x-ray tomorrow morning. His renal function remained stable with creatinine of 0.5 and BUN of 12. Potassium is still slightly low at 3.5, will give an additional K-Dur this morning. Phosphorus has improved to 3.1, will discontinue K-Phos. Hemoglobin remains stable at 9.1. Barium swallow study is pending. Continue PPI. Discussed case with Dr. Calderón: He will start Opdivo today. Also will order Zometa for hypercalcemia. Aquaphor ordered for dry skin. 07/30 Barium swallow did revel aspiration- Speech recommended pureed meat- Syrup thick liquids Continue cefazolin for CRYSTAL infection of the pleural space. Gram stains and cultures from 07/25 and 07/28 have been negative to date. White count is trending down, currently at 17.6. Mild respiratory distress- Continue with scheduled Duoneb Nebs, suctioning and Lasix for diuresis. Pain appears to be well controlled- Continue with current regimen including MS Contin, oxycodone, fentanyl patch Oncology management as per Dr Calderón- Did receive Opdivo yesterday. ( this may be causing increased Lethargy today) Continue to follow labs, white count remains elevated at 18.7, helical been stable at 9.5 Did discuss plan of care with Jd and his parents. 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 Case discussed with attending, Dr Edmondson Addendum entered and electronically signed by Holly Lewis APRN 07/30/17 15 :54: 1530- Into room with family, Dr Edmondson and Dr Calderón for meeting regarding treatment plan and clinical deterioration. ([facility]) is in agreement for comfort care and hospice. Hospice will come visit patient this afternoon.
[2017-07-30] MEDS: MORPHINE SULFATE 4mg INJECTION IVP PRN ×2 (13:17→16:06)
--- NOTE | 2017-07-30 13:19 | Progress Note ---
Oncology Subjective Very lethargic today. He feels congested. Family in the room very concerned about his condition. He received the first cycle of Opdivo yesterday without complications. Also he received Zometa. He was started on levothyroxine. Exam Vital signs: Temperature 95.8 F L 07/30/17 07:07 Pulse Rate 110 H 07/30/17 08:00 Respiratory Rate 20 07/30/17 11:29 Blood Pressure 130/80 07/30/17 07:07 Pulse Oximetry 97 07/30/17 11:29 Narrative: Lethargic today. Not feeling well. - Constitutional mild distress, somnolent - Routine Neck Exam Present: swelling Comments: Surgical and radiation changes - Routine Chest/Breast/Axilla Exam Axillae: Present: erythema Comments: And duration of the site of the Pleurx catheter. - Routine Respiratory Exam Present: rhonchi, wheezes, crackles Comments: Seems congested. - Routine Cardiovascular Exam Present: RRR Oncology Results - Labs CBC & Chem 7: 07/30/17 04:28 07/30/17 04:28 Labs: Short CBC 07/30/17 Range/Units 04:28 WBC 18.7 H (4.5-11.0) T/MM3 Hgb 9.5 L (13.5-17.5) GM/DL Hct 32.6 L (41-53) % Plt Count 224 (130-400) T/MM3 BMP 07/30/17 04:28 Sodium 144 Potassium 4.0 Chloride 96 L Carbon Dioxide 37 H BUN 13.0 Creatinine 0.6 L Glucose 119 H Calcium 11.2 H Liver Function 07/30/17 Range/Units 04:28 Total Bilirubin 0.60 (0.20-1.30) MG/DL AST 110 H (17-59) U/L ALT 36 (1-50) U/L Alkaline Phosphatase 263 H (38-126) U/L Albumin 2.9 L (3.5-5.0) g/dL Assessment and Plan Assessment and Plan: Assessment and plan 1. Recurrent metastatic/rapidly progressive head and neck cancer with metastasis to lungs and liver failed [place] and taxing chemotherapy. Started on Opdivo yesterday. 2. Respiratory insufficiency due to metastatic disease, on oxygen. 3. History of penile cancer status post penectomy followed by preoperative chemotherapy followed by bilateral inguinal lymph node dissection. 4. Hypothyroidism, started on levothyroxine. 5. Hypercalcemia of malignancy status post Zometa. - Time Spent With Patient Total time spent is greater than 50% in coordination of care (as documented) at patient's floor/unit and/or counseling patient: 25 - 35 minutes
[2017-07-30] MEDS ORDERED: SCOPOLAMINE 1mg/3 days PATCH (Eq. 1.5 Patch) TD SCH (13:30)
[2017-07-30 15:28] VITALS: O2SAT 95
[2017-07-30] MEDS: MORPHINE SULFATE 4mg INJECTION IVP SCH ×4 (17:25→23:22)
[2017-07-30] MEDS: ATROPINE 1% EYE DROPS PO/SL PRN ×3 (17:25→22:20)
[2017-07-30 20:45] VITALS: RESP 24
[2017-07-30] MEDS: MORPHINE SULFATE 2mg INJ IVP PRN (22:16)
[2017-07-31] MEDS: MORPHINE SULFATE 2mg INJ IVP PRN ×4 (00:09→06:12)
[2017-07-31] MEDS: MORPHINE SULFATE 4mg INJECTION IVP SCH ×6 (01:12→12:16)
[2017-07-31] MEDS: ATROPINE 1% EYE DROPS PO/SL PRN ×3 (01:13→06:13)
[2017-07-31] MEDS: SALINE FLUSH 10ml SYRINGE IVF PRN (05:18)
[2017-07-31] MEDS: ALBUTEROL/IPRATROPIUM 2.5mg-0.5mg/3ml NEB AEROSOL SCH (07:29)
--- NOTE | 2017-07-31 12:19 | Progress Note ---
Exam Vital signs: Temperature 95.8 F L 07/30/17 07:07 Pulse Rate 110 H 07/30/17 08:00 Respiratory Rate 24 07/31/17 00:00 Blood Pressure 130/80 07/30/17 07:07 Pulse Oximetry 95 07/30/17 15:24 Oncology Results - Labs CBC & Chem 7: 07/30/17 04:28 07/30/17 04:28 Assessment and Plan Assessment and Plan: Assessment and plan 1. Recurrent metastatic/rapidly progressive head and neck cancer with metastasis to lungs and liver failed ambler and taxing chemotherapy. Started on Opdivo yesterday. 2. Respiratory insufficiency due to metastatic disease, on oxygen. 3. History of penile cancer status post penectomy followed by preoperative chemotherapy followed by bilateral inguinal lymph node dissection. 4. Hypothyroidism, started on levothyroxine. 5. Hypercalcemia of malignancy status post Zometa. - Time Spent With Patient Total time spent is greater than 50% in coordination of care (as documented) at patient's floor/unit and/or counseling patient:
--- NOTE | 2017-07-31 14:26 | Discharge Summary ---
Discharge Information Date of admission: 07/26/17 12:56 Anticipated date of discharge: 07/31/17 Attending Physician: Alley Chavez MD Primary care physician: Merari Dominguez MD Consults: Dr. Valadez, surgery Dr. Calderón oncology 07/30/17 16:24 Hospice Consult [CONS] Routine - Discharge Diagnosis (1) Squamous cell carcinoma, metastatic Status: Chronic (2) Weakness Status: Acute (3) Pleural effusion Status: Acute Metastatic squamous cell carcinoma to lungs and liver history of squamous cell carcinoma of the head and neck history of squamous cell carcinoma of the penis history of chemotherapy asthma gout obstructive sleep apnea normocytic anemia infected, probably malignant pleural effusion - Laboratory Labs: 07/30/17 04:28 07/30/17 04:28 - Microbiology Microbiology 07/28/17 06:58 Thoracic Fluid Gram Stain - Final 07/28/17 06:58 Thoracic Fluid Body Fluid Culture - Final Staphylococcus aureus - Radiology Radiology: CT of the chest 07/25/[address] chest showing significant fluid and pleural reaction on the right side with moderate changes on the left. Patient shows partial collapse of the right lower lobe and part of the right middle lobe. Scattered areas of increased interstitial prominence identified likely in the right chest. Just mild changes seen on the left. 2. There is a subtle track along the right of the chest probably representing the site of the previous Pleurx which may be spontaneously decompressing. Transthoracic echocardiogram 07/26/17 IMPRESSION 1. Technically difficult study. 2. Normal LV systolic function with ejection fraction of 70%. 3. Trace of pulmonary insufficiency. CT of the head and brain 07/26/17 IMPRESSION: No CT evidence of acute intracranial abnormality. No noncontrast CT evidence of intracranial metastatic disease. Modified barium swallow 07/26/17 Impression: Aspiration with thin liquids. History of Present Illness HPI: Patient is a 47-year-old male with metastatic squamous cell carcinoma to the lungs and liver. 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 He presents to the ER today with a 6 day history of worsening cough and significant increase in drainage from the incision in his right chest where he previously had a Pleurx catheter removed. The Pleurx catheter was placed on 2/22 /[address] Sharma, unfortunately, this had to be removed on 07/08/17 due to infection. He has continued to have drainage since removal. Patient was recently hospitalized from 07/16 through 07/23 due to right upper quadrant pain. During this hospitalization he was found to have multiple new liver lesions and pathology revealed liver metastasis. He states he continues to have moderate right upper quadrant pain and has not been eating or drinking much. He is having some nausea presently, but thinks this is more related to his ongoing cough. He continues to use supplemental oxygen, and reports he is up to 4 L from 3 L recently. He has significant shortness of breath with exertion. Objective Vital signs: Temperature 95.8 F L 07/30/17 07:07 Pulse Rate 110 H 07/30/17 08:00 Respiratory Rate 24 07/31/17 00:00 Blood Pressure 130/80 07/30/17 07:07 Pulse Oximetry 95 07/30/17 15:24 Height/Weight/BMI: Height 1.78 m Weight 130.5 kg Body Mass Index 41.6 Comments: Gen: lethagic, somewhat confused. Repeats himself frequently. Skin: warm and dry HEENT: NC/AT PERRL, EOMI, Sclera, lids and conjunctiva wnl. MMM. OP clear. Neck: SHort and thick. No JVD, Carotids 2+ without bruits Lungs: Diminished. +Crackles, Considerable upper airway congestion CV: regular. No murmur, rub or gallop Abd: soft. +BS. TTP diffusely. MS: No edema. Good distal pulses Neuro: No focal deficits Hospital Course This is a general summary of the patient's hospital course. For more details refer to the complete medical record. Hospital course: 07/25/17 - Hospital admission Admit, observation, for progressive cough, hypoxia, pleural effusion. Hydrate with normal saline with KCl given his hypokalemia Continue home pain medication regimen with PRN morphine IV. Zofran and promethazine PRN nausea. Promethazine with DM PRN cough. Maicol, RT consult. CXR in am to follow pleural effusion. Repeat labs in a.m. to follow leukocytosis, hypercalcemia and hypokalemia. Continue Augmentin p.o. (if tolerated) for pulmonary and GI coverage in light of recent infection. (Staph aureus on wound culture from right chest wound -pansensitive.) Attending to make further recommendations. Patient and family request not to see Dr. Sharma. They request consult with Dr. Valadez for his opinion. Case discussed with Dr. Valadez who indicated he would see him Friday. Would not recommend surgery at this time, and ideally , if he did have surgery, would recommend this be done by cardiothoracic surgeon. Patient, at this time, declines transfer to [place]. Patient requests DNR code status. Mother indicates family is willing to discuss hospice or [facility] opts w/ this discharge given his increasing weakness and recent fall. Care to return to Dr Chris Dominguez on discharge. 07/26/17 Continue cefazolin for CRYSTAL infection of the pleural space; white count of fluid draining currently significantly elevated. Fluid originally appeared serous on dressings but is clearly cloudy as being collected now. White count slightly better with conversion to IV antibiotics. Briefly discussed with Dr. Meza who is on-call for Dr. Valadez, surgical consultation planned when Dr. Valadez returns Friday as no surgical intervention would be initiated in the intervening time for pleural fluid collection. SIRS criteria present; will not obtain lactic acid as extended patient's liver disease will make result noninterpretable. Patient reports plan to continue treatment of malignancy with biologic agent which will be delayed managing acute symptoms. The complication introduced by managing infection/potential drainage and delayed treatment of rapidly progressive malignancy discussed with patient as we may not have a perfect outcome/option to offer. Pain and nausea control suboptimal-OxyContin increased to 15 mg every 8 hours, will discuss further with the patient as he is onto long-acting pain medications. May be better served by conversion to MS Contin from a cost perspective. Additional antiemetics available. Nutritional supplements 3 times a day, soft diet-patient reports chewing food fatigues him and causes dyspnea. Continue supportive care. 07/27/17 Jasvir remains very ill. WBC count elevated, +bandemia. Continue cefazolin for CRYSTAL infection of the pleural space. Fluid originally appeared serous on dressings but is clearly cloudy as being collected now. White count remains elevated- past cultures did show an anaerobic concern. Consider adding broader coverage. Will D/W Dr. Chavez. Consult Dr. Valadez in AM. SIRS criteria present; will not obtain lactic acid as extended patient's liver disease will make result noninterpretable. Pain and nausea control suboptimal-OxyContin inverted to morphine ER to 15 mg every 8 hours. Additional antiemetics available. Nutritional supplements 3 times a day, soft diet-patient reports chewing food fatigues him and causes dyspnea. Continue supportive care. Ongoing concerns for esophageal dysphagia- PPI BID. 07/28/17 Continue cefazolin for CRYSTAL infection of the pleural space. WBC still elevated at 20 - may need to expand abx. He's coughing frequently, though this could also be related to pulmonary edema. He received furosemide 20 mg PO this am - may need to provide IV diuresis. Repeat CXR today. K still slightly low with oral furosemide, give extra KDur. Dysphagia improving with Protonix. Barium swallow ordered for tomorrow. Ca up to 11; c/o auditory hallucinations. Dr. Valadez is planning on seeing him this afternoon. Discussed with Dr. Calderón. He will see Mr. Rivera tomorrow. There are questions regarding Opdivo. Continue pain meds with MS Contin (changed to 30 mg BID), fentanyl patch Patient/family weighing options of surgical intervention versus conservative management -- they wish to proceed with the one that will give him the best quality of life. 07/29/17 Continue cefazolin for CRYSTAL infection of the pleural space. Gram stains and cultures from 07/25 and 07/28 have been negative to date. White count is trending down, currently at 17.6. Respiratory status and coughing has improved with IV diuresis yesterday. Repeat chest x-ray tomorrow morning. His renal function remained stable with creatinine of 0.5 and BUN of 12. Potassium is still slightly low at 3.5, will give an additional K-Dur this morning. Phosphorus has improved to 3.1, will discontinue K-Phos. Hemoglobin remains stable at 9.1. Barium swallow study is pending. Continue PPI. Discussed case with Dr. Calderón: He will start Opdivo today. Also will order Zometa for hypercalcemia. Aquaphor ordered for dry skin. 07/30 Barium swallow did revel aspiration- Speech recommended pureed meat- Syrup thick liquids Continue cefazolin for CRYSTAL infection of the pleural space. Gram stains and cultures from 07/25 and 07/28 have been negative to date. White count is trending down, currently at 17.6. Mild respiratory distress- Continue with scheduled Duoneb Nebs, suctioning and Lasix for diuresis. Pain appears to be well controlled- Continue with current regimen including MS Contin, oxycodone, fentanyl patch Oncology management as per Dr Calderón- Did receive Opdivo yesterday. ( this may be causing increased Lethargy today) Continue to follow labs, white count remains elevated at 18.7, helical been stable at 9.5 Did discuss plan of care with Jd and his parents. 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 Case discussed with attending, Dr Edmondson Due to increased lethargy the OpDivo was discontinued. The patient continued to be weak to the point he was unable to clear his secretions. We had a family meeting to discuss options. Ultimately it was felt that there was no further options for treatment and the patient and his family decided on comfort care. The patient was seen by hospice and was made comfortable. The patient 07/31/17 at 7:35 AM. Discharge Plan - Discharge Disposition Discharge Date: 07/31/17 Disposition: 20 *Condition: Reason For Visit (Visit label in EMR): weakness,hypercalcemia - Discharge Medications *Discharge Medications: Discontinued Cyanocobalamin (Vitamin B-12) [Vitamin B-12] 1 tab PO DAILY #0 tab Allopurinol [Zyloprim] 100 mg PO DAILY Docusate Sodium 100 mg PO BID PRN PRN Reason: Constipation Betamethasone/Propylene Glyc [Betamethasone Dp Aug 0.05% Crm] 1 applicatio TP TID PRN PRN Reason: Wound Healing Albuterol/Ipratropium [Duoneb] 3 ml AEROSOL RTQID #1 box Mirtazapine [Remeron] 7.5 mg PO HS #30 tab Oxycodone *IR* [Roxicodone *Ir*] 15 mg PO Q4H PRN #30 tab PRN Reason: Pain Oxycodone CR [Oxycontin] 15 mg PO Q12HR #30 tab Sertraline [Zoloft] 200 mg PO DAILY #30 tab fentaNYL [Fentanyl] 25 mcg TD Q3D #10 patch.[id number] Furosemide [Lasix] 20 mg PO DAILY PRN #30 tab PRN Reason: edema Potassium Chloride 10 meq PO PRN PRN #30 capsule.er PRN Reason: Leg Swelling Elderberry Fruit/Honey [Little Remedies Cough-Immune] 1 dose PO DAILY #0 Ondansetron HCl 4 mg SL Q6HR PRN PRN Reason: Nausea Topiramate [Topamax] 50 mg PO BID PEG 3350 17gm PACKET [Miralax] 17 gm PO DAILY PRN #1 packet PRN Reason: constipation Amoxicillin/Potassium Clav [Augmentin 875-125 Tablet] 1 each PO BID 5 Days # 10 tab Sennosides/Docusate Sodium [Senna-S Tablet] 1 tab PO BID - Discharge Packet/Instructions *Diet: N/A *Activity: N/A *Pain Management/Treatment: N/A *Wound Care: N/A *Expected Signs/Symptoms: N/A *Notify Physician if: N/A *During Business Hours Contact: N/A *After Business Hours Contact: N/A *Pending Lab/Results: No Pending Lab - Referrals/Follow Up - Patient Handouts - Dismissal Complete Discharge Instructions are:: Complete Physician Narrative - Narrative Attestation Narrative: Date: 07/31/17 Time: [id number]
[2017-08-02] MEDS ORDERED: SCOPOLAMINE PATCH REMOVAL TD ONE (13:30)
== END 2017-07-31 07:35 | disposition expired | DRG 180 ==
LOC: ED 12:06 → MED 12:06
PROVIDERS: ADMIT Internal Medicine; ATTEND Internal Medicine